=== PATIENT | female | born 1975 | race African-American/Black ===

== ENCOUNTER 2018-04-15 07:56 | Emergency (ER) | payer OTHER ==
[~2018-04-15] VITALS: Ht 165.1 cm; Wt 79.4 kg
[~2018-04-15 07:56] MED LIST: AUGMENTIN 875-1 EACH PO; BENADRYL25 MG PO; BIOTIN-D1 GM MISC; BUPROPION HCL100 MG PO; CARVEDILOL25 MG PO; CEPHALEXIN500 MG PO; COREG12.5 MG; ERYTHROMYCIN3.5 GM OPTH; HYDROCHLOROTHIA25 MG PO; HYDROCODON-ACE1 EA11 PO; IBUPROFEN400 MG PO; IBUPROFEN600 MG PO; MECLIZINE HCL25 MG PO; NORCO 5-325 TA1 EACH PO; NORCO 7.5-3251 EACH PO; OXYCODONE-ACET1 EAC3 PO; PSEUDOEPHEDRINE30 MG PO; PSEUDOEPHEDRINE60 MG PO; PYRIDIUM200 MG PO; RANITIDINE HCL150 MG PO; RANITIDINE HCL300 M1 PO; SUDAFED 12-HOU120 MG PO; TAMIFLU75 MG PO; TESSALON PERLE100 MG PO; ZITHROMAX250 MG PO
[2018-04-15] MEDS ORDERED: CARVEDILOL12.5 MG PO (08:23)
== END 2018-04-15 08:15 | disposition home or self-care (01) ==
LOC: ED 07:56
DX: R21 Rash and other nonspecific skin eruption (principal)

== ENCOUNTER 2019-01-24 17:39 | Emergency (ER) | payer OTHER ==
[~2019-01-24] VITALS: Ht 165.1 cm; Wt 76.2 kg
--- OUTSIDE RECORDS SUMMARY | ~2019-01-24 | XMS | Encounter Summary ---
Demographics + + + | Address | [address] | | | [place] [address] | + + + | Home Phone | | + + + | Preferred Language | Unknown | + + + | Marital Status | | + + + | Anabaptist Affiliation | Unknown | + + + | Race | Black or | + + + | Ethnic Group | Not or | + + + Author + + + | Author | [facility] | + + + | Organization | [facility] | + + + | Address | Unknown | + + + | Phone | Unavailable | + + + Support + + +---------+ + | Name | Relationship | Address | Phone | + + +---------+ + | Esau Mayers | ECON | Unknown | | + + +---------+ + Care Team Providers + +------+ + | Care Coreroom Foundry Laborer Name | Role | Phone | + +------+ + | Catalino Vides PRESSED OR BLOWN GLASS WORKER | PCP | | + +------+ + Reason for Referral Physical Therapy (Routine) +--------+--------+ + + + + | Status | Reason | Specialty | Diagnoses / | Referred By | Referred To | | | | | Procedures | Contact | Contact | +--------+--------+ + + + + | Closed | | Physical | Diagnoses | Nita, | | | | | Therapy | ACL graft | Mikayla | | | | | | tear, | TAB[facility]ar | | | | | | subsequent | [address] | | | | | | encounter | [address] | | | | | | Procedures | [place], [place] | | | | | | PHYSICAL | [address] | | | | | | THERAPY | Phone: | | | | | | REFERRAL | [phone] | | | | | | | Fax: | | | | | | | [phone] | | +--------+--------+ + + + + Reason for Visit + + + | Reason | Comments | + + + | Pre-op evaluation | | + + + Encounter Details +--------+---------+ + + + | Date | Type | Department | Care Team | Description | +--------+---------+ + + + | 08/19/ | Office | Orthopaedics at | Mikayla Moya | ACL graft tear, | | 2019 | Visit | [facility] [address] | [address] | subsequent encounter | | | | [address] Mailcode: CH12[address] | [address] | (Primary Dx) | | | | [facility] | [place], [place] | | | | | and Healing, | [address] | | | | | [facility] | [phone] | | | | | Floor [place], [place] | | | | | | [address] | | | | | | [phone] | | | +--------+---------+ + + + Social History + +-------+ +--------+------+ | Tobacco [...] + + + | Blood Pressure | - | - | | + + + + + | Pulse | - | - | | + [...] Weight | 77.1 kg (170 lb) | 08/19/2018 10:05 AM | | | | | PDT | | + + + + + | Height | 165.1 cm (5' 5") | 08/19/2018 10:05 AM | | | | | PDT | | + + + + + | Body Mass Index | 28.29 | 08/19/2018 10:05 AM | | | | | PDT | | + + + + + documented in this encounter Progress Notes Radha Han MA - 08/19/2018 10:20 AM PDTI fitted a tscope & crutches brace on this patient s R knee Mikayla Proctor PA-C - 08/19/2018 10:20 AM PDT S: Song Mayers here for preop for right knee revision arthroscopic ACL reconstru ction with allograft, removal of failed hardware, and possible bone grafting of prior ACL tu nnels. The patient reports no recent illness/fever. The patient reports these conditions, a llergies and medications significant to surgery: Diabetes: no Sleep apnea: no Cardiac: no Pulmonary: no Bleeding or clotting disorders: no No Known Allergies Current Medication List Name Sig CARVEDILOL 12.5 MG TABLET CARVEDILOL 25 MG TABLET Take 25 mg by mouth. HYDROCHLOROTHIAZIDE 25 MG TABLET Take 25 mg by mouth. OBJECTIVE General: NAD, alert, affect appropriate, cooperative with exam Musculoskeletal: No change from previous. Surgical site is unbroken, without erythema or other sign of infection. A:/P: -PT orders provided -Post operative prescriptions provided; pt advised to fill prior to surgery. -D/C home care instructions provided. DVT prophylaxis will be immediate ambulation, SCDs. A PARQ session was held. Additional questions with discussion were completed, and the patie nt freely signed the consent form. Patient expressed understanding of the following: - No food or drink from midnight the night before surgery until after surgery is completed. - Medications the day of surgery as recommended by Anesthesia. - Discontinue all aspirin, Ibuprofen, Motrin, or other anti-inflammatory 7-10 days before s urgery - Tylenol, Extra Strength Tylenol or Tylenol Arthritis are okay to use for pain control. - Benefits of home nerve block - Benefits of oral pain medication in addition to home nerve block - Necessity of bringing crutches to surgery -Proper use of brace and weightbearing precautions (if applicable) -Importance of attending post-operative appointments - Potential for ongoing physical therapy - Need for a caregiver to transport them home from surgery - Need for a caregiver to stay with them for at least 24 hours after surgery documented in this encounter Plan of Treatment +--------+---------+ + + + | Date | Type | Specialty | Care Team | Description | +--------+---------+ + + + | 03/07/ | Office | Orthopedics | Jv Thomas, | | | 2018 | Visit | | MD [address] | | | | | | [address] | | | | | | [place], [place] | | | | | | [address] | | | | | | [phone] | | | | | | | | +--------+---------+ + + + | 08/24/ | Office | Orthopedics | Jv Thomas, | | | 2019 | Visit | | MD [address] | | | | | | [address] | | | | | | [facility] [place] | | | | | | [address] | | | | | | [phone] | | | | | | | | +--------+---------+ + + + documented as of this encounter Procedures + +--------+ + + + | Procedure Name | Priori | Date/Time | Associated Diagnosis | Comments | | | ty | | | | + +--------+ + + + | ORDERS OTHER | | 08/19/2018 | | Results for this | | | | 12:00 AM | | procedure are in the | | | | PDT | | results section. | + +--------+ + + + documented in this encounter Results ORDERS OTHER (08/19/2018 12:00 AM PDT) + + + | Narrative | Performed At | + + + | | | + + + documented in this encounter Visit Diagnoses + + | Diagnosis | + + | ACL graft tear, subsequent encounter - Primary | + + documented in this encounter
--- OUTSIDE RECORDS SUMMARY | ~2019-01-24 | XMS | Encounter Summary ---
Demographics + + + | Address | [address] | | | [place] [address] | + + + | Home Phone | | + + + | Preferred Language | Unknown | + + + | Marital Status | | + + + | Hindu Affiliation | Unknown | + + + | Race | Black or | + + + | Ethnic Group | Not or | + + + Author + + + | Organization | Unknown | + + + | Address | Unknown | + + + | Phone | Unavailable | + + + Support + + +---------+ + | Name | Relationship | Address | Phone | + + +---------+ + | Esau Mayers | ECON | Unknown | | + + +---------+ + Care Team Providers + +------+ + | Care Professor Of Early Childhood Education Name | Role | Phone | + +------+ + | Catalino Vides NP | PCP | | + +------+ + Encounter Details +--------+--------+ + + + | Date | Type | Department | Care Team | Description | +--------+--------+ + + + | 10/07/ | Travel | | | | | 2018 | | | | | +--------+--------+ + + + Social History + +-------+ [...] as of this encounter Plan of Treatment +--------+---------+ + + + | Date | Type | Specialty | Care Team | Description | +--------+---------+ + + + | 03/07/ | Office | Orthopedics | Jv Thomas, | | | 2019 | Visit | | [address] | | | | | | [address] | | | | | | [place], [place] | | | | | | [address] | | | | | | [phone] | | | | | | | | +--------+---------+ + + + | 08/24/ | Office | Orthopedics | Jv Thomas, | | | 2019 | Visit | | [address] | | | | | | [address] | | | | | | [place] | | | | | | [address] | | | | | | [phone] | | | | | | | | +--------+---------+ + + + documented as of this encounter Visit Diagnoses Not on filedocumented in this encounter"
--- OUTSIDE RECORDS SUMMARY | ~2019-01-24 | XMS | Encounter Summary ---
Demographics + + + | Address | [address] | | | [place] [address] | + + + | Home Phone | | + + + | Preferred Language | Unknown | + + + | Marital Status | | + + + | Denominational Affiliation | Unknown | + + + | Race | Black or | + + + | Ethnic Group | Not or | + + + Author + + + | Author | [facility] | + + + | Organization | [facility] | + + + | Address | Unknown | + + + | Phone | Unavailable | + + + Support + + +---------+ + | Name | Relationship | Address | Phone | + + +---------+ + | Esau Mayers | ECON | Unknown | | + + +---------+ + Care Team Providers + +------+ + | Care Machine Heel Builder Name | Role | Phone | + +------+ + | Catalino Vides NP | PCP | | + +------+ + Reason for Visit + + + | Reason | Comments | + + + | Refill Encounters | | + + + Encounter Details +--------+ + + + + | Date | Type | Department | Care Team | Description | +--------+ + + + + | 08/31/ | Telephone | Orthopaedics at | Jv Thomas, | Refill Encounters | | 2019 | | [facility] [address] | MD [address] | | | | | [place] Mailcode: CH12A | [address] | | | | | [facility] | [place], [place] | | | | | and [place], | [address] | | | | | Building | [phone] | | | | | Floor [place], [place] | | | | | | [address] | | | | | | [phone] | | | +--------+ + + + [...] [address] | | | | | | [place], [place] | | | | | | [address] | | | | | | [phone] | | | | | | | | +--------+---------+ + + + | 08/24/ | Office | Orthopedics | Jv Thomas, | | | 2019 | Visit | | MD [address] | | | | | | [address] | | | | | | [place], [place] | | | | | | [address] | | | | | | [phone] | | | | | | | | +--------+---------+ + + + documented as of this encounter Visit Diagnoses Not on filedocumented in this encounter"
--- OUTSIDE RECORDS SUMMARY | ~2019-01-24 | XMS | Encounter Summary ---
Demographics + + + | Address | [address] | | | [place] [address] | + + + | Home Phone | | + + + | Preferred Language | Unknown | + + + | Marital Status | | + + + | Samaritan Affiliation | Unknown | + + + [...] Team Providers + +------+ + | Care Readers' Advisory Service Librarian Name | Role | Phone | + +------+ + | Catalino Vides NP | PCP | | + +------+ + Encounter Details +--------+--------+ + + + | Date | Type | Department | Care Team | Description | +--------+--------+ + + + | 09/09/ | Travel | | | | | [address] | | | | | | [place], [place] | | | | | | [address] | | | | | | [phone] | | | | | | | | +--------+---------+ + + + | 08/24/ | Office | Orthopedics | Jv Thomas, | | | 2019 | Visit | | [address] | | | | | | [address] | | | | | | [place] | | | | | | [address] | | | | | | [phone] | | | | | | | | +--------+---------+ + + + documented as of this encounter Visit Diagnoses Not on filedocumented in this encounter"
--- OUTSIDE RECORDS SUMMARY | ~2019-01-24 | XMS | Encounter Summary ---
Demographics + + + | Address | [address] | | | [place] [address] | + + + | Home Phone [...] Author + + + | Author | [facility] | + + + | Organization | [facility] | + + + | Address | Unknown | + + + | Phone | Unavailable | + + + Support + + +---------+ + | Name | Relationship | Address | Phone | + + +---------+ + | Esau Mayers | ECON | Unknown | | + + +---------+ + Care Team Providers + +------+ + | Care Sql Manager Name | Role | Phone | + +------+ + | Catalino Vides NP | PCP | | + +------+ + Reason for Referral PROC - Outpatient Surgery (Routine) +--------+--------+ + + + + | Status | Reason | Specialty | Diagnoses / | Referred By | Referred To | | | | | Procedures | Contact | Contact | +--------+--------+ + + + + | Closed | | Orthopedics | Diagnoses | Conner, | Martha, | | | | | ACL graft | Christo Moss, | Jv Moss MD | | | | | tear, | MD Diaz | [address] [facility] | | | | | initial | [facility] | [address] | | | | | encounter | & [place] | [place], | | | | | ([facility]) | [address] | [place] | | | | | Procedures | [place] | [address] | | | | | REQUEST TO | [place], | Phone: | | | | | SURGERY | [place] [address] | [phone] | | | | | INTAKE RN | Phone: | Fax: | | | | | [place] | [phone] | [phone] | | | | | SCOPE,AID | Fax: | | | | | | ANT CRUCIATE | [phone] | | | | | | REPAIR [place] | | | | | | | REMOVAL DEEP | | | | | | | IMPLANT | | | +--------+--------+ + + + + Reason for Visit + + + | Reason | Comments | + + + | New Patient Visit | | + + + Intake Referral (Routine) + +--------+ + + + + | Status | Reason | Specialty | Diagnoses / | Referred By | Referred To | | | | | Procedures | Contact | Contact | + +--------+ + + + + | Authorized | | Orthopedics | Diagnoses | Conner, | Martha, | | | | | Other tear | Christo Moss, | Jv Moss MD | | | | | of medial | MD [facility] | [address] | | | | | meniscus, | [facility] | [address] | | | | | current | & Fractur | [address] [place], | | | | | injury, | [address] | [place] | | | | | right knee, | [address] | [address] | | | | | initial | [place], | Phone: | | | | | encounter | [place] [address] | [phone] | | | | | Encounter | Phone: | Fax: | | | | | for other | [phone] | [phone] | | | | | orthopedic | Fax: | | | | | | aftercare | [phone] | | + +--------+ + + + + Encounter Details +--------+---------+ + + + | Date | Type | Department | Care Team | Description | +--------+---------+ + + + | 07/29/ | Office | Orthopaedics at | Jv Thomas, | ACL graft tear, | | 2019 | Visit | [facility] [address] | MD [address] | initial encounter | | | | Ave Mailcode: CH12A | [address] | ([facility]) (Primary Dx) | | | | [facility] | [place], [place] | | | | | and Healing, | [address] | | | | | Building | [phone] | | | | | Floor [place], [place] | | | | | | [address] | | | | | | [phone] | | | +--------+---------+ + + + [...] + + + + | Weight | 78 kg (172 lb) | 07/29/2018 9:31 AM | | | | | PDT | | + + + + + | Height | 165.1 cm (5' 5") | 07/29/2018 9:31 AM | | | | | PDT | | + + + + + | Body Mass Index | 28.62 | 07/29/2018 9:31 AM | | | | | PDT | | + + + + + documented in this encounter Progress Notes Jv Thomas MD - 07/29/2018 9:50 AM PDTFormatting of this note might be different fr om the original. CLINIC: [facility] Sports Medicine - Orthopedic Surgery PATIENT: Song Mayers [facility] MR#: [id number] : 1975 REQUESTING PROVIDER: Christo Prieto MD [facility] [address] [place] [address] PRIMARY CARE PROVIDER: Catalino Vides NP Primary reason for consult: right knee pain and instability Song Mayers is a 42 y.o. female who presents for evaluation of her right knee s ymptoms which started Mar 29, 2017. She fell wearing heels and dislocated her right shoulder and she was reduced in the ER and did PT. At the same time she injured her right knee. It b ecame very swollen and she had follow up care from PCP. She then saw Dr. Prieto who diagnosed ACL tear. He provided her with ACL reconstruction. She had auto hamstring ACL surgery based on her incision. She did 3 months PT. She never felt stable. It was loose and she never fel t confident. She then had to stop PT and she feels that she has lost strength making it even looser. Currently, both pain and instability are problems for her. About equal factors. She has not fallen but she feels like it will give out. The instability is worst with specific motions but the pain is worst with prolonged sitting or standing and is onstant. The knee feels tigh t most of the time. Past treatment includes rest, ice and NSAIDs. Past Medical History: Diagnosis Date Known health problems: none Past Surgical History Procedure Laterality Date Breast reduction 2018 Acl repair 2017 Hysterectomy 2013 Social History: Song reports that she has quit smoking. She has never used smokeless to bacco. She reports that she drinks alcohol. She reports that she does not use drugs.. 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 Family Hx: I reviewed and non-contributory Current Outpatient Prescriptions Medication carvedilol 12.5 mg oral tablet carvedilol 25 mg oral tablet hydroCHLOROthiazide 25 mg oral tablet No current facility-administered medications for this visit. Allergy: Song has No Known Allergies. Review of Systems: 10 point review of systems was complete. Pertinent positives include: None. PHYSICAL EXAMINATION Vital Signs: BP 116/80 (BP Location: Right upper arm) | Pulse 64 | Ht 1.651 m (5' 5") | Wt 78 kg (172 lb) | BMI 28.62 kg/m | BSA 1.89 m General: Alert and oriented x 3, NAD Affect: Pleasant and interactive Posture: nl WEIGHTBEARING RIGHT: Neutral LEFT: Neutral FEET: normal SQUAT: limited on right at 90 GAIT: normal SKIN: clean and clear, healed, prior incisions ACTIVE ROM: Right: 0-130, Left: 0-130 POPLITEAL ANGLE: Right: 20, Left: 20 QUADRICEPTS ATROPHY: Right 30% EFFUSION: Right 10 cc PATELLA: RIGHT LEFT NORMAL TILT Neutral Neutral GLIDE 2 quadrants 2 quadrants CREPITATION None None J SIGN Absent Absent TENDERNESS None None APPREHENSION Neg Neg LIGAMENTS: RIGHT LEFT VALGUS AT 30 Neg Neg VARUS AT 30 Neg Neg KAREEN 2b 0 ANT. DRAWER 2b Firm endpoint, symmetric PIVOT SHIFT deferred Absent POST. DRAWER Negative Negative PRONE DIAL 30 Symmetric Symmetric PRONE DIAL 90 Symmetric Symmetric PERIARTICULAR TENDERNESS: RIGHT LEFT JLT MEDIAL Neg Neg JLT LATERAL Neg Neg DARREN Neg Neg RENETTA Neg Neg PATELLAR TENDON EXT Neg Neg NVS: Intact Veronica Sign: Bilateral negative OTHER PHYSICAL FINDINGS: Radiographs: Within normal limits except as below RIGHT LEFT X-rays Nl postop MRI Displaced femoral ACL screw and wavy graft consistent with graft rupture ASSESSMENT/PLAN: Song Mayers is a 42 y.o. female with failed ACL reconstruction and loose screw in the joint. I have recommended immediate revision with removal of hardwar e and ACL tunnel bone grafting with staged revision grafting vs revision ACL reconstruction. Given the large previous tunnels, I have recommended allograft for revision and I explained that bone grafting is more likely. She understands and wishes to proceed. Jv Thomas MD Sports Orthopaedics and Arthroscopy Talent Coordinator Dept. Orthopaedic Surgery and Rehabilitation [facility] documented in this e ncounter Plan of Treatment +--------+---------+ + + + | Date | Type | Specialty | Care Team | Description | +--------+---------+ + + + | 03/07/ | Office | Orthopedics | Jv Thomas, | | | 2018 | Visit | | MD Joey Fortune | | | | | | [address] | | | | | | [facility] [place] | | | | | | [address] | | | | | | [phone] | | | | | | | | +--------+---------+ + + + | 08/24/ | Office | Orthopedics | Jv Thomas, | | | 2019 | Visit | | MD Joey Fortune | | | | | | [address] | | | | | | [facility] [place] | | | | | | [address] | | | | | | [phone] | | | | | | | | +--------+---------+ + + + documented as of this encounter Visit Diagnoses + + | Diagnosis | + + | ACL graft tear, initial encounter (HCC) - Primary | + + documented in this encounter
--- OUTSIDE RECORDS SUMMARY | ~2019-01-24 | XMS | Encounter Summary ---
Demographics + + + | Address | [address] | | | [place] [address] | + + + | Home Phone | | + + + | Preferred Language | Unknown | + + + | Marital Status | | + + + | Religion Affiliation | Unknown | + + + | Race | Black or | + + + | Ethnic Group | Not or | + + + Author + + + | Author | [facility] | + + + | Organization | [facility] | + + + | Address | Unknown | + + + | Phone | Unavailable | + + + Support + + +---------+ + | Name | Relationship | Address | Phone | + + +---------+ + | Esau Mayers | ECON | Unknown | | + + +---------+ + Care Team Providers + +------+ + | Care Heating Engineer Name | Role | Phone | + +------+ + | Catalino Vides WORLD LANGUAGE TEACHER | PCP | | + +------+ + [...] | | | | | initial | [facility] | [address] | | | | | encounter | & Fractur | Rd [place], | | | | | ([facility]) | [address] | [place] | | | | | Procedures | [address] | [address] | | | | | REQUEST TO | [place], | Phone: | | | | | SURGERY | [place] [address] | [phone] | | | | | MANAGER CLIENT | Phone: | Fax: | | | | | [place] | [phone] | [phone] | | | | | SCOPE,AID | Fax: | | | | | | ANT CRUCIATE | [phone] | | | | | | REPAIR [place] | | | | | | | REMOVAL DEEP | | | | | | | IMPLANT | | | +--------+--------+ + + + + Encounter Details +--------+---------+ + + + | Date | Type | Department | Care Team | Description | +--------+---------+ + + + | 09/09/ | Office | Orthopaedics at | Mikayla Moya | ACL graft tear, | | 2019 | Visit | [facility] [address] | [address] | subsequent encounter | | | | Ave Mailcode: CH12A | [address] | (Primary Dx) | | | | [facility] | [place], [place] | | | | | and [place], | [address] | | | | | [facility] | [phone] | | | | | Floor [place], [place] | | | | | | [address] | | | | | | [phone] | | | +--------+---------+ + + + [...] documented as of this encounter Progress Notes Mikayla Moya PA-C - 09/09/2018 9:20 AM PDTFormatting of this note might be di fferent from the original. Subjective: Song Mayers is 2 weeks status post: Date of surgery: 08/27/18 at [facility] Right knee revision ACL reconstruction with allograft and removal of failed hardware She states that she is progressing well. She has been compliant with 75% weightbearing [facility] with brace. She has not yet unlocked the brace during ambulation. She has attended 2 sessions of PT at [facility]. She continues to have moderate/severe pain and is taking oxycodone 1 tablet every 3 hours, trying to supplement with ibuprofen and tylenol. She den ies any numbness or tingling. No other concerns at today's visit. Objective: Vitals: 09/09/18 0915 PainSc: 08 - Very Severe PainLoc: Knee (Right) Gait: crutches, brace Incisions: clean and dry with no signs of infection. Effusion: small. Range of motion: 0 to 75 Stability: Jenise's and anterior drawer negative with firm end point. Neurovascular: Intact Jointline Tenderness: negative Fair quad set but largely unable to do SLR out of brace Assessment: Ms. Mayers is progressing well. Plan: The sutures are removed without complications. Patient to continue with rehabilition as instructed. Instructed to continue to work hard o n quad strengthening. Follow up in 4 weeks, instructions given and explained. documented in this encounter Plan of Treatment +--------+---------+ + + + | Date | Type | Specialty | Care Team | Description | +--------+---------+ + + + | 03/07/ | Office | Orthopedics | Jv Thomas, | | | 2018 | Visit | | MD Joey Fortune | | | | | | [address] | | | | | | [place], [place] | | | | | | [address] | | | | | | [phone] | | | | | | | | +--------+---------+ + + + | 08/24/ | Office | Orthopedics | Jv Thomas, | | | 2019 | Visit | | MD Joey Fortune | | | | | | [address] | | | | | | [place], [place] | | | | | | [address] | | | | | | [phone] | | | | | | | | +--------+---------+ + + + documented as of this encounter Visit Diagnoses + + | Diagnosis | + + | ACL graft tear, subsequent encounter - Primary | + + documented in this encounter"
--- OUTSIDE RECORDS SUMMARY | ~2019-01-24 | XMS | Encounter Summary ---
Demographics + + + | Address | [address] | | | [place] [address] | + + + | Home Phone | | + + + | Preferred Language | Unknown | + + + | Marital Status | | + + + | Mormon Affiliation | Unknown | + + + [...] Team Providers + +------+ + | Care Adult Neurologist Name | Role | Phone | + [...] Rd | | | | | | [place], [place] | | | | | | [address] | | | | | | [phone] | | | | | | | | +--------+---------+ + + + | 08/24/ | Office | Orthopedics | Jv Thomas, | | | 2019 | Visit | | [address] | | | | | | [address] | | | | | | [place] | | | | | | [address] | | | | | | [phone] | | | | | | | | +--------+---------+ + + + documented as of this encounter Visit Diagnoses Not on filedocumented in this encounter"
--- OUTSIDE RECORDS SUMMARY | ~2019-01-24 | XMS | Encounter Summary ---
Demographics + + + | Address | [address] | | | [place] [address] | + + + | Home Phone | | + + + | Preferred Language | Unknown | + + + | Marital Status | | + + + | Holiness Affiliation | Unknown | + + + | Race | Black or | + + + | Ethnic Group | Not or | + + + Author + + + | Author | [facility] | + + + | Organization | [facility] | + + + | Address | Unknown | + + + | Phone | Unavailable | + + + Support + + +---------+ + | Name | Relationship | Address | Phone | + + +---------+ + | Esau Mayers | ECON | Unknown | | + + +---------+ + Care Team Providers + +------+ + | Care Supervisor Alum Plant Name | Role | Phone | + +------+ + | Catalino Vides NP | PCP | | + +------+ + Encounter Details +--------+ + + + + | Date | Type | Department | Care Team | Description | +--------+ + + + + | 09/21/ | Telephone | Orthopaedics at | Jv Thomas, | | | 2018 | | [facility] [address] | [address] | | | | | [place] Mailcode: CH12A | [address] | | | | | [place] [facility] | [place], [place] | | | | | and [place], | [address] | | | | | [facility] | [phone] | | | | | Floor [place], [place] | | | | | | [address] | | | | | | [phone] | | | +--------+ + + + [...] Rd | | | | | | [place] | | | | | | [address] | | | | | | [phone] | | | | | | | | +--------+---------+ + + + | 08/24/ | Office | Orthopedics | Jv Thomas, | | | 2019 | Visit | | MD Joey Fortune | | | | | | [address] | | | | | | [place] | | | | | | [address] | | | | | | [phone] | | | | | | | | +--------+---------+ + + + documented as of this encounter Visit Diagnoses Not on filedocumented in this encounter"
--- OUTSIDE RECORDS SUMMARY | ~2019-01-24 | XMS | Encounter Summary ---
Demographics + + + | Address | [address] | | | [place] [address] | + + + | Home Phone [...] + + + | Author | [facility] | + + + | Organization | [facility] | + + + | Address | Unknown | + + + | Phone | Unavailable | + + + Support + + +---------+ + | Name | Relationship | Address | Phone | + + +---------+ + | Esau Mayers | ECON | Unknown | | + + +---------+ + Care Team Providers + +------+ + | Care Retanned Leather Roller Name | Role | Phone | + [...] (Right knee | | 2018 | | [facility] [address] | Clinic | ) | | | | [place] Mailcode: CH12A | | | | | | [facility] | | | | | | and [place], | | | | | | [facility] | | | | | | [place], [place] | | | | | | [address] | | | | | | [phone] | | | +--------+ + + + [...] 3:47 PM P DTUploading imaging reports from [facility]. Imaging is now in [facility]. Corinna Gil [...] Yes, when: 2018; where: Dr. Prieto at [place] [facility]. Uploaded in Abstract. Do you have a referring provider? yes who: Christo Prieto MD X-Ray Yes, when: 05/25/18; where: [place] Requested via FedEx, MRI Yes, when: 06/01/18; where: [place] Requested via N fax, Other Imaging (CT, Ultrasound, etc.) No Is this a W/C injury? No. If YES, create referral and complete: .ORTWCNEWPATIENT inside referral Note: We do not accept WC under [place] L&[place] as they do not pay at [place] rates. Other out of state claims will only be accepted if they agree to pay at [place] rates docume nted in writing from adjustor. Can you confirm the insurance we will be billing for this visit? [place] Open Option Note: If OHP, please note which type. E.g. [place], [place], [employer], etc.) Reminder: Please create referrals for pts with: HMO, OHP, [place], Self-Pay, W/C, TPL an d ED Post- [...] they d like to sign up for [place] ? Don t forget to pull in [...] | | | | | | [facility] [place] | | | | | | [address] | | | | | | [phone] | | | | | | | | +--------+---------+ + + + | 08/24/ | Office | Orthopedics | Jv Thomas, | | | 2019 | Visit | | MD Joey Fortune | | | | | | [address] | | | | | | [facility] [place] | | | | | | [address] | | | | | | [phone] | | | | | | | | +--------+---------+ + + + documented as of this encounter Visit Diagnoses Not on filedocumented in this encounter"
--- OUTSIDE RECORDS SUMMARY | ~2019-01-24 | XMS | Encounter Summary ---
Demographics + + + | Address | [address] | | | [place] [address] | + + + | Home Phone | | + + + | Preferred Language | Unknown | + + + | Marital Status | | + + + | Orthodox Affiliation | Unknown | + + + | Race | Black or | + + + | Ethnic Group | Not or | + + + Author + + + | Author | [facility] | + + + | Organization | [facility] | + + + | Address | Unknown | + + + | Phone | Unavailable | + + + Support + + +---------+ + | Name | Relationship | Address | Phone | + + +---------+ + | Esau Mayers | ECON | Unknown | | + + +---------+ + Care Team Providers + +------+ + | Care Plant Tech Name | Role | Phone | [...] 10/05/ | Telephone | Orthopaedics at | Jv Thomas, | Refill Encounters | | 2019 | | [facility] [address] | MD [address] | | | | | [place] Mailcode: CH12A | [address] | | | | | [facility] | [place], [place] | | | | | and [place], | [address] | | | | | Building | [phone] | | | | | Floor [place], [place] | | | | | | [address] | | | | | | [phone] | | | +--------+ + + + [...] Rd | | | | | | [place], [place] | | | | | | [address] | | | | | | [phone] | | | | | | | | +--------+---------+ + + + | 08/24/ | Office | Orthopedics | Jv Thomas, | | | 2019 | Visit | | MD Joey Fortune | | | | | | [address] | | | | | | [place], [place] | | | | | | [address] | | | | | | [phone] | | | | | | | | +--------+---------+ + + + documented as of this encounter Visit Diagnoses Not on filedocumented in this encounter"
--- OUTSIDE RECORDS SUMMARY | ~2019-01-24 | XMS | Encounter Summary ---
Demographics + + + | Address | [address] | | | [place] [address] | + + + | Home Phone | | + + + | Preferred Language | Unknown | + + + | Marital Status | | + + + | Catholic Affiliation | Unknown | + + + | Race | Black or | + + + | Ethnic Group | Not or | + + + Author + + + | Author | [facility] | + + + | Organization | [facility] | + + + | Address | Unknown | + + + | Phone | Unavailable | + + + Support + + +---------+ + | Name | Relationship | Address | Phone | + + +---------+ + | Esau Mayers | ECON | Unknown | | + + +---------+ + Care Team Providers + +------+ + | Care Electronic Prepress Technician Name | Role | Phone | [...] Refill Encounters | | 2019 | | [facility] [address] | MD [address] | | | | | [place] Mailcode: CH12A | [address] | | | | | [facility] | [place], [place] | | | | | and [place], | [address] | | | | | Building | [phone] | | | | | Floor [place], [place] | | | | | | [address] | | | | | | [phone] | | | +--------+ + + + [...] Rd | | | | | | [place], [place] | | | | | | [address] | | | | | | [phone] | | | | | | | | +--------+---------+ + + + | 08/24/ | Office | Orthopedics | Jv Thomas, | | | 2019 | Visit | | MD [address] | | | | | | [address] | | | | | | [place], [place] | | | | | | [address] | | | | | | [phone] | | | | | | | | +--------+---------+ + + + documented as of this encounter Visit Diagnoses Not on filedocumented in this encounter"
--- OUTSIDE RECORDS SUMMARY | ~2019-01-24 | XMS | Encounter Summary ---
Demographics + + + | Address | [address] | | | [place] [address] | + + + | Home Phone [...] [facility] [email or web address] [facility] | + + + | Organization | [facility] [email or web address] [facility] | + + + | Address | Unknown | + + + | Phone | Unavailable | + + + Support + + +---------+ + | Name | Relationship | Address | Phone | + + +---------+ + | Esau Mayers | ECON | Unknown | | + + +---------+ + Care Team Providers + +------+ + | Care Steel Plate Printer Name | Role | Phone | + [...] | +--------+ + + + + | 09/17/ | Telephone | Orthopaedics at | Jv Thomas, | Refill Encounters | | 2019 | | [facility] [address] | MD [address] | | | | | [place] Mailcode: CH12A | [address] | | | | | [facility] | [place], [place] | | | | | and [place], | [address] | | | | | Building | [phone] | | | | | Floor [place] [address], [place] | | | | | | [address] | | | | | | [phone] | | | +--------+ + + + [...] Rd | | | | | | [place] [address], [place] | | | | | | [address] | | | | | | [phone] | | | | | | | | +--------+---------+ + + + | 08/24/ | Office | Orthopedics | Jv Thomas, | | | 2019 | Visit | | MD [address] | | | | | | [address] | | | | | | [place], [place] | | | | | | [address] | | | | | | [phone] | | | | | | | | +--------+---------+ + + + documented as of this encounter Visit Diagnoses Not on filedocumented in this encounter"
--- OUTSIDE RECORDS SUMMARY | ~2019-01-24 | XMS | Encounter Summary ---
Demographics + + + | Address | [address] | | | [place] [address] | + + + | Home Phone | | + + + | Preferred Language | Unknown | + + + | Marital Status | | + + + | Latter Day Affiliation | Unknown | + + + | Race | Black or | + + + | Ethnic Group | Not or | + + + Author + + + | Author | [facility] | + + + | Organization | [facility] | [...] Team Providers + +------+ + | Care Credit Collections Rep Name | Role | Phone | + +------+ + | Catalino Vides DIRECTOR SALES SUPPORT | PCP | | + +------+ + [...] | | | | | initial | [facility] | [address] | | | | | encounter | & Fractur | Rd [place], | | | | | ([facility]) | [address] | [place] | | | | | Procedures | [place] | [address] | | | | | REQUEST TO | [place], | Phone: | | | | | SURGERY | [place] [address] | [phone] | | | | | HAT BRAIDER | Phone: | Fax: | | | | | [place] | [phone] | [phone] | | | | | SCOPE,AID | Fax: | | | | | | ANT CRUCIATE | [phone] | | | | | | REPAIR [place] | | | | | | | [...] tear, | | 2019 | Visit | [facility] [address] | [address] | subsequent encounter | | | | Ave Mailcode: CH12A | [address] | (Primary Dx) | | | | [facility] | [place], [place] | | | | | and [place], | [address] | | | | | [facility] | [phone] | | | | | Floor [place], [place] | | | | | | [address] | | | | | | [phone] | | | +--------+---------+ + + + [...] status post: Date of surgery: 08/27/18 at [facility] Right knee revision ACL reconstruction with allograft and removal of failed hardware She states that she is progressing well. She has been compliant with 75% weightbearing [facility] with brace. She has not yet unlocked the brace during ambulation. She has attended 2 sessions of PT at [facility]. She continues to have moderate/severe [...] Rd | | | | | | [place], [place] | | | | | | [address] | | | | | | [phone] | | | | | | | | +--------+---------+ + + + | 08/24/ | Office | Orthopedics | Jv Thomas, | | | 2019 | Visit | | MD [address] | | | | | | [address] | | | | | | [place], [place] | | | | | | [address] | | | | | | [phone] | | | | | | | | +--------+---------+ + + + documented as of this encounter Visit Diagnoses + + | Diagnosis | + + | ACL graft tear, subsequent encounter - Primary | + + documented in this encounter"
--- OUTSIDE RECORDS SUMMARY | ~2019-01-24 | XMS | Clinical Summary ---
Demographics + + + | Address | [address] | | | [place] [address] | + + + | Home Phone [...] + | Organization | [facility] | | | and [place] [...] Team Providers + +------+ + | Care Sales Engagement Manager Name | Role | Phone | [...] | | + +--------+ +--------+ +---------+------+ | [facility] | PHP | [phone] | 10/29/19 | [phone] | | PPO [...] | | 1976 | [phone] | [place] [address] | | | hilary | | | 6 (Home) | | + +--------+ +--------+ + + Advance Directives Patient has advance care planning documents, and code status on file. For more information, please contact:[facility] and [place] [address] + + + + + | Code Status | Date | Date | Comments | | | Activated | Inactivated | | + + + + + | Full Code | 02/02/2018 | 02/03/2018 | | | | 13:53 | 12:41 | | + + + + +
--- OUTSIDE RECORDS SUMMARY | ~2019-01-24 | XMS | Clinical Summary ---
Demographics + + + | Address | [address] | | | [place] [address] | + + + | Home Phone | | + + + | Preferred Language | Unknown | + + + | Marital Status | | + + + | Tenriism Affiliation | Unknown | + + + | Race | Unknown | + + + | Ethnic Group | Unknown | + + + Author + + + | Author | [facility] [employer] [facility] [facility] (Historical as of | | | 11-13-18) | + + + | Organization | [facility] [employer] (Historical as of | | | 11-13-18) [...] [place] | | | | | [address] | | + + + + + Care Team Providers + +------+ + | Care Medical Assisting Instructor Name | Role | Phone | [...] +------+-------+ + | PREMERA | PREMER | [id number] | | | [address] [address] | | | A | [address] | | | [place], [place] | | | DIMENS | | | | [address] | | | [place]ONS | | | | | + +--------+ +------+-------+ + | MEDICAID | EASTER | [id number] | | | [address] | | | N | | | | [place] | | | [place] | | | | [address] | | | SENIOR SALES REPRESENTATIVE | | | | | + +--------+ [...] | Self [birth year] Home: | [facility] [address] | | | al/Fam | | 1976 | [phone] [address] [place] | | | hilary | | | [phone] | [phone] | + +--------+ +--------+ + +
--- OUTSIDE RECORDS SUMMARY | ~2019-01-24 | XMS | Encounter Summary ---
Demographics + + + | Address | [address] | | | [place] [address] | + + + | Home Phone [...] Author + + + | Author | [facility] | + + + | Organization | [facility] | [...] Team Providers + +------+ + | Care Paper Inspector Name | Role | Phone | + +------+ + | Catalino Vides PLASTIC MACHINE OPERATOR | PCP | | + +------+ [...] Op | | 2019 | | [facility] [address] | [address] | | | | | Ave Mailcode: CH12A | [facility] | | | | | [facility] | [place], [place] | | | | | and [place], | [address] | | | | | [facility] | [phone] | | | | | Floor [place], [place] | | | | | | [address] | | | | | | [phone] | | | +--------+ + + + [...] Rd | | | | | | [place], [place] | | | | | | [address] | | | | | | [phone] | | | | | | | | +--------+---------+ + + + | 08/24/ | Office | Orthopedics | Jv Thomas, | | | 2019 | Visit | | MD [address] | | | | | | [address] | | | | | | [place], [place] | | | | | | [address] | | | | | | [phone] | | | | | | | | +--------+---------+ + + + documented as of this encounter Visit Diagnoses Not on filedocumented in this encounter"
--- OUTSIDE RECORDS SUMMARY | ~2019-01-24 | XMS | Encounter Summary ---
Demographics + + + | Address | [address] | | | [place] [address] | + + + | Home Phone [...] Author + + + | Author | [facility] | + + + | Organization | [facility] | + + + | Address | Unknown | + + + | Phone | Unavailable | + + + Support + + +---------+ + | Name | Relationship | Address | Phone | + + +---------+ + | Esau Mayers | ECON | Unknown | | + + +---------+ + Care Team Providers + +------+ + | Care Operational Risk Manager Name | Role | Phone | [...] | | tear, | MD Diaz | [address] [facility] | | | | | initial | [facility] | [address] | | | | | encounter | & [place] | [place], | | | | | ([facility]) | [address] | [place] | | | | | Procedures | [place] | [address] | | | | | REQUEST TO | [place], | Phone: | | | | | SURGERY | [place] [address] | [phone] | | | | | DIGESTER OPERATOR HELPER | Phone: | Fax: | | | | | [place] | [phone] | [phone] | | | | | SCOPE,AID | Fax: | | | | | | ANT CRUCIATE | [phone] | | | | | | REPAIR [place] | | | | | | | [...] | | | | | meniscus, | [facility] | [address] | | | | | current | & Fractur | [address] [place], | | | | | injury, | [address] | [place] | | | | | right knee, | [address] | [address] | | | | | initial | [place], | Phone: | | | | | encounter | [place] [address] | [phone] | | | | | Encounter | Phone: | Fax: | | | | | for other | [phone] | [phone] | | | | | orthopedic | Fax: | | | | | | aftercare | [phone] | | + +--------+ + + + + Encounter Details +--------+---------+ + + + | Date | Type | Department | Care Team | Description | +--------+---------+ + + + | 07/29/ | Office | Orthopaedics at | Jv Thomas, | ACL graft tear, | | 2019 | Visit | [facility] [address] | MD [address] | initial encounter | | | | Ave Mailcode: CH12A | [address] | ([facility]) (Primary Dx) | | | | [facility] | [place], [place] | | | | | and Healing, | [address] | | | | | Building | [phone] | | | | | Floor [place], [place] | | | | | | [address] | | | | | | [phone] | | | +--------+---------+ + + + [...] be different fr om the original. CLINIC: [facility] Sports Medicine - Orthopedic Surgery PATIENT: Song Mayers [facility] MR#: [id number] : 1975 REQUESTING PROVIDER: Christo Prieto MD [facility] Ortho & Fractur [address] [place] [address] PRIMARY CARE PROVIDER: Catalino Vides NP Primary [...] Jv Thomas MD Sports Orthopaedics and Arthroscopy Inspector [employer] Dept. Orthopaedic Surgery and Rehabilitation [facility] documented in this e ncounter Plan of Treatment +--------+---------+ + + + | Date | Type | Specialty | Care Team | Description | +--------+---------+ + + + | 03/07/ | Office | Orthopedics | Jv Thomas, | | | 2018 | Visit | | MD Joey Fortune | | | | | | [address] | | | | | | [facility] [place] | | | | | | [address] | | | | | | [phone] | | | | | | | | +--------+---------+ + + + | 08/24/ | Office | Orthopedics | Jv Thomas, | | | 2019 | Visit | | MD Joey Fortune | | | | | | [address] | | | | | | [facility] [place] | | | | | | [address] | | | | | | [phone] | | | | | | | | +--------+---------+ + + + documented as of this encounter Visit Diagnoses + + | Diagnosis | + + | ACL graft tear, initial encounter (HCC) - Primary | + + documented in this encounter
--- OUTSIDE RECORDS SUMMARY | ~2019-01-24 | XMS | Encounter Summary ---
Demographics + + + | Address | [address] | | | [place] [address] | + + + | Home Phone [...] Author + + + | Author | [facility] | + + + | Organization | [facility] | + + + | Address | Unknown | + + + | Phone | Unavailable | + + + Support + + +---------+ + | Name | Relationship | Address | Phone | + + +---------+ + | Esau Mayers | ECON | Unknown | | + + +---------+ + Care Team Providers + +------+ + | Care Library Media Specialist Name | Role | Phone | + +------+ + | Catalino Vides ENVIRONMENTAL ISSUES INSTRUCTOR | PCP | | + +------+ + [...] | | | | | Procedures | [place], [place] | | | | | | PHYSICAL | [address] | | | | | | THERAPY | Phone: | | | | | | REFERRAL | [phone] | | | | | | | Fax: | | | | | | | [phone] | | +--------+--------+ + + + + [...] tear, | | 2019 | Visit | [facility] [address] | [address] | subsequent encounter | | | | Ave Mailcode: CH12A | [address] | (Primary Dx) | | | | Center for [facility] | [place], [place] | | | | | and Healing, | [address] | | | | | [facility] | [phone] | | | | | Floor [place], [place] | | | | | | [address] | | | | | | [phone] | | | +--------+---------+ + + + [...] Rd | | | | | | [place], [place] | | | | | | [address] | | | | | | [phone] | | | | | | | | +--------+---------+ + + + | 08/24/ | Office | Orthopedics | Jv Thomas, | | | 2019 | Visit | | MD [address] Fortune | | | | | | [address] | | | | | | [facility] [place] | | | | | | [address] | | | | | | [phone] | | | | | | | [...]
--- OUTSIDE RECORDS SUMMARY | ~2019-01-24 | XMS | Clinical Summary ---
Demographics + + + | Address | [address] | | | [place] [address] | + + + | Home Phone [...] Team Providers + +------+ + | Care Obstetrician And Gynaecologist Name | Role | Phone | + +------+ + | Catalino Vides NP | PCP | | + +------+ + Source Comments CATH[facility]INE is fully live on both [facility] and [facility] Allergies No Known Allergies Medications + + [...] Rd | | | | | | [place], [place] | | | | | | [address] | | | | | | [phone] | | | | | | | | +--------+---------+ + + + | 08/24/ | Office | Orthopedics | Jv Thomas, | | | 2019 | Visit | | MD [address] | | | | | | [address] | | | | | | [place], [place] | | | | | | [address] | | | | | | [phone] | | | | | | | [...] | + +--------+ +--------+ + +------+ | [facility] | PROVID | [phone] | 10/29/19 | [phone] | [address] | PPO | | | ENCE | | 18-Pre | 0 | [address] | | | | HEALTH | | sent | | [place], | | | | | | | | [place] [address] | | + +--------+ +--------+ + +------+ [...] | 1976 | [phone] | [place] [address] | | | hilary | | | 6 (Home) | | + +--------+ +--------+ + +
--- OUTSIDE RECORDS SUMMARY | ~2019-01-24 | XMS | Encounter Summary ---
Demographics + + + | Address | [address] | | | [place] [address] | + + + | Home Phone | | + + + | Preferred Language | Unknown | + + + | Marital Status | | + + + | Mandaen Affiliation | Unknown | + + + [...] Team Providers + +------+ + | Care Mobile Practice Lead Name | Role | Phone | + [...] [place] | | | | | | [address] | | | | | | [phone] | | | | | | | | +--------+---------+ + + + | 08/24/ | Office | Orthopedics | Jv Thomas, | | | 2019 | Visit | | [address] | | | | | | [address] | | | | | | [place] | | | | | | [address] | | | | | | [phone] | | | | | | | | +--------+---------+ + + + documented as of this encounter Visit Diagnoses Not on filedocumented in this encounter"
--- OUTSIDE RECORDS SUMMARY | ~2019-01-24 | XMS | Encounter Summary ---
Demographics + + + | Address | [address] | | | [place] [address] | + + + | Home Phone | | + + + | Preferred Language | Unknown | + + + | Marital Status | | + + + | Faith Affiliation | Unknown | + + + [...] Team Providers + +------+ + | Care Back Up Worker Name | Role | Phone | [...] Rd | | | | | | [place], [place] | | | | | | [address] | | | | | | [phone] | | | | | | | | +--------+---------+ + + + | 08/24/ | Office | Orthopedics | Jv Thomas, | | | 2019 | Visit | | [address] | | | | | | [address] | | | | | | [place] | | | | | | [address] | | | | | | [phone] | | | | | | | | +--------+---------+ + + + documented as of this encounter Visit Diagnoses Not on filedocumented in this encounter"
--- OUTSIDE RECORDS SUMMARY | ~2019-01-24 | XMS | Encounter Summary ---
Demographics + + + | Address | [address] | | | [place] [address] | + + + | Home Phone [...] Author + + + | Author | [facility] | + + + | Organization | [facility] | + + + | Address | Unknown | + + + | Phone | Unavailable | + + + Support + + +---------+ + | Name | Relationship | Address | Phone | + + +---------+ + | Esau Mayers | ECON | Unknown | | + + +---------+ + Care Team Providers + +------+ + | Care Inspector Subassemblies Name | Role | Phone | + [...] | | 2019 | on | [facility] [address] | [address] | | | | | Ave Mailcode: CH12A | [address] | | | | | [facility] | [place], [place] | | | | | and [place], | [address] | | | | | [facility] | [phone] | | | | | Floor [place], [place] | | | | | | [address] | | | | | | [phone] | | | +--------+ + + + [...] Rd | | | | | | [facility] [place] | | | | | | [address] | | | | | | [phone] | | | | | | | | +--------+---------+ + + + | 08/24/ | Office | Orthopedics | Jv Thomas, | | | 2019 | Visit | | MD [address] Fortune | | | | | | [address] | | | | | | [facility] [place] | | | | | | [address] | | | | | | [phone] | | | | | | | | +--------+---------+ + + + documented as of this encounter Visit Diagnoses Not on filedocumented in this encounter"
--- OUTSIDE RECORDS SUMMARY | ~2019-01-24 | XMS | Encounter Summary ---
Demographics + + + | Address | [address] | | | [place] [address] | + + + | Home Phone [...] + + | Author | [facility] | + + + | Organization | [facility] | + + + | Address | Unknown | + + + | Phone | Unavailable | + + + Support + + +---------+ + | Name | Relationship | Address | Phone | + + +---------+ + | Esau Mayers | ECON | Unknown | | + + +---------+ + Care Team Providers + +------+ + | Care Instructional Support Assistant Name | Role | Phone | + +------+ + | Catalino Vides OPERATIONAL TEST MECHANIC | PCP | | + +------+ + [...] Op | | 2019 | | [facility] [address] | [address] | | | | | Ave Mailcode: CH12A | [facility] | | | | | [facility] | [place], [place] | | | | | and [place], | [address] | | | | | [facility] | [phone] | | | | | Floor [place], [place] | | | | | | [address] | | | | | | [phone] | | | +--------+ + + + [...] Rd | | | | | | [place], [place] | | | | | | [address] | | | | | | [phone] | | | | | | | | +--------+---------+ + + + | 08/24/ | Office | Orthopedics | Jv Thomas, | | | 2019 | Visit | | MD [address] | | | | | | [address] | | | | | | [place], [place] | | | | | | [address] | | | | | | [phone] | | | | | | | | +--------+---------+ + + + documented as of this encounter Visit Diagnoses Not on filedocumented in this encounter"
--- OUTSIDE RECORDS SUMMARY | ~2019-01-24 | XMS | Encounter Summary ---
Demographics + + + | Address | [address] | | | [place] [address] | + + + | Home Phone [...] + + + | Author | [facility] | + + + | Organization | [facility] | + + + | Address | Unknown | + + + | Phone | Unavailable | + + + Support + + +---------+ + | Name | Relationship | Address | Phone | + + +---------+ + | Esau Mayers | ECON | Unknown | | + + +---------+ + Care Team Providers + +------+ + | Care Welding Engineer Name | Role | Phone | + +------+ + | Catalino Vides FELLMONGERING MACHINE OPERATOR | PCP | | + [...] | encounter | & Fractur | Rd [place], | | | | | ([facility]) | [address] | [place] | | | | | Procedures | [place] | [address] | | | | | REQUEST TO | [place], | Phone: | | | | | SURGERY | [place] [address] | [phone] | | | | | CIGARETTE MAKING MACHINE CATCHER | Phone: | Fax: | | | | | [place] | [phone] | [phone] | | | | | SCOPE,AID | Fax: | | | | | | ANT CRUCIATE | [phone] | | | | | | REPAIR [place] | | | | | | | [...] | 2019 | Visit | [facility] [address] | [address] | subsequent encounter | | | | [place] Mailcode: CH12A | [address] | (Primary Dx) | | | | [facility] | [place], [place] | | | | | and [place], | [address] | | | | | [facility] | [phone] | | | | | Floor [place], [place] | | | | | | [address] | | | | | | [phone] | | | +--------+---------+ + + + [...] status post: Date of surgery: 08/27/18 at [facility] Right knee revision ACL reconstruction with allograft and removal of failed hardware She is no longer using the knee brace full weight bearing. Has been working with PT doing a lot of strengthening exercises. Looking for a release form back to work but needs 1 more week off before starting. 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 Gait: normal Incisions: clean and dry with [...] Jv Thomas MD Sports Orthopaedics and Arthroscopy Chief Dog License Inspector Dept. Orthopaedic Surgery and Rehabilitation [facility] [place] documented in this e ncounter Plan of Treatment +--------+---------+ + + + | Date | Type | Specialty | Care Team | Description | +--------+---------+ + + + | 03/07/ | Office | Orthopedics | Jv Thomas, | | | 2018 | Visit | | MD Joey Fortune | | | | | | [address] | | | | | | [place], [place] | | | | | | [address] | | | | | | [phone] | | | | | | | | +--------+---------+ + + + | 08/24/ | Office | Orthopedics | Jv Thomas, | | | 2019 | Visit | | MD [address] Fortune | | | | | | [address] | | | | | | [place], [place] | | | | | | [address] | | | | | | [phone] | | | | | | | [...]
--- OUTSIDE RECORDS SUMMARY | ~2019-01-24 | XMS | Encounter Summary ---
Demographics + + + | Address | [address] | | | [place] [address] | + + + | Home Phone [...] Author + + + | Author | [facility] | + + + | Organization | [facility] | + [...] Team Providers + +------+ + | Care Network Systems Operator Name | Role | Phone | [...] | | 2019 | on | [facility] [address] | [address] | | | | | Ave Mailcode: CH12A | [address] | | | | | [facility] | [place], [place] | | | | | and [place], | [address] | | | | | [facility] | [phone] | | | | | Floor [place], [place] | | | | | | [address] | | | | | | [phone] | | | +--------+ + + + [...] Rd | | | | | | [facility] [place] | | | | | | [address] | | | | | | [phone] | | | | | | | | +--------+---------+ + + + | 08/24/ | Office | Orthopedics | Jv Thomas, | | | 2019 | Visit | | MD [address] Fortune | | | | | | [address] | | | | | | [facility] [place] | | | | | | [address] | | | | | | [phone] | | | | | | | | +--------+---------+ + + + documented as of this encounter Visit Diagnoses Not on filedocumented in this encounter"
--- OUTSIDE RECORDS SUMMARY | ~2019-01-24 | XMS | Encounter Summary ---
Demographics + + + | Address | [address] | | | [place] [address] | + + + | Home Phone [...] Author + + + | Author | [facility] | + + + | Organization | [facility] | + + + | Address | Unknown | + + + | Phone | Unavailable | + + + Support + + +---------+ + | Name | Relationship | Address | Phone | + + +---------+ + | Esau Mayers | ECON | Unknown | | + + +---------+ + Care Team Providers + +------+ + | Care Camp Coordinator Name | Role | Phone | + [...] Refill Encounters | | 2019 | | [facility] [address] | MD [address] | | | | | [place] Mailcode: CH12A | [address] | | | | | [facility] | [place], [place] | | | | | and [place], | [address] | | | | | Building | [phone] | | | | | Floor [place], [place] | | | | | | [address] | | | | | | [phone] | | | +--------+ + + + [...] | | | | | | [place], [place] | | | | | | [address] | | | | | | [phone] | | | | | | | | +--------+---------+ + + + | 08/24/ | Office | Orthopedics | Jv Thomas, | | | 2019 | Visit | | MD [address] | | | | | | [address] | | | | | | [place], [place] | | | | | | [address] | | | | | | [phone] | | | | | | | | +--------+---------+ + + + documented as of this encounter Visit Diagnoses Not on filedocumented in this encounter"
--- OUTSIDE RECORDS SUMMARY | ~2019-01-24 | XMS | Encounter Summary ---
Demographics + + + | Address | [address] | | | [place] [address] | + + + | Home Phone [...] + + | Author | [facility] | + + + | Organization | [facility] | + + + | Address | Unknown | + + + | Phone | Unavailable | + + + Support + + +---------+ + | Name | Relationship | Address | Phone | + + +---------+ + | Esau Mayers | ECON | Unknown | | + + +---------+ + Care Team Providers + +------+ + | Care Senior Technical Business Analyst Name | Role | Phone | + [...] (Right knee | | 2018 | | [facility] [address] | Clinic | ) | | | | [address] Mailcode: CH12A | | | | | | [facility] | | | | | | and [place], | | | | | | [facility] | | | | | | [place], [place] | | | | | | [address] | | | | | | [phone] | | | +--------+ + + + [...] 3:47 PM P DTUploading imaging reports from [facility]. Imaging is now in [facility]. Corinna [...] Yes, when: 2018; where: Dr. Prieto [facility]. Uploaded in Abstract. Do you have a referring provider? yes who: Christo Prieto MD X-Ray Yes, when: 05/25/18; where: [facility] [place] Requested via FedEx, MRI Yes, when: 06/01/18; where: [facility] Requested via N fax, Other Imaging (CT, Ultrasound, etc.) No Is this a W/C injury? No. If YES, create referral and complete: .ORTWCNEWPATIENT inside referral Note: We do not accept WC under [place] L&[place] as they do not pay at [place] rates. Other out of state claims will only be accepted if they agree to pay at [place] rates docume nted in writing from adjustor. Can you confirm the insurance we will be billing for this visit? [place] Open Option Note: If OHP, please note which type. E.g. [place], [place], [employer], etc.) Reminder: Please create referrals for pts with: HMO, OHP, [place], Self-Pay, W/C, TPL an d ED Post- [...] they d like to sign up for [employer] ? Don t forget to pull in [...] Rd | | | | | | [facility] [place] | | | | | | [address] | | | | | | [phone] | | | | | | | | +--------+---------+ + + + | 08/24/ | Office | Orthopedics | Jv Thomas, | | | 2019 | Visit | | MD [address] | | | | | | [address] | | | | | | [facility] [place] | | | | | | [address] | | | | | | [phone] | | | | | | | | +--------+---------+ + + + documented as of this encounter Visit Diagnoses Not on filedocumented in this encounter"
--- OUTSIDE RECORDS SUMMARY | ~2019-01-24 | XMS | Encounter Summary ---
Demographics + + + | Address | [address] | | | [place] [address] | + + + | Home Phone [...] + + + | Author | [facility] | + + + | Organization | [facility] | + + + | Address | Unknown | + + + | Phone | Unavailable | + + + Support + + +---------+ + | Name | Relationship | Address | Phone | + + +---------+ + | Esau Mayers | ECON | Unknown | | + + +---------+ + Care Team Providers + +------+ + | Care Environmental Project Manager Name | Role | Phone | + +------+ + | Catalino Vides STILL CLEANER | PCP | | + +------+ + [...] | | | | | initial | [facility] | [address] | | | | | encounter | & Fractur | Rd [place], | | | | | ([facility]) | [address] | [place] | | | | | Procedures | [place] | [address] | | | | | REQUEST TO | [place], | Phone: | | | | | SURGERY | [place] [address] | [phone] | | | | | PUSHCART PEDDLER | Phone: | Fax: | | | | | [place] | [phone] | [phone] | | | | | SCOPE,AID | Fax: | | | | | | ANT CRUCIATE | [phone] | | | | | | REPAIR [place] | | | | | | | [...] | 2019 | Visit | [facility] [address] | [address] | subsequent encounter | | | | [place] Mailcode: CH12A | [address] | (Primary Dx) | | | | [facility] | [place], [place] | | | | | and [place], | [address] | | | | | [facility] | [phone] | | | | | Floor [place], [place] | | | | | | [address] | | | | | | [phone] | | | +--------+---------+ + + + [...] more week off before starting. 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 Gait: normal Incisions: clean and dry with [...] Jv Thomas MD Sports Orthopaedics and Arthroscopy Forepart Reducer Dept. Orthopaedic Surgery and Rehabilitation [facility] [place] documented in this e ncounter Plan of Treatment +--------+---------+ + + + | Date | Type | Specialty | Care Team | Description | +--------+---------+ + + + | 03/07/ | Office | Orthopedics | Jv Thomas, | | | 2018 | Visit | | MD [address] | | | | | | [address] | | | | | | [place], [place] | | | | | | [address] | | | | | | [phone] | | | | | | | | +--------+---------+ + + + | 08/24/ | Office | Orthopedics | Jv Thomas, | | | 2019 | Visit | | MD [address] | | | | | | [address] | | | | | | [place], [place] | | | | | | [address] | | | | | | [phone] | | | | | | | [...]
--- OUTSIDE RECORDS SUMMARY | ~2019-01-24 | XMS | Encounter Summary ---
Demographics + + + | Address | [address] | | | [place] [address] | + + + | Home Phone [...] + + | Author | [facility] | + + + | Organization | [facility] | + + + | Address | Unknown | + + + | Phone | Unavailable | + + + Support + + +---------+ + | Name | Relationship | Address | Phone | + + +---------+ + | Esau Mayers | ECON | Unknown | | + + +---------+ + Care Team Providers + +------+ + | Care Assistant Professor Of Psychology Name | Role | Phone | + +------+ + | Catalino Vides NP | PCP | | + +------+ + Encounter Details +--------+ + + + + | Date | Type | Department | Care Team | Description | +--------+ + + + + | 09/21/ | Telephone | Orthopaedics at | Jv Thomas, | | | 2018 | | [facility] [address] | [address] | | | | | [place] Mailcode: CH12A | [address] | | | | | [place] [facility] | [place], [place] | | | | | and [place], | [address] | | | | | [facility] | [phone] | | | | | Floor [place], [place] | | | | | | [address] | | | | | | [phone] | | | +--------+ + + + [...] Rd | | | | | | [place] | | | | | | [address] | | | | | | [phone] | | | | | | | | +--------+---------+ + + + | 08/24/ | Office | Orthopedics | Jv Thomas, | | | 2019 | Visit | | MD [address] | | | | | | [address] | | | | | | [place] | | | | | | [address] | | | | | | [phone] | | | | | | | | +--------+---------+ + + + documented as of this encounter Visit Diagnoses Not on filedocumented in this encounter"
--- OUTSIDE RECORDS SUMMARY | ~2019-01-24 | XMS | Clinical Summary ---
Demographics + + + | Address | [address] | | | [place] [address] | + + + | Home Phone | | + + + | Preferred Language | Unknown | + + + | Marital Status | | + + + | Jainism Affiliation | Unknown | + + + | Race | Unknown | + + + | Ethnic Group | Unknown | + + + Author + + + | Author | [facility] | | | and [place] | + + + | Organization | [facility] | | | and [place] [...] Team Providers + +------+ + | Care Car Seat Coverer Name | Role | Phone | + [...] | [facility] | PHP | [phone] | 10/29/19 | [phone] | | PPO [...] | | 1976 | [phone] | [place] [address] | | | hilary | | | 6 (Home) | | + +--------+ +--------+ + + Advance Directives Patient has advance care planning documents, and code status on file. For more information, please contact:[facility] and [place] [address] + + + + + | Code Status | Date | Date | Comments | | | Activated | Inactivated | | + + + + + | Full Code | 02/02/2018 | 02/03/2018 | | | | 13:53 | 12:41 | | + + + + +
--- OUTSIDE RECORDS SUMMARY | ~2019-01-24 | XMS | Encounter Summary ---
Demographics + + + | Address | [address] | | | [place] [address] | + + + | Home Phone [...] Team Providers + +------+ + | Care Mold Cleaning And Storage Supervisor Name | Role | Phone | + [...] Rd | | | | | | [place], [place] | | | | | | [address] | | | | | | [phone] | | | | | | | | +--------+---------+ + + + | 08/24/ | Office | Orthopedics | Jv Thomas, | | | 2019 | Visit | | [address] | | | | | | [address] | | | | | | [place] | | | | | | [address] | | | | | | [phone] | | | | | | | | +--------+---------+ + + + documented as of this encounter Visit Diagnoses Not on filedocumented in this encounter"
--- OUTSIDE RECORDS SUMMARY | ~2019-01-24 | XMS | Encounter Summary ---
Demographics + + + | Address | [address] | | | [place] [address] | + + + | Home Phone [...] Author | [facility] | + + + | Organization | [facility] | + + + | Address | Unknown | + + + | Phone | Unavailable | + + + Support + + +---------+ + | Name | Relationship | Address | Phone | + + +---------+ + | Esau Mayers | ECON | Unknown | | + + +---------+ + Care Team Providers + +------+ + | Care Hollow Handle Bench Worker Name | Role | Phone | [...] Refill Encounters | | 2019 | | [facility] [address] | MD [address] | | | | | [place] Mailcode: CH12A | [address] | | | | | [facility] | [place], [place] | | | | | and [place], | [address] | | | | | Building | [phone] | | | | | Floor [place], [place] | | | | | | [address] | | | | | | [phone] | | | +--------+ + + + [...] Rd | | | | | | [place], [place] | | | | | | [address] | | | | | | [phone] | | | | | | | | +--------+---------+ + + + | 08/24/ | Office | Orthopedics | Jv Thomas, | | | 2019 | Visit | | MD [address] | | | | | | [address] | | | | | | [place], [place] | | | | | | [address] | | | | | | [phone] | | | | | | | | +--------+---------+ + + + documented as of this encounter Visit Diagnoses Not on filedocumented in this encounter"
--- OUTSIDE RECORDS SUMMARY | ~2019-01-24 | XMS | Encounter Summary ---
Demographics + + + | Address | [address] | | | [place] [address] | + + + | Home Phone | | + + + | Preferred Language | Unknown | + + + | Marital Status | | + + + | Confucianism Affiliation | Unknown | + + + | Race | Black or | + + + | Ethnic Group | Not or | + + + Author + + + | Author | [facility] | + + + | Organization | [facility] | + [...] Team Providers + +------+ + | Care Corporate Licensed Broker Name | Role | Phone | + [...] Refill Encounters | | 2019 | | [facility] [address] | MD [address] | | | | | [place] Mailcode: CH12A | [address] | | | | | [facility] | [place], [place] | | | | | and [place], | [address] | | | | | Building | [phone] | | | | | Floor [place], [place] | | | | | | [address] | | | | | | [phone] | | | +--------+ + + + [...] Rd | | | | | | [place], [place] | | | | | | [address] | | | | | | [phone] | | | | | | | | +--------+---------+ + + + | 08/24/ | Office | Orthopedics | Jv Thomas, | | | 2019 | Visit | | MD [address] Fortune | | | | | | [address] | | | | | | [place], [place] | | | | | | [address] | | | | | | [phone] | | | | | | | | +--------+---------+ + + + documented as of this encounter Visit Diagnoses Not on filedocumented in this encounter"
--- OUTSIDE RECORDS SUMMARY | ~2019-01-24 | XMS | Clinical Summary ---
Demographics + + + | Address | [address] | | | [place] [address] | + + + | Home Phone | | + + + | Preferred Language | Unknown | + + + | Marital Status | | + + + | Congregational Affiliation | Unknown | + + + | Race | Unknown | + + + | Ethnic Group | Unknown | + + + Author + + + | Author | [facility] [employer] (Historical as of | | | 11-13-18) | + + + | Organization | [facility] [employer] (Historical as of | | | 11-13-18) [...] [place] | | | | | [address] | | + + + + + Care Team Providers + +------+ + | Care Back Shoe Cutter Name | Role | Phone | + [...] +------+-------+ + | PREMERA | PREMER | [id number] | | | [address] [address] | | | A | [address] | | | [place], [place] | | | [place] | | | | [address] | | | [place] | | | | | + +--------+ +------+-------+ + | MEDICAID | EASTER | [id number] | | | [address] | | | N | | | | [place] | | | [place] | | | | [address] | | | HAND RIVETER | | | | | + +--------+ [...] | Self | [birth year] | Home: | [address] | | | al/Fam | | 1976 | [phone] | [address] [place] | | | hilary | | | [phone] | [address] | + +--------+ +--------+ + +
--- OUTSIDE RECORDS SUMMARY | ~2019-01-24 | XMS | Clinical Summary ---
Demographics + + + | Address | [address] | | | [place] [address] | + + + | Home Phone [...] Team Providers + +------+ + | Care Hospice Volunteer Coordinator Name | Role | Phone | + +------+ + | Catalino Vides NP | PCP | | + +------+ + Source Comments CATHERINE is fully live on both [facility] Ambulatory and [facility] InPatient.[facility] Allergies No Known Allergies Medications + [...] Rd | | | | | | [place], [place] | | | | | | [address] | | | | | | [phone] | | | | | | | | +--------+---------+ + + + | 08/24/ | Office | Orthopedics | Jv Thomas, | | | 2019 | Visit | | MD [address] | | | | | | [address] | | | | | | [place], [place] | | | | | | [address] | | | | | | [phone] | | | | | | | [...] | + +--------+ +--------+ + +------+ | [facility] | PROVID | [id number] | 10/29/19 | [phone] | [address] | PPO | | | ENCE | | 18-Pre | [address] | [address] | | | | HEALTH | | sent | | [place], | | | | | | | | [place] [address] | | + +--------+ +--------+ + +------+ [...] | 1976 | [phone] | [place] [address] | | | hilary | | | 6 (Home) | | + +--------+ +--------+ + +
--- OUTSIDE RECORDS SUMMARY | ~2019-01-24 | XMS | Encounter Summary ---
Demographics + + + | Address | [address] | | | [place] [address] | + + + | Home Phone [...] | Replaced By [facility] | + + + | Organization | Replaced By [facility] | + + + | Address | Unknown | + + + | Phone | Unavailable | + + + Support + + +---------+ + | Name | Relationship | Address | Phone | + + +---------+ + | Esau Mayers | ECON | Unknown | | + + +---------+ + Care Team Providers + +------+ + | Care Trap Operator Name | Role | Phone | [...] Refill Encounters | | 2019 | | [facility] [address] | MD [address] | | | | | [place] Mailcode: CH12A | [address] | | | | | [facility] | [place], [place] | | | | | and [place], | [address] | | | | | Building | [phone] | | | | | Floor [place], [place] | | | | | | [address] | | | | | | [phone] | | | +--------+ + + + [...] Rd | | | | | | [place], [place] | | | | | | [address] | | | | | | [phone] | | | | | | | | +--------+---------+ + + + | 08/24/ | Office | Orthopedics | Jv Thomas, | | | 2019 | Visit | | MD [address] Fortune | | | | | | [address] | | | | | | [place], [place] | | | | | | [address] | | | | | | [phone] | | | | | | | | +--------+---------+ + + + documented as of this encounter Visit Diagnoses Not on filedocumented in this encounter"
[~2019-01-24 17:39] MED LIST changes: +CARVEDILOL12.5 MG PO; +FLONASE ALLERG9.9 ML NAS; +GUAIFENESIN-CO118 M1 PO; +MEDROL4 MG PO; +NASAL DECONGEST30 MG PO; +RANITIDINE HCL75 MG PO
--- OUTSIDE RECORDS SUMMARY | 2019-01-24 17:42 | XMS ---
PreManage Notification: NOHEMY LUGO Security Monitor Worker Events No recent Security Events currently on file CRITERIA MET - [facility] - Has Care Guidelines - PDMP CARE PROVIDERS CAMI BUSTOS Nurse Practitioner: Family 10/07/2018-Current PHONE: Unknown Christo Prieto Treatment Current NH PHONE: Unknown Sonny has no Care Guidelines for this patient. Care History Medical/Surgical 10/07/2018 [facility] - Patient is currently established with [facility]. If patient is seen in the ED during business hours. Please contact CHWs at [facility]. Care Recommendation: This patient has had 5 or more Emergency Department visits in the last 12 months.\T\nbsp; Patient requires education on the scope and purpose of the ED as an acute care provider not a Primary Care Provider and should not be utilized for chronic conditions.\T\nbsp; These are guidelines and the provider should exercise clinical judgment when providing care. E.D. VISIT COUNT (12 MO.) 5 NAMITA Russo TOTAL 5 NOTE: Visits indicate total known visits. 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 - Essential (primary) hypertension - Acute upper respiratory infection, unspecified - Gastro-esophageal reflux disease without esophagitis 04/15/2018 07:57 [facility] [place] TYPE: Emergency COMPLAINT: - RASH DIAGNOSES: - Rash and other nonspecific skin eruption 02/27/2018 04:54 [facility] [place] TYPE: Emergency COMPLAINT: - THROAT PAIN DIAGNOSES: - Personal history of nicotine dependence - Gastro-esophageal reflux disease without esophagitis - Acute pharyngitis, unspecified - Essential (primary) hypertension - 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
== END 2019-01-24 17:55 | disposition home or self-care (01) ==
LOC: ED 17:39
DX: R51 Headache (principal)

== ENCOUNTER 2019-01-24 18:12 | Emergency (ER) | payer OTHER ==
[~2019-01-24] VITALS: Ht 165.1 cm; Wt 76.2 kg
--- OUTSIDE RECORDS SUMMARY | ~2019-01-24 | XMS | Clinical Summary ---
Demographics + + + | Address | [address] | | | [place] [address] | + + + | Home Phone | | + + + | Preferred Language | Unknown | + + + | Marital Status | | + + + | Restoration Affiliation | Unknown | + + + | Race | Black or | + + + | Ethnic Group | Not or | + + + Author + + + | Author | [facility] | + + + | Organization | [facility] | + + + | Address | Unknown | + + + | Phone | Unavailable | + + + Support + + +---------+ + | Name | Relationship | Address | Phone | + + +---------+ + | Esua Mayers | ECON | Unknown | | + + +---------+ + Care Team Providers + +------+ + | Care Didactic Instructor Name | Role | Phone | + +------+ + | Catalino Vides NP | PCP | | + +------+ + Source Comments CATHERINE is fully live on both [facility] Ambulatory and [facility] InPatient.[facility] Allergies No Known Allergies Medications + + + +---------+------+------+-------+ | Medication | Sig | Dispensed | Refills | Star | End | Statu | | | | | | t | Date | s | | | | | | Date | | | + + + +---------+------+------+-------+ | | Take 25 mg by mouth. | | 0 | | | Activ | | hydroCHLOROthiazide | | | | | | e | | 25 mg oral tablet | | | | | | | + + + +---------+------+------+-------+ | carvedilol 25 mg | Take 25 mg by mouth. | | 0 | 12/2 | | Activ | | oral tablet | | | | 0/20 | | e | | | | | | 13 | | | + + + +---------+------+------+-------+ | carvedilol 12.5 mg | | | 5 | 04/1 | | Activ | | oral tablet | | | | 6/20 | | e | | | | | | 19 | | | + + + +---------+------+------+-------+ | oxyCODONE | Take 1 tablet by | 40 | 0 | 07/0 | | Activ | | (immediate release) | mouth every four | tablet | | 9/20 | | e | | 10 mg oral tablet | hours as needed. | | | 19 | | | + + + +---------+------+------+-------+ Active Problems Not on file Social History + +-------+ +--------+------+ | Tobacco Use | Types | Packs/Day | Years | Date | | | | | Used | | + +-------+ +--------+------+ | Former Smoker | | | | | + +-------+ +--------+------+ + +---+---+---+ | Smokeless Tobacco: | | | | | Never Used | | | | + +---+---+---+ + + +---------+ + | Alcohol Use | Drinks/Week | oz/Week | Comments | + + +---------+ + | Yes | | | | + + +---------+ + + + + | Sex Assigned at | Date Recorded | | | | + + + | Not on file | | + + + + + + + | Job Start Date | Occupation | Industry | + + + + | Not on file | Not on file | Not on file | + + + + + + + + | Travel History | Travel Start | Travel End | + + + + + + | No recent travel history available. | + + Last Filed Vital Signs + + + + + | Vital Sign | Reading | Time Taken | Comments | + + + + + | Blood Pressure | 116/80 | 07/29/2018 9:31 AM | | | | | PDT | | + + + + + | Pulse | 64 | 07/29/2018 9:31 AM | | | | | PDT | | + + + + + | Temperature | - | - | | + + + + + | Respiratory Rate | - | - | | + + + + + | Oxygen Saturation | - | - | | + + + + + | Inhaled Oxygen | - | - | | | Concentration | | | | + + + + + | Weight | 77.1 kg (170 lb) | 10/07/2018 9:05 AM | | | | | PDT | | + + + + + | Height | 165.1 cm (5' 5") | 10/07/2018 9:05 AM | | | | | PDT | | + + + + + | Body Mass Index | 28.29 | 10/07/2018 9:05 AM | | | | | PDT | | + + + + + Plan of Treatment +--------+---------+ + + + | Date | Type | Specialty | Care Team | Description | +--------+---------+ + + + | 03/07/ | Office | Orthopedics | Jv Thomas, | | | 2018 | Visit | | MD [address] | | | | | | [address] | | | | | | [place], [place] | | | | | | [address] | | | | | | [phone] | | | | | | | | +--------+---------+ + + + | 08/24/ | Office | Orthopedics | Jv Thomas, | | | 2019 | Visit | | MD [address] | | | | | | [address] | | | | | | [place], [place] | | | | | | [address] | | | | | | [phone] | | | | | | | | +--------+---------+ + + + + + + + + | Health Maintenance | Due Date | Last Done | Comments | + + + + + | Influenza (Flu) | 10/01/201 | 01/22/2018, 01/07/2012 | | | vaccination (#1) | 9 | | | + + + + + | Pneumococcal | Aged Out | 11/11/2011 | No longer eligible | | vaccination | | | based on patient's | | | | | age to complete this | | | | | topic | + + + + + Procedures + +--------+ + + + | Procedure Name | Priori | Date/Time | Associated Diagnosis | Comments | | | ty | | | | + +--------+ + + + | PROCEDURE NOTE | Routin | 01/07/2019 | | | | | e | 11:34 AM | | | | | | PDT | | | + +--------+ + + + from Last 3 Months Results PROCEDURE NOTE (01/07/2019 11:34 AM PDT)from Last 3 Months Insurance + +--------+ +--------+ + +------+ | Payer | Benefi | Subscriber | Effect | Phone | Address | Type | | | t Plan | ID | tristian | | | | | | / | | Dates | | | | | | Group | | | | | | + +--------+ +--------+ + +------+ | [facility] | PROVID | xxxxxxxxxxx | 10/29/19 | [phone] | [address] | PPO | | | ENCE | | 18-Pre | 0 | [address] | | | [address] | | sent | | [place], | | | | | | | | [place] [address] | | + +--------+ +--------+ + +------+ + +--------+ +--------+ + + | Guarantor Name | Accoun | Relation to | Date | Phone | Billing Address | | | t Type | Patient | of | | | | | | | | | | + +--------+ +--------+ + + | Song Mayers | Person | Self [birth year] | [birth year] | | [address] | al/[address]aco | | 1976 | [phone] | [place] [address] | | | hilary | | | 6 (Home) | | + +--------+ +--------+ + +
--- OUTSIDE RECORDS SUMMARY | ~2019-01-24 | XMS | Clinical Summary ---
Demographics + + + | Address | [address] | | | [place] [address] | + + + | Home Phone | | + + + | Preferred Language | Unknown | + + + | Marital Status | | + + + | Synagogue Affiliation | Unknown | + + + | Race | Unknown | + + + | Ethnic Group | Unknown | + + + Author + + + | Author | [facility] | | | and [place] | + + + | Organization | [facility] | | | and [place] | + + + | Address | Unknown | + + + | Phone | Unavailable | + + + Support + + +---------+ + | Name | Relationship | Address | Phone | + + +---------+ + | Robb,Tiff | ECON | Unknown | | + + +---------+ + | Esau Mayers | ECON | Unknown | | + + +---------+ + Care Team Providers + +------+ + | Care Greenhouse Worker Name | Role | Phone | + +------+ + | Herman Galindo DO | PCP | Unavailable | + +------+ + Allergies No Known Allergies Medications + + + +---------+------+------+-------+ | Medication | Sig | Dispensed | Refills | Star | End | Statu | | | | | | t | Date | s | | | | | | Date | | | + + + +---------+------+------+-------+ | | Take 25 mg by mouth | | 0 | | | Activ | | hydroCHLOROthiazide | Daily. | | | | | e | | 25 mg tablet | | | | | | | + + + +---------+------+------+-------+ | Multiple | Take by mouth | | 0 | | | Activ | | Vitamins-Minerals | Daily. | | | | | e | | (MULTIVITAMIN ADULT | | | | | | | | PO) | | | | | | | + + + +---------+------+------+-------+ | ibuprofen (ADVIL, | Take 200 mg by mouth | | 0 | | | Activ | | MOTRIN) 200 mg | every 6 hours as | | | | | e | | tablet | needed for Pain. | | | | | | + + + +---------+------+------+-------+ | carvedilol (COREG) | Take 25 mg by mouth | | 0 | | | Activ | | 25 mg tablet | 2 times daily (with | | | | | e | | | breakfast & dinner). | | | | | | + + + +---------+------+------+-------+ | azithromycin | | | 0 | 12/0 | | Activ | | (ZITHROMAX) 250 mg | | | | 1/20 | | e | | tablet | | | | 18 | | | + + + +---------+------+------+-------+ | benzonatate | | | 0 | 12/0 | | Activ | | (TESSALON) 100 mg | | | | 1/20 | | e | | capsule | | | | 18 | | | + + + +---------+------+------+-------+ Active Problems + + + | Problem | Noted Date | + + + | Breast hypertrophy | 11/22/2013 | + + + | Preeclampsia | 11/09/2011 | + + + | PIH ( induced hypertension), antepartum | 11/07/2011 | + + + | GERD (gastroesophageal reflux disease) | | + + + | Essential hypertension | | + + + | Palpitations | | + + + Immunizations + + + + | Name | Dates Previously Given | Next Due | + + + + | PNEUMOCOCCAL | 11/11/2011 | | | POLYSACCHARIDE | | | | 23-VALENT (PPSV23) | | | + + + + Family History + + +------+ + | Medical History | Relation | Name | Comments | + + +------+ + | High blood pressure | Mother | | | + + +------+ + + +------+--------+ + | Relation | Name | Status | Comments | + +------+--------+ + | Father | | Alive | | + +------+--------+ + | Mother | | Alive | | + +------+--------+ + Social History + + + +--------+ [...] + +---------+ + | Alcohol Use | Drinks/We | oz/Week | Comments | | | ek | | | + + +---------+ + | Yes | | | Occasionally on weekends | + + +---------+ + + [...] Filed Vital Signs + + + + | Vital Sign | Reading | Time Taken | + + + + | Blood Pressure | 98/62 | 03/18/2018 1332 PST | + + + + | Pulse | 68 | 03/18/2018 1332 PST | + + + + | Temperature | 36.6 C (97.8 F) | 03/18/20181331 PST | + + + + | Respiratory Rate | 18 | 02/03/2018 0903 PST | + + + + | Oxygen Saturation | 100% | 03/18/2018 1332 PST | + + + + | Inhaled Oxygen | - | - | | Concentration | | | + + + + | Weight | 82.1 kg (181 lb) | 02/08/2018907 PST | + + + + | Height | 165.1 cm (5' 5") | 02/17/2018 1105 PST | + + + + | Body Mass Index | 30.12 | 02/08/2018907 PST | + + + + Plan of Treatment + + + + + | Health Maintenance | Due Date | Last Done | Comments | + + + + + | Cervical Cancer | | | | | Screening (Pap) | 8 | | | + + + + + | Vaccine: Influenza | | 01/22/2018, 01/07/2012 | | | (#1) | 9 | | | + + + + + | Vaccine: | | 01/07/2012, 12/01/2006 | | | Dtap/Tdap/Td (3 - | 2 | | | | Td) | | | | + + + + + Results Not on filefrom Last 3 Months Insurance + +--------+ +--------+ +---------+------+ | Payer | Benefi | Subscriber | Effect | Phone | Address | Type | | | t Plan | ID | tristian | | | | | | / | | Dates | | | | | | Group | | | | | | + +--------+ +--------+ +---------+------+ | MERGED WITH [facility] | PHP | [id number] | 10/29/19 | [phone] | | PPO | | PLAN | PERSON | | 18-Pre | 5 | | | | | AL | | sent | | | | | | OPEN | | | | | | | | OPTION | | | | | | + +--------+ +--------+ +---------+------+ + +--------+ +--------+ + + | Guarantor Name | Accoun | Relation to | Date | Phone | Billing Address | | | t Type | Patient | of | | | | | | | | | | + +--------+ +--------+ + + | Song Mayers | Person | Self [birth year] | [address] | | | al/Fam | | 1976 | [phone] | [place] [address] | | | hilary | | | 6 (Home) | | + +--------+ +--------+ + + Advance Directives Patient has advance care planning documents, and code status on file. For more information, please contact:[facility] and [place] [address] + + + + + | Code Status | Date | Date | Comments | | | Activated | Inactivated | | + + + + + | Full Code | 02/02/2018 | 02/03/2018 | | | | 13:53 | 12:41 | | + + + + +
--- OUTSIDE RECORDS SUMMARY | ~2019-01-24 | XMS | Clinical Summary ---
Demographics + + + | Address | [address] | | | [place] [address] | + + + | Home Phone | | + + + | Preferred Language | Unknown | + + + | Marital Status | | + + + | Taoism Affiliation | Unknown | + + + | Race | Unknown | + + + | Ethnic Group | Unknown | + + + Author + + + | Author | [facility] (Historical as of | | | 11-13-18) | + + + | Organization | [email or web address] (Historical as of | | | 11-13-18) | + + + | Address | Unknown | + + + | Phone | Unavailable | + + + Support + + + + + | Name | Relationship | Address | Phone | + + + + + | Norma Delatorre | ECON | Unknown | | + + + + + | Esau Mayers | ECON | [address] | | | | | [place] | | | | | [address] | | + + + + + Care Team Providers + +------+ + | Care Clinical Laboratory Assistant Name | Role | Phone | + +------+ + | Herman Galindo DO | PP | | + +------+ + Allergies No Known Allergies Current Medications + + +-------+---------+------+------+-------+ | Prescription | Sig. | Disp. | Refills | Star | End | Statu | | | | | | t | Date | s | | | | | | Date | | | + + +-------+---------+------+------+-------+ | ranitidine | Take 150 mg by mouth | | | | | Activ | | (ZANTAC) 150 MG | every morning. | | | | | e | | tabletIndications: | Indications: | | | | | | | Gastroesophageal | Gastroesophageal | | | | | | | Reflux Disease | Reflux Disease | | | | | | + + +-------+---------+------+------+-------+ | carvedilol (COREG | Take 80 mg by mouth | | | | | Activ | | CR) 80 MG 24 hr | daily. | | | | | e | | capsule | | | | | | | + + +-------+---------+------+------+-------+ Active Problems + + + | Problem | Noted Date | + + + | Breast hypertrophy | 11/22/2013 | + + + | Preeclampsia | 11/09/2011 | + + + | PIH ( induced hypertension), antepartum | 11/07/2011 | + + + Immunizations + + + + | Name | Dates Previously Given | Next Due | + + + + | Pneumococcal | 11/11/2011 | | | Polysaccharide | | | | 23-valent | | | + + + + Family History + + +------+ + | Medical History | Relation | Name | Comments | + + +------+ + | Diabetes type II | Maternal | | | | | Grandfath | | | | | er | | | + + +------+ + | Hypertension | Mother | | | + + +------+ + + +------+--------+ + | Relation | Name | Status | Comments | + +------+--------+ + | Maternal Grandfather | | | | + +------+--------+ + | Mother | | | | + +------+--------+ + Social History + +-------+ +--------+ + | Tobacco Use | Types | Packs/Day | Years | Date | | | | | Used | | + +-------+ +--------+ + | Current Every Day | | | | Quit: 10/28/2011 | | Smoker | | | | | + +-------+ +--------+ + + + +---------+ + | Alcohol Use | Drinks/We | oz/Week | Comments | | | ek | | | + + +---------+ + | Yes | | | socially | + + +---------+ + + + + | Sex Assigned at | Date Recorded | | | | + + + | Not on file | | + + + Last Filed Vital Signs + + + + | Vital Sign | Reading | Time Taken | + + + + | Blood Pressure | 164/109 | 12/25/2011 5:59 PM PDT | + + + + | Pulse | 63 | 12/25/2011 5:59 PM PDT | + + + + | Temperature | 36.7 C (98 F) | 12/25/2011 5:59 PM PDT | + + + + | Respiratory Rate | 16 | 12/25/2011 5:59 PM PDT | + + + + | Oxygen Saturation | 100% | 12/25/2011 5:59 PM PDT | + + + + | Inhaled Oxygen | - | - | | Concentration | | | + + + + | Weight | 85.3 kg (188 lb) | 11/22/2013 8:47 AM PDT | + + + + | Height | 165.1 cm (5' 5") | 11/22/2013 8:47 AM PDT | + + + + | Body Mass Index | 31.28 | 11/22/2013 8:47 AM PDT | + + + + Plan of Treatment + + + + + | Health Maintenance | Due Date | Last Done | Comments | + + + + + | Vaccine: | | | | | Dtap/Tdap/Td (1 - | 7 | | | | Tdap) | | | | + + + + + | Cervical Cancer | | | | | Screening (Pap) | 8 | | | + + + + + | Vaccine: Influenza | | | | | (#1) | 9 | | | + + + + + Results Not on filefrom Last 3 Months Insurance + +--------+ +------+-------+ + | Payer | Benefi | Subscriber | Type | Phone | Address | | | t Plan | ID | | | | | | / | | | | | | | Group | | | | | + +--------+ +------+-------+ + | PREMERA | PREMER | [id number] | | | [address] [address] | | | A | 7 | | | [place], [place] | | | [place] | | | | [address] | | | [place]ONS | | | | | + +--------+ +------+-------+ + | MEDICAID | EASTER | [id number] | | | [address] | | | N | | | | [place] | | | [place] | | | | [address] | | | [employer] | | | | | + +--------+ +------+-------+ + + +--------+ +--------+ + + | Guarantor Name | Accoun | Relation to | Date | Phone | Billing Address | | | t Type | Patient | of | | | | | | | | | | + +--------+ +--------+ + + | NOHEMY MAYERS | Person | Self [birth year] Home: | [address] | | | al/Fam | | 1976 | [phone] [address] [place] | | | [place]il[place] | | | [phone] | + +--------+ +--------+ + +
--- OUTSIDE RECORDS SUMMARY | ~2019-01-24 | XMS | Encounter Summary ---
Demographics + + + | Address | [address] | | | [place] [address] | + + + | Home Phone | | + + + | Preferred Language | Unknown | + + + | Marital Status | | + + + | Restorationism Affiliation | Unknown | + + + | Race | Black or | + + + | Ethnic Group | Not or | + + + Author + + + | Author | [facility] | + + + | Organization | [facility] | + + + | Address | Unknown | + + + | Phone | Unavailable | + + + Support + + +---------+ + | Name | Relationship | Address | Phone | + + +---------+ + | Esau Mayers | ECON | Unknown | | + + +---------+ + Care Team Providers + +------+ + | Care Application Security Specialist Name | Role | Phone | [...] | +--------+ + + + + | 09/06/ | Telephone | Orthopaedics at | Jv Thomas, | Refill Encounters | | 2019 | | [facility] [address] | MD [address] | | | | | [place] Mailcode: CH12A | [address] | | | | | [facility] | [place], [place] | | | | | and [address], | [address] | | | | | Building | [phone] | | | | | Floor [place], [place] | | | | | | [address] | | | | | | [phone] | | | +--------+ + + + [...] Rd | | | | | | [place], [place] | | | | | | [address] | | | | | | [phone] | | | | | | | | +--------+---------+ + + + | 08/24/ | Office | Orthopedics | Jv Thomas, | | | 2019 | Visit | | MD [address] | | | | | | [address] | | | | | | [place], [place] | | | | | | [address] | | | | | | [phone] | | | | | | | | +--------+---------+ + + + documented as of this encounter Visit Diagnoses Not on filedocumented in this encounter"
--- OUTSIDE RECORDS SUMMARY | ~2019-01-24 | XMS | Encounter Summary ---
Demographics + + + | Address | [address] | | | [place] [address] | + + + | Home Phone | | + + + | Preferred Language | Unknown | + + + | Marital Status | | + + + | Lutheran Affiliation | Unknown | + + + | Race | Black or | + + + | Ethnic Group | Not or | + + + Author + + + | Author | [facility] | + + + | Organization | [facility] | + + + | Address | Unknown | + + + | Phone | Unavailable | + + + Support + + +---------+ + | Name | Relationship | Address | Phone | + + +---------+ + | Esau Mayers | ECON | Unknown | | + + +---------+ + Care Team Providers + +------+ + | Care Pipe Puller Name | Role | Phone | + +------+ + | Catalino Vides NP | PCP | | + +------+ + Reason for Visit + + + | Reason | Comments | + + + | Referral | Right knee | + + + Encounter Details +--------+ + + + + | Date | Type | Department | Care Team | Description | +--------+ + + + + | 07/06/ | Abstract | Orthopaedics at | Note, Orthopedics | Referral (Right knee | | 2018 | | [facility] [address] | Clinic | ) | | | | [address] [place] Mailcode: CH12A | | | | | | [facility] | | | | | | and [place], | | | | | | [facility] | | | | | | [place], [place] | | | | | | [address] | | | | | | [phone] | | | +--------+ + + + [...] + + documented as of this encounter Progress Notes Jax Thurman - 07/06/2018 3:47 PM PDTImaging in Impax under Robi Mayers llniru signed by Jax Thurman at 07/09/2018 12:13 PM Corinna Macias - 07/06/2018 3:47 PM P DTUploading imaging reports from . Imaging is now in IMPAX. Corinna Gil - 07/06/2018 3:47 PM PDTFormatting of this note might be different from the origi nal. Orthopaedics New Patient Record Check List Please ask the following questions: Comments Date requested Records/Imaging received? If so, what format? Where? What would you like to be seen for (body part and laterality)? Right knee ACL graft failure DOI, if applicable? N/A. Prior Surgery (for this body part)? Yes, when: 2016; where: Dr. Christo Prieto Uploaded in Abstract. Have you seen anyone for this yet? Yes, when: 2018; where: Dr. Prieto at [facility]. Uploaded in Abstract. Do you have a referring provider? yes who: Christo Prieto MD X-Ray Yes, when: 05/25/18; where: [facility] [place] Requested via FedEx, MRI Yes, when: 06/01/18; where: [facility] Requested via N fax, Other Imaging (CT, Ultrasound, etc.) No Is this a W/C injury? No. If YES, create referral and complete: .ORTWCNEWPATIENT inside referral Note: We do not accept WC under [place] as they do not pay at [place] rates. Other out of state claims will only be accepted if they agree to pay at [place] rates docume nted in writing from adjustor. Can you confirm the insurance we will be billing for this visit? [place] Open Option Note: If OHP, please note which type. E.g. [place], [employer], [employer], etc.) Reminder: Please create referrals for pts with: HMO, OHP, [place], Self-Pay, W/C, TPL an d ED Post- Ops Can you verify your Primary Care Provider? yes who: Catalino Vides Note: Please update Primary Care Provider in Epic. Are you a current smoker or tobacco user? No. If YES, please let patient know that they must be 4 weeks smoke/tobacco-free, tested and do cumented by PCP before having a surgical consult. Height & Weight, if unable to locate in notes or chart. Last recorded patient height: No data found for Ht No data found for this vital: BMI Patient reported height: 5'5 Patient reported weight: 170 BMI: 28.3 Note: If over provider BMI preference, for REVIEW. Are you diabetic? No. No results found for: A1C Patient reported A1C: n/a Note: If over provider A1C preference, for REVIEW. Medical Review needed? Yes, specify: Patient requesting pre-op/consults the day before sx - needs to be reviewed emmie Thomas to make sure we can offer that and set up prior to patient coming. If yes, create referral Reminders: ? Ask patient if they d like to sign up for [facility] ? Don t forget to pull in CareEveryWhere Additional Comments: N/A. documented in this encounter Plan of Treatment +--------+---------+ + + + | Date | Type | Specialty | Care Team | Description | +--------+---------+ + + + | 03/07/ | Office | Orthopedics | Jv Thomas, | | | 2018 | Visit | | MD [address] | | | | | | [address] | | | | | | [facility] [place] | | | | | | [address] | | | | | | [phone] | | | | | | | | +--------+---------+ + + + | 08/24/ | Office | Orthopedics | Jv Thomas, | | | 2019 | Visit | | MD [address] | | | | | | [address] | | | | | | [facility] [place] | | | | | | [address] | | | | | | [phone] | | | | | | | | +--------+---------+ + + + documented as of this encounter Visit Diagnoses Not on filedocumented in this encounter"
--- OUTSIDE RECORDS SUMMARY | ~2019-01-24 | XMS | Encounter Summary ---
Demographics + + + | Address | [address] | | | [place] [address] | + + + | Home Phone [...] Author + + + | Author | [facility] | + + + | Organization | [facility] | + + + | Address | Unknown | + + + | Phone | Unavailable | + + + Support + + +---------+ + | Name | Relationship | Address | Phone | + + +---------+ + | Esau Mayers | ECON | Unknown | | + + +---------+ + Care Team Providers + +------+ + | Care Superintendent Operating Name | Role | Phone | + +------+ + | Catalino Vides NP | PCP | | + +------+ + Encounter Details +--------+ + + + + | Date | Type | Department | Care Team | Description | +--------+ + + + + | 09/21/ | Telephone | Orthopaedics at | Jv Thomas, | | | 2018 | | [facility] [address] | [address] | | | | | Maria Teresa Mailcode: CH12A | [address] | | | | | [place] [facility] | [place], [place] | | | | | and [place], | [address] | | | | | [facility] | [phone] | | | | | Floor [place], [place] | | | | | | [address] | | | | | | [phone] | | | +--------+ + + + [...] Rd | | | | | | [place] | | | | | | [address] | | | | | | [phone] | | | | | | | | +--------+---------+ + + + | 08/24/ | Office | Orthopedics | Jv Thomas, | | | 2019 | Visit | | MD Joey Fortune | | | | | | [address] | | | | | | [place] | | | | | | [address] | | | | | | [phone] | | | | | | | | +--------+---------+ + + + documented as of this encounter Visit Diagnoses Not on filedocumented in this encounter"
--- OUTSIDE RECORDS SUMMARY | ~2019-01-24 | XMS | Encounter Summary ---
Demographics + + + | Address | [address] | | | [place] [address] | + + + | Home Phone | | + + + | Preferred Language | Unknown | + + + | Marital Status | | + + + | Mu-Ism Affiliation | Unknown | + + + | Race | Black or | + + + | Ethnic Group | Not or | + + + Author + + + | Author | [facility] | + + + | Organization | [facility] | + + + | Address | Unknown | + + + | Phone | Unavailable | + + + Support + + +---------+ + | Name | Relationship | Address | Phone | + + +---------+ + | Esau Mayers | ECON | Unknown | | + + +---------+ + Care Team Providers + +------+ + | Care Stack Yield Engineer Name | Role | Phone | + +------+ + | Catalino Vides PIGEON FANCIER | PCP | | + +------+ + [...] | encounter | & Fractur | Rd [place], | | | | | ([facility]) | [address] | [place] | | | | | Procedures | [address] | [address] | | | | | REQUEST TO | [place], | Phone: | | | | | SURGERY | [place] [address] | [phone] | | | | | HYDRATION PLANT OPERATOR | Phone: | Fax: | | | | | [place] | [phone] | [phone] | | | | | SCOPE,AID | Fax: | | | | | | ANT CRUCIATE | [phone] | | | | | | REPAIR [place] | | | | | | | [...] tear, | | 2019 | Visit | [facility] [address] | [address] | subsequent encounter | | | | [place] Mailcode: CH12A | [address] | (Primary Dx) | | | | [facility] | [place], [place] | | | | | and [place], | [address] | | | | | [facility] | [phone] | | | | | Floor [place], [place] | | | | | | [address] | | | | | | [phone] | | | +--------+---------+ + + + [...] status post: Date of surgery: 08/27/18 at [facility] Right knee revision ACL reconstruction with allograft and removal of failed hardware She is no longer using the knee brace full weight bearing. Has been working with PT doing a lot of strengthening exercises. Looking for a release form back to work but needs 1 more week off before starting. 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 Gait: normal Incisions: clean and dry with [...] Jv Thomas MD Sports Orthopaedics and Arthroscopy Ceramics Machine Operator Dept. Orthopaedic Surgery and Rehabilitation [facility] [place] documented in this e ncounter Plan of Treatment +--------+---------+ + + + | Date | Type | Specialty | Care Team | Description | +--------+---------+ + + + | 03/07/ | Office | Orthopedics | Jv Thomas, | | | 2018 | Visit | | MD Joey Fortune | | | | | | [address] | | | | | | [place], [place] | | | | | | [address] | | | | | | [phone] | | | | | | | | +--------+---------+ + + + | 08/24/ | Office | Orthopedics | Jv Thomas, | | | 2019 | Visit | | MD Joey Fortune | | | | | | [address] | | | | | | [place], [place] | | | | | | [address] | | | | | | [phone] | | | | | | | [...]
--- OUTSIDE RECORDS SUMMARY | ~2019-01-24 | XMS | Encounter Summary ---
Demographics + + + | Address | [address] | | | [place] [address] | + + + | Home Phone | | + + + | Preferred Language | Unknown | + + + | Marital Status | | + + + | Judaism Affiliation | Unknown | + + + | Race | Black or | + + + | Ethnic Group | Not or | + + + Author + + + | Author | [facility] [facility] | + + + | Organization | [facility] [employer] [facility] | + + + | Address | Unknown | + + + | Phone | Unavailable | + + + Support + + +---------+ + | Name | Relationship | Address | Phone | + + +---------+ + | Esau Mayers | ECON | Unknown | | + + +---------+ + Care Team Providers + +------+ + | Care Medical Accounting Clerk Name | Role | Phone | + [...] (Right knee | | 2018 | | [facility] [address] | Clinic | ) | | | | [address] Mailcode: CH12A | | | | | | [facility] | | | | | | and [place], | | | | | | [facility] [address] | | | | | | [place], [place] | | | | | | [address] | | | | | | [phone] | | | +--------+ + + + [...] 3:47 PM P DTUploading imaging reports from [facility]. Imaging is now in IMP[facility]. Corinna Gil [...] Yes, when: 2018; where: Dr. Prieto at [place] [facility]. Uploaded in Abstract. Do you have a referring provider? yes who: Christo Prieto MD X-Ray Yes, when: 05/25/18; where: [place] Requested via FedEx, MRI Yes, when: 06/01/18; where: [facility] Requested via N fax, Other Imaging (CT, Ultrasound, etc.) No Is this a W/C injury? No. If YES, create referral and complete: .ORTWCNEWPATIENT inside referral Note: We do not accept WC under [place] L&[place] as they do not pay at [place] rates. Other out of state claims will only be accepted if they agree to pay at [place] rates docume nted in writing from adjustor. Can you confirm the insurance we will be billing for this visit? [place] Open Option Note: If OHP, please note which type. E.g. [place], [place], [employer], etc.) Reminder: Please create referrals for pts with: HMO, OHP, [place], Self-Pay, W/C, TPL an d ED Post- [...] they d like to sign up for [employer] [facility] Diagnostics[facility] ? Don t forget to pull in [...] Rd | | | | | | [facility] [place] | | | | | | [address] | | | | | | [phone] | | | | | | | | +--------+---------+ + + + | 08/24/ | Office | Orthopedics | Jv Thomas, | | | 2019 | Visit | | MD Joey Fortune | | | | | | [address] | | | | | | [facility] [place] | | | | | | [address] | | | | | | [phone] | | | | | | | | +--------+---------+ + + + documented as of this encounter Visit Diagnoses Not on filedocumented in this encounter"
--- OUTSIDE RECORDS SUMMARY | ~2019-01-24 | XMS | Clinical Summary ---
Demographics + + + | Address | [address] | | | [place] [address] | + + + | Home Phone [...] + | Organization | [facility] | | | and [place] [...] Team Providers + +------+ + | Care Binman Name | Role | Phone | + [...] | | + +--------+ +--------+ +---------+------+ | [facility] | PHP | [phone] | 10/29/19 | [phone] | | PPO [...] | | 1976 | [phone] | [place] [address] | | | hilary | | | 6 (Home) | | + +--------+ +--------+ + + Advance Directives Patient has advance care planning documents, and code status on file. For more information, please contact:[facility] and [place] [address] + + + + + | Code Status | Date | Date | Comments | | | Activated | Inactivated | | + + + + + | Full Code | 02/02/2018 | 02/03/2018 | | | | 13:53 | 12:41 | | + + + + +
--- OUTSIDE RECORDS SUMMARY | ~2019-01-24 | XMS | Encounter Summary ---
Demographics + + + | Address | [address] | | | [place] [address] | + + + | Home Phone | | + + + | Preferred Language | Unknown | + + + | Marital Status | | + + + | Restorationist Affiliation | Unknown | + + + | Race | Black or | + + + | Ethnic Group | Not or | + + + Author + + + | Author | [facility] | + + + | Organization | [facility] | + + + | Address | Unknown | + + + | Phone | Unavailable | + + + Support + + +---------+ + | Name | Relationship | Address | Phone | + + +---------+ + | Esau Mayers | ECON | Unknown | | + + +---------+ + Care Team Providers + +------+ + | Care Assembly Worker Name | Role | Phone | + +------+ + | Catalino Vides WELDING SPECIALIST | PCP | | + +------+ + [...] | | | | | initial | [facility] | [address] | | | | | encounter | & Fractur | Rd [place], | | | | | ([facility]) | [address] | [place] | | | | | Procedures | [address] | [address] | | | | | REQUEST TO | [place], | Phone: | | | | | SURGERY | [place] [address] | [phone] | | | | | LEVER OPERATOR | Phone: | Fax: | | | | | [place] | [phone] | [phone] | | | | | SCOPE,AID | Fax: | | | | | | ANT CRUCIATE | [phone] | | | | | | REPAIR [place] | | | | | | | [...] tear, | | 2019 | Visit | [facility] [address] | [address] | subsequent encounter | | | | [place] Mailcode: CH12A | [address] | (Primary Dx) | | | | [facility] | [place], [place] | | | | | and [place], | [address] | | | | | [facility] | [phone] | | | | | Floor [place], [place] | | | | | | [address] | | | | | | [phone] | | | +--------+---------+ + + + [...] status post: Date of surgery: 08/27/[address] [facility] Right knee revision ACL reconstruction with allograft and removal of failed hardware She is no longer using the knee brace full weight bearing. Has been working with PT doing a lot of strengthening exercises. Looking for a release form back to work but needs 1 more week off before starting. 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 Gait: normal Incisions: clean and dry with [...] Jv Thomas MD Sports Orthopaedics and Arthroscopy Lead Welder Dept. Orthopaedic Surgery and Rehabilitation [facility] [place] documented in this e ncounter Plan of Treatment +--------+---------+ + + + | Date | Type | Specialty | Care Team | Description | +--------+---------+ + + + | 03/07/ | Office | Orthopedics | Jv Thomas, | | | 2018 | Visit | | MD Joey Fortune | | | | | | [address] | | | | | | [place], [place] | | | | | | [address] | | | | | | [phone] | | | | | | | | +--------+---------+ + + + | 08/24/ | Office | Orthopedics | Jv Thomas, | | | 2019 | Visit | | MD Joey Fortune | | | | | | [address] | | | | | | [place], [place] | | | | | | [address] | | | | | | [phone] | | | | | | | [...]
--- OUTSIDE RECORDS SUMMARY | ~2019-01-24 | XMS | Encounter Summary ---
Demographics + + + | Address | [address] | | | [place] [address] | + + + | Home Phone | | + + + | Preferred Language | Unknown | + + + | Marital Status | | + + + | Church Affiliation | Unknown | + + + | Race | Black or | + + + | Ethnic Group | Not or | + + + Author + + + | Author | [facility] | + + + | Organization | [facility] | + + + | Address | Unknown | + + + | Phone | Unavailable | + + + Support + + +---------+ + | Name | Relationship | Address | Phone | + + +---------+ + | Esau Mayers | ECON | Unknown | | + + +---------+ + Care Team Providers + +------+ + | Care Soft Metals Hand Engraver Name | Role | Phone | + [...] | | tear, | MD Diaz | [address] [facility] | | | | | initial | [facility] | [address] | | | | | encounter | & [place] | [place], | | | | | ([facility]) | [address] | [place] | | | | | Procedures | [address] | [address] | | | | | REQUEST TO | [place], | Phone: | | | | | SURGERY | [place] [address] | [phone] | | | | | GYPSUM BLOCK SETTER | Phone: | Fax: | | | | | [place] KN[place] | [phone] | [phone] | | | | | SCOPE,AID | Fax: | | | | | | ANT CRUCIATE | [phone] | | | | | | REPAIR [place] | | | | | | | [...] | | | | | meniscus, | [facility] | [address] | | | | | current | & Fractur | [address] [place], | | | | | injury, | [address] | [place] | | | | | right knee, | [address] | [address] | | | | | initial | [place], | Phone: | | | | | encounter | [place] [address] | [phone] | | | | | Encounter | Phone: | Fax: | | | | | for other | [phone] | [phone] | | | | | orthopedic | Fax: | | | | | | aftercare | [phone] | | + +--------+ + + + + Encounter Details +--------+---------+ + + + | Date | Type | Department | Care Team | Description | +--------+---------+ + + + | 07/29/ | Office | Orthopaedics at | Jv Thomas, | ACL graft tear, | | 2019 | Visit | [facility] [address] | MD [address] | initial encounter | | | | Ave Mailcode: CH12A | [address] | ([facility]) (Primary Dx) | | | | [facility] | [place], [place] | | | | | and Healing, | [address] | | | | | Building | [phone] | | | | | Floor [place], [place] | | | | | | [address] | | | | | | [phone] | | | +--------+---------+ + + + [...] be different fr om the original. CLINIC: [facility] Sports Medicine - Orthopedic Surgery PATIENT: Song Mayers [facility] MR#: [id number] : 1975 REQUESTING PROVIDER: Christo Prieto MD [facility] [address] [place] [address] PRIMARY CARE PROVIDER: Catalino Vides NP Primary [...] Jv Thomas MD Sports Orthopaedics and Arthroscopy Harvesting Contractor Dept. Orthopaedic Surgery and Rehabilitation [facility] documented in this e ncounter Plan of Treatment +--------+---------+ + + + | Date | Type | Specialty | Care Team | Description | +--------+---------+ + + + | 03/07/ | Office | Orthopedics | Jv Thomas, | | | 2018 | Visit | | MD Joey Fortune | | | | | | [address] | | | | | | [facility] [place] | | | | | | [address] | | | | | | [phone] | | | | | | | | +--------+---------+ + + + | 08/24/ | Office | Orthopedics | Jv Thomas, | | | 2019 | Visit | | MD Joey Fortune | | | | | | [address] | | | | | | [facility] [place] | | | | | | [address] | | | | | | [phone] | | | | | | | | +--------+---------+ + + + documented as of this encounter Visit Diagnoses + + | Diagnosis | + + | ACL graft tear, initial encounter (HCC) - Primary | + + documented in this encounter
--- OUTSIDE RECORDS SUMMARY | ~2019-01-24 | XMS | Encounter Summary ---
Demographics + + + | Address | [address] | | | [place] [address] | + + + | Home Phone | | + + + | Preferred Language | Unknown | + + + | Marital Status | | + + + | Muslim Affiliation | Unknown | + + + | Race | Black or | + + + | Ethnic Group | Not or | + + + Author + + + | Author | [facility] | + + + | Organization | [facility] | + + + | Address | Unknown | + + + | Phone | Unavailable | + + + Support + + +---------+ + | Name | Relationship | Address | Phone | + + +---------+ + | Esau Mayers | ECON | Unknown | | + + +---------+ + Care Team Providers + +------+ + | Care Water Gas Operator Name | Role | Phone | + +------+ + | Catalino Vides BOAT DRIVER | PCP | | + +------+ + [...] Op | | 2019 | | [facility] [address] | [address] | | | | | Ave Mailcode: CH12A | [facility] | | | | | [facility] | [place], [place] | | | | | and [place], | [address] | | | | | [facility] [address] | [phone] | | | | | Floor [place], [place] | | | | | | [address] | | | | | | [phone] | | | +--------+ + + + [...] Rd | | | | | | [place], [place] | | | | | | [address] | | | | | | [phone] | | | | | | | | +--------+---------+ + + + | 08/24/ | Office | Orthopedics | Jv Thomas, | | | 2019 | Visit | | MD Joey Fortune | | | | | | [address] | | | | | | [place], [place] | | | | | | [address] | | | | | | [phone] | | | | | | | | +--------+---------+ + + + documented as of this encounter Visit Diagnoses Not on filedocumented in this encounter"
--- OUTSIDE RECORDS SUMMARY | ~2019-01-24 | XMS | Encounter Summary ---
Demographics + + + | Address | [address] | | | [place] [address] | + + + | Home Phone | | + + + | Preferred Language | Unknown | + + + | Marital Status | | + + + | Moravian Affiliation | Unknown | + + + | Race | Black or | + + + | Ethnic Group | Not or | + + + Author + + + | Author | [facility] | + + + | Organization | [facility] | + + + | Address | Unknown | + + + | Phone | Unavailable | + + + Support + + +---------+ + | Name | Relationship | Address | Phone | + + +---------+ + | Esau Mayers | ECON | Unknown | | + + +---------+ + Care Team Providers + +------+ + | Care Ortho Tech Name | Role | Phone | + [...] | | tear, | MD Diaz | [address] [facility] | | | | | initial | [facility] | [address] | | | | | encounter | & [place] | [place], | | | | | ([facility]) | [address] | [place] | | | | | Procedures | [place] | [address] | | | | | REQUEST TO | [place], | Phone: | | | | | SURGERY | [place] [address] | [phone] | | | | | DRIER TENDER NAPHTHALENE | Phone: | Fax: | | | | | [place] | [phone] | [phone] | | | | | SCOPE,AID | Fax: | | | | | | ANT CRUCIATE | [phone] | | | | | | REPAIR [place] | | | | | | | [...] | | | | | meniscus, | [facility] | [address] | | | | | current | & Fractur | [address] [place], | | | | | injury, | [address] | [place] | | | | | right knee, | [address] | [address] | | | | | initial | [place], | Phone: | | | | | encounter | [place] [address] | [phone] | | | | | Encounter | Phone: | Fax: | | | | | for other | [phone] | [phone] | | | | | orthopedic | Fax: | | | | | | aftercare | [phone] | | + +--------+ + + + + Encounter Details +--------+---------+ + + + | Date | Type | Department | Care Team | Description | +--------+---------+ + + + | 07/29/ | Office | Orthopaedics at | Jv Thomas, | ACL graft tear, | | 2019 | Visit | [facility] [address] | MD [address] | initial encounter | | | | Ave Mailcode: CH12A | [address] | ([facility]) (Primary Dx) | | | | [facility] | [place], [place] | | | | | and Healing, | [address] | | | | | Building | [phone] | | | | | Floor [place], [place] | | | | | | [address] | | | | | | [phone] | | | +--------+---------+ + + + [...] be different fr om the original. CLINIC: [facility] Sports Medicine - Orthopedic Surgery PATIENT: Song Mayers [facility] MR#: [id number] : 1975 REQUESTING PROVIDER: Christo Prieto MD [facility] Ortho & Fractur [address] [place] [address] PRIMARY CARE PROVIDER: Catalino Vides NP Primary [...] Jv Thomas MD Sports Orthopaedics and Arthroscopy Skylights Assembler Dept. Orthopaedic Surgery and Rehabilitation [facility] documented in this e ncounter Plan [...] Rd | | | | | | [facility] [place] | | | | | | [address] | | | | | | [phone] | | | | | | | | +--------+---------+ + + + | 08/24/ | Office | Orthopedics | Jv Thomas, | | | 2019 | Visit | | MD Joey Fortune | | | | | | [address] | | | | | | [facility] [place] | | | | | | [address] | | | | | | [phone] | | | | | | | | +--------+---------+ + + + documented as of this encounter Visit Diagnoses + + | Diagnosis | + + | ACL graft tear, initial encounter (HCC) - Primary | + + documented in this encounter
--- OUTSIDE RECORDS SUMMARY | ~2019-01-24 | XMS | Clinical Summary ---
Demographics + + + | Address | [address] | | | [place] [address] | + + + | Home Phone | | + + + | Preferred Language | Unknown | + + + | Marital Status | | + + + | Jain Affiliation | Unknown | + + + [...] Team Providers + +------+ + | Care Internet Site Designer Name | Role | Phone | + +------+ + | Catalino Vides NP | PCP | | + +------+ + Source Comments CATHERINE is fully live on both [facility] Ambulatory and [facility] InPatient.[facility] Allergies No Known Allergies Medications + [...] Rd | | | | | | [place], [place] | | | | | | [address] | | | | | | [phone] | | | | | | | | +--------+---------+ + + + | 08/24/ | Office | Orthopedics | Jv Thomas, | | | 2019 | Visit | | MD [address] | | | | | | [address] | | | | | | [place], [place] | | | | | | [address] | | | | | | [phone] | | | | | | | [...] | + +--------+ +--------+ + +------+ | [facility] | PROVID | [phone] | 10/29/19 | [phone] | [address] | PPO | | | ENCE | | 18-Pre | 0 | [address] | | | | HEALTH | | sent | | [place], | | | | | | | | [place] [address] | | + +--------+ +--------+ + +------+ [...] | 1976 | [phone] | [place] [address] | | | hilary | | | 6 (Home) | | + +--------+ +--------+ + +
--- OUTSIDE RECORDS SUMMARY | ~2019-01-24 | XMS | Encounter Summary ---
Demographics + + + | Address | [address] | | | [place] [address] | + + + | Home Phone [...] Team Providers + +------+ + | Care Patient'S Librarian Name | Role | Phone | [...] Rd | | | | | | [place], [place] | | | | | | [address] | | | | | | [phone] | | | | | | | | +--------+---------+ + + + | 08/24/ | Office | Orthopedics | Jv Thomas, | | | 2019 | Visit | | [address] | | | | | | [address] | | | | | | [place] | | | | | | [address] | | | | | | [phone] | | | | | | | | +--------+---------+ + + + documented as of this encounter Visit Diagnoses Not on filedocumented in this encounter"
--- OUTSIDE RECORDS SUMMARY | ~2019-01-24 | XMS | Encounter Summary ---
Demographics + + + | Address | [address] | | | [place] | + + + | Home Phone [...] Author + + + | Author | [facility] | + + + | Organization | [facility] | + [...] Team Providers + +------+ + | Care Client Account Representative Name | Role | Phone | + [...] Refill Encounters | | 2019 | | [facility] [address] | MD [address] | | | | | [place] Mailcode: CH12A | [address] | | | | | [facility] | [place], [place] | | | | | and [place], | [address] | | | | | Building | [phone] | | | | | Floor [place], [place] | | | | | | [address] | | | | | | [phone] | | | +--------+ + + + [...] Rd | | | | | | [place], [place] | | | | | | [address] | | | | | | [phone] | | | | | | | | +--------+---------+ + + + | 08/24/ | Office | Orthopedics | Jv Thomas, | | | 2019 | Visit | | MD [address] | | | | | | [address] | | | | | | [place], [place] | | | | | | [address] | | | | | | [phone] | | | | | | | | +--------+---------+ + + + documented as of this encounter Visit Diagnoses Not on filedocumented in this encounter"
--- OUTSIDE RECORDS SUMMARY | ~2019-01-24 | XMS | Encounter Summary ---
Demographics + + + | Address | [address] | | | [place] [address] | + + + | Home Phone [...] Team Providers + +------+ + | Care Extrusion Former Name | Role | Phone | + [...] Rd | | | | | | [place], [place] | | | | | | [address] | | | | | | [phone] | | | | | | | | +--------+---------+ + + + | 08/24/ | Office | Orthopedics | Jv Thomas, | | | 2019 | Visit | | [address] | | | | | | [address] | | | | | | [place] | | | | | | [address] | | | | | | [phone] | | | | | | | | +--------+---------+ + + + documented as of this encounter Visit Diagnoses Not on filedocumented in this encounter"
--- OUTSIDE RECORDS SUMMARY | ~2019-01-24 | XMS | Encounter Summary ---
Demographics + + + | Address | [address] | | | [place] [address] | + + + | Home Phone | | + + + | Preferred Language | Unknown | + + + | Marital Status | | + + + | Caodaism Affiliation | Unknown | + + + [...] Team Providers + +------+ + | Care Faculty Head Name | Role | Phone | + [...] Rd | | | | | | [place], [place] | | | | | | [address] | | | | | | [phone] | | | | | | | | +--------+---------+ + + + | 08/24/ | Office | Orthopedics | Jv Thomas, | | | 2019 | Visit | | [address] | | | | | | [address] | | | | | | [place] | | | | | | [address] | | | | | | [phone] | | | | | | | | +--------+---------+ + + + documented as of this encounter Visit Diagnoses Not on filedocumented in this encounter"
--- OUTSIDE RECORDS SUMMARY | ~2019-01-24 | XMS | Encounter Summary ---
Demographics + + + | Address | [address] | | | [place] [address] | + + + | Home Phone [...] Author + + + | Author | [facility] | + + + | Organization | [facility] | + + + | Address | Unknown | + + + | Phone | Unavailable | + + + Support + + +---------+ + | Name | Relationship | Address | Phone | + + +---------+ + | Esau Mayers | ECON | Unknown | | + + +---------+ + Care Team Providers + +------+ + | Care Horse Riding Coach Or Instructor Name | Role | Phone | + +------+ + | Catalino Vides WEALTH MANAGEMENT DIRECTOR | PCP | | + +------+ + [...] Op | | 2019 | | [facility] [address] | [address] | | | | | Ave Mailcode: CH12A | [facility] | | | | | [facility] | [place], [place] | | | | | and [place], | [address] | | | | | [facility] | [phone] | | | | | Floor [place], [place] | | | | | | [address] | | | | | | [phone] | | | +--------+ + + + [...] Rd | | | | | | [place], [place] | | | | | | [address] | | | | | | [phone] | | | | | | | | +--------+---------+ + + + | 08/24/ | Office | Orthopedics | Jv Thomas, | | | 2019 | Visit | | MD [address] | | | | | | [address] | | | | | | [place], [place] | | | | | | [address] | | | | | | [phone] | | | | | | | | +--------+---------+ + + + documented as of this encounter Visit Diagnoses Not on filedocumented in this encounter"
--- OUTSIDE RECORDS SUMMARY | ~2019-01-24 | XMS | Encounter Summary ---
Demographics + + + | Address | [address] | | | [place] [address] | + + + | Home Phone [...] Author + + + | Author | [email or web address] | + + + | Organization | [email or web address] | + + + | Address | Unknown | + + + | Phone | Unavailable | + + + Support + + +---------+ + | Name | Relationship | Address | Phone | + + +---------+ + | Esau Mayers | ECON | Unknown | | + + +---------+ + Care Team Providers + +------+ + | Care Blindstitch Hemmer Name | Role | Phone | + +------+ + | Ctaalino Vides GARDENER | PCP | | + +------+ + [...] | | | | | Procedures | [place], [place] | | | | | | PHYSICAL | [address] | | | | | | THERAPY | Phone: | | | | | | REFERRAL | [phone] | | | | | | | Fax: | | | | | | | [phone] | | +--------+--------+ + + + + [...] tear, | | 2019 | Visit | [facility] [address] | [address] | subsequent encounter | | | | Ave Mailcode: CH12A | [address] | (Primary Dx) | | | | Center for [facility] | [place], [place] | | | | | and Healing, | [address] | | | | | [facility] | [phone] | | | | | Floor [place], [place] | | | | | | [address] | | | | | | [phone] | | | +--------+---------+ + + + [...] Rd | | | | | | [place], [place] | | | | | | [address] | | | | | | [phone] | | | | | | | | +--------+---------+ + + + | 08/24/ | Office | Orthopedics | Jv Thomas, | | | 2019 | Visit | | MD Joey Fortune | | | | | | [address] | | | | | | [facility] [place] | | | | | | [address] | | | | | | [phone] | | | | | | | [...]
--- OUTSIDE RECORDS SUMMARY | ~2019-01-24 | XMS | Encounter Summary ---
Demographics + + + | Address | [address] | | | [place] [address] | + + + | Home Phone [...] Team Providers + +------+ + | Care Mental Telepathist Name | Role | Phone | + [...] Rd | | | | | | [place], [place] | | | | | | [address] | | | | | | [phone] | | | | | | | | +--------+---------+ + + + | 08/24/ | Office | Orthopedics | Jv Thomas, | | | 2019 | Visit | | [address] | | | | | | [address] | | | | | | [place] | | | | | | [address] | | | | | | [phone] | | | | | | | | +--------+---------+ + + + documented as of this encounter Visit Diagnoses Not on filedocumented in this encounter"
--- OUTSIDE RECORDS SUMMARY | ~2019-01-24 | XMS | Encounter Summary ---
Demographics + + + | Address | [address] | | | [place] [address] | + + + | Home Phone [...] Author + + + | Author | [facility] | + + + | Organization | [facility] | + + + | Address | Unknown | + + + | Phone | Unavailable | + + + Support + + +---------+ + | Name | Relationship | Address | Phone | + + +---------+ + | Esau Mayers | ECON | Unknown | | + + +---------+ + Care Team Providers + +------+ + | Care Addressing Machine Operator Name | Role | Phone [...] Refill Encounters | | 2019 | | [place] [address] | MD [address] | | | | | [address] Mailcode: CH12A | [address] | | | | | [facility] | [place], [place] | | | | | and [place], | [address] | | | | | Building | [phone] | | | | | Floor [place], [place] | | | | | | [address] | | | | | | [phone] | | | +--------+ + + + [...] Rd | | | | | | [place], [place] | | | | | | [address] | | | | | | [phone] | | | | | | | | +--------+---------+ + + + | 08/24/ | Office | Orthopedics | vJ Thomas, | | | 2019 | Visit | | MD [address] | | | | | | [address] | | | | | | [place], [place] | | | | | | [address] | | | | | | [phone] | | | | | | | | +--------+---------+ + + + documented as of this encounter Visit Diagnoses Not on filedocumented in this encounter"
--- OUTSIDE RECORDS SUMMARY | ~2019-01-24 | XMS | Encounter Summary ---
Demographics + + + | Address | [address] | | | [place] [address] | + + + | Home Phone | | + + + | Preferred Language | Unknown | + + + | Marital Status | | + + + | Methodist Affiliation | Unknown | + + + | Race | Black or | + + + | Ethnic Group | Not or | + + + Author + + + | Author | [facility] | + + + | Organization | [facility] | + + + | Address | Unknown | + + + | Phone | Unavailable | + + + Support + + +---------+ + | Name | Relationship | Address | Phone | + + +---------+ + | Esau Mayers | ECON | Unknown | | + + +---------+ + Care Team Providers + +------+ + | Care Anatomic Pathologist Name | Role | Phone | + +------+ + | Catalino Vides NP | PCP | | + +------+ + Encounter Details +--------+ + + + + | Date | Type | Department | Care Team | Description | +--------+ + + + + | 09/21/ | Telephone | Orthopaedics at | Jv Thomas, | | | 2018 | | [facility] [address] | [address] | | | | | [address] Mailcode: CH12A | [address] | | | | | [place] [facility] | [place], [place] | | | | | and [place], | [address] | | | | | [facility] | [phone] | | | | | Floor [place], [place] | | | | | | [address] | | | | | | [phone] | | | +--------+ + + + [...] Rd | | | | | | [place] | | | | | | [address] | | | | | | [phone] | | | | | | | | +--------+---------+ + + + | 08/24/ | Office | Orthopedics | Jv Thomas, | | | 2019 | Visit | | MD [address] Fortune | | | | | | [address] | | | | | | [place] | | | | | | [address] | | | | | | [phone] | | | | | | | | +--------+---------+ + + + documented as of this encounter Visit Diagnoses Not on filedocumented in this encounter"
--- OUTSIDE RECORDS SUMMARY | ~2019-01-24 | XMS | Encounter Summary ---
Demographics + + + | Address | [address] | | | [place] [address] | + + + | Home Phone [...] Author + + + | Author | [facility] | + + + | Organization | [facility] | + + + | Address | Unknown | + + + | Phone | Unavailable | + + + Support + + +---------+ + | Name | Relationship | Address | Phone | + + +---------+ + | Esau Mayers | ECON | Unknown | | + + +---------+ + Care Team Providers + +------+ + | Care Gaggerman Name | Role | Phone | + [...] Refill Encounters | | 2019 | | [facility] [address] | MD [address] | | | | | [place] Mailcode: CH12A | [address] | | | | | [facility] | [place], [place] | | | | | and [place], | [address] | | | | | Building | [phone] | | | | | Floor [place], [place] | | | | | | [address] | | | | | | [phone] | | | +--------+ + + + [...] Rd | | | | | | [place], [place] | | | | | | [address] | | | | | | [phone] | | | | | | | | +--------+---------+ + + + | 08/24/ | Office | Orthopedics | Jv Thomas, | | | 2019 | Visit | | MD [address] | | | | | | [address] | | | | | | [place], [place] | | | | | | [address] | | | | | | [phone] | | | | | | | | +--------+---------+ + + + documented as of this encounter Visit Diagnoses Not on filedocumented in this encounter"
--- OUTSIDE RECORDS SUMMARY | ~2019-01-24 | XMS | Encounter Summary ---
Demographics + + + | Address | [address] | | | [place] [address] | + + + | Home Phone [...] Author + + + | Author | [facility] | + + + | Organization | [facility] | + + + | Address | Unknown | + + + | Phone | Unavailable | + + + Support + + +---------+ + | Name | Relationship | Address | Phone | + + +---------+ + | Esau Mayers | ECON | Unknown | | + + +---------+ + Care Team Providers + +------+ + | Care Forestry Patrolman Name | Role | Phone | + [...] Refill Encounters | | 2019 | | [facility] [address] | MD [address] | | | | | [place] Mailcode: CH12A | [address] | | | | | [facility] | [place], [place] | | | | | and [place], | [address] | | | | | Building | [phone] | | | | | Floor [place], [place] | | | | | | [address] | | | | | | [phone] | | | +--------+ + + + [...] Rd | | | | | | [place], [place] | | | | | | [address] | | | | | | [phone] | | | | | | | | +--------+---------+ + + + | 08/24/ | Office | Orthopedics | Jv Thomas, | | | 2019 | Visit | | MD [address] Fortune | | | | | | [address] | | | | | | [place], [place] | | | | | | [address] | | | | | | [phone] | | | | | | | | +--------+---------+ + + + documented as of this encounter Visit Diagnoses Not on filedocumented in this encounter"
--- OUTSIDE RECORDS SUMMARY | ~2019-01-24 | XMS | Encounter Summary ---
Demographics + + + | Address | [address] | | | [place] [address] | + + + | Home Phone [...] + + | Author | [facility] | + + + | Organization | [facility] | + + + | Address | Unknown | + + + | Phone | Unavailable | + + + Support + + +---------+ + | Name | Relationship | Address | Phone | + + +---------+ + | Esau Mayers | ECON | Unknown | | + + +---------+ + Care Team Providers + +------+ + | Care Junior Financial Analyst Name | Role | Phone | [...] | | 2019 | on | [facility] [address] | [address] | | | | | Ave Mailcode: CH12A | [address] | | | | | [facility] | [place], [place] | | | | | and [place], | [address] | | | | | [facility] | [phone] | | | | | Floor [place], [place] | | | | | | [address] | | | | | | [phone] | | | +--------+ + + + [...] Rd | | | | | | [facility] [place] | | | | | | [address] | | | | | | [phone] | | | | | | | | +--------+---------+ + + + | 08/24/ | Office | Orthopedics | Jv Thomas, | | | 2019 | Visit | | MD [address] | | | | | | [address] | | | | | | [facility] [place] | | | | | | [address] | | | | | | [phone] | | | | | | | | +--------+---------+ + + + documented as of this encounter Visit Diagnoses Not on filedocumented in this encounter"
--- OUTSIDE RECORDS SUMMARY | ~2019-01-24 | XMS | Encounter Summary ---
Demographics + + + | Address | [address] | | | [place] [address] | + + + | Home Phone [...] Author + + + | Author | [facility] | + + + | Organization | [facility] | + + + | Address | Unknown | + + + | Phone | Unavailable | + + + Support + + +---------+ + | Name | Relationship | Address | Phone | + + +---------+ + | Esau Mayers | ECON | Unknown | | + + +---------+ + Care Team Providers + +------+ + | Care Hourly Associate Name | Role | Phone | [...] Refill Encounters | | 2019 | | [facility] [address] | MD [address] | | | | | [place] Mailcode: CH12A | [address] | | | | | [facility] | [place], [place] | | | | | and [place], | [address] | | | | | Building | [phone] | | | | | Floor [place], [place] | | | | | | [address] | | | | | | [phone] | | | +--------+ + + + [...] Rd | | | | | | [place], [place] | | | | | | [address] | | | | | | [phone] | | | | | | | | +--------+---------+ + + + | 08/24/ | Office | Orthopedics | Jv Thomas, | | | 2019 | Visit | | MD [address] | | | | | | [address] | | | | | | [place], [place] | | | | | | [address] | | | | | | [phone] | | | | | | | | +--------+---------+ + + + documented as of this encounter Visit Diagnoses Not on filedocumented in this encounter"
--- OUTSIDE RECORDS SUMMARY | ~2019-01-24 | XMS | Encounter Summary ---
Demographics + + + | Address | [address] | | | [place] [address] | + + + | Home Phone [...] + | Author | [facility] | + + + | Organization | [facility] | + + + | Address | Unknown | + + + | Phone | Unavailable | + + + Support + + +---------+ + | Name | Relationship | Address | Phone | + + +---------+ + | Esau Mayers | ECON | Unknown | | + + +---------+ + Care Team Providers + +------+ + | Care Telegraph Service Rater Name | Role | Phone | + +------+ + | Catalino Vides DUST COLLECTOR ATTENDANT | PCP | | + +------+ + [...] | encounter | & Fractur | Rd [place], | | | | | ([facility]) | [address] | [place] | | | | | Procedures | [place] | [address] | | | | | REQUEST TO | [place], | Phone: | | | | | SURGERY | [place] [address] | [phone] | | | | | CQ DEVELOPER | Phone: | Fax: | | | | | [place] | [phone] | [phone] | | | | | SCOPE,AID | Fax: | | | | | | ANT CRUCIATE | [phone] | | | | | | REPAIR [place] | | | | | | | [...] tear, | | 2019 | Visit | [facility] [address] | [address] | subsequent encounter | | | | Ave Mailcode: CH12A | [address] | (Primary Dx) | | | | [facility] | [place], [place] | | | | | and [place], | [address] | | | | | [facility] | [phone] | | | | | Floor [place], [place] | | | | | | [address] | | | | | | [phone] | | | +--------+---------+ + + + [...] has been compliant with 75% weightbearing [facility] with brace. She has not yet unlocked the brace during ambulation. She has attended 2 sessions of PT at [facility]. She continues to have moderate/severe pain and [...] Rd | | | | | | [place], [place] | | | | | | [address] | | | | | | [phone] | | | | | | | | +--------+---------+ + + + | 08/24/ | Office | Orthopedics | Jv Thomas, | | | 2019 | Visit | | MD [address] | | | | | | [address] | | | | | | [place], [place] | | | | | | [address] | | | | | | [phone] | | | | | | | | +--------+---------+ + + + documented as of this encounter Visit Diagnoses + + | Diagnosis | + + | ACL graft tear, subsequent encounter - Primary | + + documented in this encounter"
--- OUTSIDE RECORDS SUMMARY | ~2019-01-24 | XMS | Encounter Summary ---
Demographics + + + | Address | [address] | | | [place] [address] | + + + | Home Phone | | + + + | Preferred Language | Unknown | + + + | Marital Status | | + + + | Spiritism Affiliation | Unknown | + + + | Race | Black or | + + + | Ethnic Group | Not or | + + + Author + + + | Author | [facility] | + + + | Organization | [facility] | [...] Team Providers + +------+ + | Care Fuel Pilot Engineer Name | Role | Phone | [...] | | 2019 | on | [facility] [address] | [address] | | | | | Ave Mailcode: CH12A | [address] | | | | | [facility] | [place], [place] | | | | | and [place], | [address] | | | | | [facility] | [phone] | | | | | Floor [place], [place] | | | | | | [address] | | | | | | [phone] | | | +--------+ + + + [...] [place] | | | | | | [address] | | | | | | [phone] | | | | | | | | +--------+---------+ + + + | 08/24/ | Office | Orthopedics | Jv Thomas, | | | 2019 | Visit | | MD [address] | | | | | | [address] | | | | | | [facility] [place] | | | | | | [address] | | | | | | [phone] | | | | | | | | +--------+---------+ + + + documented as of this encounter Visit Diagnoses Not on filedocumented in this encounter"
--- OUTSIDE RECORDS SUMMARY | ~2019-01-24 | XMS | Encounter Summary ---
Demographics + + + | Address | [address] | | | [place] [address] | + + + | Home Phone | | + + + | Preferred Language | Unknown | + + + | Marital Status | | + + + | Jehovah'S Witness Affiliation | Unknown | + + + | Race | Black or | + + + | Ethnic Group | Not or | + + + Author + + + | Author | [facility] | + + + | Organization | [facility] | + + + | Address | Unknown | + + + | Phone | Unavailable | + + + Support + + +---------+ + | Name | Relationship | Address | Phone | + + +---------+ + | Esau Mayers | ECON | Unknown | | + + +---------+ + Care Team Providers + +------+ + | Care Finance Lead Name | Role | Phone | [...] Refill Encounters | | 2019 | | [facility] [address] | MD [address] | | | | | [place] Mailcode: CH12A | [address] | | | | | [facility] | [place], [place] | | | | | and [place], | [address] | | | | | Building | [phone] | | | | | Floor [place], [place] | | | | | | [address] | | | | | | [phone] | | | +--------+ + + + [...] Rd | | | | | | [place], [place] | | | | | | [address] | | | | | | [phone] | | | | | | | | +--------+---------+ + + + | 08/24/ | Office | Orthopedics | Jv Thomas, | | | 2019 | Visit | | MD [address] | | | | | | [address] | | | | | | [place], [place] | | | | | | [address] | | | | | | [phone] | | | | | | | | +--------+---------+ + + + documented as of this encounter Visit Diagnoses Not on filedocumented in this encounter"
--- OUTSIDE RECORDS SUMMARY | ~2019-01-24 | XMS | Encounter Summary ---
Demographics + + + | Address | [address] | | | [place] [address] | + + + | Home Phone [...] Author + + + | Author | [facility] [employer] [facility] | + + + | Organization | [facility] [facility] [employer] [facility] | + + + | Address | Unknown | + + + | Phone | Unavailable | + + + Support + + +---------+ + | Name | Relationship | Address | Phone | + + +---------+ + | Esau Mayers | ECON | Unknown | | + + +---------+ + Care Team Providers + +------+ + | Care Bench Patternmaker Metal Name | Role | Phone | + +------+ + | Catalino Vides ANGIOGRAPHY TECHNOLOGIST | PCP | | + +------+ + [...] | | | | | Procedures | [place], [place] | | | | | | PHYSICAL | [address] | | | | | | THERAPY | Phone: | | | | | | REFERRAL | [phone] | | | | | | | Fax: | | | | | | | [phone] | | +--------+--------+ + + + + [...] tear, | | 2019 | Visit | [facility] [address] | [address] | subsequent encounter | | | | Ave Mailcode: CH12A | [address] | (Primary Dx) | | | | [facility] | [place], [place] | | | | | and Healing, | [address] | | | | | [facility] | [phone] | | | | | Floor [place], [place] | | | | | | [address] | | | | | | [phone] | | | +--------+---------+ + + + [...] Rd | | | | | | [place], [place] | | | | | | [address] | | | | | | [phone] | | | | | | | | +--------+---------+ + + + | 08/24/ | Office | Orthopedics | Jv Thomas, | | | 2019 | Visit | | MD [address] | | | | | | [address] | | | | | | [facility] [place] | | | | | | [address] | | | | | | [phone] | | | | | | | [...]
--- OUTSIDE RECORDS SUMMARY | ~2019-01-24 | XMS | Encounter Summary ---
Demographics + + + | Address | [address] | | | [place] [address] | + + + | Home Phone [...] Team Providers + +------+ + | Care Malt Liquors Sales Supervisor Name | Role | Phone | [...] | | | | | | [place], [place] | | | | | | [address] | | | | | | [phone] | | | | | | | | +--------+---------+ + + + | 08/24/ | Office | Orthopedics | Jv Thomas, | | | 2019 | Visit | | [address] | | | | | | [address] | | | | | | [place] | | | | | | [address] | | | | | | [phone] | | | | | | | | +--------+---------+ + + + documented as of this encounter Visit Diagnoses Not on filedocumented in this encounter"
--- OUTSIDE RECORDS SUMMARY | ~2019-01-24 | XMS | Encounter Summary ---
Demographics + + + | Address | [address] | | | [place] [address] | + + + | Home Phone [...] + | Author | [facility] | + + + | Organization | [facility] [facility] | + + + | Address | Unknown | + + + | Phone | Unavailable | + + + Support + + +---------+ + | Name | Relationship | Address | Phone | + + +---------+ + | Esau Mayers | ECON | Unknown | | + + +---------+ + Care Team Providers + +------+ + | Care Top Cager Name | Role | Phone | + +------+ + | Catalino Vides CLINICAL OB | PCP | | + +------+ + [...] | | | | | initial | [facility] | [address] | | | | | encounter | & Fractur | Rd [place], | | | | | ([facility]) | [address] | [place] | | | | | Procedures | [place] | [address] | | | | | REQUEST TO | [place], | Phone: | | | | | SURGERY | [place] [address] | [phone] | | | | | BINDING BENCH WORKER | Phone: | Fax: | | | | | MS KNEE | [phone] | [phone] | | | | | SCOPE,AID | Fax: | | | | | | ANT CRUCIATE | [phone] | | | | | | REPAIR [...] | | 2019 | Visit | [facility] [address] | [address] | subsequent encounter | | | | Ave Mailcode: CH12A | [address] | (Primary Dx) | | | | [facility] | [place], [place] | | | | | and [place], | [address] | | | | | [facility] | [phone] | | | | | Floor [place], [place] | | | | | | [address] | | | | | | [phone] | | | +--------+---------+ + + + [...] status post: Date of surgery: 08/27/18 at [facility] Right knee revision ACL reconstruction with allograft and removal of failed hardware She states that she is progressing well. She has been compliant with 75% weightbearing [facility] with brace. She has not yet unlocked the brace during ambulation. She has attended 2 sessions of PT at [facility]. She continues to have moderate/severe pain and [...] Rd | | | | | | [place], [place] | | | | | | [address] | | | | | | [phone] | | | | | | | | +--------+---------+ + + + | 08/24/ | Office | Orthopedics | Jv Thomas, | | | 2019 | Visit | | MD [address] Fortune | | | | | | [address] | | | | | | [place], [place] | | | | | | [address] | | | | | | [phone] | | | | | | | | +--------+---------+ + + + documented as of this encounter Visit Diagnoses + + | Diagnosis | + + | ACL graft tear, subsequent encounter - Primary | + + documented in this encounter"
--- OUTSIDE RECORDS SUMMARY | ~2019-01-24 | XMS | Encounter Summary ---
Demographics + + + | Address | [address] | | | [place] [address] | + + + | Home Phone | | + + + | Preferred Language | Unknown | + + + | Marital Status | | + + + | Gnosticism Affiliation | Unknown | + + + [...] Team Providers + +------+ + | Care Documentation Consultant Name | Role | Phone | [...] Rd | | | | | | [place], [place] | | | | | | [address] | | | | | | [phone] | | | | | | | | +--------+---------+ + + + | 08/24/ | Office | Orthopedics | Jv Thomas, | | | 2019 | Visit | | [address] | | | | | | [address] | | | | | | [place] | | | | | | [address] | | | | | | [phone] | | | | | | | | +--------+---------+ + + + documented as of this encounter Visit Diagnoses Not on filedocumented in this encounter"
--- OUTSIDE RECORDS SUMMARY | ~2019-01-24 | XMS | Clinical Summary ---
Demographics + + + | Address | [address] | | | [place] [address] | + + + | Home Phone [...] + | Author | [facility] [employer] (Historical as of | | | 11-13-18) | + + + | Organization | [facility] [employer] (Historical as of | | | 11-13-18) [...] [place] | | | | | [address] | | + + + + + Care Team Providers + +------+ + | Care Reinforcing Iron And Rebar Workers Name | Role | Phone | + [...] +------+-------+ + | PREMERA | PREMER | [id number] | | | [address] [address] | | | A | 7 | | | [place], [place] | | | [place] | | | | [address] | | | [place] | | | | | + +--------+ +------+-------+ + | MEDICAID | EASTER | [id number] | | | [address] | | | N | | | | [place] | | | [place] | | | | [address] | | | TOW FEEDER | | | | | + +--------+ [...] | Self | [birth year] | Home: | [address] | | | al/Fam | | 1976 | [phone] | [address] [place] | | | [place] | | | [phone] | [address] | + +--------+ +--------+ + +
--- OUTSIDE RECORDS SUMMARY | ~2019-01-24 | XMS | Encounter Summary ---
Demographics + + + | Address | [address] | | | [place] [address] | + + + | Home Phone [...] + + | Author | [facility] | + + + | Organization | [facility] | + + + | Address | Unknown | + + + | Phone | Unavailable | + + + Support + + +---------+ + | Name | Relationship | Address | Phone | + + +---------+ + | Esau Mayers | ECON | Unknown | | + + +---------+ + Care Team Providers + +------+ + | Care Splitter Tender Name | Role | Phone | [...] Refill Encounters | | 2019 | | [facility] [address] | MD [address] | | | | | [place] Mailcode: CH12A | [address] | | | | | [facility] | [place], [place] | | | | | and [place], | [address] | | | | | Building | [phone] | | | | | Floor [place], [place] | | | | | | [address] | | | | | | [phone] | | | +--------+ + + + [...] Rd | | | | | | [place], [place] | | | | | | [address] | | | | | | [phone] | | | | | | | | +--------+---------+ + + + | 08/24/ | Office | Orthopedics | Jv Thomas, | | | 2019 | Visit | | MD [address] | | | | | | [address] | | | | | | [place], [place] | | | | | | [address] | | | | | | [phone] | | | | | | | | +--------+---------+ + + + documented as of this encounter Visit Diagnoses Not on filedocumented in this encounter"
--- OUTSIDE RECORDS SUMMARY | 2019-01-24 18:14 | XMS ---
PreManage Notification: NOHEMY LUGO Security Implementation Analyst Events No recent Security Events currently on file CRITERIA MET - [facility] - 2 Visits in 30 Days CARE PROVIDERS CAMI BUSTOS Nurse Practitioner: Family 10/07/2018-Current PHONE: Unknown Christo Prieto [facility] Current [place] PHONE: Unknown Sonny has no Care Guidelines for this patient. Care History Medical/Surgical 10/07/2018 [facility] - Patient is currently established with [facility]. If patient is seen in the ED during business hours. Please contact CHWs at [facility]. Care Recommendation: This patient has had 5 [...] providing care. E.D. VISIT COUNT (12 MO.) 6 NAMITA Russo TOTAL 6 NOTE: Visits indicate total known visits. 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 [place] TYPE: Emergency COMPLAINT: - RASH DIAGNOSES: - Rash and other nonspecific skin eruption 02/27/2018 04:54 [facility] [place] [facility] [place] TYPE: Emergency COMPLAINT: - THROAT PAIN DIAGNOSES: - Personal history of nicotine dependence - Gastro-esophageal reflux disease without esophagitis - Acute pharyngitis, unspecified - Essential (primary) hypertension - Other shelter (current) drug therapy INPATIENT VISIT TRACKING (12 MO.) [facility] DIAGNOSES: - Hypertrophy of breast (N62), Back pain, unspecified back location, unspecified back pain laterality, unspecified chronicity (M54.9) - Hypertrophy of breast [id number]
== END 2019-01-24 19:10 | disposition home or self-care (01) ==
LOC: ED 18:12
DX: R51 Headache (principal)

== ENCOUNTER 2019-02-12 07:17 | Emergency (ER) | payer OTHER ==
[~2019-02-12] VITALS: Ht 165.1 cm; Wt 76.2 kg
--- OUTSIDE RECORDS SUMMARY | ~2019-02-12 | XMS | Encounter Summary ---
Demographics + + + | Address | [address] | | | [place] [address] | + + + | Home Phone | | + + + | Preferred Language | Unknown | + + + | Marital Status | | + + + | Oriental Orthodox Affiliation | Unknown | + + + | Race | Unknown | + + + | Ethnic Group | Unknown | + + + Author + + + | Author | [facility] | | | and [place] | + + + | Organization | [facility] | | | and [place] | + + + | Address | Unknown | + + + | Phone | Unavailable | + + + Support + + +---------+ + | Name | Relationship | Address | Phone | + + +---------+ + | Tiff Zamudio | ECON | Unknown | | + + +---------+ + | Esau Mayers | ECON | Unknown | | + + +---------+ + Care Team Providers + +------+ + | Care Remote Sensing Technician Name | Role | Phone | + +------+ + | No, Physician | PCP | Unavailable | + +------+ + Reason for Visit +---------+ + | Reason | Comments | +---------+ + | Post Op | | +---------+ + Evaluate & Treat (Routine) +--------+--------+ + + + + | Status | Reason | Specialty | Diagnoses / | Referred By | Referred To | | | | | Procedures | Contact | Contact | +--------+--------+ + + + + | Closed | | Plastic | Diagnoses | Mahogany, | Scarlett, | | | | Surgery | Hypertrophy | Catalino Grider, | Jose Antonio | | | | | of breast | FULFILLMENT ASSOCIATE [address] | MD [place] | | | | | Other | [facility] | [address] | | | | | chronic pain | CHRIS VENEGAS, | HANNAH YOUNG, | | | | | Dorsalgia, | [address] | [place] [address] | | | | | unspecified | [place], | Phone: | | | | | Procedures | [place] [address] | [phone] | | | | | [place] OFFICE | Phone: | Fax: | | | | | OUTPATIENT | [phone] | [phone] | | | | | NEW 60 | Fax: | | | | | | MINUTES | [phone] | | +--------+--------+ + + + + Encounter Details +--------+---------+ + + + | Date | Type | Department | Care Team | Description | +--------+---------+ + + + | 02/17/ | Office | [facility] | ScarlettJose Antonio | Hypertrophy of | | 2018 | Visit | SURGERY [address] | [address] | breast (Primary Dx); | | | | St [place], [place] | [address] [place] | Back pain, | | | | [address] | [place] [address] | unspecified back | | | | [phone] | [phone] | location, | | | | | | unspecified back | | | | | | pain laterality, | | | | | | unspecified | | | | | | chronicity; | | | | | | Hypertension, | | | | | | unspecified type; | | | | | | Postoperative pain | +--------+---------+ + + + Social History + + + +--------+ + | Tobacco Use | Types | Packs/Day | Years | Date | | | | | Used | | + + + +--------+ + | Former Smoker | Cigarettes | 0.5 | 4 | Quit: 03/2016 | + + + +--------+ + + +---+---+---+ | Smokeless Tobacco: | | | | | Never Used | | | | + +---+---+---+ + + +---------+ + | Alcohol Use | Drinks/Week | oz/Week | Comments | + + +---------+ + | Yes | | | Occasionally on | | | | | weekends | + + +---------+ + + + [...] recent travel history available. | + + documented as of this encounter Last Filed Vital Signs + + + + + | Vital Sign | Reading | Time Taken | Comments | + + + + + | Blood Pressure | 110/60 | 02/17/2018 11:05 AM | | | | | PST | | + + + + + | Pulse | 55 | 02/17/2018 11:05 AM | | | | | PST | | + + + + + | Temperature | 36.9 C (98.5 F) | 02/17/2018 11:05 AM | | | | | PST | | + + + + + | Respiratory Rate | - | - | | + + + + + | Oxygen Saturation | 100% | 02/17/2018 11:05 AM | | | | | PST | | + + + + + | Inhaled Oxygen | - | - | | | Concentration | | | | + + + + + | Weight | - | - | | + + + + + | Height | 165.1 cm (5' 5") | 02/17/2018 11:05 AM | | | | | PST | | + + + + + | Body Mass Index | - | - | | + + + + + documented in this encounter Progress Jose Antonio Trujillo MD - 02/17/2018 11:10 AM PSTFormatting of this note might be differ ent from the original. [facility] PROGRESS NOTE Primary Care Physician: No Physician on file PATIENT NAME: Song Mayers : 1975 TODAY'S DATE: 02/17/2018 History OF PRESENT ILLNESS: Patient is here today for her 15 day post op from a bilatera l breast reductions. Surgery was 02/02/18. Patient states she is doing well today. She is having some pain still in the breasts. Mostl y soreness. Pain level is a 5/10 in the incision areas. Patient is taking the Oxycodone, PRN , with benefit. She is taking 1 tablet up to 3 times daily but not always. She only has a co uple left. She would like a refill today. She completed the Bactrim with no difficulties. S he does states her blood pressure has still been low. PCP advised her to stopped Hydrochloro thiazide. Drains removed last appointment with no difficulties. Denies drainage. She c/o of soreness in the breast. She has been wearing the surgical bra. She states it does get a annita le uncomfortable around the incision area. Incisions are healing well. No redness, no discha rge. She still has steri strips and sutures. Sutures are starting to itch. She hasn't put an ything on the incisions for the itching. CURRENT MEDICATIONS Current Outpatient Prescriptions Medication Sig Dispense Refill carvedilol (COREG) 25 mg tablet Take 25 mg by mouth 2 times daily (with breakfast & din ner). hydroCHLOROthiazide 25 mg tablet Take 25 mg by mouth Daily. ibuprofen (ADVIL, MOTRIN) 200 mg tablet Take 200 mg by mouth every 6 hours as needed fo r Pain. Multiple Vitamins-Minerals (MULTIVITAMIN ADULT PO) Take by mouth Daily. naproxen (NAPROSYN) 500 mg tablet Take 500 mg by mouth Twice daily as needed. oxyCODONE-acetaminophen (PERCOCET) 10-325 mg per tablet Take 1-2 tablets by mouth every 6 hours as needed for Pain. 30 tablet 0 No current facility-administered medications for this visit. ALLERGIES No Known Allergies PHYSICAL EXAM BP 110/60 | Pulse 55 | Temp 36.9 C (98.5 F) (Temporal) | Ht 1.651 m (5' 5") | SpO2 100% | BMI 30.12 kg/m Wt. Admission: Physical Exam Post op: The incisions were healing well. No redness or discharge. The skin flaps and NA Cs are intact. No sign of infection or complications. ASSESSMENT & PLAN: 1. Hypertrophy of breast 2. Back pain, unspecified back location, unspecified back pain laterality, unspecified hosiery mater nicity 3. Hypertension, unspecified type 4. Postoperative pain 2 weeks post op and doing well. The steristrips and monocryl end knots were removed. Disc ussed using scar creams and mederma. OK to increase activity and RTW on 02/22/18. Recheck here in 4-5 weeks. Electronically Signed by: Jose Antonio Pantoja MD CC: No Physician on file, Catalino Vides, * documented in this encounter Plan of Treatment Not on filedocumented as of this encounter Visit Diagnoses + + | Diagnosis | + + | Hypertrophy of breast - Primary | + + | Back pain, unspecified back location, unspecified back pain laterality, unspecified | | chronicity | + + | Hypertension, unspecified type | + + | Postoperative pain Other acute postoperative pain | + + documented in this encounter
--- OUTSIDE RECORDS SUMMARY | ~2019-02-12 | XMS | Encounter Summary ---
Demographics + + + | Address | [address] | | | [place] [address] | + + + | Home Phone | | + + + | Preferred Language | Unknown | + + + | Marital Status | | + + + | Sikh Affiliation | Unknown | + + + | Race | Unknown | + + + | Ethnic Group | Unknown | + + + Author + + + | Author | [facility] | | | and [place] | + + + | Organization | [facility] | | | and [place] | + + + | Address | Unknown | + + + | Phone | Unavailable | + + + Support + + +---------+ + | Name | Relationship | Address | Phone | + + +---------+ + | Jessie Zamudio | ECON | Unknown | | + + +---------+ + | Esau Mayers | ECON | Unknown | | + + +---------+ + Care Team Providers + +------+ + | Care Chemicals Distiller Name | Role | Phone | + +------+ + | No, Physician | PCP | Unavailable | + +------+ + Encounter Details +--------+ + + + + | Date | Type | Department | Care Team | Description | +--------+ + + + + | 02/01/ | Preadmit | [facility] | [facility] Pantoja | Hypertrophy of | | 2018 | Visit | [facility] | [address] | breast; Back pain, | | | | CLINIC [address] | [address] [place] | unspecified back | | | | [place], [place] | [place] [address] | location, | | | | [address] | [phone] | unspecified back | | | | [phone] | | pain laterality, | | | | | | unspecified | | | | | | chronicity; | | | | | | Hypertension, | | | | | | unspecified type | +--------+ + + + + Social History + + [...] + + documented as of this encounter Plan of Treatment Not on filedocumented as of this encounter Procedures + +--------+ + + + | Procedure Name | Priori | Date/Time | Associated Diagnosis | Comments | | | ty | | | | + +--------+ + + + | CBC WITH | Routin | 02/01/2018 | Hypertrophy of | Results for this | | DIFFERENTIAL | e | 9:55 AM | breast Back pain, | procedure are in the | | | | PST | unspecified back | results section. | | | | | location, | | | | | | unspecified back | | | | | | pain laterality, | | | | | | unspecified | | | | | | chronicity | | | | | | Hypertension, | | | | | | unspecified type | | + +--------+ + + + | BASIC METABOLIC | Routin | 02/01/2018 | Hypertrophy of | Results for this | | PANEL | e | 9:55 AM | breast Back pain, | procedure are in the | | | | PST | unspecified back | results section. | | | | | location, | | | | | | unspecified back | | | | | | pain laterality, | | | | | | unspecified | | | | | | chronicity | | | | | | Hypertension, | | | | | | unspecified type | | + +--------+ + + + | ECG 12 LEAD | Routin | 02/01/2018 | Hypertrophy of | Results for this | | | e | 9:48 AM | breast Back pain, | procedure are in the | | | | PST | unspecified back | results section. | | | | | location, | | | | | | unspecified back | | | | | | pain laterality, | | | | | | unspecified | | | | | | chronicity | | | | | | Hypertension, | | | | | | unspecified type | | + +--------+ + + + documented in this encounter Results CBC with Differential (02/01/2018 9:55 AM PST) + + + + + + | Component | Value | Ref Range | Performed | Pathologist | | | | | At | Signature | + + + + + + | WBC | 5.3 | 4.0 - 11.0 K/uL | [facility] | | | | | | [facility] | | | | | | [facility] | | | | | [facility] - | | | | | | LAB[facility]ATORY | | + + + + + + | RBC | 4.37 | 3.70 - 5.20 | [facility] | | | | | M/uL | [facility] | | | | | | [facility] | | | | | | [facility] - | | | | | | LABORATORY | | + + + + + + | Hemoglobin | 12.9 | 11.5 - 16.0 | [facility] | | | | | g/dL | [facility] | | | | | | [facility] | | | | | | [facility] - | | | | | | LABORATORY | | + + + + + + | Hematocrit | 37.9 | 34.0 - 47.0 % | [facility] | | | | | | [facility] | | | | | | [facility] | | | | | [facility] - | | | | | | LABORATORY | | + + + + + + | MCV | 86.7 | 83.0 - 101.0 fL | [facility] | | | | | | [facility] | | | | | | [facility] | | | | | | [facility] - | | | | | | LABORATORY | | + + + + + + | MCH | 29.5 | 28.0 - 35.0 pg | [facility] | | | | | | [facility] | | | | | | [facility] | | | | | | [facility] - | | | | | | LAB[facility]ATORY | | + + + + + + | MCHC | 34.0 | 32.0 - 36.0 | [facility] | | | | | g/dL | [facility] | | | | | | [facility] | | | | | | [facility] - | | | | | | LABORATORY | | + + + + + + | RDW-CV | 11.9 | <15.0 % | [facility] | | | | | | [facility] | | | | | | [facility] | | | | | | [facility] - | | | | | | LAB[facility]ATORY | | + + + + + + | RDW-SD | 38.0 | 35.1 - 46.3 fL | [facility] | | | | | | [facility] | | | | | | [facility] | | | | | [facility] - | | | | | | LAB[facility]ATORY | | + + + + + + | Platelet | 263 | 140 - 440 K/uL | [facility] | | | Count | | | [facility] | | | | | | [facility] | | | | | | [facility] - | | | | | | LAB[facility]ATORY | | + + + + + + | MPV | 8.7 | 6.5 - 12.4 fL | [facility] | | | | | | [facility] | | | | | | [facility] | | | | | | [facility] - | | | | | | LABORATORY | | + + + + + + | % | 47.7 | 45.0 - 82.0 % | [facility] | | | Neutrophils | | | [facility] | | | | | | [facility] | | | | | | [facility] - | | | | | | LABORATORY | | + + + + + + | % | 38.5 | 20.0 - 45.0 % | [facility] | | | Lymphocytes | | | [facility] | | | | | | [facility] | | | | | | [facility] - | | | | | | LABORATORY | | + + + + + + | % Monocytes | 9.4 | 4.0 - 12.0 % | [facility] | | | | | | [facility] | | | | | | [facility] | | | | | | [facility] - | | | | | | LABORATORY | | + + + + + + | % | 3.4 | 0.0 - 5.0 % | [facility] | | | Eosinophils | | | [facility] | | | | | | [facility] | | | | | | [facility] - | | | | | | LABORATORY | | + + + + + + | % Basophils | 0.6 | 0.0 - 1.0 % | [facility] | | | | | | [facility] | | | | | | [facility] | | | | | | [facility] - | | | | | | LABORATORY | | + + + + + + | % Immature | 0.4Comment: For | 0.0 - 0.4 % | [facility] | | | Granulocyte | patients, use the | | [facility] | | | s | special reference ranges | | MEDICAL | | | | listed below. | | CENTER - | | | | | | LABORATORY | | + + + + + + | Absolute | 2.54 | 1.80 - 8.50 | [facility] | | | Neutrophils | | K/uL | [facility] | | | | | | [facility] | | | | | | [facility] - | | | | | | LABORATORY | | + + + + + + | Absolute | 2.05 | 0.60 - 3.20 | [facility] | | | Lymphocytes | | K/uL | [facility] | | | | | | [facility] | | | | | | [facility] - | | | | | | LABORATORY | | + + + + + + | Absolute | 0.50 | 0.00 - 1.00 | [facility] | | | Monocytes | | K/uL | [facility] | | | | | | MEDICAL | | | | | | CENTER - | | | | | | LABORATORY | | + + + + + + | Absolute | 0.18 | 0.00 - 0.40 | [facility] | | | Eosinophils | | K/uL | [facility] | | | | | | MEDICAL | | | | | | CENTER - | | | | | | LABORATORY | | + + + + + + | Absolute | 0.03 | 0.00 - 0.10 | [facility] | | | Basophils | | K/uL | [facility] | | | | | | MEDICAL | | | | | | CENTER - | | | | | | LABORATORY | | + + + + + + | Absolute | 0.02Comment: For | 0.00 - 0.03 | [facility] | | | Immature | patients, use | K/uL | [facility] | | | Granulocyte | the special reference | | MEDICAL | | | s | ranges listed below. | | CENTER - | | | | | | LABORATORY | | + + + + + + | % nRBC | 0 | 0 - 2 per 100 | [facility] | | | | | WBC's | [facility] | | | | | | MEDICAL | | | | | | CENTER - | | | | | | LABORATORY | | + + + + + + | Absolute | 0.00 | 0.00 - 0.01 | [facility] | | | nRBC | | K/uL | [facility] | | | | | | [facility] | | | | | | [facility] - | | | | | | LABORATORY | | + + + + + + + + | Specimen | + + | Blood | + + + + + | Narrative | Performed At | + + + | IMMATURE GRANULOCYTES - For patients, use the following | [facility] | | reference ranges: Trim. Absolute (K/uL) Percentage (%) | [facility] | | 1st 0.003-0.091 K/uL 0.0-0.9% 2nd 0.007-0.247 K/uL | [facility] | | 0.1-2.0% 3rd 0.018-0.456 K/uL 0.1-2.0% | - LABORATORY | + + + + + + + + | Performing | Address | City/State/Zipcode | Phone Number | | Organization | | | | + + + + + | [facility] | [address] | [place] | [phone] | | [facility] | | [address] | | | - LABORATORY | | | | + + + + + Basic Metabolic Panel (02/01/2018 9:55 AM PST) + + + + + + | Component | Value | Ref Range | Performed | Pathologist | | | | | At | Signature | + + + + + + | Na | 138 | 136 - 149 | [facility] | | | | | mmol/L | [facility] | | | | | | MEDICAL | | | | | | CENTER - | | | | | | LABORATORY | | + + + + + + | K | 3.2 (L) | 3.5 - 5.1 | [facility] | | | | | mmol/L | [facility] | | | | | | MEDICAL | | | | | | CENTER - | | | | | | LABORATORY | | + + + + + + | Cl | 100 | 98 - 109 mmol/L | [facility] | | | | | | [facility] | | | | | | MEDICAL | | | | | | CENTER - | | | | | | LABORATORY | | + + + + + + | CO2 | 31 | 24 - 31 mmol/L | [facility] | | | | | | [facility] | | | | | | MEDICAL | | | | | | CENTER - | | | | | | LABORATORY | | + + + + + + | Anion Gap | 7 | 3 - 16 mmol/L | [facility] | | | | | | [facility] | | | | | | [facility]ICAL | | | | | | CENTER - | | | | | | LABORATORY | | + + + + + + | Glucose | 111 (H) | 70 - 109 mg/dL | [facility] | | | | | | [facility] | | | | | | MEDICAL | | | | | | CENTER - | | | | | | LABORATORY | | + + + + + + | BUN | 18 | 7 - 18 mg/dL | [facility] | | | | | | [facility] | | | | | [facility] | | | | | | [facility] - | | | | | | LABORATORY | | + + + + + + | Creatinine | 0.90 | 0.60 - 1.30 | [facility] | | | | | mg/dL | [facility] | | | | | | MEDICAL | | | | | | CENTER - | | | | | | LABORATORY | | + + + + + + | eGFR if not | >60Comment: GLOMERULAR | >=60 | [facility] | | | | FILTRATION | mL/min/1.73m2 | [facility] | | | [place] | RATE,ESTIMATED | | MEDICAL | | | | mL/min/1.59h8Kgrc than | | CENTER - | | | | 60 Chronic kidney | | LABORATORY | | | | disease,if found over a | | | | | | 3-month period.Less than | | | | | | 15 Kidney failureFor | | | | | | | | | | | | Americans,multiply the | | | | | | calculated GFR by 1.21. | | | | | | | | | | + + + + + + | Calcium | 9.4 | 8.3 - 10.5 | [facility] | | | | | mg/dL | [facility] | | | | | | MEDICAL | | | | | | CENTER - | | | | | | LABORATORY | | + + + + + + | BUN/Creatin | 20.0 | | [facility] | | | ine Ratio | | | [facility] | | | | | | MEDICAL | | | | | | CENTER - | | | | | | LABORATORY | | + + + + + + + + | Specimen | + + | Blood | + + + + + + + | Performing | Address | City/State/Zipcode | Phone Number | | Organization | | | | + + + + + | [facility] | [address] | [place] | [phone] | | [facility] | | [address] | | | - LABORATORY | | | | + + + + + ECG 12 lead (02/01/2018 9:48 AM PST) + + + + + + | Component | Value | Ref Range | Performed | Pathologist | | | | | At | Signature | + + + + + + | VENTRICULAR | 64 | BPM | [facility] | | | RATE EKG | | | | | + + + + + + | ATRIAL RATE | 64 | BPM | [facility] | | + + + + + + | P-R | 190 | ms | [facility] | | | INTERVAL | | | | | + + + + + + | QRS | 80 | ms | [facility] | | | DURATION | | | | | + + + + + + | Q-T | 434 | ms | [facility] | | | INTERVAL | | | | | + + + + + + | Q-T | 447 | ms | [facility] | | | INTERVAL | | | | | | (CORRECTED) | | | | | + + + + + + | P WAVE AXIS | 53 | degrees | [facility] | | + + + + + + | QRS AXIS | -19 | degrees | [facility] | | + + + + + + | T AXIS | 47 | degrees | [facility] | | + + + + + + | INTERPRETAT | Normal sinus | | [facility] | | | ION TEXT | rhythmNormal ECGNo | | | | | | previous ECGs | | | | | | availableConfirmed by | | | | | | BRUNO WEST MD ([id number]) | | | | | | on 02/07/2018 8:52:21 AM | | | | | | | | | | + + + + + + + + | Specimen | + + | | + + + + + | Narrative | Performed At | + + + | | | + + + + +---------+ + + | Performing | Address | City/State/Zipcode | Phone Number | | Organization | | | | + +---------+ + + | [facility] | | | | + +---------+ + + documented in this encounter Visit Diagnoses + + | Diagnosis | + + | Hypertrophy of breast | + + | Back pain, unspecified back location, unspecified back pain laterality, unspecified | | chronicity | + + | Hypertension, unspecified type | + + documented in this encounter"
--- OUTSIDE RECORDS SUMMARY | ~2019-02-12 | XMS | Encounter Summary ---
Demographics + + + | Address | [address] | | | [place] [address] | + + + | Home Phone | | + + + | Preferred Language | Unknown | + + + | Marital Status | | + + + | Adventist Affiliation | Unknown | + + + | Race | Unknown | + + + | Ethnic Group | Unknown | + + + Author + + + | Author | [facility] | | | and [place] | + + + | Organization | [facility] | | | and [...] Team Providers + +------+ + | Care Supplier Quality Name | Role | Phone | + +------+ + PCP | Unavailable | + +------+ + Reason for Visit +--------+ + | Reason | Comments | +--------+ + | Other | | +--------+ + Encounter Details +--------+ + + + + | Date | Type | Department | Care Team | Description | +--------+ + + + + | 12/10/ | Telephone | [facility] | Jose Antonio Pantoja | Other | | 2018 | | SURGERY [address] | [address] | | | | | [place], [place] | [address] [place] | | | | | [address] | [place] [address] | | | | | [phone] | [phone] | | | | | | | | +--------+ + + + + Social History + +-------+ [...] filedocumented as of this encounter Visit Diagnoses Not on filedocumented in this encounter"
--- OUTSIDE RECORDS SUMMARY | ~2019-02-12 | XMS | Encounter Summary ---
Demographics + + + | Address | [address] | | | [place] [address] | + + + | Home Phone | | + + + | Preferred Language | Unknown | + + + | Marital Status | | + + + | Uatsdin Affiliation | Unknown | + + + | Race | Unknown | + + + | Ethnic Group | Unknown | + + + Author + + + | Author | [facility] | | | and [place] | + + + | Organization | [facility] | | | and [...] Team Providers + +------+ + | Care Product Specialist Name | Role | Phone | + +------+ + PCP | Unavailable | + +------+ + Encounter Details +--------+ + + + + | Date | Type | Department | Care Team | Description | +--------+ + + + + | 11/05/ | Hospital | [facility] | Andrew Neri | | | 2011 - | Encounter | [facility] | Jr. DO [address] | | | | [address] | [address] | | | [address] | [place], [place] | | | 2011 | | [place], [place] | [address] | | | | | [address] | [phone] | | | | | [phone] | | | +--------+ + + + + Social History + +-------+ +--------+------+ | Tobacco Use | Types | Packs/Day | Years | Date | | | | | Used | | + +-------+ +--------+------+ | Never Assessed | | | | | + +-------+ +--------+------+ + + + | Sex Assigned at [...] + + documented as of this encounter Discharge Summaries Andrew Neri Do, Jr. - 11/12/2011 2:45 PM PDTFormatting of this note might be differe nt from the original. Discharge Summaries by Andrew Neri DO at 11/12/111444 Author: Andrew Neri DO Service: (none) Author Type: Physician Filed: 11/12/11 7209 Date of Service: 11/12/111444 Status: Signed Clark Driver: Andrew Neri DO (Physician) [facility] Service: Obstetrics & Gynecology Discharge Summary Date of Admission: 11/06/2011 Date of Discharge: 11/12/2011 Discharge Provider: ANDREW NERI DO Discharge Diagnoses: Active Problems: PIH ( induced hypertension), antepartum Preeclampsia Resolved Problems: * No resolved hospital problems. * BRIEF HISTORY OF PRESENTATION: Nohemy Mayers is a 35 y.o. female 30w2d who presented for PIH and subseque nt Preeclampsia HOSPITAL COURSE: Please see H&P and OP Note for complete details. Briefly she had Intrapartum Complications: Preeclampsia - severe Delivery Type: , Low Transverse Laceration: None Episiotomy: None Suture: EBL: 800 mL Placenta: Delivered: 11/09/2011 Removal: 10:35 PM Appearance: Manual removal Intact Disposition: Cord: Complications: None Blood gases sent? Yes DATA Name: Girl Nohemy Mayers Date: 11/09/2011 Time: 10:34 PM Sex: female Weight: 2 lb 14.2 oz (1310 g) Length: 15.35" Apgars (1,5): 9, 9 Living? Yes Patients post delivery course was unremarkable. Her pain was well controlled. Patient wa s voiding without difficulty. She was eating and drinking well and was without nausea. Past Medical History Diagnosis Date Varicose veins STD (sexually transmitted disease) 1994 chlamydia Seizures 1993 eclamptic seizure Other chronic pain Rheumatoid arthritis 09/16/2110 Hypertrophy of breast 04/30/2010 Hypertension Past Surgical History Procedure Date section section, low transverse 11/09/2011 Procedure: REPEAT SECTION; Surgeon: Andrew Neri DO; Location: [facility] L&D; Service: SETTLEMENT PROCESSOR; Laterality: N/A; No Known Allergies Prescriptions prior to admission Medication Sig Dispense Refill albuterol (PROVENTIL,VENTOLIN) 90 MCG/ACT inhaler Inhale 2 puffs into the lungs every 6 (six) hours as needed. buPROPion (WELLBUTRIN XL) 300 MG 24 hr tablet Take 300 mg by mouth every morning. fish oil-omega-3 fatty acids 1000 MG capsule Take 2 g by mouth daily. Vit-Fe Psac Cmplx-FA ( MULTIVITAMIN) 60-1 MG tablet Take 1 tablet by m outh daily with breakfast. ranitidine (ZANTAC) 150 MG tablet Take 150 mg by mouth every morning. Indications: G astroesophageal Reflux Disease DISCHARGE EXAM Vital Signs: BP 119/84 | Pulse 76 | Temp(Src) 97.8 F (36.6 C) (Oral) | Resp 16 | Ht 1.651 m (5' 5") | Wt 98.249 kg (216 lb 9.6 oz) | BMI 36.04 kg/m2 | SpO2 100% | ? No General Appearance: Alert, cooperative, no distress, appears stated age Head: Normocephalic, without obvious abnormality, atraumatic Lungs: Clear to auscultation bilaterally, respirations unlabored Abdomen: Soft, non-tender, bowel sounds active no masses, no Organomegaly, Uterus at the umbilicus and firm Extremities: Extremities normal, atraumatic, no cyanosis or edema Skin: Incision Clean, Dry, Intact, Skin color, texture, turgor normal, no rashes or lesio ns Pelvic: Lochia is normal DATA CBC: Lab Results Component Value Date WBC 12.8* 11/12/2011 RBC 3.20* 11/12/2011 HGB 10.0* 11/12/2011 HCT 29.8* 11/12/2011 MCV 93.3 11/12/2011 MCH 31.3 11/12/2011 MCHC 33.6 11/12/2011 RDW 42.4 11/12/2011 PLT 265 11/12/2011 MPV 7.3 11/12/2011 PLAN Discharge home Disposition: Home Condition: Stable Code Status: Full Code Follow up: 7 days Current Discharge Medication List START taking these medications Details docusate sodium (COLACE) 100 MG capsule Take 1 capsule by mouth 2 (two) times daily. Qty: 60 capsule, Refills: 0 ferrous sulfate (FERROUSUL) 325 (65 FE) MG tablet Take 1 tablet by mouth daily with breakf ast. Qty: 30 tablet, Refills: 11 furosemide (LASIX) 20 MG tablet Take 1 tablet by mouth 2 (two) times daily. Qty: 8 tablet, Refills: 0 ibuprofen (ADVIL,MOTRIN) 800 MG tablet Take 1 tablet by mouth every 8 (eight) hours as nee ded for Pain. Qty: 30 tablet, Refills: 0 labetalol (NORMODYNE) 200 MG tablet Take 1 tablet by mouth 2 (two) times daily. Qty: 60 tablet, Refills: 1 Misc. Devices (BREAST PUMP) MISC 1 Units by Does not apply route as needed (pump every 3 h ours x 15 minutes as needed). Qty: 1 each, Refills: 0 Comments: Patient needs double electric breast pump for premature baby in NICU with feedin g issues NIFEdipine (ADALAT CC) 30 MG 24 hr tablet Take 1 tablet by mouth 2 (two) times daily. Qty: 60 tablet, Refills: 1 oxycodone-acetaminophen (ROXICET) 5-325 MG per tablet Take 1-2 tablets by mouth every 4 (f our) hours as needed for Pain. Qty: 30 tablet, Refills: 0 CONTINUE these medications which have NOT CHANGED Details albuterol (PROVENTIL,VENTOLIN) 90 MCG/ACT inhaler Inhale 2 puffs into the lungs every 6 (s ix) hours as needed. buPROPion (WELLBUTRIN XL) 300 MG 24 hr tablet Take 300 mg by mouth every morning. fish oil-omega-3 fatty acids 1000 MG capsule Take 2 g by mouth daily. Vit-Fe Psac Cmplx-FA ( MULTIVITAMIN) 60-1 MG tablet Take 1 tablet by mout h daily with breakfast. ranitidine (ZANTAC) 150 MG tablet Take 150 mg by mouth every morning. Indications: Tracie roesophageal Reflux Disease Discharge took 10 minutes, to include final examination, discussion of admission, and prepa ration of prescriptions, instructions for on-going care, follow-up and documentation of disc harge summary. ANDREW NERI DO 11/12/2011 documented in this encounter Progress Notes Andrew Neri Do, Jr. - 11/11/2011 9:14 PM PDTFormatting of this note might be differe nt from the original. Progress Notes by Andrew Neri DO at 11/11/112113 Author: Andrew Neri DO Service: (none) Author Type: Physician Filed: 11/11/112114 Date of Service: 11/11/112113 Status: Signed Clark Driver: Andrew Neri DO (Physician) [facility] Service: Obstetrics & Gynecology Progress Note 11/11/2011 Nohemy Mayers 1975 ANDREW NERI DO SUBJECTIVE The patient feels well. Pain is well controlled with current medications. The patient is am bulating well. The patient is tolerating a normal diet. Urinary output is adequate. Flatus has been passed. The baby is well. Patient is breast / bottle feeding feeding. Scheduled Medications Scheduled Meds: docusate sodium 100 mg Oral BID furosemide 20 mg Oral BIDD ibuprofen 600 mg Oral Q6H labetalol 200 mg Oral Q8H NIFEdipine 30 mg Oral BID omeprazole 20 mg Oral Nightly pneumococcal vaccine 0.5 mL Intramuscular Once multivitamin & minerals w iron/FA 1 tablet Oral Daily with breakfast scopolamine 1 patch Transdermal Q72H simethicone 80 mg Oral 4x Daily Continuous Infusions: lactated ringers Stopped (11/10/11 0933) PRN Meds:.acetaminophen, calcium carbonate, diphenhydrAMINE, diphenhydrAMINE, HYDROmorphone , lactated ringers, lanolin, magnesium hydroxide, ondansetron, ondansetron, oxycodone, oxyco done, sodium chloride, zolpidem OBJECTIVE Vital Signs: BP 138/91 | Pulse 79 | Temp(Src) 98.1 F (36.7 C) (Oral) | Resp 18 | Ht 1.651 m (5' 5") | Wt 98.249 kg (216 lb 9.6 oz) | BMI 36.04 kg/m2 | SpO2 100% | ? No General Appearance: Alert, cooperative, no distress, appears stated age Head: Normocephalic, without obvious abnormality, atraumatic Lungs: Clear to auscultation bilaterally, respirations unlabored Abdomen: Soft, non-tender, bowel sounds active no masses, no organomegaly Incision: Clean dry intact Extremities: Extremities normal, atraumatic, no cyanosis or edema Skin: Skin color, texture, turgor normal, no rashes or lesions Pelvic Exam: No vaginal bleeding per patient / nursing DATA WBC Date Value Range Status 11/10/2011 17.1* 3.8-11.0 (K/uL) Final Testing [place] [facility] [place] [address] 10421 RBC Date Value Range Status 11/10/2011 3.40* 3.70-5.10 (M/uL) Final Testing performed at [facility] [place] [address] 68063 HGB Date Value Range Status 11/10/2011 10.6* 11.3-15.5 (g/dL) Final Testing performed at [facility] [place] [place] [address] 01199 HCT Date Value Range Status 11/10/2011 31.5* 34.0-46.0 (%) Final Testing performed at [facility] [place] [address] 41928 MCV Date Value Range Status 11/10/2011 92.7 80.0-100.0 (fl) Final Testing performed at [facility] [place] [place] [address] 54791 MCH Date Value Range Status 11/10/2011 31.3 27.0-34.0 (pg) Final Testing performed at [facility] [place] [place] [address] 09432 MCHC Date Value Range Status 11/10/2011 33.7 32.0-35.5 (g/dL) Final Testing performed at [facility] [place] [address] 56846 RDW SD Date Value Range Status 11/10/2011 42.4 37-53 (fl) Final Testing performed at [facility] [place] [place] [address] 85147 PLT Date Value Range Status 11/10/2011 256 150-400 (K/uL) Final Testing performed at [facility] [place] [place] [address] 43273 MPV Date Value Range Status 11/10/2011 7.5 Final Testing performed at [facility] [place] [place] [address] 07323 ASSESSMENT & PLAN Status Post Section Doing well.BP improving. Encourage PO intake Pain medications as needed Encourage ambulation. Continue current care. ANDREW NERI DO 11/11/2011 onversion Tra nsaction, Provider Unknown - 11/11/2011 4:06 PM PDTFormatting of this note might be differe nt from the original. Progress Notes by Ann-Marie Giles RN at 11/11/111605 Author: Ann-Marie Giles RN Service: (none) Author Type: Parking Line Painter Filed: 11/11/111605 Date of Service: 11/11/111605 Status: Signed Clark Driver: Ann-Marie Giles RN (Parking Line Painter) I met with MOB for NICU assessment. MOB is Nohemy Mayers (#[phone]) Baby Girl Talib was born at 30 weeks gestational age with of 9/9 and weight 1310 grams and admitted to NICU because of RDS and prematurity FOB is Esau Mayers (#[phone]) . They are and live in a rented 3 BR house in [place], [place]. They have one other child a boy age 18. Th ere will be 4 people living in the house. They have no transportation concerns. MOB will be taking time off to be with baby. FOB works 2 almost FT jobs ([employer] / [employer]) They have all baby needs except car seat - they would like to purchase a $20.00 c ar seat from [facility]. MOB plans to breast feed - she has a breast pump and has been seen by Tere diana RN. PPD S/S explained and when to seek medical care - MOB's PCP is Joshua ALEMAN in [place], [place]. Quality Technician will be Radha Rueda MD #[phone] in [place], [place]. Reggie jolley have [employer] insurance. No further needs ID'd at this time. Andrew Boggs Do, Jr. - 11/10/2011 6:33 PM PDT Progress Notes by Andrew Neri DO at 11/10/111832 Author: Andrew Neri DO Service: (none) Author Type: Physician Filed: 11/10/11 1593 Date of Service: 11/10/111832 Status: Signed Clark Driver: Andrew Neri DO (Physician) [facility] Service: Obstetrics & Gynecology Progress Note 11/10/2011 Nohemy Mayers 1975 ANDREW NERI DO SUBJECTIVE The patient feels well. Pain is well controlled with current medications. The patient is am bulating well. The patient is tolerating a normal diet. Urinary output is adequate. Flatus has been passed. The baby is well. Patient is bottle feeding. Scheduled Medications Scheduled Meds: acetaminophen 1 g Oral Q6H ceFAZolin 2 g Intravenous STAT - Now docusate sodium 100 mg Oral BID furosemide 20 mg Oral BIDD ibuprofen 600 mg Oral Q6H ketorolac 30 mg Intravenous Q6H labetalol 10 mg Intravenous Once - Now labetalol 200 mg Oral Q8H metoclopramide 10 mg Intravenous Once NIFEdipine 30 mg Oral BID omeprazole 20 mg Oral Nightly pneumococcal vaccine 0.5 mL Intramuscular Once multivitamin & minerals w iron/FA 1 tablet Oral Daily with breakfast scopolamine 1 patch Transdermal Q72H simethicone 80 mg Oral 4x Daily DISCONTD: citric acid-sodium citrate DISCONTD: docusate sodium 100 mg Oral Daily DISCONTD: docusate sodium 100 mg Oral BID DISCONTD: fentaNYL DISCONTD: lidocaine buffered 1% 0.5 mL Subcutaneous Once DISCONTD: lidocaine buffered 1% DISCONTD: lidocaine buffered 1% DISCONTD: midazolam DISCONTD: morphine (PF) DISCONTD: ranitidine 150 mg Oral BID DISCONTD: sodium chloride 10 mL Intravenous Q8H Continuous Infusions: lactated ringers Stopped (11/10/11 0933) DISCONTD: lactated ringers Stopped (11/07/11 1840) DISCONTD: lactated ringers DISCONTD: oxytocin PRN Meds:.acetaminophen, calcium carbonate, citric acid-sodium citrate, diphenhydrAMINE, di phenhydrAMINE, HYDROmorphone, lactated ringers, lanolin, magnesium hydroxide, ondansetron, o ndansetron, oxycodone, oxycodone, sodium chloride, sodium phosphate, zolpidem, DISCONTD: valeria taminophen, DISCONTD: calcium gluconate, DISCONTD: dibucaine, DISCONTD: lactated ringers, DI SCONTD: lactated ringers, DISCONTD: lactated ringers, DISCONTD: lactated ringers DISCONTD: magnesium hydroxide, DISCONTD: nalbuphine, DISCONTD: naloxone, DISCONTD: ondanset kath, DISCONTD: ondansetron, DISCONTD: oxycodone, DISCONTD: oxycodone, DISCONTD: sodium chlor neena, DISCONTD: witch reji-glycerin, DISCONTD: zolpidem OBJECTIVE Vital Signs: BP 159/109 | Pulse 71 | Temp(Src) 97.5 F (36.4 C) (Oral) | Resp 18 | Ht 1.651 m (5' 5") | Wt 98.249 kg (216 lb 9.6 oz) | BMI 36.04 kg/m2 | SpO2 100% | ? No General Appearance: Alert, cooperative, no distress, appears stated age Head: Normocephalic, without obvious abnormality, atraumatic Lungs: Clear to auscultation bilaterally, respirations unlabored Abdomen: Soft, non-tender, bowel sounds active no masses, no organomegaly Incision: Clean dry intact Extremities: Extremities normal, atraumatic, no cyanosis or edema Skin: Skin color, texture, turgor normal, no rashes or lesions Pelvic Exam: No vaginal bleeding per patient / nursing DATA WBC Date Value Range Status 11/10/2011 17.1* 3.8-11.0 (K/uL) Final Testing performed at [facility] [place] [place] [address] 14634 RBC Date Value Range Status 11/10/2011 3.40* 3.70-5.10 (M/uL) Final Testing performed at [facility] [place] [place] [address] 85202 HGB Date Value Range Status 11/10/2011 10.6* 11.3-15.5 (g/dL) Final Testing performed at [facility] [place] [place] [address] 82478 HCT Date Value Range Status 11/10/2011 31.5* 34.0-46.0 (%) Final Testing performed at [facility] [place] [address] 56099 MCV Date Value Range Status 11/10/2011 92.7 80.0-100.0 (fl) Final Testing performed at [facility] [place] [place] [address] 41290 MCH Date Value Range Status 11/10/2011 31.3 27.0-34.0 (pg) Final Testing performed at [facility] [place] [place] [address] 57081 MCHC Date Value Range Status 11/10/2011 33.7 32.0-35.5 (g/dL) Final Testing performed at [facility] [place] [place] [address] 89997 RDW SD Date Value Range Status 11/10/2011 42.4 37-53 (fl) Final Testing performed at [facility] [place] [facility];[place] [address] PLT Date Value Range Status 11/10/2011 256 150-400 (K/uL) Final Testing performed at [facility] [place] [place] [address] 96689 MPV Date Value Range Status 11/10/2011 7.5 Final Testing performed at [facility] [place] [place] [address] 41805 ASSESSMENT & PLAN Status Post Section Hypertension Will add Lasix Encourage PO intake Pain medications as needed Encourage ambulation. Continue current care. ANDREW NERI DO 11/10/2011 Fermín Sadler Do, Jr. - 11/09/2011 9:37 PM PDTFormatting of this note might be different from the vern suad. Progress Notes by Andrew Neri DO at 11/09/112136 Author: Andrew Neri DO Service: (none) Author Type: Physician Filed: 11/09/112142 Date of Service: 11/09/112136 Status: Addendum Clark Driver: Andrew Neri DO (Physician) Related Notes: Original Note by Andrew Neri DO (Physician) filed at 11/09/112140 [facility] Service: Obstetrics & Gynecology Antepartum Progress Note Hospital Day: LOS: 3 days SUBJECTIVE The patient is a 35 y.o. female at 30w2d admitted for Pre-eclampsia. BP Elevation again noted. Scheduled Medications ceFAZolin 2 g Intravenous STAT - Now citric acid-sodium citrate docusate sodium 100 mg Oral BID labetalol 10 mg Intravenous Once - Now labetalol 200 mg Oral Q8H lidocaine buffered 1% 0.5 mL Subcutaneous Once lidocaine buffered 1% lidocaine buffered 1% metoclopramide 10 mg Intravenous Once NIFEdipine 30 mg Oral BID omeprazole 20 mg Oral Nightly multivitamin & minerals w iron/FA 1 tablet Oral Daily with breakfast sodium chloride 10 mL Intravenous Q8H DISCONTD: docusate sodium 100 mg Oral Daily DISCONTD: ranitidine 150 mg Oral BID Continuous Infusions lactated ringers Stopped (11/07/11 1840) lactated ringers PRN Medications acetaminophen, calcium carbonate, calcium gluconate, citric acid-sodium citrate, lactated r ingers, lactated ringers, lactated ringers, lactated ringers, magnesium hydroxide, ondansetr on, zolpidem OBJECTIVE Vital Signs: BP 174/100 | Pulse 62 | Temp(Src) 99.4 F (37.4 C) (Oral) | Resp 18 | Ht 1.651 m (5' 5") | Wt 98.249 kg (216 lb 9.6 oz) | BMI 36.04 kg/m2 | SpO2 100% | ? No General: alert, appears stated age and cooperative Fundal Height: FHT: Baseline FHR: 150 beats per minute Reactive TOCO: none Cervical Exam: Deferred Alves Score: Not Indicated DATA CBC: Lab Results Component Value Date WBC 12.9* 11/09/2011 RBC 3.30* 11/09/2011 HGB 10.4* 11/09/2011 HCT 30.3* 11/09/2011 MCV 91.9 11/09/2011 MCH 31.4 11/09/2011 MCHC 34.1 11/09/2011 RDW 42.0 11/09/2011 PLT 269 11/09/2011 MPV 7.4 11/09/2011 PROBLEM LIST Active Problems: PIH ( induced hypertension), antepartum Preeclampsia ASSESSMENT & PLAN Plan: Repeat Low Transverse Section Preeclampsia Blood Pressure 174 /100 despite 2 agents Labetalol 10 mg IV Now Status Post B-Methasone given 8-9, 8-10 Risks and benefits discussed with patient. History of Eclamptic seizure with 1st child. ANDREW NERI DO 11/09/2011 Fermín Sadler Do, Jr. - 11/09/2011 9:01 PM PDTFormatting of this note might be different from the vern borjas. Progress Notes by Andrew Neri DO at 11/09/112100 Author: Andrew Neri DO Service: (none) Author Type: Physician Filed: 11/09/112104 Date of Service: 11/09/112100 Status: Signed Clark Driver: Andrew Neri DO (Physician) [facility] Service: Obstetrics & Gynecology Antepartum Progress Note Hospital Day: LOS: 3 days SUBJECTIVE The patient is a 35 y.o. female at 30w2d admitted for Pre-eclampsia. She states sh e is without headache at this time. She is with some visual changes. She is with heartburn . Scheduled Medications docusate sodium 100 mg Oral BID labetalol 200 mg Oral Q8H lidocaine buffered 1% lidocaine buffered 1% NIFEdipine 30 mg Oral BID omeprazole 20 mg Oral Nightly multivitamin & minerals w iron/FA 1 tablet Oral Daily with breakfast sodium chloride 10 mL Intravenous Q8H DISCONTD: docusate sodium 100 mg Oral Daily DISCONTD: ranitidine 150 mg Oral BID Continuous Infusions lactated ringers Stopped (11/07/11 1840) PRN Medications acetaminophen, calcium carbonate, calcium gluconate, lactated ringers, lactated ringers, ma gnesium hydroxide, ondansetron, zolpidem OBJECTIVE Vital Signs: BP 159/96 | Pulse 65 | Temp(Src) 99.4 F (37.4 C) (Oral) | Resp 18 | Ht 1.651 m (5' 5") | Wt 98.249 kg (216 lb 9.6 oz) | BMI 36.04 kg/m2 | SpO2 100% | ? No General: alert, appears stated age and cooperative Fundal Height: size equals dates FHT: Baseline FHR: 144 beats per minute TOCO: none Cervical Exam: Not indicated Alves Score: Deferred DATA CBC: Lab Results Component Value Date WBC 12.9* 11/09/2011 RBC 3.30* 11/09/2011 HGB 10.4* 11/09/2011 HCT 30.3* 11/09/2011 MCV 91.9 11/09/2011 MCH 31.4 11/09/2011 MCHC 34.1 11/09/2011 RDW 42.0 11/09/2011 PLT 269 11/09/2011 MPV 7.4 11/09/2011 WBC: Lab Results Component Value Date WBC 12.9* 11/09/2011 Platelets: Lab Results Component Value Date PLT 269 11/09/2011 Hemoglobin/Hematocrit: Lab Results Component Value Date HGB 10.4* 11/09/2011 HCT 30.3* 11/09/2011 CMP: Lab Results Component Value Date BUN 11 11/09/2011 CREATININE 0.88 11/09/2011 AST 7* 11/09/2011 BMP: Lab Results Component Value Date BUN 11 11/09/2011 CREATININE 0.88 11/09/2011 Sodium: No results found for this basename: NA Potassium: No results found for this basename: K BUN/Creatinine: Lab Results Component Value Date BUN 11 11/09/2011 CREATININE 0.88 11/09/2011 Hepatic Function Panel: Lab Results Component Value Date AST 7* 11/09/2011 24 Hour Urine for Protein: Lab Results Component Value Date UTPB 15 11/09/2011 TPU 315.0* 11/09/2011 PROBLEM LIST Active Problems: PIH ( induced hypertension), antepartum Preeclampsia ASSESSMENT & PLAN Plan: Observation BP Noted on two agents 24 hour urine shows Mild Preeclampsia 315 mg / 24 hours Will follow closely Labs noted Repeat PIH panel in am Omeprazole for Heartburn ANDREW NERI DO 11/09/2011 onversion Tra nsaction, Provider Unknown - 11/08/2011 10:45 PM PDTFormatting of this note might be differe nt from the original. Progress Notes by Nikki Stanford RN at 11/08/112244 Author: Nikki Stanford RN Service: (none) Author Type: Registered Nurse Filed: 11/08/112301 Date of Service: 11/08/112244 Status: Signed Clark Driver: Nikki Stanford RN (Registered Nurse) Pt. Reports "pain is getting better." NIKKI STANFORD onver anni Transaction, Provider Unknown - 11/08/2011 9:55 PM PDT Progress Notes by Nikki Stanford RN at 11/08/112154 Author: Nikki Stanford RN Service: (none) Author Type: Registered Nurse Filed: 11/08/112301 Date of Service: 11/08/112154 Status: Signed Clark Driver: Nikki Stanford RN (Registered Nurse) Pt. Reports "some chest pain. It feels like gas, and like I'm constipated." O2 monitor ap plied, sats noted at 100%. Respirations unlabored, lung sounds clear and equal. HR noted i n 60's. NIKKI STANFORD Tram hawthorne Do, Andrew Turpin Jr. - 11/08/2011 10:18 AM PDT Progress Notes by Andrew Neri DO at 11/08/11 1018 Author: Andrew Neri DO Service: (none) Author Type: Physician Filed: 11/08/11 1021 Date of Service: 11/08/11 1018 Status: Signed Clark Driver: Andrew Neri DO (Physician) [facility]: Obstetrics & Gynecology Antepartum Progress Note Hospital Day: LOS: 2 days SUBJECTIVE The patient is a 35 y.o. female at 30w1d admitted for Induced HTN. Patie nt states Headache has resolved. Scheduled Medications betamethasone acetate-betamethasone sodium phosphate 12 mg Intramuscular Q24H docusate sodium 100 mg Oral Daily labetalol 200 mg Oral Q8H multivitamin & minerals w iron/FA 1 tablet Oral Daily with breakfast ranitidine 150 mg Oral BID sodium chloride 10 mL Intravenous Q8H DISCONTD: labetalol 200 mg Oral Q12H LANCE Continuous Infusions lactated ringers Stopped (11/07/11 1840) DISCONTD: magnesium sulfate in LR 40g/1000mL 2 g/hr (11/07/11 1355) PRN Medications acetaminophen, calcium carbonate, calcium gluconate, lactated ringers, lactated ringers, ma gnesium hydroxide, ondansetron, zolpidem OBJECTIVE Vital Signs: BP 155/90 | Pulse 73 | Temp(Src) 98.5 F (36.9 C) (Oral) | Resp 16 | Ht 1.651 m (5' 5") | Wt 96.888 kg (213 lb 9.6 oz) | BMI 35.54 kg/m2 | ? No General: alert, appears stated age and cooperative Fundal Height: size equals dates FHT: Baseline FHR: 144 beats per minute TOCO: none Cervical Exam: Deferred Alves Score: Not Indicated DATA CBC: Lab Results Component Value Date WBC 13.4* 11/08/2011 RBC 3.41* 11/08/2011 HGB 10.7* 11/08/2011 HCT 31.1* 11/08/2011 MCV 91.2 11/08/2011 MCH 31.3 11/08/2011 MCHC 34.3 11/08/2011 RDW 41.1 11/08/2011 PLT 277 11/08/2011 MPV 7.0 11/08/2011 LDH: Lab Results Component Value Date LDH 163 11/08/2011 Uric Acid: Lab Results Component Value Date URICACID 4.5 11/08/2011 24 Hour Urine for Protein: No results found for this basename: UTPB, TPU PROBLEM LIST Active Problems: PIH ( induced hypertension), antepartum ASSESSMENT & PLAN Continue Labetalol 200 mg change to TID Recent Magnesium Discontinuation PIH Labs reviewed Will repeat 24 hour urine be NERI DO 11/08/2011 documented in this encounter Plan of Treatment Not on filedocumented as of this encounter Procedures + +--------+ + + + | Procedure Name | Priori | Date/Time | Associated Diagnosis | Comments | | | ty | | | | + +--------+ + + + | TISSUE REQUEST FOR | Routin | 11/14/2011 | | Results for this | | PATHOLOGY (NON-ORD) | e | 5:50 PM | | procedure are in the | | | | PDT | | results section. | + +--------+ + + + | US BIOPHYSICAL | Routin | 11/09/2011 | | Results for this | | PROFILE WO NON | e | 7:56 AM | | procedure are in the | | STRESS | | PDT | | results section. | + +--------+ + + + | US BIOPHYSICAL | Routin | 11/07/2011 | | Results for this | | PROFILE WO NON | e | 4:46 PM | | procedure are in the | | STRESS | | PDT | | results section. | + +--------+ + + + | US OB 14 + WEEKS | Routin | 11/07/2011 | | Results for this | | SINGLE OR FIRST | e | 4:46 PM | | procedure are in the | | GESTATION | | PDT | | results section. | + +--------+ + + + documented in this encounter Results Tissue Request For Pathology (11/14/2011 5:50 PM PDT) + + | Specimen | + + | | + + + + + | Narrative | Performed At | + + + | CASE: [id number] PATIENT: NOHEMY MAYERS Surgical Pathology | EXTERNAL LAB | | Report PATHOLOGIC DIAGNOSIS: PLACENTA (277 GRAMS), UMBILICAL | | | CORD AND MEMBRANES: - PLACENTAL WEIGHT: APPROXIMATELY 50TH | | | PERCENTILE FOR GESTATIONAL AGE. - CHORIONIC VILLI WITH: o | | | MARKEDLY INCREASED MATURATION FOR GESTATIONAL AGE, CONSISTENT WITH | | | PREECLAMPSIA. o INTERVILLOUS FIBRIN AND HEMORRHAGE (FOCAL). o | | | NO EVIDENCE OF TROPHOBLASTIC DISEASE. o COMPLETENESS OF | | | COTYLEDONS CANNOT BE ASCERTAINED DUE TO FRAGMENTATION OF PLACENTA | | | (SEE GROSS DESCRIPTION). - THREE VESSEL UMBILICAL CORD WITH | | | DECREASED SPIRALING. - MEMBRANES WITH NO PATHOLOGIC | | | ABNORMALITY. - NO EVIDENCE OF AN INFECTIOUS OR INFLAMMATORY | | | PROCESS. BES:llg:C2NR CLINICAL HISTORY: 11/09/2011 at 22:34 | | | H. Mother's age: 35, OB history: P: 2 A: (spont/elect). | | | Gestation age: 30+2, 's weight: 1310 grams, score: 9/9, | | | Rh: O+ (Rhogam yes/no), Rubella: Imm, RPR: N/R. Specific Issues of | | | Concern: Preeclampsia. Premature delivery < 34 weeks gestation. | | | GROSS DESCRIPTION: One specimen is received in one container, | | | labeled with the patient's name: A. Received designated "placenta | | | and cord", and consists of a 15.5 x 10.5 x 3.0 cm discoid placenta. | | | The 19.5 x 1.3 cm umbilical cord inserts 3.5 cm from the nearest | | | placental margin; it shows decreased spiraling. Cut sections through | | | the cord reveal three vessels. Separate within the container is one | | | section of unattached umbilical cord that is 4.2 x 1.6 cm. In | | | accordance to protocol, approximately 18.0 cm of umbilical cord is | | | retained by the Center for possible future studies. The | | | placental membranes are translucent and wrinkled with adherent blood | | | clot. The surfaces are blue-purple and shiny with the usual | | | radiating vasculature. The maternal surface is monroy-brown and spongy | | | with focal areas of fragmentation and roughening; completeness of the | | | placental disc cannot be confirmed. The trimmed placenta weighs 277 | | | grams. Cut sections reveal a deep maroon placenta parenchyma with one | | | area of yellow-garcia, firm consolidation that is 0.9 cm in greatest | | | dimension; this area involves less than 10% of the placenta | | | parenchyma. Basal plate fibrin is of normal thickness. Cassette | | | summary: (A1) umbilical cord and membranes; (A2) area of | | | consolidation; (A3) placenta parenchyma. FM MICROSCOPIC | | | EXAMINATION: Histologic sections of all submitted blocks are | | | examined by light microscopy. These findings, together with the gross | | | examination, support the pathologic diagnosis. This report has | | | been prepared using a voice recognition system. The report was | | | reviewed for accuracy, however, sound-alike word errors, addition | | | and/or deletions may occur. If there is any question about this | | | report please contact the originating pathologist. Louie | | | Kit Duran MD Electronically signed Nov 14, 2011 5:50:12PM | | + + + + +---------+ + + | Performing | Address | City/State/Zipcode | Phone Number | | Organization | | | | + +---------+ + + | EXTERNAL LAB | | | | + +---------+ + + US BPP wo Non Stress (11/09/2011 7:56 AM PDT) + + | Specimen | + + | | + + + + + | Narrative | Performed At | + + + | ULTRASOUND OBSTETRIC BIOPHYSICAL PROFILE INDICATION: | | | Hypertension. No body movements noted on prior ultrasound from | | | 11/07/2011. COMPARISON: 11/07/2011 ultrasound. TECHNIQUE: | | | Real-time imaging and static images were submitted for interpretation. | | | 243 images were submitted. Images were reviewed and interpreted | | | remotely. FINDINGS: Estimated gestational age by stated EDC is 30 | | | weeks 2 days, EDC 01/16/2012. A single living intrauterine | | | gestation is identified in cephalic presentation. heart rate is | | | 146 beats per minute. Per industrial recruiter, movement was observed. | | | Amniotic fluid volume measures 13.6 cm with maximal vertical pocket of | | | 4.6 cm. Biophysical Profile: movement: 2/2. tone: | | | 2/2. breathin/2. Amniotic fluid volume: 2/2. Total Score: | | | 8/8. IMPRESSION: 1. Single living intrauterine gestation in | | | cephalic presentation with an estimated gestational age based on EDC | | | of 30 weeks, 2 days. 2. heart rate 146 beats per minute. 3. | | | Amniotic fluid volume, normal, 13.6 cm. 4. Biophysical profile: Total | | | score 8/8, normal. Electronically signed by Omar Walker MD on | | | Nov 10 2011 7:03AM | | + + + + + | Procedure Note | + + | Charles, Rad Conversion - 11/20/2018 3:48 AM PDT ULTRASOUND OBSTETRIC BIOPHYSICAL | | PROFILE INDICATION: Hypertension. No body movements noted on prior ultrasound from | | 11/07/2011. COMPARISON: 11/07/2011 ultrasound. TECHNIQUE: Real-time imaging and static | | images were submitted for interpretation. 243 images were submitted. Images were | | reviewed and interpreted remotely. FINDINGS: Estimated gestational age by stated EDC is | | 30 weeks 2 days, EDC 01/16/2012. A single living intrauterine gestation is identified in | | cephalic presentation. heart rate is 146 beats per minute. Per industrial recruiter, | | movement was observed. Amniotic fluid volume measures 13.6 cm with maximal vertical | | pocket of 4.6 cm. Biophysical Profile: movement: 2/2. tone: 2/2. | | breathin/2.Amniotic fluid volume: 2/2.Total Score: 8/8. IMPRESSION:1. Single living | | intrauterine gestation in cephalic presentation with an estimated gestational age based | | on EDC of 30 weeks, 2 days.2. heart rate 146 beats per minute.3. Amniotic fluid | | volume, normal, 13.6 cm.4. Biophysical profile: Total score 8/8, normal. Electronically | | signed by Omar Walker MD on Nov 10 2011 7:03AM | | tone: 2/2. | | breathin/2. | |Amniotic fluid volume: 2/2. | |Total Score: 8/8. | | | |IMPRESSION: | |1. Single living intrauterine gestation in cephalic presentation with an estimated gestatio nal age based on EDC of 30 weeks, 2 days. | |2. heart rate 146 beats per minute. | |3. Amniotic fluid volume, normal, 13.6 cm. | |4. Biophysical profile: Total score 8/8, normal. | | | | Electronically signed by Omar Walker MD on Nov 10 2011 7:03AM | + + US BPP wo Non Stress (11/07/2011 4:46 PM PDT) + + | Specimen | + + | | + + + + + | Narrative | Performed At | + + + | HISTORY: 35 years. Female. Done for estimated weight, | | | amniotic fluid index, and survey. TECHNIQUE: Ultrasound | | | evaluation of the fetus, placenta, and amniotic fluid. Additionally, a | | | biophysical profile was performed. COMPARISON: None. | | | FINDINGS: A single live intrauterine fetus is identified in cephalic | | | presentation. The amniotic fluid appears normal. The placenta is | | | anterior. The heart rate is and 20 beats/min. The biparietal | | | diameter is 71.1 mm corresponding to a 28 week 4 day gestation. | | | The head circumference is 256.9 mm, corresponding to a 27 week 6 day | | | gestation. The abdominal circumference is 244.4 mm, corresponding | | | to a 28 week 5 day gestation. The femur length is 53 mm, | | | corresponding to a 28 week 1 day gestation. The OFD is 90.1 mm | | | corresponding to a 27 week 1 day gestation. The estimated | | | weight is 1226 g corresponding to the 27th percentile. The | | | ultrasound age is 30 weeks and 0 days, for an estimated date of | | | conception on January 16, 2012. The following anatomic structures | | | appear normal: spine, kidneys, and urinary bladder. Other | | | anatomic structures were not well evaluated due to advanced age. | | | The amniotic fluid index is 12.6 cm. No body movements were | | | noted. The tone is normal. Normal breathing was noted. | | | IMPRESSION: 1. Single live intrauterine fetus, as above. Limited | | | anatomic evaluation due to advanced age. 2. | | | Biophysical profile is 6 out of 8 due to no body movements | | | noted. | | | 5:52 PM | | + + + + + | Procedure Note | + + | Mal Soto Conversion - 11/20/2018 3:48 AM PDT HISTORY:35 years. Female. Done for | | estimated weight, amniotic fluid index, and survey. TECHNIQUE:Ultrasound | | evaluation of the fetus, placenta, and amniotic fluid. Additionally, a biophysical | | profile was performed. COMPARISON:None. FINDINGS:A single live intrauterine fetus is | | identified in cephalic presentation. The amniotic fluid appears normal. The placenta is | | anterior. The heart rate is and 20 beats/min. The biparietal diameter is 71.1 mm | | corresponding to a 28 week 4 day gestation. The head circumference is 256.9 mm, | | corresponding to a 27 week 6 day gestation. The abdominal circumference is 244.4 mm, | | corresponding to a 28 week 5 day gestation. The femur length is 53 mm, corresponding to | | a 28 week 1 day gestation. The OFD is 90.1 mm corresponding to a 27 week 1 day | | gestation. The estimated weight is 1226 g corresponding to the 27th percentile. | | The ultrasound age is 30 weeks and 0 days, for an estimated date of conception on | | January 16, 2012. The following anatomic structures appear normal: spine, kidneys, | | and urinary bladder. Other anatomic structures were not well evaluated due to advanced | | age. The amniotic fluid index is 12.6 cm. No body movements were noted. The | | tone is normal. Normal breathing was noted. IMPRESSION:1. Single live | | intrauterine fetus, as above. Limited anatomic evaluation due to advanced | | age. 2. Biophysical profile is 6 out of 8 due to no body movements noted. | | | | | |The OFD is 90.1 mm corresponding to a 27 week 1 day gestation. | | | |The estimated weight is 1226 g corresponding to the 27th percentile. | | | |The ultrasound age is 30 weeks and 0 days, for an estimated date of conception on December 282011. | | | |The following anatomic structures appear normal: spine, kidneys, and urinary bladder. Other anatomic structures were not well evaluated due to advanced age. | | | |The amniotic fluid index is 12.6 cm. No body movements were noted. The tone is normal. Normal breathing was noted. | | | |IMPRESSION: | |1. Single live intrauterine fetus, as above. Limited anatomic evaluation due to adva nced age. | | | |2. Biophysical profile is 6 out of 8 due to no body movements noted. | | | | | + + US OB 14 + Week Singl or First Gestation (11/07/2011 4:46 PM PDT) + + | Specimen | + + | | + + + + + | Narrative | Performed At | + + + | HISTORY: 35 years. Female. Done for estimated weight, | | | amniotic fluid index, and survey. TECHNIQUE: Ultrasound | | | evaluation of the fetus, placenta, and amniotic fluid. Additionally, a | | | biophysical profile was performed. COMPARISON: None. | | | FINDINGS: A single live intrauterine fetus is identified in cephalic | | | presentation. The amniotic fluid appears normal. The placenta is | | | anterior. The heart rate is and 20 beats/min. The biparietal | | | diameter is 71.1 mm corresponding to a 28 week 4 day gestation. | | | The head circumference is 256.9 mm, corresponding to a 27 week 6 day | | | gestation. The abdominal circumference is 244.4 mm, corresponding | | | to a 28 week 5 day gestation. The femur length is 53 mm, | | | corresponding to a 28 week 1 day gestation. The OFD is 90.1 mm | | | corresponding to a 27 week 1 day gestation. The estimated | | | weight is 1226 g corresponding to the 27th percentile. The | | | ultrasound age is 30 weeks and 0 days, for an estimated date of | | | conception on January 16, 2012. The following anatomic structures | | | appear normal: spine, kidneys, and urinary bladder. Other | | | anatomic structures were not well evaluated due to advanced age. | | | The amniotic fluid index is 12.6 cm. No body movements were | | | noted. The tone is normal. Normal breathing was noted. | | | IMPRESSION: 1. Single live intrauterine fetus, as above. Limited | | | anatomic evaluation due to advanced age. 2. | | | Biophysical profile is 6 out of 8 due to no body movements | | | noted. | | | 5:52 PM | | + + + + + | Procedure Note | + + | Mal Soto Conversion - 11/20/2018 3:48 AM PDT HISTORY:35 years. Female. Done for | | estimated weight, amniotic fluid index, and survey. TECHNIQUE:Ultrasound | | evaluation of the fetus, placenta, and amniotic fluid. Additionally, a biophysical | | profile was performed. COMPARISON:None. FINDINGS:A single live intrauterine fetus is | | identified in cephalic presentation. The amniotic fluid appears normal. The placenta is | | anterior. The heart rate is and 20 beats/min. The biparietal diameter is 71.1 mm | | corresponding to a 28 week 4 day gestation. The head circumference is 256.9 mm, | | corresponding to a 27 week 6 day gestation. The abdominal circumference is 244.4 mm, | | corresponding to a 28 week 5 day gestation. The femur length is 53 mm, corresponding to | | a 28 week 1 day gestation. The OFD is 90.1 mm corresponding to a 27 week 1 day | | gestation. The estimated weight is 1226 g corresponding to the 27th percentile. | | The ultrasound age is 30 weeks and 0 days, for an estimated date of conception on | | January 16, 2012. The following anatomic structures appear normal: spine, kidneys, | | and urinary bladder. Other anatomic structures were not well evaluated due to advanced | | age. The amniotic fluid index is 12.6 cm. No body movements were noted. The | | tone is normal. Normal breathing was noted. IMPRESSION:1. Single live | | intrauterine fetus, as above. Limited anatomic evaluation due to advanced | | age. 2. Biophysical profile is 6 out of 8 due to no body movements noted. | | | | | |The OFD is 90.1 mm corresponding to a 27 week 1 day gestation. | | | |The estimated weight is 1226 g corresponding to the 27th percentile. | | | |The ultrasound age is 30 weeks and 0 days, for an estimated date of conception on December 282011. | | | |The following anatomic structures appear normal: spine, kidneys, and urinary bladder. Other anatomic structures were not well evaluated due to advanced age. | | | |The amniotic fluid index is 12.6 cm. No body movements were noted. The tone is normal. Normal breathing was noted. | | | |IMPRESSION: | |1. Single live intrauterine fetus, as above. Limited anatomic evaluation due to adva nced age. | | | |2. Biophysical profile is 6 out of 8 due to no body movements noted. | | | | | + + documented in this encounter Visit Diagnoses Not on filedocumented in this encounter
--- OUTSIDE RECORDS SUMMARY | ~2019-02-12 | XMS | Encounter Summary ---
Demographics + + + | Address | [address] | | | [place] [address] | + + + | Home Phone | | + + + | Preferred Language | Unknown | + + + | Marital Status | | + + + | Christian Affiliation | Unknown | + + + | Race | Black or | + + + | Ethnic Group | Not or | + + + Author + + + | Author | [facility] [employer] [facility] | + + + | Organization | [facility] [employer] [facility] | + + + | Address | Unknown | + + + | Phone | Unavailable | + + + Support + + +---------+ + | Name | Relationship | Address | Phone | + + +---------+ + | Esau Mayers | ECON | Unknown | | + + +---------+ + Care Team Providers + +------+ + | Care Bottle Washer Name | Role | Phone | + +------+ + | Catalino Vides NP | PCP | | + +------+ + Reason for Visit +--------+ + | Reason | Comments | +--------+ + | FMLA | | +--------+ + Encounter Details +--------+ + + + + | Date | Type | Department | Care Team | Description | +--------+ + + + + | 08/19/ | Documentati | Orthopaedics at | Jv Thomas, | FMLA | | 2019 | on | [facility] [address] | [address] | | | | | [address] Mailcode: [address] | [address] | | | | | [facility] | [place], [place] | | | | | and [place], | [address] | | | | | [facility] | [phone] | | | | | Floor [place], [place] | | | | | | [address] | | | | | | [phone] | | | +--------+ + + + [...] [address] | | | | | | [facility] [place] | | | | | | [address] | | | | | | [phone] | | | | | | | | +--------+---------+ + + + | 08/24/ | Office | Orthopedics | Jv Thomas, | | | 2019 | Visit | | MD [address] | | | | | | [address] | | | | | | [facility] [place] | | | | | | [address] | | | | | | [phone] | | | | | | | | +--------+---------+ + + + documented as of this encounter Visit Diagnoses Not on filedocumented in this encounter"
--- OUTSIDE RECORDS SUMMARY | ~2019-02-12 | XMS | Encounter Summary ---
Demographics + + + | Address | [address] | | | [place] [address] | + + + | Home Phone | | + + + | Preferred Language | Unknown | + + + | Marital Status | | + + + | Episcopal Affiliation | Unknown | + + + | Race | Black or | + + + | Ethnic Group | Not or | + + + Author + + + | Author | [facility] | + + + | Organization | [facility] | + + + | Address | Unknown | + + + | Phone | Unavailable | + + + Support + + +---------+ + | Name | Relationship | Address | Phone | + + +---------+ + | Esau Mayers | ECON | Unknown | | + + +---------+ + Care Team Providers + +------+ + | Care Grain Elevator Operator Name | Role | Phone | + +------+ + | Catalino Vides CLINIC SUPERVISOR | PCP | | + +------+ + Reason for Visit +---------+ + | Reason | Comments | +---------+ + | Post Op | | +---------+ + PROC - Outpatient Surgery (Routine) +--------+--------+ + + + + | Status | Reason | Specialty | Diagnoses / | Referred By | Referred To | | | | | Procedures | Contact | Contact | +--------+--------+ + + + + | Closed | | Orthopedics | Diagnoses | Conner, | Martha | | | | | ACL graft | Christo Moss, | Jv Moss MD | | | | | tear, | MD Diaz | [address] | | | | | initial | [facility] | [address] | | | | | encounter | & Fract[address] | [address] [place], | | | | | ([facility]) | [address] | [place] | | | | | Procedures | [place] | [address] | | | | | REQUEST TO | [place], | Phone: | | | | | SURGERY | [place] [address] | [phone] | | | | | WATCH ASSEMBLY INSPECTOR | Phone: | Fax: | | | | | [place] | [phone] | [phone] | | | | | SCOPE,AID | Fax: | | | | | | ANT CRUCIATE | [phone] | | | | | | REPAIR [place] | | | | | | | REMOVAL DEEP | | | | | | | IMPLANT | | | +--------+--------+ + + + + Encounter Details +--------+---------+ + + + | Date | Type | Department | Care Team | Description | +--------+---------+ + + + | 10/07/ | Office | Orthopaedics at | Jv Thomas, | ACL graft tear, | | 2019 | Visit | [facility] [address] | [address] | subsequent encounter | | | | [place] Mailcode: CH12A | [address] | (Primary Dx) | | | | [facility] | [place], [place] | | | | | and [place], | [address] | | | | | [facility] | [phone] | | | | | Floor [place], [place] | | | | | | [address] | | | | | | [phone] | | | +--------+---------+ + + + [...] + documented in this encounter Progress Notes Jv Thomas MD - 10/07/2018 9:10 AM PDTSubjective: Song Mayers is 6 week s status post: Date of surgery: 08/27/18 at [facility] Right knee revision ACL reconstruction with allograft and removal of failed hardware She is no longer using the knee brace full weight bearing. Has been working with PT doing a lot of strengthening exercises. Looking for a release form back to work but needs 1 more week off before starting. 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 Gait: normal Incisions: clean and dry with no signs of infection. Effusion: small. Range of motion: 0 to 95 Stability: Jenise's and anterior drawer negative with firm end point. Neurovascular: Intact Jointline Tenderness: negative Close to doing SLR Assessment: Ms. Mayers is progressing well. Plan: Note given for work X-rays ordered to complete near home, told to call when completed so we can review Discussed discontinuation of opiates to avoid dependence and addiction Patient to continue with rehabilition as instructed. Follow up 6 months post op with Kaya and 1 year with , instructions given and explained . Jv Thomas MD Sports Orthopaedics and Arthroscopy Polysomnographic Tech Dept. Orthopaedic Surgery and Rehabilitation [facility] documented in this e ncounter Plan of Treatment +--------+---------+ + + + | Date | Type | Specialty | Care Team | Description | +--------+---------+ + + + | 03/07/ | Office | Orthopedics | Jv Thomas, | | | 2018 | Visit | | MD Joey Fortune | | | | | | [address] | | | | | | [place], [place] | | | | | | [address] | | | | | | [phone] | | | | | | | | +--------+---------+ + + + | 08/24/ | Office | Orthopedics | Jv Thomas, | | | 2019 | Visit | | MD Joey Fortune | | | | | | [address] | | | | | | [place], [place] | | | | | | [address] | | | | | | [phone] | | | | | | | | +--------+---------+ + + + + +---------+--------+ + + | Name | Type | Priori | Associated Diagnoses | Order Schedule | | | | ty | | | + +---------+--------+ + + | X-RAY KNEE 2 VIEWS | Imaging | Routin | ACL graft tear, | Expected: | | RIGHT | | e | subsequent encounter | 10/07/2018, Expires: | | | | | | 11/08/2019 | + +---------+--------+ + + documented as of this encounter Visit Diagnoses + + | Diagnosis | + + | ACL graft tear, subsequent encounter - Primary | + + documented in this encounter
--- OUTSIDE RECORDS SUMMARY | ~2019-02-12 | XMS | Encounter Summary ---
Demographics + + + | Address | [address] | | | [place] [address] | + + + | Home Phone | | + + + | Preferred Language | Unknown | + + + | Marital Status | | + + + | Anglican Affiliation | Unknown | + + + | Race | Black or | + + + | Ethnic Group | Not or | + + + Author + + + | Author | [facility] | + + + | Organization | [facility] | + + + | Address | Unknown | + + + | Phone | Unavailable | + + + Support + + +---------+ + | Name | Relationship | Address | Phone | + + +---------+ + | Esau Mayers | ECON | Unknown | | + + +---------+ + Care Team Providers + +------+ + | Care Information Systems Consultant Name | Role | Phone | + +------+ + | Catalino Vides JUNIOR COPYWRITER | PCP | | + +------+ + [...] | | | | | Procedures | [place], [place] | | | | | | PHYSICAL | [address] | | | | | | THERAPY | Phone: | | | | | | REFERRAL | [phone] | | | | | | | Fax: | | | | | | | [phone] | | +--------+--------+ + + + + [...] tear, | | 2019 | Visit | [facility] [address] | [address] | subsequent encounter | | | | Ave Mailcode: CH12A | [address] | (Primary Dx) | | | | Center for [facility] | [place], [place] | | | | | and Healing, | [address] | | | | | [facility] | [phone] | | | | | Floor [place], [place] | | | | | | [address] | | | | | | [phone] | | | +--------+---------+ + + + [...] Rd | | | | | | [place], [place] | | | | | | [address] | | | | | | [phone] | | | | | | | | +--------+---------+ + + + | 08/24/ | Office | Orthopedics | Jv Thomas, | | | 2019 | Visit | | MD Joey Fortune | | | | | | [address] | | | | | | [facility] [place] | | | | | | [address] | | | | | | [phone] | | | | | | | [...]
--- OUTSIDE RECORDS SUMMARY | ~2019-02-12 | XMS | Encounter Summary ---
Demographics + + + | Address | [address] | | | [place] [address] | + + + | Home Phone | | + + + | Preferred Language | Unknown | + + + | Marital Status | | + + + | Adventism Affiliation | Unknown | + + + | Race | Unknown | + + + | Ethnic Group | Unknown | + + + Author + + + | Author | [facility] | | | and [place] | + + + | Organization | [facility] | | | [...] Team Providers + +------+ + | Care Smoked Meat Preparer Name | Role | Phone | + +------+ + PCP | Unavailable | + +------+ + Reason for Visit + + + | Reason | Comments | + + + | Coordination Of Care | | + + + Encounter Details +--------+ + + + + | Date | Type | Department | Care Team | Description | +--------+ + + + + | 12/15/ | Telephone | [facility] | Jose Antonio Pantoja | Coordination Of Care | | 2018 | | SURGERY [address] | [address] | | | | | [address] [place], [place] | [address] [facility] | | | | | [address] | [place] [address] | | | | | [phone] | [phone] | | | | | | | [...]
--- OUTSIDE RECORDS SUMMARY | ~2019-02-12 | XMS | Encounter Summary ---
Demographics + + + | Address | [address] | | | [place] [address] | + + + | Home Phone | | + + + | Preferred Language | Unknown | + + + | Marital Status | | + + + | Mosque Affiliation | Unknown | + + + | Race | Unknown | + + + | Ethnic Group | Unknown | + + + Author + + + | Author | [facility] | | | and [place] | + + + | Organization | [facility] | | | and [place] | + + + | Address | Unknown | + + + | Phone | Unavailable | + + + Support + + +---------+ + | Name | Relationship | Address | Phone | + + +---------+ + | Tiff Zamudio | ECON | Unknown | | + + +---------+ + | Briangel Mayers | ECON | Unknown | | + + +---------+ + Care Team Providers + +------+ + | Care Solutions Executive Cloud Sales Name | Role | Phone | + +------+ + PCP | Unavailable | + +------+ + Encounter Details +--------+ + + + + | Date | Type | Department | Care Team | Description | +--------+ + + + + | 12/24/ | Emergency | [facility] | Rod Reis | Chest pain | | 2011 | | [facility] | MD [address] | | | | | [facility] | KATHERINE HINDS, | | | | | [address] | [place] [address] | | | | | [place], [place] | [phone] | | | | | [address] | | | | | | [phone] | | | +--------+ + + + [...] | + +--------+ + + + | XR CHEST 2 VIEWS | Routin | 12/25/2011 | | Results for this | | | e | 3:41 PM | | procedure are in the | | | | PDT | | results section. | + +--------+ + + + documented in this encounter Results XR Chest 2 Vws (12/25/2011 3:41 PM PDT) + + | Specimen | + + | | + + + + + | Narrative | Performed At | + + + | HISTORY: Chest pain. COMPARISON: None. TECHNIQUE: Frontal | | | and lateral films of the chest were obtained. FINDINGS: Frontal | | | and lateral films the chest were obtained. The lungs and pleural | | | spaces are clear. Heart size is normal. IMPRESSION: 1. Normal | | | two view chest Electronically signed by Duong Currie MD on | | | 12/25/2011 4:35 PM | | + + + + + | Procedure Note | + + | Charles, Mal Conversion - 11/20/2018 3:48 AM PDT HISTORY:Chest pain. COMPARISON:None. | | TECHNIQUE:Frontal and lateral films of the chest were obtained. FINDINGS:Frontal and | | lateral films the chest were obtained. The lungs and pleural spaces are clear. Heart | | size is normal. IMPRESSION:1. Normal two view chest | | | |TECHNIQUE: | |Frontal and lateral films of the chest were obtained. | | | |FINDINGS: | |Frontal and lateral films the chest were obtained. The lungs and pleural spaces are clear. Heart size is normal. | | | |IMPRESSION: | |1. Normal two view chest | | | | | + + documented in this encounter Visit Diagnoses + + | Diagnosis | + + | Chest pain Chest pain, unspecified | + + documented in this encounter"
--- OUTSIDE RECORDS SUMMARY | ~2019-02-12 | XMS | Encounter Summary ---
Demographics + + + | Address | [address] | | | [place] [address] | + + + | Home Phone | | + + + | Preferred Language | Unknown | + + + | Marital Status | | + + + | Shinto Affiliation | Unknown | + + + | Race | Black or | + + + | Ethnic Group | Not or | + + + Author + + + | Author | [facility] | + + + | Organization | [facility] | + + + | Address | Unknown | + + + | Phone | Unavailable | + + + Support + + +---------+ + | Name | Relationship | Address | Phone | + + +---------+ + | Esau Mayers | ECON | Unknown | | + + +---------+ + Care Team Providers + +------+ + | Care Business Continuity Planning Director Name | Role | Phone | + [...] | +--------+ + + + + | 10/05/ | Telephone | Orthopaedics at | vJ Thomas, | Refill Encounters | | 2019 | | [facility] [address] | MD [address] | | | | | [address] Mailcode: CH12A | [address] | | | | | [facility] | [place], [place] | | | | | and [place], | [address] | | | | | Building | [phone] | | | | | Floor [place], [place] | | | | | | [address] | | | | | | [phone] | | | +--------+ + + + [...] Rd | | | | | | [place], [place] | | | | | | [address] | | | | | | [phone] | | | | | | | | +--------+---------+ + + + | 08/24/ | Office | Orthopedics | Jv Thomas, | | | 2019 | Visit | | MD Joey Fortune | | | | | | [address] | | | | | | [place], [place] | | | | | | [address] | | | | | | [phone] | | | | | | | | +--------+---------+ + + + documented as of this encounter Visit Diagnoses Not on filedocumented in this encounter"
--- OUTSIDE RECORDS SUMMARY | ~2019-02-12 | XMS | Encounter Summary ---
Demographics + + + | Address | [address] | | | [place] [address] | + + + | Home Phone | | + + + | Preferred Language | Unknown | + + + | Marital Status | | + + + | Baptism Affiliation | Unknown | + + + | Race | Black or | + + + | Ethnic Group | Not or | + + + Author + + + | Author | [facility] | + + + | Organization | [facility] | + + + | Address | Unknown | + + + | Phone | Unavailable | + + + Support + + +---------+ + | Name | Relationship | Address | Phone | + + +---------+ + | Esau Mayers | ECON | Unknown | | + + +---------+ + Care Team Providers + +------+ + | Care Abatement Worker Name | Role | Phone | [...] | | tear, | MD Diaz | [address] [address] | | | | | initial | [facility] | [address] | | | | | encounter | & [place] | [place], | | | | | ([facility]) | [address] | [place] | | | | | Procedures | [place] | [address] | | | | | REQUEST TO | [place], | Phone: | | | | | SURGERY | [place] [address] | [phone] | | | | | DISTRIBUTION OPERATION SUPERVISOR | Phone: | Fax: | | | | | [place] | [phone] | [phone] | | | | | SCOPE,AID | Fax: | | | | | | ANT CRUCIATE | [phone] | | | | | | REPAIR [place] | | | | | | | [...] | | | | | meniscus, | [facility] | [address] | | | | | current | & Fractur | Rd [place], | | | | | injury, | [address] | [place] | | | | | right knee, | [address] | [address] | | | | | initial | [place], | Phone: | | | | | encounter | [place] [address] | [phone] | | | | | Encounter | Phone: | Fax: | | | | | for other | [phone] | [phone] | | | | | orthopedic | Fax: | | | | | | aftercare | [phone] | | + +--------+ + + + + Encounter Details +--------+---------+ + + + | Date | Type | Department | Care Team | Description | +--------+---------+ + + + | 07/29/ | Office | Orthopaedics at | Jv Thomas, | ACL graft tear, | | 2019 | Visit | [facility] [address] | MD [address] | initial encounter | | | | Ave Mailcode: CH12A | [address] | ([facility]) (Primary Dx) | | | | [facility] | [place], [place] | | | | | and Healing, | [address] | | | | | Building | [phone] | | | | | Floor [place], [place] | | | | | | [address] | | | | | | [phone] | | | +--------+---------+ + + + [...] be different fr om the original. CLINIC: [facility] Sports Medicine - Orthopedic Surgery PATIENT: Song Mayers [facility] MR#: [id number] : 1975 REQUESTING PROVIDER: Christo Prieto MD [facility] Ortho & Fractur [address] [place] [address] PRIMARY CARE PROVIDER: Catalino Vides NP Primary [...] Jv Thomas MD Sports Orthopaedics and Arthroscopy Loan Analyst Dept. Orthopaedic Surgery and Rehabilitation [facility] documented in this e ncounter Plan [...] | | | | | | [facility] [place] | | | | | | [address] | | | | | | [phone] | | | | | | | | +--------+---------+ + + + | 08/24/ | Office | Orthopedics | Jv Thomas, | | | 2019 | Visit | | MD Joey Fortune | | | | | | [address] | | | | | | [facility] [place] | | | | | | [address] | | | | | | [phone] | | | | | | | | +--------+---------+ + + + documented as of this encounter Visit Diagnoses + + | Diagnosis | + + | ACL graft tear, initial encounter (HCC) - Primary | + + documented in this encounter
--- OUTSIDE RECORDS SUMMARY | ~2019-02-12 | XMS | Encounter Summary ---
Demographics + + + | Address | [address] | | | [place] [address] | + + + | Home Phone | | + + + | Preferred Language | Unknown | + + + | Marital Status | | + + + | Rastafarian Affiliation | Unknown | + + + | Race | Black or | + + + | Ethnic Group | Not or | + + + Author + + + | Author | [facility] | + + + | Organization | [facility] | + + + | Address | Unknown | + + + | Phone | Unavailable | + + + Support + + +---------+ + | Name | Relationship | Address | Phone | + + +---------+ + | Esau Mayers | ECON | Unknown | | + + +---------+ + Care Team Providers + +------+ + | Care Aqueduct And Reservoir Keeper Name | Role | Phone | + +------+ + | Catalino Vides SOFTWARE TEAM LEADER | PCP | | + +------+ + Reason for Visit +---------+ + | Reason | Comments | +---------+ + | Post Op | | +---------+ + Encounter Details +--------+ + + + + | Date | Type | Department | Care Team | Description | +--------+ + + + + | 09/01/ | Telephone | Orthopaedics at | Jv Thomas, | Post Op | | 2019 | | [facility] [address] | [address] | | | | | Ave Mailcode: CH12A | [facility] | | | | | [facility] | [place], [place] | | | | | and [place], | [address] | | | | | [facility] | [phone] | | | | | Floor [place], [place] | | | | | | [address] | | | | | | [phone] | | | +--------+ + + + [...] Rd | | | | | | [place], [place] | | | | | | [address] | | | | | | [phone] | | | | | | | | +--------+---------+ + + + | 08/24/ | Office | Orthopedics | Jv Thomas, | | | 2019 | Visit | | MD Joey Fortune | | | | | | [address] | | | | | | [place], [place] | | | | | | [address] | | | | | | [phone] | | | | | | | | +--------+---------+ + + + documented as of this encounter Visit Diagnoses Not on filedocumented in this encounter"
--- OUTSIDE RECORDS SUMMARY | ~2019-02-12 | XMS | Encounter Summary ---
Demographics + + + | Address | [address] | | | [place] [address] | + + + | Home Phone | | + + + | Preferred Language | Unknown | + + + | Marital Status | | + + + | Hindu Affiliation | Unknown | + + + | Race | Unknown | + + + | Ethnic Group | Unknown | + + + Author + + + | Author | [facility] | | | and [place] | + + + | Organization | [facility] | | | and [...] Team Providers + +------+ + | Care Spiral Tube Winder Helper Name | Role | Phone | + +------+ + PCP | Unavailable | + +------+ + Reason for Visit +--------+ + | Reason | Comments | +--------+ + | Other | | +--------+ + Encounter Details +--------+ + + + + | Date | Type | Department | Care Team | Description | +--------+ + + + + | 01/26/ | Telephone | [facility] | Jose Antonio Pantoja | Other | | 2018 | | SURGERY [address] | MD [address] | | | | | [address] [place], [place] | [address] [facility] | | | | | [address] | [place] [address] | | | | | [phone] | [phone] | | | | | | | [...]
--- OUTSIDE RECORDS SUMMARY | ~2019-02-12 | XMS | Encounter Summary ---
Demographics + + + | Address | [address] | | | [place] [address] | + + + | Home Phone | | + + + | Preferred Language | Unknown | + + + | Marital Status | | + + + | Zoroastrian Affiliation | Unknown | + + + | Race | Unknown | + + + | Ethnic Group | Unknown | + + + Author + + + | Author | [facility] | | | and [place] | + + + | Organization | [facility] | | | [...] Team Providers + +------+ + | Care Flat Breakdown Processor Name | Role | Phone | + +------+ + PCP | Unavailable | + +------+ + Encounter Details +--------+ + + + + | Date | Type | Department | Care Team | Description | +--------+ + + + + | 11/05/ | Hospital | [facility] | Andrew Neri | | | 2011 - | Encounter | [facility] | Jr. DO [address] | | | | | [address] | [address] | | | [address] | | [address] | [place], [place] | | | 2011 | | [place], [place] | [address] | | | | | [address] | [phone] | | | | | [phone] | | | +--------+ + + + [...] Service: (none) Author Type: Physician Filed: 11/12/11 0295 Date of Service: 11/12/111444 Status: Signed Eye Glass Frame Polisher: Andrew Neri DO (Physician) [facility] Service: Obstetrics & Gynecology Discharge Summary Date [...] REPEAT SECTION; Surgeon: Andrew Neri DO; Location: [facility] L&D; Service: HOURLY MANAGER; Laterality: N/A; No Known Allergies Prescriptions prior [...] 11/11/112114 Date of Service: 11/11/112113 Status: Signed Eye Glass Frame Polisher: Andrew Neri DO (Physician) [facility] Service: Obstetrics & Gynecology Progress Note 11/11/2011 [...] 17.1* 3.8-11.0 (K/uL) Final Testing performed at [facility];[address] [place] [address] 47863 RBC Date Value Range Status 11/10/2011 3.40* 3.70-5.10 (M/uL) Final Testing performed at [facility];[address] [place] [address] 28182 HGB Date Value Range Status 11/10/2011 10.6* 11.3-15.5 (g/dL) Final Testing performed at [facility];[address] [place] [address] 08250 HCT Date Value Range Status 11/10/2011 31.5* 34.0-46.0 (%) Final Testing performed at [facility];[address] [place] [address] 66595 MCV Date Value Range Status 11/10/2011 92.7 80.0-100.0 (fl) Final Testing performed at [facility];[address] [place] [address] 33889 MCH Date Value Range Status 11/10/2011 31.3 27.0-34.0 (pg) Final Testing performed at [facility];[address] [place] [address] 64352 MCHC Date Value Range Status 11/10/2011 33.7 32.0-35.5 (g/dL) Final Testing performed at [facility];[address] [place] [address] 51184 RDW SD Date Value Range Status 11/10/2011 42.4 37-53 (fl) Final Testing performed at [facility];[address] [place] [address] 93390 PLT Date Value Range Status 11/10/2011 256 150-400 (K/uL) Final Testing performed at [facility];[address] [place] [address] 79373 MPV Date Value Range Status 11/10/2011 7.5 Final Testing performed at [facility];[address] [place] [address] 13137 ASSESSMENT & PLAN Status Post Section Doing well.BP improving. Encourage PO intake Pain medications as needed Encourage ambulation. Continue current care. ANDREW NERI DO 11/11/2011 onversion Tra nsaction, Provider Unknown - 11/11/2011 4:06 PM PDTFormatting of this note might be differe nt from the original. Progress Notes by Ann-Marie Giles RN at 11/11/111605 Author: Ann-Marie Giles RN Service: (none) Author Type: Sucker Machine Operator Filed: 11/11/111605 Date of Service: 11/11/111605 Status: Signed Eye Glass Frame Polisher: Ann-Marie Giles RN (Sucker Machine Operator) I met with MOB for NICU assessment. MOB is Nohemy Mayers (#[phone]) Baby Girl Talib was born at 30 weeks gestational age with of 9/9 and weight 1310 grams and admitted to NICU because of RDS and prematurity FOB is Esau Mayers (#[phone]) . They are and live in a rented 3 BR house in [place]. They have one other child a boy age 18. Th ere will be 4 people living in the house. They have no transportation concerns. MOB will be taking time off to be with baby. FOB works 2 almost FT jobs ([employer] / [employer]) They have all baby needs except car seat - they would like to purchase a $20.00 c ar seat from [facility]. MOB plans to breast feed - she has a breast pump and has been seen by Tere diana RN. PPD S/S explained and when to seek medical care - MOB's PCP is Joshua ALEMAN in [place], [place]. Sash Sticker will be Radha Rueda MD #[phone] in [place], [place]. Reggie jolley have [employer] insurance. No further needs ID'd at this time. Andrew Boggs Do, Jr. - 11/10/2011 6:33 PM PDT Progress Notes by Andrew Neri DO at 11/10/111832 Author: Andrew eNri DO Service: (none) Author Type: Physician Filed: 11/10/11 3394 Date of Service: 11/10/111832 Status: Signed Eye Glass Frame Polisher: Andrew Neri DO (Physician) [facility] Service: Obstetrics & Gynecology Progress Note 11/10/2011 [...] 17.1* 3.8-11.0 (K/uL) Final Testing performed at [facility];[address] [place] [address] 70969 RBC Date Value Range Status 11/10/2011 3.40* 3.70-5.10 (M/uL) Final Testing performed at [facility];[address] [place] [address] 16541 HGB Date Value Range Status 11/10/2011 10.6* 11.3-15.5 (g/dL) Final Testing performed at [facility];[address] [place] [address] 11893 HCT Date Value Range Status 11/10/2011 31.5* 34.0-46.0 (%) Final Testing performed at [facility];[address] [place] [address] 97220 MCV Date Value Range Status 11/10/2011 92.7 80.0-100.0 (fl) Final Testing performed at [facility];[address] [place] [address] 95789 MCH Date Value Range Status 11/10/2011 31.3 27.0-34.0 (pg) Final Testing performed at [facility];[address] [place] [address] 42857 MCHC Date Value Range Status 11/10/2011 33.7 32.0-35.5 (g/dL) Final Testing performed at [facility];[address] [place] [address] 54009 RDW SD Date Value Range Status 11/10/2011 42.4 37-53 (fl) Final Testing performed at [facility];[address] [facility];[place] [address] PLT Date Value Range Status 11/10/2011 256 150-400 (K/uL) Final Testing performed at [facility];[address] [place] [address] 41730 MPV Date Value Range Status 11/10/2011 7.5 Final Testing performed at [facility];[address] [place] [address] 73543 ASSESSMENT & PLAN Status Post Section Hypertension [...] 11/09/112142 Date of Service: 11/09/112136 Status: Addendum Eye Glass Frame Polisher: Andrew Neri DO (Physician) Related Notes: Original Note by Andrew Neri DO (Physician) filed at 11/09/112140 [facility] Service: Obstetrics & Gynecology Antepartum Progress Note [...] 11/09/112104 Date of Service: 11/09/112100 Status: Signed Eye Glass Frame Polisher: Andrew Neri DO (Physician) [facility] Service: Obstetrics & Gynecology Antepartum Progress Note [...] 11/08/112301 Date of Service: 11/08/112244 Status: Signed Eye Glass Frame Polisher: Nikki Stanford RN (Registered Nurse) Pt. Reports "pain is getting better." NIKKI STANFORD onver anni Transaction, Provider Unknown - 11/08/2011 9:55 PM PDT Progress Notes by Nikki Stanford RN at 11/08/112154 Author: Nikki Stanford RN Service: (none) Author Type: Registered Nurse Filed: 11/08/112301 Date of Service: 11/08/112154 Status: Signed Eye Glass Frame Polisher: Nikki Stanford RN (Registered Nurse) Pt. Reports [...] Date of Service: 11/08/11 1018 Status: Signed Eye Glass Frame Polisher: Andrew Neri DO (Physician) [facility] Service: Obstetrics & Gynecology Antepartum Progress Note [...] At | + + + | CASE: [id number] PATIENT: NOHEMY MAYERS Surgical Pathology | EXTERNAL [...] | | 146 beats per minute. Per revenue research analyst, movement was observed. | | | Amniotic [...] rate is 146 beats per minute. Per revenue research analyst, | | movement was observed. Amniotic fluid [...]
--- OUTSIDE RECORDS SUMMARY | ~2019-02-12 | XMS | Encounter Summary ---
Demographics + + + | Address | [address] | | | [place] [address] | + + + | Home Phone | | + + + | Preferred Language | Unknown | + + + | Marital Status | | + + + | Adventist Affiliation | Unknown | + + + | Race | Unknown | + + + | Ethnic Group | Unknown | + + + Author + + + | Author | [facility] | | | and [place] | + + + | Organization | [facility] | | | [...] Team Providers + +------+ + | Care Relocation Director Name | Role | Phone | + +------+ + | Herman Galindo DO | PCP | | + +------+ + Encounter Details +--------+ + + + + | Date | Type | Department | Care Team | Description | +--------+ + + + + | 03/17/ | Orders Only | [facility] | Catalino Vides | | | 2017 | | [address] | [address] | | | | | [address] | [place], | | | | | [place], [place] | [address] [place], | | | | | [address] | [place] [address] | | | | | [phone] | [phone] | | | | | | | [...] | + +--------+ + + + | ECHO INTERPRETATION | Routin | 03/17/2017 | | Results for this | | OF OUTSIDE FILMS | e | 1:58 PM | | procedure are in the | | | | PST | | results section. | + +--------+ + + + documented in this encounter Results ECHO Interpretation of Outside Films (03/17/2017 1:58 PM PST) + + | Specimen | + + | | + + + + + | Impressions | Performed At | + + + | 1. The left ventricle is normal in size, wall thickness and systolic | | | function EF 55-60%. 2. The right ventricle is normal in size and | | | function. 3. There is no pericardial effusion. | | + + + + + + | Narrative | Performed At | + + + | Patient Name: Song Mayers Date of : 1975 | | | Performing Physician: Mathew Coleman | | | | | | INDICATIONS Edema, palpitations CONCLUSIONS | | | 1. The left ventricle is normal in size, wall thickness | | | and systolic function EF 55-60%. 2. The right ventricle is normal in | | | size and function. 3. There is no pericardial effusion. FINDINGS | | | -------- ECG rhythm: Sinus rhythm. Study: A 2-dimensional | | | transthoracic echocardiogram with m-mode, spectral and color flow | | | Doppler was perfomed. Study: This was a technically adequate study. | | | Poor endocardial definition in apical views. Left Ventricle: | | | Overall left ventricular systolic function is normal with, an EF | | | between 55 - 60 %. Left Ventricle: The left ventricle cavity size is | | | normal. Left Ventricle: Left ventricular wall thickness is normal. | | | Left Ventricle: No regional wall motion abnormalities. Left | | | Ventricle: The diastolic filling pattern is normal for the age of the | | | patient. Right Ventricle: The right ventricle is normal in size and | | | function. Left Atrium: The left atrium is normal in size. Right | | | Atrium: The right atrium is normal in size. Aortic Valve: The aortic | | | valve is trileaflet and appears structurally normal. Aortic Valve: | | | There is no evidence of aortic regurgitation. Aortic Valve: There is | | | no evidence of aortic stenosis. Mitral Valve: The mitral valve is | | | normal. Mitral Valve: No mitral regurgitation. Tricuspid Valve: The | | | tricuspid valve appears structurally normal. Tricuspid Valve: Trace | | | tricuspid regurgitation present. Tricuspid Valve: There is no | | | evidence of pulmonary hypertension. Tricuspid Valve: The right | | | ventricular systolic pressure (pulmonary artery systolic pressure), as | | | measured by Doppler, is 18.16mmHg. Pulmonic Valve: The pulmonic | | | valve is normal. Pulmonic Valve: Trace pulmonic regurgitation. | | | Pericardium: There is no pericardial effusion. Pericardium: No | | | pleural effusion seen. IVC/Hepatic Veins: The IVC is small (<1.5cm) | | | and collapses with sniff, consistent with central venous pressures of | | | 0-5mmHg. Aorta: The aortic root, ascending aorta and aortic arch are | | | normal in size. MEASUREMENTS Ao asc: 2.51 cm | | | EDV(Teich): 65.07 ml IVSd: 0.88 cm LVIDd: 3.87 cm LVPWd: | | | 0.88 cm LVOT Area: 3.04 cm2 LVOT Diam: 1.96 cm %FS: | | | 32.53 % EF(Teich): 61.56 % ESV(Teich): 25.00 ml LVIDs: | | | 2.61 cm SV(Teich): 40.06 ml RVIDd: 3.11 cm RVOT Diam: 1.92 | | | cm LAESV(A-L): 35.45 ml LAESV Index (A-L): 18.56 ml/m2 LAAs | | | A2C: 16.85 cm2 LAESV A-L A2C: 45.76 ml LALs A2C: 5.27 cm | | | LAAs A4C: 12.62 cm2 LAESV A-L A4C: 26.55 ml LALs A4C: 5.09 | | | cm RAAs: 11.79 cm2 RAESV A-L: 25.03 ml RAESV MOD: 23.97 ml | | | RALs: 4.71 cm AV maxP.24 mmHg AV meanP.39 mmHg | | | AV Vmax: 1.67 m/s AV Vmean: 1.07 m/s AV VTI: 34.90 cm MACKENZIE | | | Vmax: 2.13 cm2 MACKENZIE (VTI): 2.18 cm2 AVAI Vmax: 0.00 cm2/m2 | | | AVAI (VTI): 0.00 cm2/m2 LVOT maxP.51 mmHg LVOT meanPG: | | | 3.25 mmHg LVSI Dopp: 39.85 ml/m2 LVSV Dopp: 76.11 ml LVOT | | | Vmax: 1.17 m/s LVOT Vmean: 0.85 m/s LVOT VTI: 24.99 cm MV | | | A Camden: 0.65 m/s MV DecT: 259.17 ms MV E Camden: 0.83 m/s MV | | | E/A Ratio: 1.27 MV PHT: 75.16 ms MVA By PHT: 2.92 cm2 | | | Septal e': 0.06 m/s Septal E/e': 13.15 Lateral e': 0.10 m/s | | | Lateral E/e': 8.05 PV maxP.84 mmHg PV Vmax: 0.84 m/s | | | RAP: 5 mmHg RVSP: 18.15 mmHg TR maxP.15 mmHg TR | | | Vmax: 1.81 m/s Case Finisher: Authenticated by: Mathew Coleman | | | Report Date/Time: 03-18-2017 6:39:2 | | + + + + + | Procedure Note | + + | Mal Soto - 11/18/2018 6:39 PM PDT Patient Name: Danilo Mayerskimo of | | : 1975 Performing Physician: Mathew | | [place] INDICATIONS------ | | -----Edema, palpitations CONCLUSIONS 1. The left ventricle is normal in size, | | wall thickness and systolic function EF 55-60%.2. The right ventricle is normal in size | | and function.3. There is no pericardial effusion. FINDINGS--------ECG rhythm: Sinus | | rhythm.Study: A 2-dimensional transthoracic echocardiogram with m-mode, spectral and | | color flow Doppler was perfomed.Study: This was a technically adequate study. Poor | | endocardial definition in apical views.Left Ventricle: Overall left ventricular systolic | | function is normal with, an EF between 55 - 60 %.Left Ventricle: The left ventricle | | cavity size is normal.Left Ventricle: Left ventricular wall thickness is normal.Left | | Ventricle: No regional wall motion abnormalities.Left Ventricle: The diastolic filling | | pattern is normal for the age of the patient.Right Ventricle: The right ventricle is | | normal in size and function.Left Atrium: The left atrium is normal in size.Right Atrium: | | The right atrium is normal in size.Aortic Valve: The aortic valve is trileaflet and | | appears structurally normal.Aortic Valve: There is no evidence of aortic | | regurgitation.Aortic Valve: There is no evidence of aortic stenosis.Mitral Valve: The | | mitral valve is normal.Mitral Valve: No mitral regurgitation.Tricuspid Valve: The | | tricuspid valve appears structurally normal.Tricuspid Valve: Trace tricuspid | | regurgitation present.Tricuspid Valve: There is no evidence of pulmonary | | hypertension.Tricuspid Valve: The right ventricular systolic pressure (pulmonary artery | | systolic pressure), as measured by Doppler, is 18.16mmHg.Pulmonic Valve: The pulmonic | | valve is normal.Pulmonic Valve: Trace pulmonic regurgitation.Pericardium: There is no | | pericardial effusion.Pericardium: No pleural effusion seen.IVC/Hepatic Veins: The IVC is | | small (<1.5cm) and collapses with sniff, consistent with central venous pressures of | | 0-5mmHg.Aorta: The aortic root, ascending aorta and aortic arch are normal in size. | | MEASUREMENTS Ao asc: 2.51 cmEDV(Teich): 65.07 mlIVSd: 0.88 cmLVIDd: | | 3.87 cmLVPWd: 0.88 cmLVOT Area: 3.04 [id number] Diam: 1.96 cm%FS: 32.53 %EF(Teich): | | 61.56 %ESV(Teich): 25.00 mlLVIDs: 2.61 cmSV(Teich): 40.06 mlRVIDd: 3.11 | | cmRVOT Diam: 1.92 cmLAESV(A-L): 35.45 mlLAESV Index (A-L): 18.56 ml/m2LAAs A2C: | | 16.85 [id number] A-L A2C: 45.76 mlLALs A2C: 5.27 cmLAAs A4C: 12.62 [id number] A-L A4C: | | 26.55 mlLALs A4C: 5.09 cmRAAs: 11.79 [id number] A-L: 25.03 mlRAESV MOD: 23.97 | | mlRALs: 4.71 cmAV maxP.24 mmHgAV meanP.39 mmHgAV Vmax: 1.67 m/Pato | | Vmean: 1.07 m/Pato VTI: 34.90 cmAVA Vmax: 2.13 cm2AVA (VTI): 2.18 [id number] Vmax: | | 0.00 cm2/m2AVAI (VTI): 0.00 cm2/m2LVOT maxP.51 mmHgLVOT meanP.25 mmHgLVSI | | Dopp: 39.85 ml/m2LVSV Dopp: 76.11 mlLVOT Vmax: 1.17 m/sLVOT Vmean: 0.85 m/sLVOT | | VTI: 24.99 cmMV A Camden: 0.65 m/sMV DecT: 259.17 msMV E Camden: 0.83 m/sMV E/A | | Ratio: 1.27MV PHT: 75.16 msMVA By PHT: 2.92 mb7Pwnybj e': 0.06 m/sSeptal E/e': | | 13.15Lateral e': 0.10 m/sLateral E/e': 8.05PV maxP.84 mmHgPV Vmax: 0.84 | | m/sRAP: 5 mmHgRVSP: 18.15 mmHgTR maxP.15 mmHgTR Vmax: 1.81 m/s | | Case Finisher:Authenticated by: Mathew Palmer Date/Time: 03-18-2017 6:39:2 | | IMPRESSION: 1. The left ventricle is normal in size, wall thickness and systolic | | function EF 55-60%.2. The right ventricle is normal in size and function.3. There is no | | pericardial effusion. | |IVC/Hepatic Veins: The IVC is small (<1.5cm) and collapses with sniff, consistent with cent ral venous pressures of 0-5mmHg. | |Aorta: The aortic root, ascending aorta and aortic arch are normal in size. | | | |MEASUREMENTS | | | |Ao asc: 2.51 cm | |EDV(Teich): 65.07 ml | |IVSd: 0.88 cm | |LVIDd: 3.87 cm | |LVPWd: 0.88 cm | |LVOT Area: 3.04 cm2 | |LVOT Diam: 1.96 cm | |%FS: 32.53 % | |EF(Teich): 61.56 % | |ESV(Teich): 25.00 ml | |LVIDs: 2.61 cm | |SV(Teich): 40.06 ml | |RVIDd: 3.11 cm | |RVOT Diam: 1.92 cm | |LAESV(A-L): 35.45 ml | |LAESV Index (A-L): 18.56 ml/m2 | |LAAs A2C: 16.85 cm2 | |LAESV A-L A2C: 45.76 ml | |LALs A2C: 5.27 cm | |LAAs A4C: 12.62 cm2 | |LAESV A-L A4C: 26.55 ml | |LALs A4C: 5.09 cm | |RAAs: 11.79 cm2 | |RAESV A-L: 25.03 ml | |RAESV MOD: 23.97 ml | |RALs: 4.71 cm | |AV maxP.24 mmHg | |AV meanP.39 mmHg | |AV Vmax: 1.67 m/s | |AV Vmean: 1.07 m/s | |AV VTI: 34.90 cm | |MACKENZIE Vmax: 2.13 cm2 | |MACKENZIE (VTI): 2.18 cm2 | |AVAI Vmax: 0.00 cm2/m2 | |AVAI (VTI): 0.00 cm2/m2 | |LVOT maxP.51 mmHg | |LVOT meanP.25 mmHg | |LVSI Dopp: 39.85 ml/m2 | |LVSV Dopp: 76.11 ml | |LVOT Vmax: 1.17 m/s | |LVOT Vmean: 0.85 m/s | |LVOT VTI: 24.99 cm | |MV A Camden: 0.65 m/s | |MV DecT: 259.17 ms | |MV E Camden: 0.83 m/s | |MV E/A Ratio: 1.27 | |MV PHT: 75.16 ms | |MVA By PHT: 2.92 cm2 | |Septal e': 0.06 m/s | |Septal E/e': 13.15 | |Lateral e': 0.10 m/s | |Lateral E/e': 8.05 | |PV maxP.84 mmHg | |PV Vmax: 0.84 m/s | |RAP: 5 mmHg | |RVSP: 18.15 mmHg | |TR maxP.15 mmHg | |TR Vmax: 1.81 m/s | | | |Case Finisher: | |Authenticated by: Mathew Coleman | |Report Date/Time: 03-18-2017 6:39:2 | | | |IMPRESSION: | |1. The left ventricle is normal in size, wall thickness and systolic function EF 55-60%. | |2. The right ventricle is normal in size and function. | |3. There is no pericardial effusion. | + + documented in this encounter Visit Diagnoses Not on filedocumented in this encounter"
--- OUTSIDE RECORDS SUMMARY | ~2019-02-12 | XMS | Encounter Summary ---
Demographics + + + | Address | [address] | | | [place] [address] | + + + | Home Phone | | + + + | Preferred Language | Unknown | + + + | Marital Status | | + + + | Mandaeism Affiliation | Unknown | + + + | Race | Black or | + + + | Ethnic Group | Not or | + + + Author + + + | Author | [facility] | + + + | Organization | [facility] | + + + | Address | Unknown | + + + | Phone | Unavailable | + + + Support + + +---------+ + | Name | Relationship | Address | Phone | + + +---------+ + | Esau Mayers | ECON | Unknown | | + + +---------+ + Care Team Providers + +------+ + | Care Umbrella Tipper Name | Role | Phone | + +------+ + | Catalino Vides COUNTER MANAGER | PCP | | + +------+ + [...] Op | | 2019 | | [facility] [address] | [address] | | | | | [address] Mailcode: CH12A | [facility] | | | | | [facility] | [place], [place] | | | | | and [place], | [address] | | | | | [facility] | [phone] | | | | | Floor [place], [place] | | | | | | [address] | | | | | | [phone] | | | +--------+ + + + [...] [address] | | | | | | [place], [place] | | | | | | [address] | | | | | | [phone] | | | | | | | | +--------+---------+ + + + | 08/24/ | Office | Orthopedics | Jv Thomas, | | | 2019 | Visit | | MD [address] | | | | | | [address] | | | | | | [place], [place] | | | | | | [address] | | | | | | [phone] | | | | | | | | +--------+---------+ + + + documented as of this encounter Visit Diagnoses Not on filedocumented in this encounter"
--- OUTSIDE RECORDS SUMMARY | ~2019-02-12 | XMS | Clinical Summary ---
Demographics + + + | Address | [address] | | | [place] [address] | + + + | Home Phone | | + + + | Preferred Language | Unknown | + + + | Marital Status | | + + + | Jewish Affiliation | Unknown | + + + [...] Team Providers + +------+ + | Care Head Char Filter Tank Tender Name | Role | Phone | + +------+ + | Catalino Vides NP | PCP | | + +------+ + Source Comments CATHERINE is fully live on both [facility]ulatory and [facility] InPatient.[facility] Allergies No Known Allergies Medications + [...] [address] | | | | | | [place], [place] | | | | | | [address] | | | | | | [phone] | | | | | | | | +--------+---------+ + + + | 08/24/ | Office | Orthopedics | Jv Thomas, | | | 2019 | Visit | | MD [address] | | | | | | [address] | | | | | | [place], [place] | | | | | | [address] | | | | | | [phone] | | | | | | | [...] | + +--------+ +--------+ + +------+ | [facility] | PROVID | xxxxxxxxxxx | 10/29/19 | [phone] | [address] | PPO | | | [address]CE | | [address] | [address] | | | [address]ALTH | | sent | | [place], | | | | | | | | [place] [address] | | + +--------+ +--------+ + +------+ [...] | 1976 | [phone] | [place] [address] | | | hilary | | | [address] (Home) | | + +--------+ +--------+ + +
--- OUTSIDE RECORDS SUMMARY | ~2019-02-12 | XMS | Encounter Summary ---
Demographics + + + | Address | [address] | | | [place] [address] | + + + | Home Phone | | + + + | Preferred Language | Unknown | + + + | Marital Status | | + + + | Buddhist Affiliation | Unknown | + + + | Race | Black or | + + + | Ethnic Group | Not or | + + + Author + + + | Author | [facility] | + + + | Organization | [facility] | + + + | Address | Unknown | + + + | Phone | Unavailable | + + + Support + + +---------+ + | Name | Relationship | Address | Phone | + + +---------+ + | Esau Mayers | ECON | Unknown | | + + +---------+ + Care Team Providers + +------+ + | Care Associate Professor Of Communication Name | Role | Phone | + +------+ + | Catalino Vides CONCRETE PLACEMENT EQUIPMENT OPERATOR | PCP | | + +------+ + [...] | | | | | initial | [facility] | [address] | | | | | encounter | & Fractur | [address] [place], | | | | | ([facility]) | [address] | [place] | | | | | Procedures | [place] | [address] | | | | | REQUEST TO | [place], | Phone: | | | | | SURGERY | [place] [address] | [phone] | | | | | CHIEF SECURITY AND SAFETY OFFICER | Phone: | Fax: | | | | | DE KNEE | [phone] | [phone] | | | | | SCOPE,AID | Fax: | | | | | | ANT CRUCIATE | [phone] | | | | | | REPAIR DE | | | | | | | [...] | | 2019 | Visit | [facility] [address] | [address] [address] | subsequent encounter | | | | Ave Mailcode: CH12A | [address] | (Primary Dx) | | | | [facility] | [place], [place] | | | | | and [place], | [address] | | | | | [facility] | [phone] | | | | | Floor [place], [place] | | | | | | [address] | | | | | | [phone] | | | +--------+---------+ + + + [...] status post: Date of surgery: 08/27/18 at [facility] Right knee revision ACL reconstruction with allograft and removal of failed hardware She states that she is progressing well. She has been compliant with 75% weightbearing [facility] with brace. She has not yet unlocked the brace during ambulation. She has attended 2 sessions of PT at [facility]. She continues to have moderate/severe [...] Rd | | | | | | [place], [place] | | | | | | [address] | | | | | | [phone] | | | | | | | | +--------+---------+ + + + | 08/24/ | Office | Orthopedics | Jv Thomas, | | | 2019 | Visit | | MD Joey Fortune | | | | | | [address] | | | | | | [place], [place] | | | | | | [address] | | | | | | [phone] | | | | | | | | +--------+---------+ + + + documented as of this encounter Visit Diagnoses + + | Diagnosis | + + | ACL graft tear, subsequent encounter - Primary | + + documented in this encounter"
--- OUTSIDE RECORDS SUMMARY | ~2019-02-12 | XMS | Clinical Summary ---
Demographics + + + | Address | [address] | | | [place] [address] | + + + | Home Phone | | + + + | Preferred Language | Unknown | + + + | Marital Status | | + + + | Yazdanism Affiliation | Unknown | + + + | Race | Unknown | + + + | Ethnic Group | Unknown | + + + Author + + + | Author | [facility] | | | and [place] | + + + | Organization | [facility] | | | and [...] Team Providers + +------+ + | Care Auto Design Detailer Name | Role | Phone | + +------+ + | Herman Galindo DO | PCP | | + +------+ + Allergies No [...] + + + + | Name | Administration Dates | Next Due | + + + [...] | Blood Pressure | 98/62 | 03/18/2018 1:32 PM | | | | | PST | | + + + + + | Pulse | 68 | 03/18/2018 1:32 PM | | | | | PST | | + + + + + | Temperature | 36.6 C (97.8 F) | 03/18/2018 1:32 PM | | | | | PST | | + + + + + | Respiratory Rate | 18 | 02/03/2018 9:03 AM | | | | | PST | | + + + + + | Oxygen Saturation | 100% | 03/18/2018 1:32 PM | | | | | PST | | + + + + + | Inhaled Oxygen | - | - | | | Concentration | | | | + + + + + | Weight | 82.1 kg (181 lb) | 02/08/2018 9:08 AM | | | | | PST | | + + + + + | Height | 165.1 cm (5' 5") | 02/17/2018 11:05 AM | | | | | PST | | + + + + + | Body Mass Index | 30.12 | 02/08/2018 9:08 AM | | | | | PST [...] | | + +--------+ +--------+ +---------+------+ | [facility] | PHP | [phone] | 10/29/19 | [phone] | | PPO | | PLAN | [...] al/Fam | | 1976 | [phone] | [place] [address] | | | hilary | | | 6 (Home) | | + +--------+ +--------+ + + Advance Directives + + + + + | Type | Date Recorded | Patient | Explanation | | | | Slot Attendant | | + + + + + | Power of | | | | | Maitre D' | | | | + + + + + | Advance | 02/02/2018 6:01 | | | | Directive | AM | | | + + + + + + + + + + | Code Status | Date | Date | Comments | | | Activated | Inactivated | | + + + + + | Full Code | 02/02/2018 | 02/03/2018 | | | | 1:53 PM | 12:41 PM | | + + + + +
--- OUTSIDE RECORDS SUMMARY | ~2019-02-12 | XMS | Encounter Summary ---
Demographics + + + | Address | [address] | | | [place] [address] | + + + | Home Phone | | + + + | Preferred Language | Unknown | + + + | Marital Status | | + + + | Christianity Affiliation | Unknown | + + + | Race | Unknown | + + + | Ethnic Group | Unknown | + + + Author + + + | Author | [facility] | | | and [place] | + + + | Organization | [facility] | | | [...] Team Providers + +------+ + | Care Director Of Online Education Name | Role | Phone | + +------+ + | No, Physician | PCP | Unavailable | + +------+ + Reason for Visit Auth/Cert +--------+--------+ + + + + | Status | Reason | Specialty | Diagnoses / | Referred By | Referred To | | | | | Procedures | Contact | Contact | +--------+--------+ + + + + | | | | Diagnoses | | | | | | | Hypertrophy | | | | | | | of breast | | | | | | | (N62), Back | | | | | | | pain, | | | | | | | unspecified | | | | | | | back | | | | | | | location, | | | | | | | unspecified | | | | | | | back pain | | | | | | | laterality, | | | | | | | unspecified | | | | | | | chronicity | | | | | | | (M54.9) | | | | | | | Procedures | | | | | | | LA REDUCTION | | | | | | | OF LARGE | | | | | | | BREAST LA | | | | | | | REDUCTION OF | | | | | | | LARGE | | | | | | | BREAST | | | | | | | Bilateral | | | | | | | breast | | | | | | | reduction | | | +--------+--------+ + + + + Encounter Details +--------+ + + + + | Date | Type | Department | Care Team | Description | +--------+ + + + + | 02/02/ | Hospital | [facility] | Jose Antonio Pantoja | Breast hypertrophy | | 2018 - | Encounter | [facility] | [address] | | | | | [address] | [place] | | | 02/03/ | | [address] [address] | [place] [address] | | | 2017 | | [phone] | [phone] | | | | | | | [...] + + + | Blood Pressure | 99/55 | 02/03/2018 9:03 AM | | | | | PST | | + + + + + | Pulse | 70 | 02/03/2018 9:03 AM | | | | | PST | | + + + + + | Temperature | 37.8 C (100.1 F) | 02/03/2018 9:03 AM | | | | | PST | | + + + + + | Respiratory Rate | 18 | 02/03/2018 9:03 AM | | | | | PST | | + + + + + | Oxygen Saturation | 95% | 02/03/2018 9:03 AM | | | | | PST | | + + + + + | Inhaled Oxygen | - | - | | | Concentration | | | | + + + + + | Weight | 82.3 kg (181 lb 7 | 02/02/2018 6:29 AM | | | | oz) | PST | | + + + + + | Height | 165.1 cm (5' 5") | 02/02/2018 6:29 AM | | | | | PST | | + + + + + | Body Mass Index | 30.19 | 02/02/2018 6:29 AM | | | | | PST | | + + + + + documented in this encounter Discharge Instructions Instructions Jose Antonio Pantoja MD - 02/03/2018Formatting of this note might be differ ent from the original. Discharge Instructions after Breast Surgery Activity Ask for help with chores and errands while you recover. Do not lift anything heavy (>5 lbs.) until your healthcare provider says it's OK. Do not vacuum or do active or strenuous housework until your healthcare provider says it 's OK Periodically get up and ambulate around the house and take some occasional deep breaths Home care Here are suggestions for taking care of yourself at home: Take pain medicine as directed. Keep your incisions clean and dry. Empty the drains twice daily, morning and evening, and record output. Sponge bath only keeping the bra and dressings dry. Don't soak in a tub, hot tub, or pool until your healthcare provider says it's OK. Take your temperature each day for7 days after the surgery. Eat normal meals as soon as you feel able. Stick to a healthy, well-balanced diet. Follow-up Your follow up appointment with Dr. Pantoja is scheduled for 02/08/18Thursday, at 9:30 am When to call your healthcare provider Call your healthcare provider right away if you have any of the following: [id number] (38C)or higher Chills Drainage from your incisions Swelling around your incisions Increasing pain in or around your incisions Swelling in your arm or hand on the surgery side Know what problems to watch for and when you need to call your healthcare providers. Also b e sure you know how to get help after office hours and on weekends and holidays, too. documented in this encounter Medications at Time of Discharge + + + +---------+ + + | Medication | Sig | Dispensed | Refills | Start | End Date | | | | | | Date | | + + + +---------+ + + | carvedilol (COREG) | Take 25 mg by mouth | | 0 | | | | 25 mg tablet | 2 times daily (with | | | | | | | breakfast & dinner). | | | | | + + + +---------+ + + | | Take 25 mg by mouth | | 0 | | | | hydroCHLOROthiazide | Daily. | | | | | | 25 mg tablet | | | | | | + + + +---------+ + + | ibuprofen (ADVIL, | Take 200 mg by mouth | | 0 | | | | MOTRIN) 200 mg | every 6 hours as | | | | | | tablet | needed for Pain. | | | | | + + + +---------+ + + | Multiple | Take by mouth | | 0 | | | | Vitamins-Minerals | Daily. | | | | | | (MULTIVITAMIN ADULT | | | | | | | PO) | | | | | | + + + +---------+ + + | naproxen | Take 500 mg by mouth | | 0 | 07/10/19 | | | (NAPROSYN) 500 mg | Twice daily as | | | 18 | 8 | | tablet | needed. | | | | | + + + +---------+ + + | | Take 1-2 tablets by | 40 | 0 | 01/16/20 | | | oxyCODONE-acetaminop | mouth every 4 hours | tablet | | 18 | 8 | | hen (PERCOCET) 5-325 | as needed for Pain. | | | | | | mg per tablet | | | | | | + + + +---------+ + + | | take 1 tablet by | | 0 | 01/30/20 | | | sulfamethoxazole-tri | mouth twice a day | | | 18 | 8 | | methoprim (BACTRIM | for 7 days | | | | | | DS) 800-160 mg per | | | | | | | tablet | | | | | | + + + +---------+ + + documented as of this encounter Progress Jose Antonio Trujillo MD - 02/03/2018 8:50 AM PSTFormatting of this note might be differ ent from the original. [facility] PROGRESS NOTE Primary Care Physician: No Physician on file PATIENT NAME: Song Mayers : 1975 TODAY'S DATE: 02/03/2018 History OF PRESENT ILLNESS: Post op bilateral breast reduction She feels OK. Post op pain controlled. Taking po well. Alsip dizzy when up last night, bu t got up to the bathroom OK this morning. No fever or chills. CURRENT MEDICATIONS Current Facility-Administered Medications Medication Dose Route Frequency Provider Last Rate Last Dose acetaminophen (TYLENOL) tablet 650 mg 650 mg Oral Q4H PRN Jose Antonio Pantoja MD calcium carbonate (TUMS) chewable tablet 1,000 mg 1,000 mg Oral Q8H PRN Jose Antonio Pantoja MD carvedilol (COREG) tablet 25 mg 25 mg Oral BID Jose Antonio Pantoja MD 25 mg at 02/02/18 1639 diphenhydrAMINE (BENADRYL) tablet 25 mg 25 mg Oral Q4H PRN Jose Antonio Pantoja MD docusate sodium (COLACE) capsule 100 mg 100 mg Oral BID PRN Jose Antonio Pantoja MD 100 mg at 02/03/18 0750 hydroCHLOROthiazide tablet 25 mg 25 mg Oral Daily Jose Antonio Pantoja MD ibuprofen (ADVIL,MOTRIN) tablet 600 mg 600 mg Oral TID Jose Antonio Pantoja MD 600 mg at 02/03/18 0740 labetalol (TRANDATE) 5 mg/mL injection 10 mg 10 mg Intravenous Q4H PRN Jose Antonio laughlin MD lactated ringers (LR) infusion Intravenous Continuous Jose Antonio Pantoja MD 100 m L/hr at 02/03/18 0049 melatonin tablet 3 mg 3 mg Oral Nightly PRN Jose Antonio Pantoja MD morphine injection 2-8 mg 2-8 mg Intravenous Q2H PRN Jose Antonio Pantoja MD 2 mg at 02/03/18 0611 ondansetron (ZOFRAN ODT) disintegrating tablet 4 mg 4 mg Oral Q6H PRN Jose Antonio Torres MD oxyCODONE (ROXICODONE) tablet 5-20 mg 5-20 mg Oral Q3H PRN Jose Antonio Pantoja MD 10 mg at 02/03/18 0741 prochlorperazine tablet 10 mg 10 mg Oral Q6H PRN Jose Antonio Pantoja MD senna (SENOKOT) tablet 8.6 mg 8.6 mg Oral BID PRN Jose Antonio Pantoja MD 8.6 mg a t 02/03/18 0750 ALLERGIES No Known Allergies PHYSICAL EXAM BP 92/68 | Pulse 60 | Temp 37.1 C (98.8 F) (Oral) | Resp 18 | Ht 1.651 m (5' 5") | Wt 82.3 kg (181 lb 7 oz) | SpO2 100% | ? No | BMI 30.19 kg/m Wt. Admission: Weight: 82.3 kg (181 lb 7 oz) Physical Exam Gen: AxO, NAD Cor: RRR Lungs: clear Breast: Incisions healing well. Skin flaps and NAC intact. No redness or discharge. No s ign of hematoma or seroma. ZBIGNIEW drains: Normal output. Some dark drainage in the bulbs, but the fluid in the tube is c learing. ASSESSMENT & PLAN: 1. Breast hypertrophy POD#1 and doing well. The dressings were changed and the Doug wrap removed. OK for dischar ge home. Rx for Percocet and Bactrim DS at home. Follow up on 02/08/18 as scheduled. Electronically Signed by: Jose Antonio Pantoja MD CC: No Physician on file, No ref. provider found documented in this encounter Plan of Treatment Not on filedocumented as of this encounter Procedures + +--------+ + + + | Procedure Name | Priori | Date/Time | Associated Diagnosis | Comments | | | ty | | | | + +--------+ + + + | REDUCTION | | 02/02/2018 | Hypertrophy of | | | MAMMOPLASTY | | 7:57 AM | breast (N62), Back | | | BILATERAL | | PST | pain, unspecified | | | | | | back location, | | | | | | unspecified back | | | | | | pain laterality, | | | | | | unspecified | | | | | | chronicity (M54.9) | | + +--------+ + + + +---+--------+ | | Case | | | Notes | | | I | | | have | | | emaile | | | d you | | | a copy | | | of | | | patien | | | t's | | | photos | | | to | | | attach | | | with | | | author | | | izatio | | | n | | | reques | | | t. | +---+--------+ documented in this encounter Visit Diagnoses + + | Diagnosis | + + | Breast hypertrophy Hypertrophy of breast | + + documented in this encounter Administered Medications + +--------+ +-------+------+------+ | Medication Order | MAR | Action | Dose | Rate | Site | | | Action | Date | | | | + +--------+ +-------+------+------+ | carvedilol (COREG) tablet 25 mg | Given | 02/03/20 | 25 mg | | | | 25 mg, Oral, 2 TIMES DAILY WITH | | 18 4:39 | | | | | BREAKFAST & DINNER, First dose | | PM PST | | | | | on Thu02/02/18 at 1700 | | | | | | + +--------+ +-------+------+------+ +---+---+ | | | +---+---+ + +---------+ +-----+ +---+ | ceFAZolin (ANCEF, KEFZOL) 100 | New Bag | 02/04/20 | 1 g | 20 mL/hr | | | mg/mL IV syringe 1 g 1 g, | | 18 12:51 | | | | | Intravenous, Administer over 30 | | AM PST | | | | | Minutes, EVERY 8 HOURS INTERVAL, | | | | | | | First dose on Thu02/02/18 at | | | | | | | 1730, For 2 doses, Indications: | | | | | | | Surgical Prophylaxis | | | | | | + +---------+ +-----+ +---+ +---------+ +-----+ +---+ | New Bag | 02/03/20 | 1 g | 20 mL/hr | | | | 18 5:20 | | | | | | PM PST | | | | +---------+ +-----+ +---+ +---+---+ | | | +---+---+ + +-------+ +------+---+---+ | dexamethasone (DECADRON) tablet | Given | 02/03/20 | 4 mg | | | | 4 mg 4 mg, Oral, ONCE, Tue | | 18 7:03 | | | | | 02/02/18 at 0645, For 1 dose, | | AM PST | | | | | Pre-op | | | | | | + +-------+ +------+---+---+ +---+---+ | | | +---+---+ + +-------+ +--------+---+---+ | docusate sodium (COLACE) | Given | 02/04/20 | 100 mg | | | | capsule 100 mg 100 mg, Oral, 2 | | 18 7:50 | | | | | TIMES DAILY PRN, Constipation, | | AM PST | | | | | Starting 02/02/18 at 1353, | | | | | | | First line agent for | | | | | | | constipation, | | | | | | + +-------+ +--------+---+---+ +-------+ +--------+---+---+ | Given | 02/03/20 | 100 mg | | | | | 18 2:08 | | | | | | PM PST | | | | +-------+ +--------+---+---+ +---+---+ | | | +---+---+ + +-------+ +--------+---+---+ | HYDROmorphone (DILAUDID) | Given | 02/03/20 | 0.2 mg | | | | injection 0.2-0.5 mg 0.2-0.5 mg, | | 18 1:02 | | | | | Intravenous, EVERY 5 MIN PRN, | | PM PST | | | | | Pain, Starting 02/02/18 at | | | | | | | 1243, Maximum total dose 4 mg. | | | | | | | PACU IV Narcotic Priority: Only | | | | | | | use fentanyl for immediate | | | | | | | post-op pain (one dose) or | | | | | | | breakthrough pain when any other | | | | | | | IV narcotics ordered have been | | | | | | | ineffective (if ordered). If | | | | | | | both morphine and hydromorphone | | | | | | | are ordered, use morphine first, | | | | | | | and use hydromorphone if morphine | | | | | | | ineffective., Recovery/Phase I | | | | | | + +-------+ +--------+---+---+ +-------+ +--------+---+---+ | Given | 02/03/20 | 0.3 mg | | | | | 18 12:45 | | | | | | PM PST | | | | +-------+ +--------+---+---+ +---+---+ | | | +---+---+ + +-------+ +--------+---+---+ | ibuprofen (ADVIL,MOTRIN) tablet | Given | 02/04/20 | 600 mg | | | | 600 mg 600 mg, Oral, 3 TIMES | | 18 7:40 | | | | | DAILY WITH MEALS, First dose on | | AM PST | | | | | 02/02/18 at 1700, If urine | | | | | | | output is less that 240ml/8 hours | | | | | | | (30ml/hr) or if signs of | | | | | | | bleeding, contact ordering | | | | | | | provider and hold ibuprofen., | | | | | | + +-------+ +--------+---+---+ +-------+ +--------+---+---+ | Given | 02/03/20 | 600 mg | | | | | 18 4:39 | | | | | | PM PST | | | | +-------+ +--------+---+---+ +---+---+ | | | +---+---+ + +---------+ +---+---+---+ | lactated ringers (LR) infusion | New Bag | 02/03/20 | | | | | at 10-100 mL/hr, Intravenous, | | 18 9:56 | | | | | CONTINUOUS, Starting 02/02/18 | | AM PST | | | | | at 0645, TKO., Pre-op | | | | | | + +---------+ +---+---+---+ +---------+ +---+-------+---+ | New Bag | 02/03/20 | | | | | | 18 7:56 | | | | | | AM PST | | | | +---------+ +---+-------+---+ | New Bag | 02/03/20 | | 100 | | | | 18 6:56 | | mL/hr | | | | AM PST | | | | +---------+ +---+-------+---+ +---+---+ | | | +---+---+ + +---------+ +---+-------+---+ | lactated ringers (LR) infusion | New Bag | 02/04/20 | | 100 | | | at 100 mL/hr, Intravenous, | | 18 12:49 | | mL/hr | | | CONTINUOUS, Starting 02/02/18 | | AM PST | | | | | at 1415 | | | | | | + +---------+ +---+-------+---+ +---------+ +---+-------+---+ | New Bag | 02/03/20 | | 100 | | | | 18 2:07 | | mL/hr | | | | PM PST | | | | +---------+ +---+-------+---+ +---+---+ | | | +---+---+ + +-------+ +------+---+---+ | morphine injection 2-8 mg 2-8 | Given | 02/04/20 | 2 mg | | | | mg, Intravenous, EVERY 2 HOURS | | 18 6:11 | | | | | PRN, Pain, Starting 02/02/18 | | AM PST | | | | | at 1353, Slow IV push, not faster | | | | | | | than 2 mg/minute. If ineffective | | | | | | | or not tolerated, use | | | | | | | hydromorphone IV if ordered, | | | | | | + +-------+ +------+---+---+ +-------+ +------+---+---+ | Given | 02/03/20 | 2 mg | | | | | 18 6:04 | | | | | | PM PST | | | | +-------+ +------+---+---+ | Given | 02/03/20 | 2 mg | | | | | 18 4:08 | | | | | | PM PST | | | | +-------+ +------+---+---+ +---+---+ | | | +---+---+ + +-------+ +------+---+---+ | ondansetron (ZOFRAN ODT) | Given | 02/03/20 | 8 mg | | | | disintegrating tablet 8 mg 8 mg, | | 18 7:03 | | | | | Oral, ONCE, 02/02/18 at 0645, | | AM PST | | | | | For 1 dose, Pre-op | | | | | | + +-------+ +------+---+---+ +---+---+ | | | +---+---+ + +-------+ +-------+---+---+ | oxyCODONE (ROXICODONE) tablet | Given | 02/04/20 | 10 mg | | | | 5-20 mg 5-20 mg, Oral, EVERY 3 | | 18 7:41 | | | | | HOURS PRN, Pain, Starting Tue | | AM PST | | | | | 02/02/18 at 1353, If ineffective | | | | | | | or not tolerated, contact | | | | | | | ordering provider, | | | | | | + +-------+ +-------+---+---+ +-------+ +-------+---+---+ | Given | 02/04/20 | 10 mg | | | | | 18 4:15 | | | | | | AM PST | | | | +-------+ +-------+---+---+ | Given | 02/03/20 | 5 mg | | | | | 18 3:11 | | | | | | PM PST | | | | +-------+ +-------+---+---+ +---+---+ | | | +---+---+ + +-------+ +--------+---+---+ | senna (SENOKOT) tablet 8.6 mg | Given | 02/04/20 | 8.6 mg | | | | 8.6 mg, Oral, 2 TIMES DAILY PRN, | | 18 7:50 | | | | | Constipation, Starting Tue | | AM PST | | | | | 02/02/18 at 1353, If docusate | | | | | | | ineffective or not ordered, | | | | | | + +-------+ +--------+---+---+ +-------+ +--------+---+---+ | Given | 02/03/20 | 8.6 mg | | | | | 18 8:45 | | | | | | PM PST | | | | +-------+ +--------+---+---+ +---+---+ | | | +---+---+ documented in this encounter
--- OUTSIDE RECORDS SUMMARY | ~2019-02-12 | XMS | Encounter Summary ---
Demographics + + + | Address | [address] | | | [place] [address] | + + + | Home Phone [...] Team Providers + +------+ + | Care Mailing Specialist Name | Role | Phone | + +------+ + | Catalino Vides NP | PCP | | + +------+ + Encounter Details +--------+--------+ + + + | Date | Type | Department | Care Team | Description | +--------+--------+ + + + | 08/19/ | Travel | | | | | [...] [address] | | | | | | [place], [place] | | | | | | [address] | | | | | | [phone] | | | | | | | | +--------+---------+ + + + | 08/24/ | Office | Orthopedics | Jv Thomas, | | | 2019 | Visit | | [address] | | | | | | [address] | | | | | | [place] | | | | | | [address] | | | | | | [phone] | | | | | | | | +--------+---------+ + + + documented as of this encounter Visit Diagnoses Not on filedocumented in this encounter"
--- OUTSIDE RECORDS SUMMARY | ~2019-02-12 | XMS | Encounter Summary ---
Demographics + + + | Address | [address] | | | [place] [address] | + + + | Home Phone | | + + + | Preferred Language | Unknown | + + + | Marital Status | | + + + | Amish Affiliation | Unknown | + + + | Race | Unknown | + + + | Ethnic Group | Unknown | + + + Author + + + | Author | [facility] | | | and [place] | + + + | Organization | [facility] | | | [...] Team Providers + +------+ + | Care Telecommunications Line Installer Name | Role | Phone | + [...] | | | | of breast | [address] | [place] | | | | | Other | [facility] | [address] | | | | | chronic pain | [place], | [place], | | | | | Dorsalgia, | [address] | [place] [address] | | | | | unspecified | [place], | Phone: | | | | | Procedures | [place] [address] | [phone] | | | | | [place] OFFICE | Phone: | Fax: | | | | | OUTPATIENT | [phone] | [phone] | | | | | NEW 60 | Fax: | | | | | | MINUTES | [phone] | | +--------+--------+ + + + + Encounter Details +--------+---------+ + + + | Date | Type | Department | Care Team | Description | +--------+---------+ + + + | 02/08/ | Office | [facility] | Jose Antonio Pantoja | Hypertrophy of | | 2018 | Visit | SURGERY [address] | [address] | breast (Primary Dx); | | | | [place], [place] | [address] [place] | Back pain, | | | | [id number] | [place] [address] | unspecified back | | | | [phone] | [phone] | location, | | | | | | unspecified back | | | | | | pain laterality, | | | | | | unspecified | | | | | | chronicity; | | | | | | Hypertension, | | | | | | unspecified type | +--------+---------+ + + + Social History [...] + + + | Blood Pressure | 102/62 | 02/08/2018 9:08 AM | | | | | PST | | + + + + + | Pulse | 61 | 02/08/2018 9:08 AM | | | | | PST | | + + + + + | Temperature | 36.8 C (98.2 F) | 02/08/2018 9:08 AM | | | | | PST | | + + + + + | Respiratory Rate | - | - | | + + + + + | Oxygen Saturation | 100% | 02/08/2018 9:08 AM | | | [...] Height | 165.1 cm (5' 5") | 02/08/2018 9:08 AM | | | | | PST | | + + + + + | Body Mass Index | 30.12 | 02/08/2018 9:08 AM | | | | | PST | | + + + + + documented in this encounter Progress Jose Antonio Trujillo MD - 02/08/2018 9:20 AM PSTFormatting of this note might be differ ent from the original. [facility] --[facility] PROGRESS NOTE Primary Care Physician: No Physician on file PATIENT NAME: Song Mayers : 1975 TODAY'S DATE: 02/08/2018 History OF PRESENT ILLNESS: Patient is here today for her 6 day post op from a bilateral breast reductions. Surgery was 02/02/18. Patient states she is doing well today. Pain level is a 5/10 in the incision areas. Patient is taking the Oxycodone, PRN, with benefit. She hasn't taken any this morning. She is also taking the Bactrim with no difficulties. She has 2.5 days left. She does states her blood pr essure had been low, but his morning her blood pressure was 112/77. She has been feeling lig ht headed. Yesterday her BP was 99/66. She does have 2 drains in, has had no difficulties. S he has not been draining very much at all. The bulb doesn't even get to 25 mL. She is emptyi ng bid. She has been wearing the surgical bra since surgery, has not been removed as advise d. She states it does get a little uncomfortable around the incision area. CURRENT MEDICATIONS Current Outpatient Prescriptions Medication Sig [...] as needed for Pain. 30 tablet 0 sulfamethoxazole-trimethoprim (BACTRIM DS) 800-160 mg per tablet take 1 tablet by mouth twice a day for 7 days 0 No current facility-administered medications for this visit. ALLERGIES No Known Allergies PHYSICAL EXAM BP 102/62 | Pulse 61 | Temp 36.8 C (98.2 F) (Temporal) | Ht 1.651 m (5' 5") | Wt 82 .1 kg (181 lb) | SpO2 100% | BMI 30.12 kg/m Wt. Admission: Weight: 82.1 kg (181 lb) Physical Exam Post op: The incisions were healing well and the skin flaps and NACs are intact. No disch arge or seroma. The breasts appear symmetric. No sign of infection or complications. ASSESSMENT & PLAN: 1. Hypertrophy of breast 2. Back pain, unspecified back location, unspecified back pain laterality, unspecified pump servicer nicity 3. Hypertension, unspecified type 6 days post op and doing well. The drains were removed and the dressings changed. OK to s hower starting tomorrow. Continue use of the surgical bra and light activity. Recheck in o week. Electronically Signed by: Jose Antonio Pantoja MD [...] type | + + documented in this encounter
--- OUTSIDE RECORDS SUMMARY | ~2019-02-12 | XMS | Encounter Summary ---
Demographics + + + | Address | [address] | | | [place] [address] | + + + | Home Phone | | + + + | Preferred Language | Unknown | + + + | Marital Status | | + + + | Taoist Affiliation | Unknown | + + + | Race | Unknown | + + + | Ethnic Group | Unknown | + + + Author + + + | Author | [facility] | | | and [place] | + + + | Organization | [facility] | | | and [place] | + + + | Address | Unknown | + + + | Phone | Unavailable | + + + Support + + +---------+ + | Name | Relationship | Address | Phone | + + +---------+ + | Tiff Zamudio | ECON | Unknown | | + + +---------+ + | Esau Talib | ECON | Unknown | | + + +---------+ + Care Team Providers + +------+ + | Care Hub Inventory Specialist Name | Role | Phone | + +------+ + PCP | Unavailable | + +------+ + Encounter Details +--------+ + + + + | Date | Type | Department | Care Team | Description | +--------+ + + + + | 10/07/ | Abstract | [facility] | Jose Antonio Pantoja | Essential | | 2018 | | SURGERY [address] | [address] | hypertension; | | | | [place], [place] | [address] | Palpitations | | | | [address] | [place] [address] | | | | | [phone] | [phone] | | | | | | | [...] + | Diagnosis | + + | Essential hypertension Unspecified essential hypertension | + + | Palpitations | + + documented in this encounter"
--- OUTSIDE RECORDS SUMMARY | ~2019-02-12 | XMS | Encounter Summary ---
Demographics + + + | Address | [address] | | | [place] [address] | + + + | Home Phone | | + + + | Preferred Language | Unknown | + + + | Marital Status | | + + + | Jain Affiliation | Unknown | + + + | Race | Unknown | + + + | Ethnic Group | Unknown | + + + Author + + + | Author | [facility] | | | and [place] | + + + | Organization | [facility] | | | [...] Team Providers + +------+ + | Care Registered Nurse Practitioner Name | Role | Phone | + +------+ + | No, Physician | PCP | Unavailable | + +------+ + Encounter Details +--------+ + + + + | Date | Type | Department | Care Team | Description | +--------+ + + + + | 02/05/ | Orders Only | [facility] [place] [facility] | Jose Antonio Pantoja | Postoperative pain | | 2018 | | SUR[address] | [address] | (Primary Dx) | | | | [place], [place] | [address] [place] | | | | | [address] | [place] [address] | | | | | [phone] | [phone] | | | | | | | [...] + | Diagnosis | + + | Postoperative pain - Primary Other acute postoperative pain | + + documented in this encounter"
--- OUTSIDE RECORDS SUMMARY | ~2019-02-12 | XMS | Encounter Summary ---
Demographics + + + | Address | [address] | | | [place] [address] | + + + | Home Phone | | + + + | Preferred Language | Unknown | + + + | Marital Status | | + + + | Buddhist Affiliation | Unknown | + + + | Race | Unknown | + + + | Ethnic Group | Unknown | + + + Author + + + | Author | [facility] | | | and [place] | + + + | Organization | [facility] | | | [...] Team Providers + +------+ + | Care Beaming Inspector Name | Role | Phone | + +------+ + PCP | Unavailable | + +------+ + Encounter Details +--------+ + + + + | Date | Type | Department | Care Team | Description | +--------+ + + + + | 12/15/ | Episode | [facility] [place] [facility] | Fannei Mann, | | | 2018 | Changes | SURGERY [address] | RN | | | | | [place] | | | | | | [address] | | | | | | [phone] | | | +--------+ + + + [...]
--- OUTSIDE RECORDS SUMMARY | ~2019-02-12 | XMS | Encounter Summary ---
Demographics + + + | Address | [address] | | | [place] [address] | + + + | Home Phone | | + + + | Preferred Language | Unknown | + + + | Marital Status | | + + + | Cheondoism Affiliation | Unknown | + + + | Race | Unknown | + + + | Ethnic Group | Unknown | + + + Author + + + | Author | [facility] | | | and [place] | + + + | Organization | [facility] | | | [...] Team Providers + +------+ + | Care Pantograph Watcher Name | Role | Phone | + +------+ + PCP | Unavailable | + +------+ + Reason for Visit + + + | Reason | Comments | + + + | Pre-op Exam | | + + + Evaluate & Treat (Routine) +--------+--------+ + [...] | | | | of breast | [facility] [address] | [place] | | | | | Other | [facility] | [address] | | | | | chronic pain | CHRIS [place]EN[place]AS, | [place], | | | | | Dorsalgia, | [address] | [place] [address] | | | | | unspecified | [place], | Phone: | | | | | Procedures | [place] [address] | [phone] | | | | | IN OFFICE | Phone: | Fax: | | | | | OUTPATIENT | [phone] | [phone] | | | | | NEW 60 | Fax: | | | | | | MINUTES | [phone] | | +--------+--------+ + + + + Encounter Details +--------+---------+ + + + | Date | Type | Department | Care Team | Description | +--------+---------+ + + + | 01/15/ | Office | [facility] | Jose Antonio Pantoja | Hypertrophy of | | 2018 | Visit | SURGERY [address] | [address] | breast (Primary Dx); | | | | St [place], [place] | [address] [place] | Back pain, | | | | [address] | [place] [address] | unspecified back | | | | [phone] | [phone] | location, | | | | | [...] + + + | Blood Pressure | 104/68 | 01/15/2018 10:25 AM | | | | | PDT | | + + + + + | Pulse | 61 | 01/15/2018 10:25 AM | | | | | PDT | | + + + + + | Temperature | 37.2 C (99 F) | 01/15/2018 10:25 AM | | | | | PDT | | + + + + + | Respiratory Rate | - | - | | + + + + + | Oxygen Saturation | 99% | 01/15/2018 10:25 AM | | | | | PDT | | + + + + + | Inhaled Oxygen | - | - | | | Concentration | | | | + + + + + | Weight | 87.1 kg (192 lb) | 01/15/2018 10:25 AM | | | | | PDT | | + + + + + | Height | 165.1 cm (5' 5") | 01/15/2018 10:25 AM | | | | | PDT | | + + + + + | Body Mass Index | 31.95 | 01/15/2018 10:25 AM | | | | | PDT | | + + + + + documented in this encounter Patient Instructions Patient Instructions Caridad Murguia RN - 01/15/2018 10:00 AM PDT DO NOT EAT OR DRINK ANYTHING AFTER MIDNIGHT before your surgery. This means no coffee, aly er, juice or toast on the morning of your surgery. The only exception is essential medicine s with a small sip of water (or just enough to get the pills down safely). Please use the antibacterial wipes the night before your surgery to help prevent post-op in fections. Follow instructions listed in brochure. On 02/01/18 check in at [facility] Day Surgery (corner [address]) at 9:45a. for your pre-a nesthesia work up. On 02/02/18 check in at [facility] ([address]) at 6:00am. Your surgery is called Bilateral breast reduction. It will start about 7:45. You will be ready to go home after your hospital stay. Anesthesia type recommended: General General IV Sedation with local anesthesia (MAC) IV Sedation Other MAKE ARRANGEMENTS FOR A RESPONSIBLE ADULT TO DRIVE YOU HOME. If you have any questions, please call at . Your nurse's name is Caridad RAYA. Your surgeon's name is Dr Pantoja. I look forward to your having a safe, successful and comfortable surgery. Sign up for [facility] if you want easy access to your medical information online. You can: Review your medications, immunizations, allergies and medical history. View details of your past and upcoming appointments. Sign up for [facility] if you want easy access to your medical information online. Only you, your doctor and your health care team are permitted to view the information sent through [employer]. Through [facility] you can: ? Review your medications, immunizations, allergies and medical history. ? View details of your past and upcoming appointments. ? Receive test results online no waiting for a phone call or letter ? Review health education topics and discharge instructions provided by your physician. ? Send secure emails to your healthcare team. ? Request renewals of your medications online ? Link your family s accounts to yours for convenient access to appointments, immunizatio n records, growth charts and more. Below are the different ways you can sign up for [facility]: ? The first way is to get online at: [email or web address] and sign up directly throug h the website prior to your appointment with us. You can call [phone] ([phone]) if you have any questions or need assistance. ? The second way is through the [facility] terry which can be accessed with any smart phone. Ju st go to your terry store and look up [employer]. ? The third way is to do it while you wait in the room for the doctor at your appointment. The nurse is available if you have any questions or need assistance. You will need the following information to sign up: Email address: User name: Password: Password must be at least 8 characters long, less than 20 characters, and it must have at l east 1 upper case letter and 1 lower case letter as well as at least 1 number. documented in this encounter Progress Notes Jose Antonio Pantoja MD - 01/15/2018 10:00 AM PDTFormatting of this note might be differ ent from the original. [facility] PROGRESS NOTE Primary Care Physician: No primary care provider on file. PATIENT NAME: Song Mayers : 1975 TODAY'S DATE: 01/15/2018 History OF PRESENT ILLNESS: Song Mayers is a 41 y.o. female () here today for her p re-op. Patient is scheduled to have a bilateral breast reduction on 02/02/18. Patient stated "I am ready to get this done". She is unsure what her current bra size is. She wears 3 sport s bras to try to hold her breasts in place. She c/o deep shoulder grooving from her bra stra ps for over 10 years that has progressively worsened. She c/o chronic neck, shoulder, and up per to mid back pain for over 17 years that has progressively worsened. She experiences freq uent achiness in her mid back from her slumped posture and trying to force herself to sit mo re straight. Patient states her pain is a 0/10. She has received PT 2X/week for 3-6 months w ithout any benefit. Denies previous chiropractic or massage therapy. She struggles with dry charge process attendant jairon skin rash and breakdown underneath her breasts. She applies a skin protectant ointment u nderneath her breasts with temporary benefit. She states she will lie down PRN to try to lif t the breasts off the area as much as possible and let the skin air out. Denies family h/o b reast CA. Denies previous breast US or mammogram. Denies any personal breast issues. Denies spinal x-rays. She does not smoke. PAST MEDICAL HISTORY Past Medical History: Diagnosis Date GERD (gastroesophageal reflux disease) Hypertension Palpitations PAST SURGICAL HISTORY Past Surgical History: Procedure Laterality Date ANTERIOR CRUCIATE LIGAMENT REPAIR Right 06/09/[address] Shakeel Prieto SECTION 11/09/2011 TOTAL HYSTERECTOMY 2013 MEDICATIONS PRIOR TO ADMISSION Prior to Admission medications Medication Sig Start Date End Date Taking? Authorizing Provider carvedilol (COREG) 25 mg tablet Take 25 mg by mouth 2 times daily (with breakfast & dinner) . Historical Provider, hydroCHLOROthiazide 25 mg tablet Take 25 mg by mouth Daily. Historical Provider, ibuprofen (ADVIL, MOTRIN) 200 mg tablet Take 200 mg by mouth every 6 hours as needed for Pa in. Historical Provider, Multiple Vitamins-Minerals (MULTIVITAMIN ADULT PO) Take by mouth Daily. Historical Prov MD ophelia naproxen (NAPROSYN) 500 mg tablet 07/09/17 Historical Provider, raNITIdine (ZANTAC) 300 MG capsule Take 300 mg by mouth every evening. Historical Provid MD max CURRENT MEDICATIONS Current Outpatient Prescriptions Medication Sig [...] mouth Daily. naproxen (NAPROSYN) 500 mg tablet raNITIdine (ZANTAC) 300 MG capsule Take 300 mg by mouth every evening. No current facility-administered medications for this visit. ALLERGIES No Known Allergies FAMILY HISTORY Family history includes High blood pressure in her mother. SOCIAL HISTORY The pt reports that she has quit smoking. She has never used smokeless tobacco. She report s that she drinks alcohol. She reports that she does not use drugs. REVIEW OF SYSTEMS ROS PHYSICAL EXAM BP 104/68 | Pulse 61 | Temp 37.2 C (99 F) | Ht 1.651 m (5' 5") | Wt 87.1 kg (192 lb ) | SpO2 99% | BMI 31.95 kg/m Wt. Admission: Weight: 87.1 kg (192 lb) Physical Exam Constitutional: She is oriented to person, place, and time. She appears well-developed and well-nourished. HENT: Head: Normocephalic and atraumatic. Eyes: Conjunctivae and EOM are normal. Pupils are equal, round, and reactive to light. Neck: Normal range of motion. Neck supple. Cardiovascular: Normal rate and regular rhythm. Pulmonary/Chest: Effort normal and breath sounds normal. Breasts: Bilateral macromastia with pendulous breasts. Grade II ptosis. Bra strap should er indentations. Slumping posture (kyphosis). Chronic inframammary fold dermatitis. Exces s lateral breast and chest tissue. Chest circumference: SN / IMF to RN: 35 / 19 cm SN / IMF to LN: 35 / [address]: 23 cm Schnur index: 1.999 (601 g) Calculated resection estimate (SNN*40 + IMFN*24.7 + BMI*17.7 - 1443): 993 g Musculoskeletal: Normal range of motion. Neurological: She is alert and oriented to person, place, and time. Skin: Skin is warm and dry. Psychiatric: She has a normal mood and affect. Her behavior is normal. ASSESSMENT & PLAN: 1. Hypertrophy of breast 2. Back pain, unspecified back location, unspecified back pain laterality, unspecified dry charge process attendant nicity Bilateral macromastia with associated symptoms of upper back, neck, and shoulder pain, and chronic intertrigo. Breast reduction surgery (76210-45) is scheduled for 02/02/18 at [facility]. It is estimated that over 1000 grams would be removed from each breast with the surgery. The usual procedure, placement of the incisions and the resultant scars, the potential risks and complications (including bleeding, infection, excess scarring, tissue or nipple/areola loss, numbness, asymmetry, unacceptable cosmetic result), and post op care, and possible nee d for additional surgery, were reviewed. Preop orders and instructions done. Rx for Percoce t 5, Bactrim DS. Electronically Signed by: Jose Antonio Pantoja MD CC: No primary care provider on file., Catalino Vides, * documented in this encounter Plan of Treatment Not on filedocumented as of this encounter Results CBC with Differential (02/01/2018 [...] | | | | M/uL | [facility] | | | | | | [facility] | | | | | | CENTER - | | | | | | LABORATORY | | + + + + + + | Hemoglobin | 12.9 | 11.5 - 16.0 | [facility] | | | | | g/dL | [facility] | | | | | | MEDICAL | | | | | | CENTER - | | | | | | LABORATORY | | + + + + + + | Hematocrit | 37.9 | 34.0 - 47.0 % | [facility] | | | | | | [facility] | | | | | | [facility] | | | | | | C[facility] - | | | | | | LABORATORY | | + + + + + + | MCV | 86.7 | 83.0 - 101.0 fL | [facility] | | | | | | [facility] | | | | | | [facility] | | | | | | C[facility] - | | | | | | LABORATORY | | + + + + + + | MCH | 29.5 | 28.0 - 35.0 pg | [facility] | | | | | | [facility] | | | | | | [facility] | | | | | | C[facility] - | | | | | | LABORATORY | | + + + + + + | MCHC | 34.0 | 32.0 - 36.0 | [facility] | | | | | g/dL | [facility] | | | | | | [facility]ICAL | | | | | | CENTER - | | | | | | LABORATORY | | + + + + + + | RDW-CV | 11.9 | <15.0 % | [facility] | | | | | | [facility] | | | | | | [facility] | | | | | | CENTER - | | | | | | LABORATORY | | + + + + + + | RDW-SD | 38.0 | 35.1 - 46.3 fL | [facility] | | | | | | [facility] | | | | | | [facility] | | | | | | CENTER - | | | | | | LABORATORY | | + + + + + + | Platelet | 263 | 140 - 440 K/uL | [facility] | | | Count | | | [facility] | | | | | | [facility] | | | | | | CENTER - | | | | | | LABORATORY | | + + + + + + | MPV | 8.7 | 6.5 - 12.4 fL | [facility] | | | | | | [facility] | | | | | | [facility] | | | | | | CENTER - | | | | | | LABORATORY | | + + + + + + | % | 47.7 | 45.0 - 82.0 % | [facility] | | | Neutrophils | | | [facility] | | | | | | MEDICAL | | | | | | CENTER - | | | | | | LABORATORY | | + + + + + + | % | 38.5 | 20.0 - 45.0 % | [facility] | | | Lymphocytes | | | [facility] | | | | | | MEDICAL | | | | | | CENTER - | | | | | | LABORATORY | | + + + + + + | % Monocytes | 9.4 | 4.0 - 12.0 % | [facility] | | | | | | [facility] | | | | | | [facility]ICAL | | | | | | CENTER - | | | | | | LABORATORY | | + + + + + + | % | 3.4 | 0.0 - 5.0 % | [facility] | | | Eosinophils | | | [facility] | | | | | | MEDICAL | | | | | | CENTER - | | | | | | LABORATORY | | + + + + + + | % Basophils | 0.6 | 0.0 - 1.0 % | [facility] | | | | | | [facility] | | | | | | MEDICAL | | | | | | CENTER - | | | | | | LABORATORY | | + + + + + + | % Immature | 0.4Comment: For | 0.0 - 0.4 % | [facility] | | | Granulocyte | patients, use the | | [facility] | | | s | special reference ranges | | MEDICAL | | | | listed below. | | CENTER - | | | | | | LABORATORY | | + + + + + + | Absolute | 2.54 | 1.80 - 8.50 | [facility] | | | Neutrophils | | K/uL | [facility] | | | | | | MEDICAL | | | | | | CENTER - | | | | | | LABORATORY | | + + + + + + | Absolute | 2.05 | 0.60 - 3.20 | [facility] | | | Lymphocytes | | K/uL | [facility] | | | | | | MEDICAL | | | | | | CENTER - | | | | | | LABORATORY | | + + + + + + | Absolute | 0.50 | 0.00 - 1.00 | [facility] | | | Monocytes | | K/uL | [facility] | | | | [...] | | Basophils | | K/uL | [facility] | | | | | | MEDICAL | | | | | | CENTER - | | | | | | LABORATORY | | + + + + + + | Absolute | 0.02Comment: For | 0.00 - 0.03 | [facility] | | | Immature | patients, use | K/uL | [facility] | | | Granulocyte | the special reference | | MEDICAL | | | s | ranges listed below. | | CENTER - | | | | | | LABORATORY | | + + + + + + | % nRBC | 0 | 0 - 2 per 100 | [facility] | | | | | WBC's | [facility] | | | | | | MEDICAL | | | | | | CENTER - | | | | | | LABORATORY | | + + + + + + | Absolute | 0.00 | 0.00 - 0.01 | [facility] | | | nRBC | | K/uL | [facility] | [...] ranges: Trim. Absolute (K/uL) Percentage (%) | [facility] | | 1st 0.003-0.091 K/uL 0.0-0.9% 2nd 0.007-0.247 K/uL | [facility] | | 0.1-2.0% 3rd 0.018-0.456 K/uL 0.1-2.0% | - LABORATORY | + + + + + + + + | Performing | Address | City/State/Zipcode | Phone Number | | Organization | | | | + + + + + | [facility] | [address] | [place] | [phone] | | [facility] | | [address] | | | - LABORATORY | | [...] | | | | mmol/L | [facility] | | | | | | MEDICAL | | | | | | CENTER - | | | | | | LABORATORY | | + + + + + + | K | 3.2 (L) | 3.5 - 5.1 | [facility] | | | | | mmol/L | [facility] | | | | | | MEDICAL | | | | | | CENTER - | | | | | | LABORATORY | | + + + + + + | Cl | 100 | 98 - 109 mmol/L | [facility] | | | | | | [facility] | | | | | | MEDICAL | | | | | | CENTER - | | | | | | LABORATORY | | + + + + + + | CO2 | 31 | 24 - 31 mmol/L | [facility] | | | | | | [facility] | | | | | | MEDICAL | | | | | | CENTER - | | | | | | LABORATORY | | + + + + + + | Anion Gap | 7 | 3 - 16 mmol/L | [facility] | | | | | | [facility] | | | | | | MEDICAL | | | | | | CENTER - | | | | | | LABORATORY | | + + + + + + | Glucose | 111 (H) | 70 - 109 mg/dL | [facility] | | | | | | [facility] | | | | | | MEDICAL | | | | | | CENTER - | | | | | | LABORATORY | | + + + + + + | BUN | 18 | 7 - 18 mg/dL | [facility] | | | | | | [facility] | | | | | | MEDICAL | | | | | | CENTER - | | | | | | LABORATORY | | + + + + + + | Creatinine | 0.90 | 0.60 - 1.30 | [facility] | | | | | mg/dL | [facility] | | | | | | MEDICAL | | | | | | CENTER - | | | | | | LABORATORY | | + + + + + + | eGFR if not | >60Comment: GLOMERULAR | >=60 | [facility] | | | | FILTRATION | mL/min/1.73m2 | [facility] | | | GERMAN | RATE,ESTIMATED | | MEDICAL | | | | mL/min/1.29k3Uala than | | CENTER - | | [...] | | | | | mg/dL | [facility] | | | | | | MEDICAL | | | | | | CENTER - | | | | | | LABORATORY | | + + + + + + | BUN/Creatin | 20.0 | | [facility] | | | ine Ratio | | | [facility] | | | | | | MEDICAL [...] [address] | [place] | [phone] | | [facility] | | [address] | | | - LABORATORY | | [...] | | | | BRUNO WEST MD ([id number]) | | | | | | on [...]
--- OUTSIDE RECORDS SUMMARY | ~2019-02-12 | XMS | Clinical Summary ---
Demographics + + + | Address | [address] | | | [place] [address] | + + + | Home Phone | | + + + | Preferred Language | Unknown | + + + | Marital Status | | + + + | Anglican Affiliation | Unknown | + + + | Race | Unknown | + + + | Ethnic Group | Unknown | + + + Author + + + | Author | [facility] [employer] (Historical as of | | | 11-13-18) | + + + | Organization | [facility] [employer] (Historical as of | | | 11-13-18) [...] [place] | | | | | [address] | | + + + + + Care Team Providers + +------+ + | Care Basketball Referee Name | Role | Phone | + [...] +------+-------+ + | PREMERA | PREMER | [id number] | | | [address] [address] | | | A | [address] | | | [place], [place] | | | [place] | | | | [address] | | | [place] | | | | | + +--------+ +------+-------+ + | MEDICAID | EASTER | [id number] | | | [address] | | | N | | | | [place] | | | [place] | | | | [address] | | | [place]TER | | | | | + +--------+ [...] | Self [birth year] Home: | [address] | | | al/Fam | | 1976 | [phone] | [address] [place] | | | hilary | | | [phone] | [phone] | + +--------+ +--------+ + +
--- OUTSIDE RECORDS SUMMARY | ~2019-02-12 | XMS | Encounter Summary ---
Demographics + + + | Address | [address] | | | [place] [address] | + + + | Home Phone | | + + + | Preferred Language | Unknown | + + + | Marital Status | | + + + | Zoroastrianism Affiliation | Unknown | + + + [...] Team Providers + +------+ + | Care Color Printer Operator Name | Role | Phone | + +------+ + PCP | Unavailable | + +------+ + Encounter Details +--------+ + + + + | Date | Type | Department | Care Team | Description | +--------+ + + + + | 11/24/ | Episode | [facility] | Fannie Mann, | | | 2018 | Changes | SURGERY [address] | RN | | | | | [place] | | | | | | [address] | | | | | | [phone] | | | +--------+ + + + [...]
--- OUTSIDE RECORDS SUMMARY | ~2019-02-12 | XMS | Encounter Summary ---
Demographics + + + | Address | [address] | | | [place] [address] | + + + | Home Phone | | + + + | Preferred Language | Unknown | + + + | Marital Status | | + + + | Catholic Affiliation | Unknown | + + + | Race | Unknown | + + + | Ethnic Group | Unknown | + + + Author + + + | Author | [facility] | | | and [place] | + + + | Organization | [facility] | | [...] Team Providers + +------+ + | Care Counter Clerk Tractor Parts Name | Role | Phone | + [...] | | | | | | | NC REDUCTION | | | | | | | OF LARGE | | | | | | | BREAST NC | | | | | | [...] Description | +--------+---------+ + + + | 02/02/ | Surgery | [facility] | Jose Antonio Pantoja | Bilateral breast | | 2018 | | [facility]TRA OP | [address] | reduction and | | | | [address] | [address] | liposuction | | | | [place] | [place] [address] | | | | | [address] | [phone] | | | | | [phone] | | | +--------+---------+ + + + [...] appointment with Dr. Pantoja is scheduled for 11/Thursday, at 9:30 am When to call your healthcare provider Call your healthcare provider right away if you have any of the following: [id number] (38C)or higher Chills Drainage from your incisions [...] might be differ ent from the original. [facility] PROGRESS NOTE Primary Care Physician: No Physician on file PATIENT NAME: Song Mayers : 1975 TODAY'S DATE: 02/03/2018 History OF PRESENT ILLNESS: Post op bilateral breast reduction She feels OK. Post op pain controlled. Taking po well. [place] dizzy when up last night, bu t [...] +---+--------+ documented in this encounter Visit Diagnoses Not on filedocumented in this encounter Administered Medications + +--------+ +--------+------+ + | Medication Order | MAR | Action | Dose | Rate | Site | | | Action | Date | | | | + +--------+ +--------+------+ + | bupivacaine 0.25%-EPINEPHrine | Given | 02/03/20 | 20 mLs | | Surgical | | 1:200,000 injection PRN, | | 18 11:56 | | | Site | | Starting Thu02/02/18 at 1156, | | AM PST | | | | | Intra-op | | | | | | + +--------+ +--------+------+ + +---+---+ | | | +---+---+ + +-------+ +-------+---+---+ | carvedilol (COREG) tablet 25 mg | Given | 02/03/20 | 25 mg | | | | 25 mg, Oral, 2 TIMES DAILY WITH | | 18 4:39 | | | | | BREAKFAST & DINNER, First dose | | PM PST | | | | | on Thu02/02/18 at 1700 | | | | | | + +-------+ +-------+---+---+ +---+---+ | | | +---+---+ + +---------+ +-----+ +---+ | ceFAZolin (ELLE SEXTONL) 100 | New Bag | 02/04/20 | [...] | 4 mg 4 mg, Oral, ONCE, Thu | | 18 7:03 | | | [...] +---+---+ | | | +---+---+ + +-------+ +------+---+ + | EPINEPHrine 1 mg/mL injection | Given | 02/03/20 | 1 mg | | Surgical | | PRN, Starting Thu02/02/18 at | | 18 11:54 | | | Site | | 1154, Intra-op | | AM PST | | | | + +-------+ +------+---+ + +---+---+ | | | +---+---+ + +-------+ +--------+---+---+ | HYDROmorphone (DILAUDID) | Given | 02/03/20 | 0.2 mg | | | | injection 0.2-0.5 mg 0.2-0.5 mg, | | 18 1:02 | | | | | Intravenous, EVERY 5 MIN PRN, | | PM PST | | | | | Pain, Starting Thu02/02/18 at | | | | | [...] +---+---+ | | | +---+---+ + +-------+ +--------+---+ + | lidocaine (PF) 2% injection | Given | 02/03/20 | 10 mLs | | Surgical | | PRN, Starting 02/02/18 at | | 18 11:55 | | | Site | | 1155, Intra-op | | AM PST | | | | + +-------+ +--------+---+ + +---+---+ | | | +---+---+ + +-------+ [...]
--- OUTSIDE RECORDS SUMMARY | ~2019-02-12 | XMS | Encounter Summary ---
Demographics + + + | Address | [address] | | | [place] [address] | + + + | Home Phone | | + + + | Preferred Language | Unknown | + + + | Marital Status | | + + + | Latter-Day Affiliation | Unknown | + + + | Race | Unknown | + + + | Ethnic Group | Unknown | + + + Author + + + | Author | [facility] | | | and [place] | + + + | Organization | [facility] | | | [...] Team Providers + +------+ + | Care Assembler Caterpillar Spider Name | Role | Phone | + [...] | +--------+ + + + + | 01/18/ | Telephone | [facility] | Jose Antonio Pantoja | Coordination Of Care | | 2018 | | SURGERY [address] | [address] | | | | | [place], [place] | [address] [facility] | | | | | [address] | [place] [address] | | | | | [phone] | [phone] | | | | | | | [...]
--- OUTSIDE RECORDS SUMMARY | ~2019-02-12 | XMS | Encounter Summary ---
Demographics + + + | Address | [address] | | | [place] [address] | + + + | Home Phone | | + + + | Preferred Language | Unknown | + + + | Marital Status | | + + + | Mosque Affiliation | Unknown | + + + | Race | Unknown | + + + | Ethnic Group | Unknown | + + + Author + + + | Author | [facility] | | | and [place] | + + + | Organization | [facility] | | | [...] Team Providers + +------+ + | Care Hat Lacer Name | Role | Phone | + [...] CHRIS VENEGAS, | | | | | [place], [place] | [address] [place], | | | | | [address] | [place] [address] | | | | | [phone] | [phone] | | | | | | | [...] TR | | | Vmax: 1.81 m/s Planning Official: Authenticated by: Mathew Coleman | | | [...] | 3.87 cmLVPWd: 0.88 cmLVOT Area: 3.04 th1FTOP Diam: 1.96 cm%FS: 32.53 %EF(Teich): | | 61.56 %ESV(Teich): 25.00 mlLVIDs: 2.61 cmSV(Teich): 40.06 mlRVIDd: 3.11 | | cmRVOT Diam: 1.92 cmLAESV(A-L): 35.45 mlLAESV Index (A-L): 18.56 ml/m2LAAs A2C: | | 16.85 [id number] A-L A2C: 45.76 mlLALs A2C: 5.27 cmLAAs A4C: 12.62 [id number] A-L A4C: | | 26.55 mlLALs A4C: 5.09 cmRAAs: 11.79 [id number] A-L: 25.03 mlRAESV MOD: 23.97 | | mlRALs: 4.71 cmAV maxP.24 mmHgAV meanP.39 mmHgAV Vmax: 1.67 m/Pato | | Vmean: 1.07 m/Pato VTI: 34.90 cmAVA Vmax: 2.13 cm2AVA (VTI): 2.18 aq4CHMC Vmax: | | 0.00 cm2/m2AVAI (VTI): 0.00 cm2/m2LVOT maxP.51 mmHgLVOT meanP.25 mmHgLVSI | | Dopp: 39.85 ml/m2LVSV Dopp: 76.11 mlLVOT Vmax: 1.17 m/sLVOT Vmean: 0.85 m/sLVOT | | VTI: 24.99 cmMV A [place]: 0.65 m/sMV DecT: 259.17 msMV E [place]: 0.83 m/sMV E/A | | Ratio: 1.27MV PHT: 75.16 msMVA By PHT: 2.92 kf3Vopdgn e': 0.06 m/sSeptal E/e': | | 13.15Lateral e': 0.10 m/sLateral E/e': 8.05PV maxP.84 mmHgPV Vmax: 0.84 | | m/sRAP: 5 mmHgRVSP: 18.15 mmHgTR maxP.15 mmHgTR Vmax: 1.81 m/s | | Planning Official:Authenticated by: Mathew Palmer Date/Time: 03-18-2017 6:39:2 | [...] |TR Vmax: 1.81 m/s | | | |Planning Official: | |Authenticated by: Mathew Coleman | |Report [...]
--- OUTSIDE RECORDS SUMMARY | ~2019-02-12 | XMS | Encounter Summary ---
Demographics + + + | Address | [address] | | | [place] [address] | + + + | Home Phone | | + + + | Preferred Language | Unknown | + + + | Marital Status | | + + + | Scientologist Affiliation | Unknown | + + + [...] Team Providers + +------+ + | Care Dredge Lever Operator Name | Role | Phone | [...] | | | | | | | FL REDUCTION | | | | | | | OF LARGE | | | | | | | BREAST FL | | | | | | | [...] and | | | | [address] | [address] | liposuction | | | | [place] | [place] [address] | | | | | [address] | [phone] | | | | | [phone] | | | +--------+---------+ + + + [...] if you have any of the following: Tcyceno739.4F (38C)or higher Chills Drainage from your incisions [...] from the original. [facility] PROGRESS NOTE Primary Care Physician: No Physician on file PATIENT NAME: Song Mayers : 1975 TODAY'S DATE: 02/03/2018 History OF PRESENT ILLNESS: Post op bilateral breast reduction She feels OK. Post op pain controlled. Taking po well. [place] dizzy when up last night, bu t [...]
--- OUTSIDE RECORDS SUMMARY | ~2019-02-12 | XMS | Encounter Summary ---
Demographics + + + | Address | [address] | | | [place] [address] | + + + | Home Phone | | + + + | Preferred Language | Unknown | + + + | Marital Status | | + + + | Alevism Affiliation | Unknown | + + + | Race | Black or | + + + | Ethnic Group | Not or | + + + Author + + + | Author | [facility] | + + + | Organization | [facility] | + + + | Address | Unknown | + + + | Phone | Unavailable | + + + Support + + +---------+ + | Name | Relationship | Address | Phone | + + +---------+ + | Esau Mayers | ECON | Unknown | | + + +---------+ + Care Team Providers + +------+ + | Care Electrical Fitter Name | Role | Phone | + +------+ + | Catalino Vides NP | PCP | | + +------+ + Encounter Details +--------+ + + + + | Date | Type | Department | Care Team | Description | +--------+ + + + + | 09/21/ | Telephone | Orthopaedics at | Jv Thomas, | | | 2018 | | [facility] [address] | [address] | | | | | [place] Mailcode: CH12A | [address] | | | | | [place] [facility] | [place], [place] | | | | | and [place], | [address] | | | | | [facility] | [phone] | | | | | Floor [place], [place] | | | | | | [address] | | | | | | [phone] | | | +--------+ + + + [...] Rd | | | | | | [place] | | | | | | [address] | | | | | | [phone] | | | | | | | | +--------+---------+ + + + | 08/24/ | Office | Orthopedics | Jv Thomas, | | | 2019 | Visit | | [address] | | | | | | [address] | | | | | | [place] | | | | | | [address] | | | | | | [phone] | | | | | | | | +--------+---------+ + + + documented as of this encounter Visit Diagnoses Not on filedocumented in this encounter"
--- OUTSIDE RECORDS SUMMARY | ~2019-02-12 | XMS | Encounter Summary ---
Demographics + + + | Address | [address] | | | [place] [address] | + + + | Home Phone | | + + + | Preferred Language | Unknown | + + + | Marital Status | | + + + | Druze Affiliation | Unknown | + + + | Race | Unknown | + + + | Ethnic Group | Unknown | + + + Author + + + | Author | [facility] | | | and [place] | + + + | Organization | [facility] | | [...] Team Providers + +------+ + | Care Organic Chemistry Teacher Name | Role | Phone | + [...] + + | 12/15/ | Telephone | [facility] | Jose Antonio Pantoja | Coordination Of Care | | 2018 | | SURGERY [address] | [address] | | | | | ST [place], [place] | [address] [facility] | | | | | [address] | [place] [address] | | | | | [phone] | [phone] | | | | | | | [...]
--- OUTSIDE RECORDS SUMMARY | ~2019-02-12 | XMS | Encounter Summary ---
Demographics + + + | Address | [address] | | | [place] [address] | + + + | Home Phone | | + + + | Preferred Language | Unknown | + + + | Marital Status | | + + + | Scientology Affiliation | Unknown | + + + [...] Team Providers + +------+ + | Care Supervising Producer Name | Role | Phone | + [...] Rd | | | | | | [place], [place] | | | | | | [address] | | | | | | [phone] | | | | | | | | +--------+---------+ + + + | 08/24/ | Office | Orthopedics | Jv Thomas, | | | 2019 | Visit | | [address] | | | | | | [address] | | | | | | [place] | | | | | | [address] | | | | | | [phone] | | | | | | | | +--------+---------+ + + + documented as of this encounter Visit Diagnoses Not on filedocumented in this encounter"
--- OUTSIDE RECORDS SUMMARY | ~2019-02-12 | XMS | Encounter Summary ---
Demographics + + + | Address | [address] | | | [place] [address] | + + + | Home Phone | | + + + | Preferred Language | Unknown | + + + | Marital Status | | + + + | Hindu Affiliation | Unknown | + + + | Race | Unknown | + + + | Ethnic Group | Unknown | + + + Author + + + | Author | [facility] | | | and [place] | + + + | Organization | [facility] | | | [...] Team Providers + +------+ + | Care Dietitian Chief Name | Role | Phone | + [...] + + + + | 02/05/ | Telephone | [facility] | Jose Antonio Pantoja | Other | | 2018 | | SURGERY [address] | [address] | | | | | ST [place], [place] | [address] [facility] | | | | | [address] | [place] [address] | | | | | [phone] | [phone] | | | | | | | [...]
--- OUTSIDE RECORDS SUMMARY | ~2019-02-12 | XMS | Encounter Summary ---
Demographics + + + | Address | [address] | | | [place] [address] | + + + | Home Phone | | + + + | Preferred Language | Unknown | + + + | Marital Status | | + + + | Jewish Affiliation | Unknown | + + + | Race | Unknown | + + + | Ethnic Group | Unknown | + + + Author + + + | Author | [facility] | | | and [place] | + + + | Organization | [facility] | | | [...] Team Providers + +------+ + | Care Eyeglass Inspector Name | Role | Phone | [...] [address] | | | | | [address] [place], [place] | [address] [place] | | | | | [address] | [facility] [address] | | | | | [phone] | [phone] | | | | | | | [...]
--- OUTSIDE RECORDS SUMMARY | ~2019-02-12 | XMS | Encounter Summary ---
Demographics + + + | Address | [address] | | | [place] [address] | + + + | Home Phone | | + + + | Preferred Language | Unknown | + + + | Marital Status | | + + + | Sabianist Affiliation | Unknown | + + + | Race | Black or | + + + | Ethnic Group | Not or | + + + Author + + + | Author | [facility] | + + + | Organization | [facility] | + + + | Address | Unknown | + + + | Phone | Unavailable | + + + Support + + +---------+ + | Name | Relationship | Address | Phone | + + +---------+ + | Esau Mayers | ECON | Unknown | | + + +---------+ + Care Team Providers + +------+ + | Care Earth Moving Machine Operator Name | Role | Phone | [...] Refill Encounters | | 2019 | | [facility] [address] | MD [address] | | | | | [place] Mailcode: CH12A | [address] | | | | | [facility] | [place], [place] | | | | | and [place], | [address] | | | | | Building | [phone] | | | | | Floor [place], [place] | | | | | | [address] | | | | | | [phone] | | | +--------+ + + + [...] Rd | | | | | | [place], [place] | | | | | | [address] | | | | | | [phone] | | | | | | | | +--------+---------+ + + + | 08/24/ | Office | Orthopedics | Jv Thomas, | | | 2019 | Visit | | [address] | | | | | | [address] | | | | | | [place], [place] | | | | | | [address] | | | | | | [phone] | | | | | | | | +--------+---------+ + + + documented as of this encounter Visit Diagnoses Not on filedocumented in this encounter"
--- OUTSIDE RECORDS SUMMARY | ~2019-02-12 | XMS | Encounter Summary ---
Demographics + + + | Address | [address] | | | [place] [address] | + + + | Home Phone [...] + | Author | [facility] | | | and [place] | + + + | Organization | [facility] | | [...] Team Providers + +------+ + | Care V Belt Mold Assembler And Curer Name | Role | Phone | + [...] [place] | | | | | | [address] | | | | | | [phone] | | | +--------+ + + + [...]
--- OUTSIDE RECORDS SUMMARY | ~2019-02-12 | XMS | Encounter Summary ---
Demographics + + + | Address | [address] | | | [place] [address] | + + + | Home Phone [...] Team Providers + +------+ + | Care Technical Support Engineer Name | Role | Phone | [...] + | 02/05/ | Telephone | [facility] | Jose Antonio Pantoja | Other | | 2018 | | SURGERY [address] | [address] | | | | | ST [place], [place] | [address] [facility] | | | | | [address] | [place] [address] | | | | | [phone] | [phone] | | | | | | | [...]
--- OUTSIDE RECORDS SUMMARY | ~2019-02-12 | XMS | Encounter Summary ---
Demographics + + + | Address | [address] | | | [place] [address] | + + + | Home Phone [...] Team Providers + +------+ + | Care Molder Helper Name | Role | Phone | [...] Rd | | | | | | [place], [place] | | | | | | [address] | | | | | | [phone] | | | | | | | | +--------+---------+ + + + | 08/24/ | Office | Orthopedics | Jv Thomas, | | | 2019 | Visit | | [address] | | | | | | [address] | | | | | | [place] | | | | | | [address] | | | | | | [phone] | | | | | | | | +--------+---------+ + + + documented as of this encounter Visit Diagnoses Not on filedocumented in this encounter"
--- OUTSIDE RECORDS SUMMARY | ~2019-02-12 | XMS | Encounter Summary ---
Demographics + + + | Address | [address] | | | [place] [address] | + + + | Home Phone | | + + + | Preferred Language | Unknown | + + + | Marital Status | | + + + | Protestant Affiliation | Unknown | + + + | Race | Unknown | + + + | Ethnic Group | Unknown | + + + Author + + + | Author | [facility] | | | and [place] | + + + | Organization | [facility] | | | [...] Team Providers + +------+ + | Care Oncologist Name | Role | Phone | + [...] | | | | CLINIC [address] | [address] [place] | unspecified back | | | | [place], [place] | [place] [address] | location, | | | | [address] | [phone] | unspecified back | | | | [phone] | | pain laterality, | | | [...] 0.003-0.091 K/uL 0.0-0.9% 2nd 0.007-0.247 K/uL | [facility] | | 0.1-2.0% 3rd 0.018-0.456 K/uL 0.1-2.0% | - LABORATORY | + + + + + + + + | Performing | Address | City/State/Zipcode | Phone Number | | Organization | | | | + + + + + | [facility] | [address] | [place] | [phone] | | [facility] | | [address] | | | - LABORATORY | | [...] mL/min/1.73m2 | [facility] | | | [place] | RATE,ESTIMATED | | MEDICAL | | | | mL/min/1.72c1Pqha than | | CENTER - | | [...] ST. | [address] | [place] | [phone] | | [facility] | | [address] | | | - LABORATORY | | [...] | | | | BRUNO WEST MD ([id number]) | | | | | | on [...]
--- OUTSIDE RECORDS SUMMARY | ~2019-02-12 | XMS | Encounter Summary ---
Demographics + + + | Address | [address] | | | [place] [address] | + + + | Home Phone | | + + + | Preferred Language | Unknown | + + + | Marital Status | | + + + | Rastafarian Affiliation | Unknown | + + + | Race | Unknown | + + + | Ethnic Group | Unknown | + + + Author + + + | Author | [facility] | | | and [place] | + + + | Organization | [facility] | | | and [place] | + [...] Team Providers + +------+ + | Care Fitness Specialist Name | Role | Phone | + +------+ + PCP | Unavailable | + +------+ + Reason for Visit + + + | Reason | Comments | + + + | New Patient | Discuss bilateral breast reduction | + + + Evaluate & Treat [...] | | Surgery | Hypertrophy | Catalino Grider | Jose Antonio | | | | | of breast | [employer] [address] | [address] | | | | | Other | [facility] | [address] | | | | | chronic pain | [place], | [place], | | | | | [place], | [address] | [place] [address] | | | | | unspecified | [place] | Phone: | | | | | Procedures | [place] [address] | [phone] | | | | | [place] OFFICE | Phone: | Fax: | | | | | OUTPATIENT | [phone] | [phone] | | | | | NEW 60 | Fax: | | | | | | MINUTES | [phone] | | +--------+--------+ + + + + Encounter Details +--------+---------+ + + + | Date | Type | Department | Care Team | Description | +--------+---------+ + + + | 10/08/ | Office | [facility] | Jose Antonio Pantoja | Hypertrophy of | | 2018 | Visit | SURGERY [address] | [address] | breast (Primary Dx); | | | | [place], [place] | [address] [place] | Back pain, | | | | [address] | [place] [address] | unspecified back | | | | [phone] | [phone] | location, | | | | | | unspecified back | | | | | | pain laterality, | | | | | | unspecified | | | | | | chronicity | +--------+---------+ + + + Social History [...] + + + | Blood Pressure | 120/62 | 10/08/2017 9:19 AM | | | | | PDT | | + + + + + | Pulse | 73 | 10/08/2017 9:19 AM | | | | | PDT | | + + + + + | Temperature | 37.4 C (99.3 F) | 10/08/2017 9:19 AM | | | | | PDT | | + + + + + | Respiratory Rate | - | - | | + + + + + | Oxygen Saturation | 98% | 10/08/2017 9:19 AM | | | | | PDT | | + + + + + | Inhaled Oxygen | - | - | | | Concentration | | | | + + + + + | Weight | 87.1 kg (192 lb 0.3 | 10/08/2017 9:19 AM | | | | oz) | PDT | | + + + + + | Height | 165.1 cm (5' 5") | 10/08/2017 9:19 AM | | | | | PDT | | + + + + + | Body Mass Index | 31.95 | 10/08/2017 9:19 AM | | | | | PDT | | + + + + + documented in this encounter Progress Jose Antonio Trujillo MD - 10/08/2017 9:00 AM PDTFormatting of this note might be differ ent from the original. [facility] --[facility] ADMIT HISTORY AND PHYSICAL Primary Care Physician: No primary care provider on file. PATIENT NAME: Song Mayers : 1975 TODAY'S DATE: 10/08/2017 CHIEF COMPLAINT: New Patient (Discuss bilateral breast reduction) REASON FOR CONSULTATION: Discussion of bilateral breast reduction. History OF PRESENT ILLNESS: I was asked by Catalino Vides NP to consult on this patient for Plastic surgery. Song Mayers is a 41 y.o. female () here today in consult to discuss bilateral breast reduction. She is unsure what her current bra size is. She wears 3 spots bras to try to hol d her breasts in place. She c/o deep shoulder grooving from her bra straps for over 10 years that has progressively worsened. She c/o chronic neck, shoulder, and upper to mid back pain for over 17 years that has progressively worsened. She experiences frequent achiness in her mid back from her slumped posture and trying to force herself to sit more straight. She has received PT 2X/week for 3-6 months without any benefit. Denies previous chiropractic or mas roque therapy. She struggles with chronic skin rash and breakdown underneath her breasts. She applies a skin protectant ointment underneath her breasts with temporary benefit. She state s she will lie down PRN to try to lift the breasts off the area as much as possible and let the skin air out. Denies family h/o breast CA. Denies previous breast US or mammogram. Denie s any personal breast issues. Denies spinal x-rays. [...] by mouth Daily. Historical Prov MD ophelia raNITIdine (ZANTAC) 300 MG capsule Take 300 [...] does not use drugs. REVIEW OF SYSTEMS Review of Systems Constitutional: Negative for chills, diaphoresis, fever and weight loss. HENT: Negative for congestion, hearing loss and nosebleeds. Eyes: Negative for blurred vision. Respiratory: Negative for cough, hemoptysis, sputum production, shortness of breath and whe ezing. Cardiovascular: Negative for chest pain, palpitations, orthopnea and leg swelling. Gastrointestinal: Positive for constipation. Negative for abdominal pain, blood in stool, d iarrhea, heartburn, melena, nausea and vomiting. Genitourinary: Negative for dysuria, flank pain, frequency, hematuria and urgency. Musculoskeletal: Negative for back pain, joint pain, myalgias and neck pain. Neurological: Negative for speech change, seizures, loss of consciousness and headaches. Endo/Heme/Allergies: Does not bruise/bleed easily. Psychiatric/Behavioral: Negative for depression and memory loss. The patient is not nervous /anxious. PHYSICAL EXAM BP 120/62 | Pulse 73 | Temp 37.4 C (99.3 F) (Temporal) | Ht 1.651 m (5' 5") | Wt 87 .1 kg (192 lb 0.3 oz) | SpO2 98% | BMI 31.95 kg/m Wt. Admission: Weight: 87.1 kg (192 lb 0.3 oz) Physical Exam Constitutional: She is oriented to [...] back location, unspecified back pain laterality, unspecified synchro assembler nicity Bilateral macromastia with associated symptoms of upper back, neck, and shoulder pain, and chronic intertrigo. The findings and treatment were discussed. Breast reduction surgery (1 1068-08) would be expected to significantly reduce excess breast weight and the strain on th e upper back and shoulders. It would also help reduce the secondary symptoms of breast hype rtrophy. It is estimated that over 1000 grams would be removed from each breast with the maldonado rgery. The usual procedure, placement of the incisions and the resultant scars, the potenti al risks and complications (including bleeding, infection, excess scarring, tissue or nipple /areola loss, numbness, asymmetry, unacceptable cosmetic result), and post op care, and poss ible need for additional surgery, was discussed. An information pamphlet from the [employer] was provided. Electronically Signed by: Jose Antonio Pantoja MD [...] unspecified | | chronicity | + + documented in this encounter
--- OUTSIDE RECORDS SUMMARY | ~2019-02-12 | XMS | Encounter Summary ---
Demographics + + + | Address | [address] | | | [place] [address] | + + + | Home Phone | | + + + | Preferred Language | Unknown | + + + | Marital Status | | + + + | Sikhism Affiliation | Unknown | + + + | Race | Unknown | + + + | Ethnic Group | Unknown | + + + Author + + + | Author | [facility] | | | and [place] | + + + | Organization | [facility] | | | [...] Team Providers + +------+ + | Care Advanced Nursing Professor Name | Role | Phone | + [...] [place] | | | | | | [address] | | | | | | [phone] | | | +--------+ + + + [...]
--- OUTSIDE RECORDS SUMMARY | ~2019-02-12 | XMS | Encounter Summary ---
Demographics + + + | Address | [address] | | | [place] [address] | + + + | Home Phone | | + + + | Preferred Language | Unknown | + + + | Marital Status | | + + + | Yarsani Affiliation | Unknown | + + + [...] Team Providers + +------+ + | Care Physician Neonatology Name | Role | Phone | + [...] Rd | | | | | | [place], [place] | | | | | | [address] | | | | | | [phone] | | | | | | | | +--------+---------+ + + + | 08/24/ | Office | Orthopedics | Jv Thomas, | | | 2019 | Visit | | [address] | | | | | | [address] | | | | | | [place] | | | | | | [address] | | | | | | [phone] | | | | | | | | +--------+---------+ + + + documented as of this encounter Visit Diagnoses Not on filedocumented in this encounter"
--- OUTSIDE RECORDS SUMMARY | ~2019-02-12 | XMS | Encounter Summary ---
Demographics + + + | Address | [address] | | | [place] [address] | + + + | Home Phone [...] Team Providers + +------+ + | Care Lining Cementer Name | Role | Phone | + [...] | | | | | | | AL REDUCTION | | | | | | | OF LARGE | | | | | | | BREAST AL | | | | | | | [...] + + | 02/02/ | Hospital | [facility] | Jose Antonio Pantoja | Breast hypertrophy | | 2018 - | Encounter | MED CTR SUR[facility] | [address] | | | | | [address] | [address] | | | 02/03/ | | [address] [address] | [place] [address] | | | 2017 | | [phone] | [phone] | | | | | | | [...] if you have any of the following: [id number] (38C)or higher Chills Drainage from your incisions [...] be differ ent from the original. [facility] --[facility] PROGRESS NOTE Primary Care Physician: No Physician on file PATIENT NAME: Song Mayers : 1975 TODAY'S DATE: 02/03/2018 History OF PRESENT ILLNESS: Post op bilateral breast reduction She feels OK. Post op pain controlled. Taking po well. [place] dizzy when up last night, bu t [...]
--- OUTSIDE RECORDS SUMMARY | ~2019-02-12 | XMS | Encounter Summary ---
Demographics + + + | Address | [address] | | | [place] [address] | + + + | Home Phone [...] Team Providers + +------+ + | Care Nut Roaster Helper Name | Role | Phone | [...] | | | | of breast | DIRECTOR OF COMMUNITY LIFE [address] | [place] | | | | | Other | [facility] | [address] | | | | | chronic pain | CHRIS VENEGAS, | [place], | | | | | Dorsalgia, | [address] | [place] [address] | | | | | unspecified | [place], | Phone: | | | | | Procedures | [place] [address] | [phone] | | | | | [place] OFFICE | Phone: | Fax: | | | | | OUTPATIENT | [phone] | [phone] | | | | | NEW 60 | Fax: | | | | | | MINUTES | [phone] | | +--------+--------+ + + + + Encounter Details +--------+---------+ + + + | Date | Type | Department | Care Team | Description | +--------+---------+ + + + | 02/17/ | Office | [facility] | ScarlettJose Antonio | Hypertrophy of | | 2018 | Visit | SURGERY [address] | [address] | breast (Primary Dx); | | | | [place], [place] | [address] [place] | Back pain, | | | | [address] | [place] [address] | unspecified back | | | | [phone] | [phone] | location, | | | | | [...] might be differ ent from the original. [facility] PROGRESS NOTE Primary Care Physician: No [...] back location, unspecified back pain laterality, unspecified chronic disease manager nicity 3. Hypertension, unspecified type 4. Postoperative [...]
--- OUTSIDE RECORDS SUMMARY | ~2019-02-12 | XMS | Encounter Summary ---
Demographics + + + | Address | [address] | | | [place] [address] | + + + | Home Phone | | + + + | Preferred Language | Unknown | + + + | Marital Status | | + + + | Confucianist Affiliation | Unknown | + + + | Race | Unknown | + + + | Ethnic Group | Unknown | + + + Author + + + | Author | [facility] | | | and [place] | + + + | Organization | [facility] | | | [...] Team Providers + +------+ + | Care Reuse Technician Name | Role | Phone | [...] | | | | | | | DE REDUCTION | | | | | | | OF LARGE | | | | | | | BREAST DE | | | | | | [...] + + + + | 02/02/ | Anesthesia | MAGALIE SAEED | Jameson Fernandez MD | | | 2018 | Event | [facility] | [address] | | | | | [address] | [place] | | | | | [place] | [address] | | | | | [address] | | | | | | [phone] | | | +--------+ + + + + Anesthesia Record + + + + + | Procedure Name | Responsible | Anesthesia Start | Anesthesia Stop Time | | | Anesthesiologist | Time | | + + + + + | Bilateral breast | Jameson Fernandez MD | 02/02/18 0757 | 02/02/18 1232 | | reduction and | | | | | liposuction | | | | | (Bilateral Breast) | | | | + + + + + +----+---+ + + | Da | T | Event | Comment | | te | i | | | | | m | | | | | e | | | +----+---+ + + | 11 | 0 | | | | /0 | 7 | | | | 6/ | 5 | | | | 20 | 0 | | | | 18 | | | | +----+---+ + + | | 0 | An Checkout | Pre-use anesthesia machine/equipment checkout. | | | 7 | | | | | 5 | | | | | 7 | | | +----+---+ + + | | 0 | An Start | | | | 7 | Data | | | | 5 | | | | | 7 | | | +----+---+ + + | | 0 | An Start | Reassessment prior to anesthesia induction/procedure. | | | 7 | | | | | 5 | | | | | 7 | | | +----+---+ + + | | 0 | Antibiotic | | | | 7 | Given | | | | 5 | | | | | 7 | | | +----+---+ + + | | 0 | Preoxygenat | | | | 7 | ed | | | | 5 | | | | | 8 | | | +----+---+ + + | | 0 | An | | | | 8 | Induction | | | | 0 | | | | | 1 | | | +----+---+ + + | | 0 | An | | | | 8 | Intubation | | | | 0 | | | | | 2 | | | +----+---+ + + | | 0 | Union Star | | | | 8 | 43-degrees | | | | 2 | | | | | 0 | | | +----+---+ + + | | 0 | Pre-Procedu | | | | 8 | ral Timeout | | | | 2 | Completed | | | | 0 | | | +----+---+ + + | | 0 | First | | | | 8 | Inc/Proc St | | | | 2 | | | | | 3 | | | +----+---+ + + | | 1 | Union Star off | | | | 2 | | | | | 1 | | | | | 7 | | | +----+---+ + + | | 1 | Breathing | | | | 2 | Spontaneous | | | | 1 | ly | | | | 7 | | | +----+---+ + + | | 1 | Oropharynx | | | | 2 | Suctioned | | | | 2 | | | | | 5 | | | +----+---+ + + | | 1 | Extubated | | | | 2 | Deep | | | | 2 | | | | | 5 | | | +----+---+ + + | | 1 | an stop | | | | 2 | data | | | | 2 | | | | | 5 | | | +----+---+ + + | | 1 | An Stop | Patient handed off to recovery nurse. | | | 3 | | | | | 2 | | | +----+---+ + + +------+ | Meds | +------+ + + + | Name | Total | + + + | midazolam | 2 mg | + + + | lidocaine 2% | 20 mg | + + + | propofol (DIPRIVAN) injection | 300 mg | | (bolus) (20 mL) | | + + + | propofol | 442.36 mg | + + + | HYDROmorphone | 2 mg | + + + | phenylephrine (Injection) | 200 mcg | + + + | lactated ringers (LR) infusion | 1,900 mL | + + + + + | Name | + + | N2O Flow Rate (L/Min) | + + | O2 Flow Rate (L/Min) | + + | Insp O2 | + + | Exp SEV | + + | Air Flow Rate (L/Min) | + + + + | No blood administrations on file. | + + +--------+ + + + | Type | Details | Placement | Removal | +--------+ + + + | Drain/ | 02/02/18; 1030; #1; Right; | 02/02/18 1030 by | | | Device | lateral; breast; collapsible | Zulma Parish RN | | | Site | closed device | | | +--------+ + + + | Drain/ | 02/02/18; 1158; #2; Left; | 02/02/18 1158 by | | | Device | lateral; breast; collapsible | Zulma Parish RN | | | Site | closed device | | | +--------+ + + + | Periph | 02/02/18; 0654; Left; Hand; | 02/02/18 0654 by | 02/03/18 0954 by | | eral | [id number] catheter system; | Ranjana Becker RN | Eveline Clay RN | | IV | 20 gauge, 1 1/2 in length; | | | | | distraction, intradermal | | | | | injection, tolerated well; | | | | | expected removal post discharge; | | | | | 02/03/18; 0954 | | | +--------+ + + + | Airway | Placement Date: 02/02/18; | 02/02/18 08 by | 02/02/18 1225 by | | | Placement Time: 0802; Airway | Jameson Fernandez MD | Jameson Fernandez MD | | | Type: oral, laryngeal mask, | | | | | cuffed, non-disposable; Size: 4; | | | | | Trauma: none; Placement Check: | | | | | bilateral chest rise, exhaled CO2 | | | | | detection device; Removal Date: | | | | | 02/02/18; Removal Time: 1225 | | | +--------+ + + + | Urethr | 02/02/18; 0807; indicated due to | 02/02/18 0807 by | 02/02/18 1225 by | | al | specific surgical procedure; All | Zulma Parish RN | Zulma Parish RN | | Cathet | elements; All elements; All | | | | er | elements; indwelling double lumen | | | | | catheter, indwelling catheter | | | | | with core temperature probe; 100% | | | | | silicone; 16; None; 1; 10; 10; | | | | | other (see comments) (general); | | | | | drainage bag to dependent | | | | | drainage; urethral catheter | | | | | removed, tubing intact; 02/02/18; | | | | | 1225 | | | +--------+ + + + | Read | 02/02/18; 0833; Bilateral; | 02/02/18 0833 by | 02/03/18 0954 by | | only - | breast; healing within | Zulma Parish RN | Eveline Clay RN | | | expectations; 02/03/18; 0954 | | | | Incisi | | | | | on | | | | +--------+ + + + documented in this encounter Social History + + + +--------+ + [...] in this encounter Administered Medications + +--------+ +--------+------+------+ | Medication Order | MAR | Action | Dose | Rate | Site | | | Action | Date | | | | + +--------+ +--------+------+------+ | HYDROmorphone (DILAUDID) 2 | Given | 02/03/20 | 0.4 mg | | | | mg/mL injection Intravenous, | | 18 9:52 | | | | | PRN, Pain, Starting 02/02/18 | | AM PST | | | | | at 0805, Anesthesia Intra-op | | | | | | + +--------+ +--------+------+------+ +-------+ +--------+---+---+ | Given | 02/03/20 | 0.4 mg | | | | | 18 8:25 | | | | | | AM PST | | | | +-------+ +--------+---+---+ | Given | 02/03/20 | 0.4 mg | | | | | 18 8:24 | | | | | | AM PST | | | | +-------+ +--------+---+---+ [...] | | +---+---+ + +-------+ +-------+---+---+ | lidocaine (PF) 2% injection | Given | 02/03/20 | 20 mg | | | | Intravenous, PRN, Starting Thu | | 18 8:01 | | | | | 02/02/18 at 0801, Anesthesia | | AM PST | | | | | Intra-op | | | | | | + +-------+ +-------+---+---+ +---+---+ | | | +---+---+ + +-------+ +------+---+---+ | midazolam (VERSED) 1 mg/mL | Given | 02/03/20 | 2 mg | | | | injection Intravenous, PRN, | | 18 7:56 | | | | | Anxiety, Starting Thu02/02/18 at | | AM PST | | | | | 0756, Anesthesia Intra-op | | | | | | + +-------+ +------+---+---+ +---+---+ | | | +---+---+ + +-------+ +---------+---+---+ | phenylephrine (ISIAH-SYNEPHRINE) | Given | 02/03/20 | 200 mcg | | | | 100 mcg/mL injection | | 18 9:16 | | | | | Intravenous, PRN, Starting Tue | | AM PST | | | | | 02/02/18 at 0916, Anesthesia | | | | | | | Intra-op | | | | | | + +-------+ +---------+---+---+ +---+---+ | | | +---+---+ + +-------+ +-------+---+---+ | propofol (DIPRIVAN) injection | Given | 02/03/20 | 50 mg | | | | Intravenous, PRN, Starting Tue | | 18 8:24 | | | | | 02/02/18 at 0806, Anesthesia | | AM PST | | | | | Intra-op | | | | | | + +-------+ +-------+---+---+ +-------+ +--------+---+---+ | Given | 02/03/20 | 50 mg | | | | | 18 8:06 | | | | | | AM PST | | | | +-------+ +--------+---+---+ | Given | 02/03/20 | 200 mg | | | | | 18 8:01 | | | | | | AM PST | | | | +-------+ +--------+---+---+ +---+---+ | | | +---+---+ + + + + +-------+---+ | propofol (DIPRIVAN) injection | Rate/Dos | 02/03/20 | 25 | 12.3 | | | Intravenous, CONTINUOUS PRN, | e Change | 18 9:12 | mcg/kg/m | mL/hr | | | Starting 02/02/18 at 0858, | | AM PST | in | | | | Anesthesia Intra-op | | | | | | + + + + +-------+---+ +---------+ + +-------+---+ | New Bag | 02/03/20 | 50 | 24.7 | | | | 18 8:58 | mcg/kg/m | mL/hr | | | | AM PST | in | | | +---------+ + +-------+---+ +---+---+ | | | +---+---+ documented in this encounter"
--- OUTSIDE RECORDS SUMMARY | ~2019-02-12 | XMS | Encounter Summary ---
Demographics + + + | Address | [address] | | | [place] [address] | + + + | Home Phone [...] + + + | Author | [facility] | + + + | Organization | [facility] | + + + | Address | Unknown | + + + | Phone | Unavailable | + + + Support + + +---------+ + | Name | Relationship | Address | Phone | + + +---------+ + | Esau Mayers | ECON | Unknown | | + + +---------+ + Care Team Providers + +------+ + | Care Agriculture Science Teacher Name | Role | Phone | [...] Refill Encounters | | 2019 | | [facility] [address] | MD [address] | | | | | [place] Mailcode: CH12A | [address] | | | | | [facility] | [place], [place] | | | | | and [place], | [address] | | | | | Building | [phone] | | | | | Floor [place], [place] | | | | | | [address] | | | | | | [phone] | | | +--------+ + + + [...] Rd | | | | | | [place], [place] | | | | | | [address] | | | | | | [phone] | | | | | | | | +--------+---------+ + + + | 08/24/ | Office | Orthopedics | Jv Thomas, | | | 2019 | Visit | | MD [address] | | | | | | [address] | | | | | | [place], [place] | | | | | | [address] | | | | | | [phone] | | | | | | | | +--------+---------+ + + + documented as of this encounter Visit Diagnoses Not on filedocumented in this encounter"
--- OUTSIDE RECORDS SUMMARY | ~2019-02-12 | XMS | Encounter Summary ---
Demographics + + + | Address | [address] | | | [place] [address] | + + + | Home Phone [...] Team Providers + +------+ + | Care Roll Machine Operator Name | Role | Phone [...] | | | | of breast | COLLECTIONS CLERK [address] | [place] | | | | | Other | [facility] | [address] | | | | | chronic pain | [place] V[place]EGAS, | [place], | | | | | Dorsalgia, | [address] | [place] [address] | | | | | unspecified | [place], | Phone: | | | | | Procedures | [place] [address] | [phone] | | | | | [place] OFFICE | Phone: | Fax: | | | | | OUTPATIENT | [phone] | [phone] | | | | | NEW 60 | Fax: | | | | | | MINUTES | [phone] | | +--------+--------+ + + + + Encounter Details +--------+---------+ + + + | Date | Type | Department | Care Team | Description | +--------+---------+ + + + | 03/18/ | Office | [facility] | ScarlettJose Antonio | S/P bilateral breast | | 2018 | Visit | SURGERY [address] | [address] | reduction (Primary | | | | St [place], [place] | [address] [place] | Dx); Hypertrophy of | | | | [address] | [place] [address] | breast; Back pain, | | | | [phone] | [phone] | unspecified back | | | | | | location, | | | | | | unspecified back | | | | | | pain laterality, | | | | | | unspecified | | | | | | chronicity; | | | | | | Postoperative [...] + + + + | Height | - | - | | + + + + + | Body Mass Index | - | - | | + + + + + documented in this encounter Progress Jose Antonio Trujillo MD - 03/18/2018 1:40 PM PSTFormatting of this note might be differ ent from the original. [facility] PROGRESS NOTE Primary Care Physician: No Physician on file PATIENT NAME: Song Mayers : 1975 TODAY'S DATE: 03/18/2018 History OF PRESENT ILLNESS: Patient is 6 weeks post-op bilateral breast reduction (02/02/18 ). She is doing very well. She denies constant pain but still experiences occasional discomfor t and soreness. She states most of the soreness is located in bilateral lateral breast area, near axilla. She will take ibuprofen PRN with benefit. Denies any areas of redness or swell ing. Denies bleeding or drainage. She has been applying vitamin E oil and nathan butter to the incision areas with benefit. She continues to wear the surgical bra without difficulty. She has been working again without difficulty. She does need a work note releasing her to full duties. Denies recent fever or chills. Patient's blood pressure is 98/62 today. She is still being monitored by her PCP and remain s off the HCTZ. CURRENT MEDICATIONS Current Outpatient Prescriptions Medication Sig Dispense Refill azithromycin (ZITHROMAX) 250 mg tablet benzonatate (TESSALON) 100 mg capsule carvedilol (COREG) 25 mg tablet Take 25 mg by mouth 2 times daily (with breakfast & din ner). hydroCHLOROthiazide 25 mg tablet Take 25 mg by mouth Daily. ibuprofen (ADVIL, MOTRIN) 200 mg tablet Take 200 mg by mouth every 6 hours as needed fo r Pain. Multiple Vitamins-Minerals (MULTIVITAMIN ADULT PO) Take by mouth Daily. No current facility-administered medications for this visit. ALLERGIES No Known Allergies PHYSICAL EXAM BP 98/62 | Pulse 68 | Temp 36.6 C (97.8 F) (Temporal) | SpO2 100% Wt. Admission: Physical Exam Post op: The incisions have healed well and the scars are fine. The skin flaps and NACs a re intact. Good bilateral symmetry and form. No sign of infection or complications. ASSESSMENT & PLAN: 1. Hypertrophy of breast 2. 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 Postoperative pain 4. S/P bilateral breast reduction 6 weeks post op and doing well. OK to resume full activities and return to work. May use a regular bra if comfortable. Further follow up only if needed. Electronically Signed by: Jose Antonio Pantoja MD CC: No Physician on file, Catalino Vides, * documented in this encounter Plan of Treatment Not on filedocumented as of this encounter Visit Diagnoses + + | Diagnosis | + + | S/P bilateral breast reduction - Primary Other postprocedural status | + + | Hypertrophy of breast | + + | Back pain, unspecified back location, unspecified back pain laterality, unspecified | | chronicity | + + | Postoperative pain Other acute postoperative pain | + + documented in this encounter"
--- OUTSIDE RECORDS SUMMARY | ~2019-02-12 | XMS | Encounter Summary ---
Demographics + + + | Address | [address] | | | [place] [address] | + + + | Home Phone | | + + + | Preferred Language | Unknown | + + + | Marital Status | | + + + | Mormonism Affiliation | Unknown | + + + | Race | Unknown | + + + | Ethnic Group | Unknown | + + + Author + + + | Author | [facility] | | | and [place] | + + + | Organization | [facility] | | | [...] Team Providers + +------+ + | Care Ultrasonic Welding Machine Operator Name | Role | Phone [...] | | | [address] | [place] [address] | | | | | [place], [place] | [phone] | | | | | [address] | | | | | | [phone] | | | +--------+ + + + [...]
--- OUTSIDE RECORDS SUMMARY | ~2019-02-12 | XMS | Encounter Summary ---
Demographics + + + | Address | [address] | | | [place] [address] | + + + | Home Phone | | + + + | Preferred Language | Unknown | + + + | Marital Status | | + + + | Yazidi Affiliation | Unknown | + + + | Race | Unknown | + + + | Ethnic Group | Unknown | + + + Author + + + | Author | [facility] | | | and [place] | + + + | Organization | [facility] | | | [...] Team Providers + +------+ + | Care Stull Installer Name | Role | Phone | [...] | 01/26/ | Telephone | [facility] | Jose Antonio Pantoja | Other | | 2018 | | SURGERY [address] | [address] | | | | | [place], [place] | [address] | | | | | [address] | [place] [address] | | | | | [phone] | [phone] | | | | | | | [...]
--- OUTSIDE RECORDS SUMMARY | ~2019-02-12 | XMS | Encounter Summary ---
Demographics + + + | Address | [address] | | | [place] [address] | + + + | Home Phone | | + + + | Preferred Language | Unknown | + + + | Marital Status | | + + + | Gnosticist Affiliation | Unknown | + + + | Race | Unknown | + + + | Ethnic Group | Unknown | + + + Author + + + | Author | [facility] | | | and [place] | + + + | Organization | [facility] | | | and [...] Team Providers + +------+ + | Care Quality Checker Name | Role | Phone | + [...] | | | | of breast | GLOVE BOARDER [address] | [place] | | | | | Other | [facility] | [address] | | | | | chronic pain | [place], | [place], | | | | | Dorsalgia, | [address] | [place] [address] | | | | | unspecified | [place], | Phone: | | | | | Procedures | [place] [address] | [phone] | | | | | [place] OFFICE | Phone: | Fax: | | | | | OUTPATIENT | [phone] | [phone] | | | | | NEW 60 | Fax: | | | | | | MINUTES | [phone] | | +--------+--------+ + + + + Encounter Details +--------+---------+ + + + | Date | Type | Department | Care Team | Description | +--------+---------+ + + + | 03/18/ | Office | [facility] | ScarlettJose Antonio | S/P bilateral breast | | 2018 | Visit | SURGERY [address] | [address] | reduction (Primary | | | | St [place], [place] | [address] [place] | Dx); Hypertrophy of | | | | [address] | [place] [address] | breast; Back pain, | | | | [phone] | [phone] | unspecified back | | | | [...] might be differ ent from the original. 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 Postoperative pain 4. S/P bilateral [...]
--- OUTSIDE RECORDS SUMMARY | ~2019-02-12 | XMS | Encounter Summary ---
Demographics + + + | Address | [address] | | | [place] [address] | + + + | Home Phone [...] Author + + + | Author | Replaced By [facility] | + + + | Organization | Replaced By [facility] | + + + | Address | Unknown | + + + | Phone | Unavailable | + + + Support + + +---------+ + | Name | Relationship | Address | Phone | + + +---------+ + | Esau Mayers | ECON | Unknown | | + + +---------+ + Care Team Providers + +------+ + | Care Yacht Builder Name | Role | Phone | [...] Refill Encounters | | 2019 | | [facility] [address] | MD [address] | | | | | [place] Mailcode: CH12A | [address] | | | | | [facility] | [place], [place] | | | | | and [address], | [address] | | | | | Building | [phone] | | | | | Floor [place], [place] | | | | | | [address] | | | | | | [phone] | | | +--------+ + + + [...] 03/07/ | Office | Orthopedics | Jv Thomsa, | | | 2018 | Visit | | MD [address] | | | | | | [address] | | | | | | [place], [place] | | | | | | [address] | | | | | | [phone] | | | | | | | | +--------+---------+ + + + | 08/24/ | Office | Orthopedics | Jv Thomas, | | | 2019 | Visit | | MD [address] | | | | | | [address] | | | | | | [place], [place] | | | | | | [address] | | | | | | [phone] | | | | | | | | +--------+---------+ + + + documented as of this encounter Visit Diagnoses Not on filedocumented in this encounter"
--- OUTSIDE RECORDS SUMMARY | ~2019-02-12 | XMS | Encounter Summary ---
Demographics + + + | Address | [address] | | | [place] [address] | + + + | Home Phone [...] + | Author | [facility] | + + + | Organization | [facility] | + + + | Address | Unknown | + + + | Phone | Unavailable | + + + Support + + +---------+ + | Name | Relationship | Address | Phone | + + +---------+ + | Esau Mayers | ECON | Unknown | | + + +---------+ + Care Team Providers + +------+ + | Care Professor Of Business Administration Name | Role | Phone | + [...] | | 2019 | on | [facility] [address] | [address] | | | | | [address] Mailcode: CH12A | [address] | | | | | [facility] | [place], [place] | | | | | and [place], | [address] | | | | | [facility] | [phone] | | | | | Floor [place], [place] | | | | | | [address] | | | | | | [phone] | | | +--------+ + + + [...] Rd | | | | | | [facility] [place] | | | | | | [address] | | | | | | [phone] | | | | | | | | +--------+---------+ + + + | 08/24/ | Office | Orthopedics | Jv Thomas, | | | 2019 | Visit | | MD [address] | | | | | | [address] | | | | | | [facility] [place] | | | | | | [address] | | | | | | [phone] | | | | | | | | +--------+---------+ + + + documented as of this encounter Visit Diagnoses Not on filedocumented in this encounter"
--- OUTSIDE RECORDS SUMMARY | ~2019-02-12 | XMS | Encounter Summary ---
Demographics + + + | Address | [address] | | | [place] [address] | + + + | Home Phone [...] Team Providers + +------+ + | Care Cd Reactor Operator Name | Role | Phone | [...] | | | | | | | HI REDUCTION | | | | | | | OF LARGE | | | | | | | BREAST HI | | | | | | | [...] | | | | | [address] | [place] | | | | | [place] | [address] | | | | | [address] | | | | | | [phone] | | | +--------+ + + + [...] +----+---+ + + | | 0 | [place] | | | | 8 | 43-degrees [...] +----+---+ + + | | 1 | [place] off | | | | 2 | [...] 02/03/18 0954 by | | eral | veak-lic-psamdf catheter system; | Ranjana Becker RN | [...]
--- OUTSIDE RECORDS SUMMARY | ~2019-02-12 | XMS | Encounter Summary ---
Demographics + + + | Address | [address] | | | [place] [address] | + + + | Home Phone | | + + + | Preferred Language | Unknown | + + + | Marital Status | | + + + | Rastafari Affiliation | Unknown | + + + | Race | Unknown | + + + | Ethnic Group | Unknown | + + + Author + + + | Author | [facility] | | | and [place] | + + + | Organization | [facility] | | [...] Team Providers + +------+ + | Care Architectural Drafter Name | Role | Phone | + [...] + + | 01/18/ | Telephone | [facility] | Jose Antonio Pantoja | Coordination Of Care | | 2018 | | SURGERY [address] | [address] | | | | | [place], [place] | [address] [facility] | | | | | [address] | [place] [address] | | | | | [phone] | [phone] | | | | | | | [...]
--- OUTSIDE RECORDS SUMMARY | ~2019-02-12 | XMS | Encounter Summary ---
Demographics + + + | Address | [address] | | | [place] [address] | + + + | Home Phone [...] Author + + + | Author | [facility] | + + + | Organization | [facility] | + + + | Address | Unknown | + + + | Phone | Unavailable | + + + Support + + +---------+ + | Name | Relationship | Address | Phone | + + +---------+ + | Esau Mayers | ECON | Unknown | | + + +---------+ + Care Team Providers + +------+ + | Care Station Mechanic Apprentice Name | Role | Phone | + +------+ + | Catalino Vides NP | PCP | | + +------+ + Encounter Details +--------+ + + + + | Date | Type | Department | Care Team | Description | +--------+ + + + + | 09/21/ | Telephone | Orthopaedics at | Jv Thomas, | | | 2018 | | [facility] [address] | [address] | | | | | [place] Mailcode: CH12A | [address] | | | | | [place] [facility] | [place], [place] | | | | | and [place], | [address] | | | | | [facility] | [phone] | | | | | Floor [place], [place] | | | | | | [address] | | | | | | [phone] | | | +--------+ + + + [...] Rd | | | | | | [place] | | | | | | [address] | | | | | | [phone] | | | | | | | | +--------+---------+ + + + | 08/24/ | Office | Orthopedics | Jv Thomas, | | | 2019 | Visit | | MD Joey Fortune | | | | | | [address] | | | | | | [place] | | | | | | [address] | | | | | | [phone] | | | | | | | | +--------+---------+ + + + documented as of this encounter Visit Diagnoses Not on filedocumented in this encounter"
--- OUTSIDE RECORDS SUMMARY | ~2019-02-12 | XMS | Encounter Summary ---
Demographics + + + | Address | [address] | | | [place] [address] | + + + | Home Phone [...] + + | Author | [facility] | + + + | Organization | [facility] | + + + | Address | Unknown | + + + | Phone | Unavailable | + + + Support + + +---------+ + | Name | Relationship | Address | Phone | + + +---------+ + | Esau Mayers | ECON | Unknown | | + + +---------+ + Care Team Providers + +------+ + | Care Manager Floral Name | Role | Phone | + +------+ + | Catalino Vides SAND BOBBER | PCP | | + +------+ + [...] | | | | | initial | [facility] | [address] | | | | | encounter | & Fractur | Rd [place], | | | | | ([facility]) | [address] | [place] | | | | | Procedures | [place] | [address] | | | | | REQUEST TO | [place], | Phone: | | | | | SURGERY | [place] [address] | [phone] | | | | | [facility] | Phone: | Fax: | | | | | MS KNEE | [phone] | [phone] | | | | | SCOPE,AID | Fax: | | | | | | ANT CRUCIATE | [phone] | | | | | | REPAIR MS | | | | | | | [...] 2019 | Visit | [facility] [address] | [address] | subsequent encounter | | | | [address] Mailcode: CH12A | [address] | (Primary Dx) | | | | [facility] | [place], [place] | | | | | and [place], | [address] | | | | | [facility] | [phone] | | | | | Floor [place], [place] | | | | | | [address] | | | | | | [phone] | | | +--------+---------+ + + + [...] status post: Date of surgery: 08/27/18 at [facility] Right knee revision ACL reconstruction with allograft and removal of failed hardware She is no longer using the knee brace full weight bearing. Has been working with PT doing a lot of strengthening exercises. Looking for a release form back to work but needs 1 more week off before starting. 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 Gait: normal Incisions: clean and dry with [...] Jv Thomas MD Sports Orthopaedics and Arthroscopy Peoplesoft Analyst Dept. Orthopaedic Surgery and Rehabilitation [facility] documented in this e ncounter Plan of Treatment +--------+---------+ + + + | Date | Type | Specialty | Care Team | Description | +--------+---------+ + + + | 03/07/ | Office | Orthopedics | Jv Thomas, | | | 2018 | Visit | | MD Joey Fortune | | | | | | [address] | | | | | | [place], [place] | | | | | | [address] | | | | | | [phone] | | | | | | | | +--------+---------+ + + + | 08/24/ | Office | Orthopedics | Jv Thomas, | | | 2019 | Visit | | MD Jeoy Fortune | | | | | | [address] | | | | | | [place], [place] | | | | | | [address] | | | | | | [phone] | | | | | | | [...]
--- OUTSIDE RECORDS SUMMARY | ~2019-02-12 | XMS | Encounter Summary ---
Demographics + + + | Address | [address] | | | [place] [address] | + + + | Home Phone | | + + + | Preferred Language | Unknown | + + + | Marital Status | | + + + | Moravian Affiliation | Unknown | + + + | Race | Unknown | + + + | Ethnic Group | Unknown | + + + Author + + + | Author | [facility] | | | and [place] | + + + | Organization | [facility] | | | and [...] Team Providers + +------+ + | Care Tobacco Warehouse Agent Name | Role | Phone | + +------+ + PCP | Unavailable | + +------+ + Reason for Visit +--------+ + | Reason | Comments | +--------+ + | Other | | +--------+ + Encounter Details +--------+ + + + + | Date | Type | Department | Care Team | Description | +--------+ + + + + | 11/05/ | Telephone | [facility] | Jose Antonio Pantoja | Other | | 2018 | | SURGERY [address] | MD [address] | | | | | [place], [place] | [address] [place] | | | | | [address] | [place] [address] | | | | | [phone] | [phone] | | | | | | | [...]
--- OUTSIDE RECORDS SUMMARY | ~2019-02-12 | XMS | Encounter Summary ---
Demographics + + + | Address | [address] | | | [place] [address] | + + + | Home Phone | | + + + | Preferred Language | Unknown | + + + | Marital Status | | + + + | Hoahaoism Affiliation | Unknown | + + + | Race | Black or | + + + | Ethnic Group | Not or | + + + Author + + + | Author | [facility] | + + + | Organization | [facility] | + + + | Address | Unknown | + + + | Phone | Unavailable | + + + Support + + +---------+ + | Name | Relationship | Address | Phone | + + +---------+ + | Esau Mayers | ECON | Unknown | | + + +---------+ + Care Team Providers + +------+ + | Care Screw Machine Tender Name | Role | Phone | [...] | | [facility] [address] | MD [address] | | | | | [place] Mailcode: CH12A | [address] | | | | | [facility] | [place], [place] | | | | | and [place], | [address] | | | | | Building | [phone] | | | | | Floor [place], [place] | | | | | | [address] | | | | | | [phone] | | | +--------+ + + + [...] Rd | | | | | | [place], [place] | | | | | | [address] | | | | | | [phone] | | | | | | | | +--------+---------+ + + + | 08/24/ | Office | Orthopedics | Jv Thomas, | | | 2019 | Visit | | MD Joey Fortune | | | | | | [address] | | | | | | [place], [place] | | | | | | [address] | | | | | | [phone] | | | | | | | | +--------+---------+ + + + documented as of this encounter Visit Diagnoses Not on filedocumented in this encounter"
--- OUTSIDE RECORDS SUMMARY | ~2019-02-12 | XMS | Clinical Summary ---
Demographics + + + | Address | [address] | | | [place] [address] | + + + | Home Phone | | + + + | Preferred Language | Unknown | + + + | Marital Status | | + + + | Restorationist Affiliation | Unknown | + + + | Race | Unknown | + + + | Ethnic Group | Unknown | + + + Author + + + | Author | [facility] | | | and [place] | + + + | Organization | [facility] | | [...] Team Providers + +------+ + | Care Review Engineer Name | Role | Phone | [...] +---------+------+ | [facility] | PHP | [phone] | 10/29/19 | [phone] | | PPO | | PLAN | [...] | 1976 | [phone] | [place] [address] | | | hilary | | | 6 (Home) | | + +--------+ +--------+ + + Advance Directives + + + + + | Type | Date Recorded | Patient | Explanation | | | | Chief Warden | | + + + + + | Power of | | | | | Superintendent Pressure | | | | + + + [...]
--- OUTSIDE RECORDS SUMMARY | ~2019-02-12 | XMS | Encounter Summary ---
Demographics + + + | Address | [address] | | | [place] [address] | + + + | Home Phone | | + + + | Preferred Language | Unknown | + + + | Marital Status | | + + + | Sabianism Affiliation | Unknown | + + + [...] Team Providers + +------+ + | Care Smoking Pipes Cleaner Name | Role | Phone | + [...] | | Surgery | Hypertrophy | Catalino Griedr | Jose Antonio | | | | | of breast | CEMENT PATCHER [address] | MD Malcom | | | | | Other | [facility] | [address] | | | | | chronic pain | [place], | [place], | | | | | Dorsalgia, | [address] | [place] [address] | | | | | unspecified | [place] | Phone: | | | | | Procedures | [place] [address] | [phone] | | | | | [place] OFFICE | Phone: | Fax: | | | | | OUTPATIENT | [phone] | [phone] | | | | | NEW 60 | Fax: | | | | | | MINUTES | [phone] | | +--------+--------+ + + + + Encounter Details +--------+---------+ + + + | Date | Type | Department | Care Team | Description | +--------+---------+ + + + | 10/08/ | Office | [facility] | Jose Antonio Pantoja | Hypertrophy of | | 2018 | Visit | SURGERY [address] | MD [address] | breast (Primary Dx); | | | | [place], [place] | [address] [place] | Back pain, | | | | [address] | [place] [address] | unspecified back | | | | [phone] | [phone] | location, | | | | | [...] might be differ ent from the original. 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 The findings and treatment were discussed. Breast reduction surgery (1 [id number]) would be expected to significantly reduce excess [...] was discussed. An information pamphlet from the [place] [employer] was provided. Electronically [...]
--- OUTSIDE RECORDS SUMMARY | ~2019-02-12 | XMS | Encounter Summary ---
Demographics + + + | Address | [address] | | | [place] [address] | + + + | Home Phone | | + + + | Preferred Language | Unknown | + + + | Marital Status | | + + + | Hinduism Affiliation | Unknown | + + + | Race | Unknown | + + + | Ethnic Group | Unknown | + + + Author + + + | Author | [facility] | | | and [place] | + + + | Organization | [facility] | | [...] Team Providers + +------+ + | Care Inshore Undersea Warfare Officer Name | Role | Phone | + [...] [address] | | | | | [address] | [place] [address] | | | | | [phone] | [phone] | | | | | | | [...]
--- OUTSIDE RECORDS SUMMARY | ~2019-02-12 | XMS | Encounter Summary ---
Demographics + + + | Address | [address] | | | [place] [address] | + + + | Home Phone [...] + + | Author | [facility] | + + + | Organization | [facility] | + + + | Address | Unknown | + + + | Phone | Unavailable | + + + Support + + +---------+ + | Name | Relationship | Address | Phone | + + +---------+ + | Esau Mayers | ECON | Unknown | | + + +---------+ + Care Team Providers + +------+ + | Care Cable Ferryboat Operator Name | Role | Phone | + +------+ + | Catalino Vides GUIDE | PCP | | + +------+ + [...] | | | | | Procedures | [place], [place] | | | | | | PHYSICAL | [address] | | | | | | THERAPY | Phone: | | | | | | REFERRAL | [phone] | | | | | | | Fax: | | | | | | | [phone] | | +--------+--------+ + + + + [...] tear, | | 2019 | Visit | [facility] [address] | [address] | subsequent encounter | | | | Ave Mailcode: CH12A | [address] | (Primary Dx) | | | | [facility] | [place], [place] | | | | | and Healing, | [address] | | | | | [facility] | [phone] | | | | | Floor [place], [place] | | | | | | [address] | | | | | | [phone] | | | +--------+---------+ + + + [...] Rd | | | | | | [place], [place] | | | | | | [address] | | | | | | [phone] | | | | | | | | +--------+---------+ + + + | 08/24/ | Office | Orthopedics | Jv Thomas, | | | 2019 | Visit | | MD Joey Fortune | | | | | | [address] | | | | | | [facility] [place] | | | | | | [address] | | | | | | [phone] | | | | | | | [...]
--- OUTSIDE RECORDS SUMMARY | ~2019-02-12 | XMS | Clinical Summary ---
Demographics + + + | Address | [address] | | | [place] [address] | + + + | Home Phone | | + + + | Preferred Language | Unknown | + + + | Marital Status | | + + + | Anglican Affiliation | Unknown | + + + | Race | Unknown | + + + | Ethnic Group | Unknown | + + + Author + + + | Author | [facility] (Historical as of | | | 11-13-18) | + + + | Organization | [facility] (Historical as of | | | 11-13-18) [...] [place] | | | | | [address] | | + + + + + Care Team Providers + +------+ + | Care Survey Research Center Director Name | Role | Phone | [...] +------+-------+ + | PREMERA | PREMER | [id number] | | | [address] [address] | | | A | 7 | | | [place], [place] | | | DIMENS | | | | [address] | | | IONS | | | | | + +--------+ +------+-------+ + | MEDICAID | EASTER | [id number] | | | [address] | | | N | | | | [place] | | | [place] | | | | [address] | | | LIVESTOCK CARETAKER | | | | | + +--------+ [...] | Self [birth year] Home: | [address] | | | al/Fam | | 1976 | [phone] [address] [place] | | | hilary | | | [phone] | [phone] | + +--------+ +--------+ + +
--- OUTSIDE RECORDS SUMMARY | ~2019-02-12 | XMS | Encounter Summary ---
Demographics + + + | Address | [address] | | | [place] [address] | + + + | Home Phone | | + + + | Preferred Language | Unknown | + + + | Marital Status | | + + + | Religion Affiliation | Unknown | + + + | Race | Unknown | + + + | Ethnic Group | Unknown | + + + Author + + + | Author | [facility] | | | and [place] | + + + | Organization | [facility] | | | [...] Team Providers + +------+ + | Care Executive Associate Name | Role | Phone | + [...] | | | | of breast | CREATIVE ART DIRECTOR [address] | MD Malcom | | | | | Other | [facility] | [address] | | | | | chronic pain | [address], | [place], | | | | | Dorsalgia, | [address] | [place] [address] | | | | | unspecified | [place], | Phone: | | | | | Procedures | [place] [address] | [phone] | | | | | [place] OFFICE | Phone: | Fax: | | | | | OUTPATIENT | [phone] | [phone] | | | | | NEW 60 | Fax: | | | | | | MINUTES | [phone] | | +--------+--------+ + + + + Encounter Details +--------+---------+ + + + | Date | Type | Department | Care Team | Description | +--------+---------+ + + + | 02/08/ | Office | [facility] | Jose Antonio Pantoja | Hypertrophy of | | 2018 | Visit | SURGERY [address] | [address] | breast (Primary Dx); | | | | [place], [place] | [address] [place] | Back pain, | | | | [address] | [place] [address] | unspecified back | | | | [phone] | [phone] | location, | | | | | [...] might be differ ent from the original. 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 Hypertension, unspecified type 6 days [...]
--- OUTSIDE RECORDS SUMMARY | ~2019-02-12 | XMS | Encounter Summary ---
Demographics + + + | Address | [address] | | | [place] [address] | + + + | Home Phone | | + + + | Preferred Language | Unknown | + + + | Marital Status | | + + + | Jew Affiliation | Unknown | + + + [...] Phone | + + +---------+ + | Tfif Zamudio | ECON | Unknown | | + + +---------+ + | Esau Mayers | ECON | Unknown | | + + +---------+ + Care Team Providers + +------+ + | Care Disability Advocate Name | Role | Phone | + [...] [address] | | | | | [place], [place] | [address] [place] | | | | | [address] | [facility] [place] [address] | | | | | [phone] | [phone] | | | | | | | [...]
--- OUTSIDE RECORDS SUMMARY | ~2019-02-12 | XMS | Encounter Summary ---
Demographics + + + | Address | [address] | | | [place] [address] | + + + | Home Phone | | + + + | Preferred Language | Unknown | + + + | Marital Status | | + + + | Jewish Affiliation | Unknown | + + + | Race | Unknown | + + + | Ethnic Group | Unknown | + + + Author + + + | Author | [facility] | | | and [place] | + + + | Organization | [facility] | | [...] Team Providers + +------+ + | Care Flight Agent Name | Role | Phone | [...] | | | | of breast | BULLET CASTING OPERATOR [address] | MD [address]com | | | | | Other | [facility] | [address] | | | | | chronic pain | [place]AS, | [place], | | | | | Dorsalgia, | [address] | [place] [address] | | | | | unspecified | [place], | Phone: | | | | | Procedures | [place] [address] | [phone] | | | | | [place] OFFICE | Phone: | Fax: | | | | | OUTPATIENT | [phone] | [phone] | | | | | NEW 60 | Fax: | | | | | | MINUTES | [phone] | | +--------+--------+ + + + + [...] (Primary Dx); | | | | [place], [place] | [address] [place] | Back pain, | | | | [address] | [place] [address] | unspecified back | | | | [phone] | [phone] | location, | | | | | [...] Same Day Surgery (corner of [address]) at 9:45a. for your pre-a nesthesia work up. On 02/02/18 check in at Same Day Surgery (corner of [address]) at 6:00am. Your surgery is called Bilateral [...] successful and comfortable surgery. Sign up for Nulu if you want easy access to your medical information online. You can: Review your medications, immunizations, allergies and medical history. View details of your past and upcoming appointments. Sign up for Nulu if you want easy access to your medical information online. Only you, your doctor and your health care team are permitted to view the information sent through [employer]. Through Nulu you can: ? Review your medications, immunizations, [...] different ways you can sign up for Nulu: ? The first way is to get online at: [email or web address] and sign up directly throug h the website prior to your appointment with us. You can call [phone] ([phone]) if you have any questions or need assistance. ? The second way is through the Nulu terry which can be accessed with any smart phone. Ju st go to your terry store and look up [employer]. ? The third way is to do [...] might be differ ent from the original. [facility] PROGRESS NOTE Primary Care Physician: No primary [...] chiropractic or massage therapy. 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 Breast reduction surgery ([id number]) is scheduled for 02/02/18 at [facility]. It is estimated that over 1000 [...] 0.003-0.091 K/uL 0.0-0.9% 2nd 0.007-0.247 K/uL | [facility] | | 0.1-2.0% 3rd 0.018-0.456 K/uL 0.1-2.0% | - LABORATORY | + + + + + + + + | Performing | Address | City/State/Zipcode | Phone Number | | Organization | | | | + + + + + | [facility] | [address] | [place] | [phone] | | [facility] | | [address] | | | - LABORATORY | | [...] | mL/min/1.73m2 | TIFF | | | BENINESE | RATE,ESTIMATED | | MEDICAL | | | | mL/min/1.71t5Qtgz than | | CENTER - | | [...] [address] | [place] | [phone] | | [facility] | | [address] | | | - LABORATORY | | [...] | | | | BRUNO WEST MD ([id number]) | | | | | | on [...]
--- OUTSIDE RECORDS SUMMARY | ~2019-02-12 | XMS | Encounter Summary ---
Demographics + + + | Address | [address] | | | [place] [address] | + + + | Home Phone | | + + + | Preferred Language | Unknown | + + + | Marital Status | | + + + | Evangelical Affiliation | Unknown | + + + | Race | Unknown | + + + | Ethnic Group | Unknown | + + + Author + + + | Author | [facility] | | | and [place] | + + + | Organization | [facility] | | | [...] Team Providers + +------+ + | Care Master At Arms Name | Role | Phone | + [...] | hypertension; | | | | [place], [place] | [address] | Palpitations | | | | [address] | [place] [address] | | | | | [phone] | [phone] | | | | | | | [...]
--- OUTSIDE RECORDS SUMMARY | ~2019-02-12 | XMS | Encounter Summary ---
Demographics + + + | Address | [address] | | | [place] [address] | + + + | Home Phone [...] Author | [facility] | + + + | Organization | [facility] | + + + | Address | Unknown | + + + | Phone | Unavailable | + + + Support + + +---------+ + | Name | Relationship | Address | Phone | + + +---------+ + | Esau Mayers | ECON | Unknown | | + + +---------+ + Care Team Providers + +------+ + | Care Nut And Bolt Assembler Name | Role | Phone | + [...] (Right knee | | 2018 | | [facility] [address] | Clinic | ) | | | | Maria Teresa Mailcode: CH12A | | | | | | [facility] | | | | | | and [place], | | | | | | [facility] | | | | | | [place], [place] | | | | | | [address] | | | | | | [phone] | | | +--------+ + + + [...] Yes, when: 2018; where: Dr. Prieto at [facility]. Uploaded in Abstract. Do you have a referring provider? yes who: Christo Prieto MD X-Ray Yes, when: 05/25/18; where: [facility] [place] Requested via FedEx, MRI Yes, when: 06/01/18; where: [facility] Requested via N fax, Other Imaging (CT, Ultrasound, etc.) No Is this a W/C injury? No. If YES, create referral and complete: .ORTWCNEWPATIENT inside referral Note: We do not accept WC under [place] L&[place] as they do not pay at [place] rates. Other out of state claims will only be accepted if they agree to pay at [place] rates docume nted in writing from adjustor. Can you confirm the insurance we will be billing for this visit? [place] Open Option Note: If OHP, please note which type. E.g. [place], [employer], [employer], etc.) Reminder: Please create referrals for pts with: HMO, OHP, [place], Self-Pay, W/C, TPL an d ED Post- [...] they d like to sign up for [employer] Holdingshart ? Don t forget to pull in [...] Rd | | | | | | [facility] [place] | | | | | | [address] | | | | | | [phone] | | | | | | | | +--------+---------+ + + + | 08/24/ | Office | Orthopedics | Jv Thomas, | | | 2019 | Visit | | MD Joey Fortune | | | | | | [address] | | | | | | [facility] [place] | | | | | | [address] | | | | | | [phone] | | | | | | | | +--------+---------+ + + + documented as of this encounter Visit Diagnoses Not on filedocumented in this encounter"
--- OUTSIDE RECORDS SUMMARY | ~2019-02-12 | XMS | Encounter Summary ---
Demographics + + + | Address | [address] | | | [place] [address] | + + + | Home Phone [...] | [facility] | + + + | Organization | [facility] | + + + | Address | Unknown | + + + | Phone | Unavailable | + + + Support + + +---------+ + | Name | Relationship | Address | Phone | + + +---------+ + | Esau Mayers | ECON | Unknown | | + + +---------+ + Care Team Providers + +------+ + | Care Car Record Clerk Name | Role | Phone | [...] (Right knee | | 2018 | | [facility] [address] | Clinic | ) | | | | [address] Mailcode: CH12A | | | | | | [facility] | | | | | | and [place], | | | | | | [facility] | | | | | | [place], [place] | | | | | | [address] | | | | | | [phone] | | | +--------+ + + + [...] 3:47 PM P DTUploading imaging reports from [facility]. Imaging is now in IMPAX. Corinna Gil [...] Yes, when: 2018; where: Dr. Prieto at [facility]. Uploaded in Abstract. Do you have a referring provider? yes who: Christo Prieto MD X-Ray Yes, when: 05/25/18; where: [facility] [place] Requested via FedEx, MRI Yes, when: 06/01/18; where: [facility] Requested via N fax, Other Imaging (CT, Ultrasound, etc.) No Is this a W/C injury? No. If YES, create referral and complete: .ORTWCNEWPATIENT inside referral Note: We do not accept WC under [place] as they do not pay at [place] rates. Other out of state claims will only be accepted if they agree to pay at [place] rates docume nted in writing from adjustor. Can you confirm the insurance we will be billing for this visit? [place] Open Option Note: If OHP, please note which type. E.g. [place], [place], [employer], etc.) Reminder: Please create referrals for pts with: HMO, OHP, [place], Self-Pay, W/C, TPL an d ED Post- [...] they d like to sign up for [employer] ? Don t forget to pull in [...] [place] | | | | | | [address] | | | | | | [phone] | | | | | | | | +--------+---------+ + + + | 08/24/ | Office | Orthopedics | Jv Thomas, | | | 2019 | Visit | | MD Joey Fortune | | | | | | [address] | | | | | | [facility] [place] | | | | | | [address] | | | | | | [phone] | | | | | | | | +--------+---------+ + + + documented as of this encounter Visit Diagnoses Not on filedocumented in this encounter"
--- OUTSIDE RECORDS SUMMARY | ~2019-02-12 | XMS | Encounter Summary ---
Demographics + + + | Address | [address] | | | [place] [address] | + + + | Home Phone [...] + | Author | [facility] | + + + | Organization | [facility] | + + + | Address | Unknown | + + + | Phone | Unavailable | + + + Support + + +---------+ + | Name | Relationship | Address | Phone | + + +---------+ + | Esau Mayers | ECON | Unknown | | + + +---------+ + Care Team Providers + +------+ + | Care Stage Rigger Name | Role | Phone | + [...] | | tear, | MD Diaz | [address] [facility] | | | | | initial | [facility] | [address] | | | | | encounter | & [place] | [place], | | | | | ([facility]) | [address] | [place] | | | | | Procedures | [place] | [address] | | | | | REQUEST TO | [place], | Phone: | | | | | SURGERY | [place] [address] | [phone] | | | | | SUPERVISORY TRAINING SPECIALIST | Phone: | Fax: | | | | | [place] | [phone] | [phone] | | | | | SCOPE,AID | Fax: | | | | | | ANT CRUCIATE | [phone] | | | | | | REPAIR [place] | | | | | | | [...] | | | | | meniscus, | [facility] | [address] | | | | | current | & Fractur | [address] [place], | | | | | injury, | [address] | [place] | | | | | right knee, | [address] | [address] | | | | | initial | [place], | Phone: | | | | | encounter | [place] [address] | [phone] | | | | | Encounter | Phone: | Fax: | | | | | for other | [phone] | [phone] | | | | | orthopedic | Fax: | | | | | | aftercare | [phone] | | + +--------+ + + + + Encounter Details +--------+---------+ + + + | Date | Type | Department | Care Team | Description | +--------+---------+ + + + | 07/29/ | Office | Orthopaedics at | Jv Thomas, | ACL graft tear, | | 2019 | Visit | [facility] [address] | MD [address] | initial encounter | | | | Ave Mailcode: CH12A | [address] | ([facility]) (Primary Dx) | | | | [facility] | [place], [place] | | | | | and Healing, | [address] | | | | | Building | [phone] | | | | | Floor [place], [place] | | | | | | [address] | | | | | | [phone] | | | +--------+---------+ + + + [...] be different fr om the original. CLINIC: [facility] Sports Medicine - Orthopedic Surgery PATIENT: Song Mayers [facility] MR#: [id number] : 1975 REQUESTING PROVIDER: Christo Prieto MD [facility] [address] [place] [address] PRIMARY CARE PROVIDER: Catalino Vides NP Primary reason for consult: right knee pain and instability Snog Mayers is a 42 y.o. female who [...] Jv Thomas MD Sports Orthopaedics and Arthroscopy [employer] Dept. Orthopaedic Surgery and Rehabilitation [facility] documented in this e ncounter [...] | | | | | | [facility] [place] | | | | | | [address] | | | | | | [phone] | | | | | | | | +--------+---------+ + + + | 08/24/ | Office | Orthopedics | Jv Thomas, | | | 2019 | Visit | | MD Joey Fortune | | | | | | [address] | | | | | | [facility] [place] | | | | | | [address] | | | | | | [phone] | | | | | | | | +--------+---------+ + + + documented as of this encounter Visit Diagnoses + + | Diagnosis | + + | ACL graft tear, initial encounter (HCC) - Primary | + + documented in this encounter
--- OUTSIDE RECORDS SUMMARY | ~2019-02-12 | XMS | Encounter Summary ---
Demographics + + + | Address | [address] | | | [place] [address] | + + + | Home Phone [...] + + | Author | [facility] | + + + | Organization | [facility] | + + + | Address | Unknown | + + + | Phone | Unavailable | + + + Support + + +---------+ + | Name | Relationship | Address | Phone | + + +---------+ + | Esau Mayers | ECON | Unknown | | + + +---------+ + Care Team Providers + +------+ + | Care Design Chief Name | Role | Phone | [...] | | 2019 | | [facility] [address] | MD [address] | | | | | [place] Mailcode: CH12A | [address] | | | | | [facility] | [place], [place] | | | | | and [place], | [address] | | | | | Building | [phone] | | | | | Floor [place], [place] | | | | | | [address] | | | | | | [phone] | | | +--------+ + + + [...] Rd | | | | | | [place], [place] | | | | | | [address] | | | | | | [phone] | | | | | | | | +--------+---------+ + + + | 08/24/ | Office | Orthopedics | Jv hTomas, | | | 2019 | Visit | | MD Joey Fortune | | | | | | [address] | | | | | | [place], [place] | | | | | | [address] | | | | | | [phone] | | | | | | | | +--------+---------+ + + + documented as of this encounter Visit Diagnoses Not on filedocumented in this encounter"
--- OUTSIDE RECORDS SUMMARY | ~2019-02-12 | XMS | Encounter Summary ---
Demographics + + + | Address | [address] | | | [place] [address] | + + + | Home Phone | | + + + | Preferred Language | Unknown | + + + | Marital Status | | + + + | Yarsanism Affiliation | Unknown | + + + [...] Team Providers + +------+ + | Care Barber Shop Manager Name | Role | Phone | [...] Rd | | | | | | [place], [place] | | | | | | [address] | | | | | | [phone] | | | | | | | | +--------+---------+ + + + | 08/24/ | Office | Orthopedics | Jv Thomas, | | | 2019 | Visit | | [address] | | | | | | [address] | | | | | | [place] | | | | | | [address] | | | | | | [phone] | | | | | | | | +--------+---------+ + + + documented as of this encounter Visit Diagnoses Not on filedocumented in this encounter"
--- OUTSIDE RECORDS SUMMARY | ~2019-02-12 | XMS | Encounter Summary ---
Demographics + + + | Address | [address] | | | [place] [address] | + + + | Home Phone [...] Author + + + | Author | [facility] | + + + | Organization | [facility] | + + + | Address | Unknown | + + + | Phone | Unavailable | + + + Support + + +---------+ + | Name | Relationship | Address | Phone | + + +---------+ + | Esau Mayers | ECON | Unknown | | + + +---------+ + Care Team Providers + +------+ + | Care Metal Cut Off Saw Operator Name | Role | Phone | [...] | | [facility] [address] | MD [address] | | | | | [place] Mailcode: CH12A | [address] | | | | | [facility] | [place], [place] | | | | | and [place], | [address] | | | | | Building | [phone] | | | | | Floor [place], [place] | | | | | | [address] | | | | | | [phone] | | | +--------+ + + + [...] Rd | | | | | | [place], [place] | | | | | | [address] | | | | | | [phone] | | | | | | | | +--------+---------+ + + + | 08/24/ | Office | Orthopedics | Jv Thomas, | | | 2019 | Visit | | MD Joey Fortune | | | | | | [address] | | | | | | [place], [place] | | | | | | [address] | | | | | | [phone] | | | | | | | | +--------+---------+ + + + documented as of this encounter Visit Diagnoses Not on filedocumented in this encounter"
--- OUTSIDE RECORDS SUMMARY | ~2019-02-12 | XMS | Clinical Summary ---
Demographics + + + | Address | [address] | | | [place] [address] | + + + | Home Phone [...] Team Providers + +------+ + | Care Oracle Hrms Developer Name | Role | Phone | + +------+ + | Catalino Vides NP | PCP | | + +------+ + Source Comments CATHERINE is fully live on both [facility] Ambulatory and [facility] InPatient.[facility] Allergies No Known Allergies Medications + [...] Rd | | | | | | [place], [place] | | | | | | [address] | | | | | | [phone] | | | | | | | | +--------+---------+ + + + | 08/24/ | Office | Orthopedics | Jv Thomas, | | | 2019 | Visit | | MD [address] | | | | | | [address] | | | | | | [place], [place] | | | | | | [address] | | | | | | [phone] | | | | | | | [...] | + +--------+ +--------+ + +------+ | [facility] | PROVID | [id number] | 10/29/19 | [phone] | [address] | PPO | | | ENCE | | 18-Pre | 0 | [address] | | | | HEALTH | | sent | | [place], | | | | | | | | [place] [address] | | + +--------+ +--------+ + +------+ [...] | 1976 | [phone] | [place] [address] | | | hilary | | | 6 (Home) | | + +--------+ +--------+ + +
--- OUTSIDE RECORDS SUMMARY | ~2019-02-12 | XMS | Encounter Summary ---
Demographics + + + | Address | [address] | | | [place] [address] | + + + | Home Phone [...] Organization | [facility] [...] Team Providers + +------+ + | Care Analytics Director Name | Role | Phone | + +------+ + PCP | Unavailable | + +------+ + Reason for Visit +--------+ + | Reason | Comments | +--------+ + | Other | Insurance Approval | +--------+ + Encounter Details +--------+ + + + + | Date | Type | Department | Care Team | Description | +--------+ + + + + | 11/24/ | Telephone | [facility] | ScarlettJose Antonio | Other (Insurance | | 2018 | | SURGERY [address] | [address] | Approval) | | | | [address] [place], [place] | [address] [facility] | | | | | [address] | [place] [address] | | | | | [phone] | [phone] | | | | | | | [...]
--- OUTSIDE RECORDS SUMMARY | ~2019-02-12 | XMS | Encounter Summary ---
Demographics + + + | Address | [address] | | | [place] [address] | + + + | Home Phone | | + + + | Preferred Language | Unknown | + + + | Marital Status | | + + + | Anabaptism Affiliation | Unknown | + + + | Race | Black or | + + + | Ethnic Group | Not or | + + + Author + + + | Author | [facility] | + + + | Organization | [facility] | + + + | Address | Unknown | + + + | Phone | Unavailable | + + + Support + + +---------+ + | Name | Relationship | Address | Phone | + + +---------+ + | Esau Mayers | ECON | Unknown | | + + +---------+ + Care Team Providers + +------+ + | Care Nutrition Services Worker Name | Role | Phone | [...] Refill Encounters | | 2019 | | [facility] [address] | MD [address] | | | | | [place] Mailcode: CH12A | [address] | | | | | [facility] | [place], [place] | | | | | and [place], | [address] | | | | | Building | [phone] | | | | | Floor [place], [place] | | | | | | [address] | | | | | | [phone] | | | +--------+ + + + [...] Rd | | | | | | [place], [place] | | | | | | [address] | | | | | | [phone] | | | | | | | | +--------+---------+ + + + | 08/24/ | Office | Orthopedics | Jv Thomas, | | | 2019 | Visit | | MD Joey Fortune | | | | | | [address] | | | | | | [place], [place] | | | | | | [address] | | | | | | [phone] | | | | | | | | +--------+---------+ + + + documented as of this encounter Visit Diagnoses Not on filedocumented in this encounter"
--- OUTSIDE RECORDS SUMMARY | ~2019-02-12 | XMS | Encounter Summary ---
Demographics + + + | Address | [address] | | | [place] [address] | + + + | Home Phone [...] + | Author | [facility] | | | and [place] | + + + | Organization | [facility] | | | and [...] Team Providers + +------+ + | Care Twister In Name | Role | Phone | + [...] + + | 11/24/ | Telephone | [facility] | ScarlettJose Antonio | Other (Insurance | | 2018 | | SURGERY [address] | [address] | Approval) | | | | [place], [place] | [address] [facility] | | | | | [address] | [place] [address] | | | | | [phone] | [phone] | | | | | | | [...]
--- OUTSIDE RECORDS SUMMARY | ~2019-02-12 | XMS | Encounter Summary ---
Demographics + + + | Address | [address] | | | [place] [address] | + + + | Home Phone [...] Team Providers + +------+ + | Care District Court Justice Name | Role | Phone | + [...] Rd | | | | | | [place], [place] | | | | | | [address] | | | | | | [phone] | | | | | | | | +--------+---------+ + + + | 08/24/ | Office | Orthopedics | Jv Thomas, | | | 2019 | Visit | | [address] | | | | | | [address] | | | | | | [place] | | | | | | [address] | | | | | | [phone] | | | | | | | | +--------+---------+ + + + documented as of this encounter Visit Diagnoses Not on filedocumented in this encounter"
--- OUTSIDE RECORDS SUMMARY | ~2019-02-12 | XMS | Encounter Summary ---
Demographics + + + | Address | [address] | | | [place] [address] | + + + | Home Phone [...] + + + | Author | [facility] | + + + | Organization | [facility] | + + + | Address | Unknown | + + + | Phone | Unavailable | + + + Support + + +---------+ + | Name | Relationship | Address | Phone | + + +---------+ + | Esau Mayers | ECON | Unknown | | + + +---------+ + Care Team Providers + +------+ + | Care Route Delivery Supervisor Name | Role | Phone | + +------+ + | Catalino Vides PHYSICAL EDUCATION TEACHER | PCP | | + +------+ [...] | | | | | initial | [facility] | [address] | | | | | encounter | & Fractur | Rd [place], | | | | | ([facility]) | [address] | [place] | | | | | Procedures | [address] | [address] | | | | | REQUEST TO | [place], | Phone: | | | | | SURGERY | [place] [address] | [phone] | | | | | MACHINING MANAGER | Phone: | Fax: | | | | | [place] KNEE | [phone] | [phone] | | | | | SCOPE,AID | Fax: | | | | | | ANT CRUCIATE | [phone] | | | | | | REPAIR MD | | | | | | | [...] | | 2019 | Visit | [facility] [address] | [address] | subsequent encounter | | | | Ave Mailcode: CH12A | [address] | (Primary Dx) | | | | [facility] | [place], [place] | | | | | and [place], | [address] | | | | | [facility] | [phone] | | | | | Floor [place], [place] | | | | | | [address] | | | | | | [phone] | | | +--------+---------+ + + + [...] status post: Date of surgery: 08/27/18 at [facility] Right knee revision ACL reconstruction with allograft and removal of failed hardware She states that she is progressing well. She has been compliant with 75% weightbearing [facility] with brace. She has not yet unlocked the brace during ambulation. She has attended 2 sessions of PT at [facility]. She continues to have moderate/severe pain [...] Rd | | | | | | [place], [place] | | | | | | [address] | | | | | | [phone] | | | | | | | | +--------+---------+ + + + | 08/24/ | Office | Orthopedics | Jv Thomas, | | | 2019 | Visit | | MD Joey Fortune | | | | | | [address] | | | | | | [place], [place] | | | | | | [address] | | | | | | [phone] | | | | | | | | +--------+---------+ + + + documented as of this encounter Visit Diagnoses + + | Diagnosis | + + | ACL graft tear, subsequent encounter - Primary | + + documented in this encounter"
--- OUTSIDE RECORDS SUMMARY | 2019-02-12 07:20 | XMS ---
PreManage Notification: NOHEMY LUGO Security Clinical Data Management Director Events No recent Security Events currently on file CRITERIA MET - [facility] - Has Care Guidelines - PDMP - [facility] - 2 Visits in 30 Days CARE PROVIDERS CAMI BUSTOS Nurse Practitioner: Family 10/07/2018-Current PHONE: Unknown Christo Prieto Treatment Current PHONE: Unknown Sonny has no Care Guidelines for this patient. Care History Medical/Surgical 10/07/2018 [facility] - Patient is currently established with [facility]. If patient is seen in the ED during business hours. Please contact [facility] at [facility]. Care Recommendation: This patient has had 5 [...] providing care. E.D. VISIT COUNT (12 MO.) [address] [facility] TOTAL 7 NOTE: Visits indicate total known visits. ED/UCC VISIT TRACKING (12 MO.) 02/12/2019 07:17 [facility] [place] TYPE: Emergency COMPLAINT: - COUGH 01/24/2019 18:13 [facility] [place] TYPE: Emergency COMPLAINT: - LEFT WITHOUT BEING SEEN DIAGNOSES: - Headache 01/24/2019 17:40 [facility] [place] TYPE: Emergency COMPLAINT: - LEFT WITHOUT BEING SEEN DIAGNOSES: - Headache 10/06/2018 16:22 [facility] [place] TYPE: Emergency COMPLAINT: - SINUS CONGESTION DIAGNOSES: - Essential (primary) hypertension - Cough - Gastro-esophageal reflux disease without esophagitis - [facility] [place] [facility] drug therapy - Chronic sinusitis, unspecified 06/06/2018 07:31 [facility] [place] TYPE: Emergency COMPLAINT: - CONGESTION DIAGNOSES: - Nasal congestion - Acquired absence of both cervix and uterus - Other [place] [facility] (current[facility] drug therapy - Essential (primary) hypertension [...] unspecified - Essential (primary) hypertension - 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
== END 2019-02-12 07:54 | disposition home or self-care (01) ==
LOC: ED 07:17
DX: J00 Acute nasopharyngitis [common cold] (principal); I10 Essential (primary) hypertension; K21.9 Gastro-esophageal reflux disease without esophagitis; F17.200 Nicotine dependence, unspecified, uncomplicated; Z79.899 Other long term (current) drug therapy
CPT/HCPCS: 99283

== ENCOUNTER 2023-12-04 05:35 | Day surgery (SDC) | payer OTHER ==
[~2023-12-04] VITALS: Ht 165.1 cm; Wt 74.5 kg
[~2023-12-04 05:35] MED LIST changes: -CARVEDILOL12.5 MG PO; +CELEBREX200 MG PO; +COREG6.25 MG PO; +CYCLOBENZAPRINE10 MG PO; +DICLOFENAC SODI75 MG PO; +INDAPAMIDE1.25 MG PO; +LACTATED RINGER'S 1,000 ML IV SCH; +PRILOSEC OTC20 MG PO
[2023-12-04 06:01] VITALS: BP 127/88
[2023-12-04] MEDS ORDERED: IBUPROFEN200 MG PO (06:05)
[2023-12-04] MEDS ORDERED: KETOROLAC TROMETHAMINE 30 MG/ML VIAL ONE ×2 (06:27→06:47)
[2023-12-04] MEDS ORDERED: DEXAMETHASONE SOD PHOS 4 MG/ML VIAL ONE (06:47)
[2023-12-04] MEDS ORDERED: propofoL 200 MG/20 ML VIAL ONE (06:47)
[2023-12-04] MEDS ORDERED: LIDOCAINE HCL 2% 5 ML SDV ONE (06:47)
[2023-12-04] MEDS ORDERED: MIDAZOLAM HCL 2 MG/2 ML VIAL ONE (06:47)
[2023-12-04] MEDS ORDERED: ondansetron HCL 4 MG/2 ML VIAL ONE (06:47)
[2023-12-04] MEDS ORDERED: fentaNYL citrate 100 MCG/2 ML VIAL ONE (06:55)
[2023-12-04] MEDS ORDERED: IBLOOD GLUCOSE TEST STRIP 1 EA TEST VI PRN ×2 (07:00→09:30)
[2023-12-04] MEDS ORDERED: CEFAZOLIN SODIUM 2 GM/20 ML SYR IV SCH (07:00)
[2023-12-04] MEDS ORDERED: LIDOCAINE HCL 1% 5 ML SDV INJ ONE (07:00)
[2023-12-04] MEDS ORDERED: TRANEXAMIC ACID 2,000 MG in SODIUM CHLORIDE 0.9% 100 ML IV SCH (07:00)
[2023-12-04] MEDS ORDERED: KETOROLAC TROMETHAMINE 15 MG/ML VIAL IV PRN (07:30)
[2023-12-04] MEDS ORDERED: HYDROCODONE/ACETA 5/325 TAB PO PRN (07:30)
[2023-12-04] MEDS ORDERED: HYDROCODON-ACE1 EA10 PO (07:35)
[2023-12-04] MEDS ORDERED: fentaNYL citrate 50 MCG/ML SDV ONE (08:06)
[2023-12-04 08:29] VITALS: BP 116/75
[2023-12-04] MEDS ORDERED: DICLOFENAC SOD 75 MG TABEC PO SCH (09:00)
[2023-12-04 09:17] VITALS: BP 120/76
--- NOTE | 2023-12-04 09:20 | [place] ---
[facility] [address], [place] [address] Signed DATE OF OPERATION: 12/04/2023 SURGEON: Hoa Prieto MD PREOPERATIVE DIAGNOSIS: Medial meniscus tear, left knee. POSTOPERATIVE DIAGNOSIS: Medial meniscus tear, left knee. PROCEDURE PERFORMED: Left knee arthroscopy with partial medial meniscectomy. PARA MACHINE OPERATOR: None. ANESTHESIA: General. BLOOD LOSS: Minimal. BRIEF HISTORY: Song is a 47-year-old female with pain and locking in her knee. MRI was consistent with a small Juarez cyst and medial meniscus tear. Risks and benefits of operative treatment were discussed with her and she elected to proceed. Once consent was obtained, she was taken to the operating room. After adequate anesthesia, she was placed on the operating room table. The right leg was flexed, abducted and externally rotated on a well-padded leg santillan. The left was placed in well-padded leg santillan and prepped and draped in a standard sterile fashion. The portal sites were injected using 0.25% Marcaine with epinephrine. Standard inferolateral and superolateral portals were made. The scope was introduced in the knee. ARTHROSCOPIC FINDINGS: Significant synovitis was noted throughout the knee. Medial and lateral gutters were clear, although osteophytes were seen off the femur. The ACL and PCL were intact. 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 The lateral compartment was intact with only minor fraying of the leading edge of the meniscus. There was grade grade 2 chondromalacia. The medial compartment showed grade 2 to grade 3 chondromalacia particularly on the femoral side. Electronically Signed By: HOA PRIETO MD 12/04/23 0920 PATIENT NAME: SONG LUGO OPERATIVE REPORT DATE OF : 79 REPORT #: [id number] PHYSICIAN: HOA PRIETO MD PCP: AIRAM LOPEZ NP REPORT IS CONFIDENTIAL AND NOT TO BE RELEASED WITHOUT AUTHORIZATION [facility] [address], [place] [address] Signed There was a complex posteromedial meniscus tear. DESCRIPTION OF OPERATION: Standard inferomedial portal was established after localization using a needle. The straight and curved biters were used to trim the meniscus tear back to a stable rim. This was then smoothed and feathered into a nice transition. All the debris was evacuated using the shaver. Once this was accomplished, the scope was withdrawn. Portals were closed with 3-0 nylon and the knee was injected with 60 mg Toradol. The knee was dressed with Adaptic, ABD, and Doug wrap. She tolerated the procedure well. All sponge, needle, and instrument counts correct. Hoa Prieto MD BA/FRANL /[id number] Copies: ~ Electronically Signed By: HOA PRIETO MD 12/04/23 0920 PATIENT NAME: SONG LUGO OPERATIVE REPORT DATE OF : 79 REPORT #: [id number] PHYSICIAN: HOA PRIETO MD PCP: AIRAM LOPEZ NP REPORT IS CONFIDENTIAL AND NOT TO BE RELEASED WITHOUT AUTHORIZATION
[2023-12-04] MEDS ORDERED: fentaNYL citrate 50 MCG/ML SDV IV PRN (09:30)
[2023-12-04] MEDS ORDERED: NALOXONE HCL 0.4 MG SYR IV PRN (09:30)
[2023-12-04] MEDS ORDERED: ondansetron HCL 4 MG/2 ML VIAL IV PRN (09:30)
[2023-12-05] MEDS ORDERED: DICLOFENAC SOD 75 MG TABEC PO SCH (09:00)
== END 2023-12-04 09:53 | disposition home or self-care (01) ==
LOC: DS 05:35
PROVIDERS: ATTEND Specialist
PROC: 0SBD4ZZ Excision of Left Knee Joint, Percutaneous Endoscopic Approach (ICD-10-PCS; principal; 2023-12-04 07:00)
DX: S83.242A Other tear of medial meniscus, current injury, left knee, initial encounter (principal); X58.XXXA Exposure to other specified factors, initial encounter; I10 Essential (primary) hypertension; K21.9 Gastro-esophageal reflux disease without esophagitis; F41.9 Anxiety disorder, unspecified; F32.A Depression, unspecified; F17.200 Nicotine dependence, unspecified, uncomplicated; Z88.8 Allergy status to other drugs, medicaments and biological substances
CPT/HCPCS: 01400; J0690; J1100; J1885; J2001; J2250; J2405; J2704; J3010; J7121